=== PATIENT | female | born 1970 | race Caucasian/White ===

== ENCOUNTER 2024-12-13 19:19 | Emergency (ER) | payer MEDICARE, MEDICAID, SELFPAY ==
--- OUTSIDE RECORDS SUMMARY | 2024-10-15 14:50 | XMS_ITS | Encounter Summary ---
Author Organization [facility] Address [address] [place] [address] Care Team Providers Care Courtesy Bus Driver Name Role Phone Yamile Coffey MD Primary Care Provider [phone] Reason for Visit * Reason Comments Consult Evaluation for gastr ic stimulator battery change * Consultation (Routine) - Closed Specialty Diagnoses / Procedures Referred By Carolina seo Referred To Contact General Surgery Diagnoses Gastroparesis Michelle Spence NP [address] [place] [address] Phone: tel: [place]: [place] [address] [place] [address] [address] [place] [address] Phone: tel: fax: Referral ID Status Reason Start Date Expiration Date V isits Requested Visits Authorized [id number] Closed Specialty Services Required 07/31/2024 08/30/2025 1 1 Encounter Details Date Type Department Care Team ([facility] st Contact Info) Description 10/15/2024 2:50 PM EDT Telemedicine [facility] - [facility] [address] [place] [address] [address] [place] [id number] Vaibhav Godoy MD [facility] [address] [place] [id number] Idiopathic gastroparesis (Primary Dx) Social History Tobacco Use Types Packs/Day Years Used Date Smoking Tobacco: Former Passive Smoke Exposure: Past Smokeless Tobacco: Never Alcohol Use Standard Drinks/Week Comments Never 0 (1 standard drink = 0.6 oz pur e alcohol) AUDIT-C Answer Date Recorded Q1: How often do you have a drink containing alc ohol? Never 04/05/2021 Q2: How many drinks containi ng alcohol do you have on a typical day when you are drinking? Not asked 04/05/2021 Q3: How often do you have six or more drinks on one occasion? Never 04/05/2021 Comments Unknown Sex and Gender Information Value Date Recorded Sex Assigned at Female 09/20/2022 9:30 AM EDT Legal Sex Female 6:11 PM EDT Gender Identity Female 09/20/2022 9:30 AM EDT Sexual Orientation Straight 09/20/2022 9: 30 AM EDT documented as of this encounter Last Filed Vital Signs Vital Sign Reading Time Taken Comments Blood Pressure - - Pulse - - Temperature - - Respiratory Rate - - Oxygen Saturation - - Inhaled Oxygen Concentration - - Weight 86.6 kg (191 lb) 10/15/2024 12:09 PM EDT Height - - Body Mass Index 32.79 07/31/2024 8:03 AM EST documented in this encounter Progress Notes * Vaibhav Godoy MD - 10/15/2024 2:50 PM EDT Surgical Consult Note Izabella Sumner was located at home and I was located at my office for this telemedicine/telephone encounter. We utilized Telephone only for the encounter and Izabella Sumner and I were able to hear each other simultaneously in real time. I introduced myself and verified Izabella Sumner identity. I explained how the telemedicine visit will occur. I advised Izabella D Burak that technology- related delays and breaches of privacy are potential risks associated with conducting the encounter via telemedicine. I also advised Izabella Sumner that at any point she may terminate the telemedicine encounter and withdraw her consent for receiving care via telemedicine without affecting her ability to receive future care from us, and that I may also terminate the telemedicine encounter if I determine that an in-p erson visit is more appropriate for the condition[s] for which treatment is sought. Having covered these considerations, Izabella Sumner verbally acknowledged them and gave consent forthe use of telemedicine in her care. Subjective Patient ID: Izabella Sumner is a 54 y.o. female. The following portions of the chart were reviewed this encounter and updated as appropriate: Chief Complaint Chief Complaint Patient presents with Consult Evaluation for gastric stimulator battery change Past Medical History She has a past medical history of Gastroparesis. Surgical History She has a past surgical history that includes Gastric stimulator implant surgery. Tobacco History She reports that she has quit smoking. She has been exposed to tobacco smoke. She has never used smokeless tobacco. Social History She reports that she has quit smoking. She has been exposed to tobacco smoke. She has never used smokeless tobacco. She reports that she does not drink alcohol and does not use drugs. HPI HPI [] Patient presents with chronic idiopathic gastroparesis. They have had a gastric stimulator and are in need of battery change There were no vitals filed for this visit. Current Medications[1] Allergies[2] Medical History[3] Active Problems Problem List[4] Review of Systems: Review of Systems Patient filled out a complete review of systems. I reviewed this information and discussed with thepatient pertinent positives. The information was then scanned into the chart Objective Physical Exam: Physical Exam Deferred Assessment/Plan Diagnoses/Orders: There are no diagnoses linked to this encounter. We will plan for gastric neurostimulator battery change Discussed risk and benefits in detail including the possibility of hematoma and of generator site infection I went over the postop care in detail and answered all questions We will schedule at patient's convenience I spent 21 minutes in phone conversation. Call start time of 3:25 pm, call end time 3:46 pm. Vaibhav Godoy General Surgery [facility] 10/15/2024 3:45 PM [1] Current Outpatient Medications Medication Sig Dispense Refill ALPRAZolam (Xanax) 1 MG tablet cyclobenzaprine (Flexeril) 10 MG tablet estradiol (Estrace) 0.5 MG tablet famotidine (Pepcid) 20 MG tablet TAKE 1 TABLET BY MOUTH 2 TIMES A DAY. 30 tablet 2 gabapentin (Neurontin) 300 MG capsule Heparin Sod, Porcine,-D10 50-10 UNT/50ML-% solution prefilled syringe loratadine (Claritin) 10 MG tablet meclizine (Antivert) 25 MG tablet TAKE 1 TABLET BY MOUTH 3 TIMES A DAY IF NEEDED FOR DIZZINESS. 120tablet 2 Motegrity 2 MG tablet TAKE ONE TABLET BY MOUTH ONCE DAILY 30 tablet 10 ondansetron (Zofran) 40 MG/20ML solution pantoprazole (ProtoNix) 40 MG EC tablet Take 1 tablet (40 mg total) by mouth 2 (two) times a day before meals. Do not crush, chew, or split. 30 tablet 6 promethazine (Promethegan) 25 MG suppository INSERT 1 SUPPOSITORY (25 MG TOTAL) INTO THE RECTUM EVERY 6 (SIX) HOURS IF NEEDED FOR NAUSEA OR VOMITING. 60 each 1 sodium chloride 0.45 % solution venlafaxine XR (Effoxor-XR) 150 MG 24 hr capsule Ventolin HFA 108 (90 Base) MCG/ACT inhaler Zembrace SymTouch 3 MG/0.5ML solution auto-injector No current facility-administered medications for this visit. [2] Allergies Allergen Reactions Codeine Nausea And Vomiting Nausea/ GI Intolerance [3] Past Medical History: Diagnosis Date Gastroparesis [4] Patient Active Problem List Diagnosis Abdominal pain, epigastric Autoantibody level - finding Disorder of abdomen Constipation alternates with diarrhea Dysphagia Gastroparesis syndrome Left lower quadrant pain Nausea and vomiting Neck pain Patient encounter status Peripherally inserted central venous catheter in situ Protein-calorie malnutrition Abdominal pain Anxiety Arthritis Asthenia Cardiac murmur Degeneration of cervical intervertebral disc Depressive disorder Irritable bowel syndrome Migraine Scoliosis deformity of spine Intestinal obstruction Weight loss documented in this encounter Plan of Treatment Upcoming Encounters Date Type Department Care Team (Late st Contact Info) Description 02/12/2025 1:30 PM EDT Office Visit [facility] [address] [place] [address] Michelle Spence NP [address] [place] [address] Scheduled Referrals Name Type Priority Associated Diagnoses Order Schedule Ambulatory referral to General Surgery Outpatient Referral Routine Gastroparesis Ordered: 07/31/2024 documented as of this encounter Visit Diagnoses Diagnosis Idiopathic gastroparesis- Primary documented in this encounter Care Teams Courtesy Bus Driver Relationship Specialty Start Date End Date Yamile Coffey MD [address] [facility], [place], [place] [id number] PCP - General Family Medicine 10/03/22 documented as of this encounter
--- OUTSIDE RECORDS SUMMARY | 2024-11-08 10:00 | XMS_ITS | Encounter Summary ---
Author Organization [facility] Address [address] [place] [address] Care Team Providers Care Administrative Accountant Name Role Phone Yamile Coffey MD Primary Care Provider [phone] Reason for Visit * Consultation (Routine) - Closed Specialty Diagnoses / Procedures Referred By Carolina t Referred To Contact General Surgery Diagnoses Idiopathic gastroparesis Vaibhav Godoy MD [address] [facility] [address] [facility] [place] [address] Phone: tel: fax: [facility] [address] [place] [address] Referral ID Status Reason Start Date Expiration Date Visits Re quested Visits Authorized [id number] Closed 10/30/2024 11/29/2025 1 1 Encounter Details Date Type Department Care Team (Late st Contact Info) Description 11/08/2024 10:00 AM EDT External Surgery [facility] [place] [facility] [address] [place], [place] [address] [place] [address] Vaibhav Godoy MD [facility] [place] [phone] Social History Tobacco Use Types Packs/Day Years [...] AM EDT documented as of this encounter Plan of Treatment Upcoming Encounters Date Type Department Care Team (Late st Contact Info) Description 02/12/2025 1:30 PM EDT Office Visit [facility] [address] [facility] [address] [place] [address] Michelle Spence NP [address] [facility] [address] [place] [address] Scheduled Referrals Name Type Priority Associated Diagnoses Orde r Schedule Surgical Scheduling referral Procedure: INSERTION, GASTRIC ELECTRICAL STIMULATOR Outpatient Referral Routine Idiopathic gastroparesis Ordered: 10/30/2024 documented as of this encounter Visit Diagnoses Not on filedocumented in this encounter Care Teams Administrative Accountant Relationship Specialty Start Date End Date Yamile Coffey MD [address] Yamile Coffey [facility], [place] [address] PCP - General Family Medicine 10/03/22 documented as of this encounter
--- OUTSIDE RECORDS SUMMARY | 2024-12-13 20:35 | XMS_ITS | Encounter Summary ---
Author Organization [facility] Address [address] [place] [address] Care Team Providers Care Recreation Officer Name Role Phone Yamile Coffey MD Primary Care Provider [phone] Encounter Details Date Type Department Care Team (Latest Contact Info) Description 10/15/2024 Travel Social History Tobacco Use Types Packs/Day Years [...] [facility] [address] [facility] [address] [place] [address] Michelle Spence, JULIANN [address] [place] [address] documented as of this encounter Visit Diagnoses Not on filedocumented in this encounter Care Teams Recreation Officer Relationship Specialty Start Date End Date Yamile Coffey MD [address] Yamile Coffey [facility], [place] [address] PCP - General Family Medicine 10/03/22 documented as of this encounter
--- OUTSIDE RECORDS SUMMARY | 2024-12-13 20:36 | XMS_ITS | Encounter Summary ---
Author Organization [employer] ([place], [place], [place], [place]) Address [address] [place] [address] Care Team Providers Care Tool And Die Repair Name Role Phone Yamile Coffey MD Primary Care Provider [phone] Kandace Castro APRN Unavailable [phone] Aaron Ribera MD Unavailable [phone] Encounter Details Date Type Department Care Team (Late st Contact Info) Description 10/05/2018 Transcribed Document [facility] Family Medicine [facility] [place] [address] ProviderMeggan MD [address] [place] [address] Social History Tobacco Use Types Packs/Day Years Used Date Smoking Tobacco: Never Assessed Comments Unknown Sex and Gender Information Value Date Recorded Sex Assigned at Not on file Legal Sex Female 4:07 PM CDT Gender Identity Not on file Sexual Orientation Not on file documented as of this encounter Miscellaneous Notes * Cerner Conversion Note - Meggan ProviderMD - 10/05/2018 2:34 PM CDT ED Assessment Entered On: 10/05/2018 15:47 EDT Performed On: 10/05/2018 15:46 EDT by Surendra Roe CONVERSION DEVELOPER Quick Look Assessment Level of Consciousness : Alert, Awake Affect/Behavior : Appropriate, Calm Orientation : Oriented x 4 Surendra Roe RN - 10/05/2018 15:46 EDT ED General-Functional Assess Information Obtained From : Patient Preferred Communication Mode : Verbal Communication Barrier : None Primary Language : Grenadian Any Spiritual/Cultural Needs or Requests : No Currently in Unsafe Situation : No Surendra Roe RN - 10/05/2018 15:46 EDT Social Habits Smoking Status : Former smoker, quit more than 30 days ago Smokeless Tobacco Status : Never Desires Tobacco Cessation Calc : 0 Surendra Roe RN - 10/05/2018 15:46 EDT Social History (As Of: 10/05/2018 15:47:42 EDT) Tobacco: Use in Last 12 Months: No. Smoking Status Former smoker. Years of Use: 15. Packs/Tins Daily: 1. Last Used: 2004. (Last Updated: 03/05/2015 09:22:33 EDT by MAGALYS MCLEAN RN) Alcohol: Use in Last 12 Months: No. (Last Updated: 01/22/2013 09:22:53 EDT by WILMER ESTRADA RN) Substance Abuse: Drug Use Hx: No. Use in Last 12 Months: No. (Last Updated: 03/05/2015 09:23:04 EDT by MAGALYS MCLEAN RN) Nutrition/Health: Caffeine intake amount: coffee 1 cup daily. (Last Updated: 03/05/2015 09:22:52 EDT by MAGALYS MCLEAN, RN) Home/Environment: Lives with Children, Spouse, granddaughter. (Last Updated: 12/28/2016 14:47:55 EDT by MAGALY CALABRESE, PETE) Employment/School: Unemployed (Last Updated: 12/28/2016 14:48:01 EDT by MAGALY CALABRESE, PETE) EENT Assessment EENT Assessment WDL : Surendra Hinds RN - 10/05/2018 15:46 EDT Gastrointestinal ED Gastrointestinal Assessment WDL : Surendra Hinds RN - 10/05/2018 15:46 EDT Genitourinary Assessment, ED Genitourinary Assessment WDL : Surendra Hinds RN - 10/05/2018 15:46 EDT Musculoskeletal Musculoskeletal Assessment WDL : Surendra Hinds RN - 10/05/2018 15:46 EDT Integumentary Assessment Integumentary Assessment WDL : JONAH with exceptions (Comment: pt here c/o possible PICC line infection states thenderness around insertions site noredness or drainage noted [Surendra Roe, RN - 10/05/2018 15:46 EDT] ) Surendra Roe RN - 10/05/2018 15:46 EDT Neurologic ASMT, ED Neurologic Assessment WDL : WDSurendra Batista RN - 10/05/2018 15:46 EDT Electronically signed by [facility], [facility] Conversion Hot Metal Mixer Operator Helper Cerner at 09/16/2022 11:06 AM CDT documented in this encounter Plan of Treatment Not on file documented as of this encounter Visit Diagnoses Not on filedocumented in this encounter Care Teams Tool And Die Repair Relationship Specialty Start Date End Date Yamile Coffey MD [address] [facility] [address] [place] [address] PCP - General Family Medicine 03/23/22 Kandace Castro APRN [address] [facility] [address] [place] [address] Neurologist Neurology 08/29/23 Aaron Ribera MD [address] [facility] [address] [place] [address] Surgeon Cardiothoracic Surgery 09/13/23 documented as of this encounter
--- OUTSIDE RECORDS SUMMARY | 2024-12-13 20:36 | XMS_ITS | Encounter Summary ---
Author Organization [employer] ([place], [place], [place], [place]) Address [address] [place] [address] Care Team Providers Care Supply Coordinator Name Role Phone Yamile Coffey MD Primary Care Provider [phone] Kandace Castro APRN Unavailable [phone] Aaron Ribera MD Unavailable [phone] Encounter Details Date Type Department Care Team (Late st Contact Info) Description 06/17/2019 Transcribed Document [facility] [place] [facility] [place] [address] ProviderMeggan MD [address] [place] [address] Social History Tobacco Use Types Packs/Day Years Used Date Smoking Tobacco: Never Assessed Comments Unknown Sex and Gender Information Value Date Recorded Sex Assigned at Not on file Legal Sex Female 4:07 PM CDT Gender Identity Not on file Sexual Orientation Not on file documented as of this encounter Miscellaneous Notes * Cerner Conversion Note - Meggan ProviderMD - 06/17/2019 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 [address] MARGARITO PADILLA :1970 Visit Time:06/17/2019 Your Visit Summary Your Care Team Primary Provider: MEHDI CHARLTON Secondary Provider: Your Diagnosis Cough Pneumonia Reactive airway disease with wheezing Medical Information You may obtain a copy of your Emergency Department visit from Medical Records by calling the hospital phone number listed above and asking to be directed to the Medical Records Department. If you had special tests, such as EKG???s or X-rays, the interpretation of your tests given to you by the Emergency Department Physician is a preliminary report. Some fractures and illnesses fail to show up on preliminary tests. These will be reviewed again and we will call you if there are any new suggestions. If your symptoms continue notify your physician. After you leave, you should follow the instructions provided. What to do next Follow-Up Appointments Follow Up with UNKNOWN PHY When Within 2 to 3 days Allergies codeine (Nausea) Immunizations This Visit No Immunizations Found Medications What How Much When Instructions Next Dose New albuterol (albuterol CFC free 90 mcg/ inh inhalation aerosol with adapter) 2 Puff(s) Inhalation Four Times A Day Pickup at [facility] New doxycycline (doxycycline hyclate 100 mg oral capsule) 1 Capsule(s) Oral Two Times A Day Duration: 10 Day(s) Pickup at [facility] New predniSONE (predniSONE 10 mg oral tablet) 2 Tablet(s) Oral Two Times A Day Duration: 3 Day(s) with food Pickup at [facility] Pharmacy Information [facility]: [address] [place] [address] [address] [place], [place] [id number] [phone] The home medications listed are only as accurate as the information you provided. Please continue taking all of your medications prescribed by your Primary Care Provider unless specifically told to change or discontinue the medication. Please direct any questions regarding your home medications to your Primary Care Provider. Take your medications faithfully. Do NOT skip medication. Do NOT stop taking medications without the direction of a physician. Carry a list of your medications with you at all times, and take this medication list with you to your first follow up visit. Report any side effects. Avoid herbal remedies unless discussed with your physician. As part of your treatment plan, your physician may have prescribed a limited course of a controlled substance. This medication may be given to help people with moderate or severe pain or for other medical conditions, but there are risks involved with treatment. Common side effects may include nausea, constipation, drowsiness, sweating, itching, dry mouth, and rash. More serious side effects may include cognitive and motor impairment, like problems with thinking, concentrating, alertness, and movement (e.g. slowed reflexes), and driving and operating heavy machinery can be dangerous. It is important for you to talk to your physician if you have these side effects or questions. These controlled substances can produce physical dependence and be habit-forming if taken for an extended period of time, which means that the body has gotten used to them and may experience withdrawal symptoms if they are abruptly stopped. Withdrawal symptoms can include runny nose, sweating, goose bumps, diarrhea, abdominal cramping, rapid heartbeat, difficulty sleeping, and nervousness. Please dispose of unused and medications per pharmacy guidance. Test Results Laboratory or Other Results This Visit (last charted value for your 06/17/2019 visit) Diagnostic Radiology 06/17/2019 3:27 PM CR Chest 2 Vws: CR Chest 2 Vws Education Materials Community-Acquired Pneumonia, Adult Pneumonia is an infection of the lungs. One type of pneumonia can happen while a person is in a hospital. A different type can happen when a person is not in a hospital (community-acquired pneumonia). It is easy for this kind to spread from person to person. It can spread to you if you breathe near an infected person who coughs or sneezes. Some symptoms include: ??? A dry cough. ??? A wet (productive) cough. ??? Fever. ??? Sweating. ??? Chest pain. Follow these instructions at home: ??? Take axis-hnx-dzqogwg and prescription medicines only as told by your doctor. ? Only take cough medicine if you are losing sleep. ? If you were prescribed an antibiotic medicine, take it as told by your doctor. Do not stop taking the antibiotic even if you start to feel better. ??? Sleep with your head and neck raised (elevated). You can do this by putting a few pillows under your head, or you can sleep in a recliner. ??? Do not use tobacco products. These include cigarettes, chewing tobacco, and e-cigarettes. If you need help quitting, ask your doctor. ??? Drink enough water to keep your pee (urine) clear or pale yellow. A shot (vaccine) can help prevent pneumonia. Shots are often suggested for: ??? People older than 65 years of age. ??? People older than 19 years of age: ? Who are having cancer treatment. ? Who have long-term (chronic) lung disease. ? Who have problems with their body's defense system (immune system). You may also prevent pneumonia if you take these actions: ??? Get the flu (influenza) shot every year. ??? Go to the dentist as often as told. ??? Wash your hands often. If soap and water are not available, use hand tour sales representative. Contact a doctor if: ??? You have a fever. ??? You lose sleep because your cough medicine does not help. Get help right away if: ??? You are short of breath and it gets worse. ??? You have more chest pain. ??? Your sickness gets worse. This is very serious if: ? You are an older adult. ? Your body's defense system is weak. ??? You cough up blood. This information is not intended to replace advice given to you by your health care provider. Make sure you discuss any questions you have with your health care provider. Document Released: 10/31/2008 Document Revised: 10/20/2016 Document Reviewed: 09/09/2015 [employer] Interactive Patient Education ?? 2019 [employer]. Emergency Awareness and Preventative Care STROKE is an EMERGENCY Every Minute Counts Act FAST and Check for these signs: FACE Does the face look uneven? ARM Does one arm drift down? SPEECH Does their speech sound strange? TIME Call at any sign of stroke Stroke Risk Factors Atrial Fibrillation (irregular heartbeat) Diabetes Family history of stroke Heart Disease Heavy alcohol use High Blood Pressure High Cholesterol Physical inactivity and obesity Smoking Cigarette Smoking The facts are clear, cigarette smoking will shorten your life. Smoking can cause many illnesses along the way. As a healthcare provider, we recommend that you stop smoking. Assistance with quitting is available by contacting 2-509-SEVE-NOW. This is a free resource providing counseling, support, and referral. Or you may contact your personal physician. National Suicide Prevention Lifeline: The National Suicide Prevention Lifeline is a national network of local crisis centers that provides free and confidential emotional support to people in suicidal crisis or emotional distress 24 hours a day, 7 days a week. Don't Wait! Stop a Heart Attack Before it Starts What is a heart attack? A heart attack is damage or to a part of the heart from severely decreased or lack of blood flow to the heart. Over time, arteries can become narrow from the buildup of fat and cholesterol, which is called plaque. The plaque can rupture causing a blood clot to form. When the blood clot forms, the artery can become severely narrowed or completely blocked, causing a heart attack. Heart attack is the leading cause of in the [place]. 85% of muscle damage occurs within the first 2 hours. Delay in the recognition of heart attack symptoms increases the chances of . Know the early symptoms of a heart attack: Nausea Feeling of fullness in chest Jaw Pain Pain that travels down one or both arms Fatigue/being tired Anxiety Back Pain Chest pressure, squeezing, or discomfort Shortness of breath Sweating, or a cold sweat Feeling of impending doom There are unusual signs of a heart attack, too! Women, the elderly, and diabetics may present with atypical symptoms: Fainting/dizziness Weakness Confusion Risk Factors for a Heart Attack Some heart disease risk factors, such as age and family history, cannot be changed. Others, like smoking and lack of exercise, can be changed. Smoking High Cholesterol High Blood Pressure Family History Obesity Age Gender (Males are at higher risk) Lack of Exercise Diabetes Diet Stress Excessive Alcohol Intake If you or someone you know is experiencing the signs and symptoms of a heart attack, DON???T DELAY. Call immediately and seek help. If someone collapses, perform CPR! Do not attempt to drive if you are having symptoms of heart attack. Hands-Only CPR Why Hands-Only CPR? Hands-Only CPR has been shown to be as effective as conventional CPR for cardiac arrests that occur outside of a hospital. Survival depends on immediately receiving CPR from someone nearby. How do you perform Hands-Only CPR? There are two easy steps: Call if you see a teen or adult collapse Push hard and fast in the center of the chest at a beat of 100 beats per minute. Save a life! 4 WAYS TO GET AHEAD OF SEPSIS SEPSIS is a MEDICAL EMERGENCY. Time matters! Infections put you and your family at risk for a life-threatening condition called sepsis. Sepsis is the body's extreme response to an infection. It is life-threatening, and without timely treatment, sepsis can rapidly lead to tissue damage, organ failure, and . Sepsis happens when an infection you already have-in your skin, lungs, urinary tract or somewhere else-triggers a chain reaction throughout your body. 1 PREVENT INFECTIONS Take good care of chronic conditions. Talk to your doctor about getting the recommended vaccines. 2 PRACTICE GOOD HYGIENE Wash your hands frequently. Keep cuts or open sores clean and covered until they are healed. 3 KNOW THE SYMPTOMS Confusion or disorientation Shortness of breath High heart rate Fever, shivering, or feeling very cold Extreme pain or discomfort Clammy or sweaty skin 4 ACT FAST Get medical care IMMEDIATELY if you suspect sepsis or if you have an infection that is not getting better or is getting worse. To learn more about sepsis and how to prevent infections, visit www.cdc.gov/sepsis. The examination and treatment you have received in the Emergency Department has been done to provide an appropriate evaluation and stabilizing treatment on an emergency basis only. Given the limited resources, it is not meant to be a substitute for complete medical care. The follow-up doctor you named will receive a copy of your records and all test reports. IT IS IMPORTANT THAT YOU SCHEDULE A FOLLOW-UP APPOINTMENT AND ARE RE-EVALUATED. You should report any new complaints, symptoms, or remaining problems at that time. IT IS IMPOSSIBLE FOR THE EMERGENCY DEPARTMENT TO RECOGNIZE AND TREAT ALL ELEMENTS OF INJURY OR ILLNESS IN A SINGLE VISIT. If you have been referred to a specialist physician, it means that we believe you may have a condition that requires the expertise of a specialist. These physicians work in partnership with the hospital and have agreed to see referred patients in their office for further evaluation. KEEP IN MIND THAT THE SPECIALIST HAS HIS/HER OWN OFFICE POLICIES WHICH MAY REQUIRE PROPER INSURANCE OR PAYMENT UP FRONT BEFORE THE SPECIALIST WILL SEE YOU. It is your responsibility to call the specialist physician to make an appointment. We do not have the ability to refer patients to specialists/physicians that work with specific insurance companies. Please be advised that all financial charges or billing practices are determined by that practice, not the hospital. If your insurance company requires that you see a specialist from their approved list, it is your responsibility to contact your insurance company to make those arrangements. It is also your responsibility to follow any other requirements of your insurance company necessary to obtain coverage for claims submitted. We will bill your insurance; however, you are responsible today for any co-pay amounts. You will receive a separate bill for any services you may have received including: emergency, radiology, or pathology physicians. Patient Name:MARGARITO PADILLA Emily I have received this information and was given the opportunity to ask questions. Patient/Vice President Sales And Marketing Name: Patient/Vice President Sales And Marketing Signature: Relationship to Patient: Clinician/Hospital Vice President Sales And Marketing Signature: Please Provide a Telephone Number Where You Can Be Reached: Is it Permissible To Leave a Message? Date: documented in this encounter Plan of Treatment Not on file documented as of this encounter Visit Diagnoses Not on filedocumented in this encounter Care Teams Supply Coordinator Relationship Specialty Start Date End Date Yamile Coffey MD [address] [address] PCP - General Family Medicine 03/23/22 Kandace Castro APRN [address] [facility] [address] [place] [address] Neurologist Neurology 08/29/23 Aaron Ribera MD [address] [facility] [address] [place] [address] Surgeon Cardiothoracic Surgery 09/13/23 documented as of this encounter
--- OUTSIDE RECORDS SUMMARY | 2024-12-13 20:36 | XMS_ITS | Encounter Summary ---
Author Organization [employer] ([place], [place], [place], [place]) Address [address] [place] [address] Care Team Providers Care Rug Layer Name Role Phone Yamile Coffey MD Primary Care Provider [phone] Kandace Castro APRN Unavailable [phone] Aaron Ribera MD Unavailable [phone] Encounter Details Date Type Department Care Team (Late st Contact Info) Description 05/17/[address] 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 The PICC is a thin, flexible tube (catheter) that is inserted into a vein in your arm or leg. The PICC is guided through your vein until the tip sits in a large vein just outside your heart (superior vena cava or SVC). A PICC may be removed if it is no longer needed, if it causes infection, or if it is not working properly. This is usually a painless procedure. Only a trained health care provider should do this procedure. Do not try to remove a PICC line yourself. Tell a health care provider about: ??? Any allergies you have. ??? All medicines you are taking, including vitamins, herbs, eye drops, creams, and xkbk-wuo-onyexjr medicines. ??? Any problems you or family members have had with anesthetic medicines. ??? Any blood disorders you have. ??? Any surgeries you have had. ??? Any medical conditions you have. ??? Whether you are or may be . What are the risks? Generally, this is a safe procedure. However, problems may occur, including: ??? Bleeding. ??? Infection. ??? Vein blockage due to an air bubble (air embolism). What happens before the procedure? A conversation with your health care team. You need an order from your health care provider to have the PICC removed. ??? Follow instructions from your health care provider about eating or drinking restrictions. ??? Ask your health care provider about: ? Changing or stopping your regular medicines. This is especially important if you are taking diabetes medicines or blood thinners. ? Taking sdku-bbe-aclnooa medicines, vitamins, herbs, and supplements. ? Taking medicines such as aspirin and ibuprofen. These medicines can thin your blood. Do not take these medicines unless your health care provider tells you to take them. ??? Plan to have a responsible adult care for you for at least 24 hours after you leave the hospital or clinic. This is important. What happens during the procedure? To reduce your risk of infection: ? Your health care team will wash or sanitize their hands. ? Your skin will be washed with soap. ? Hair may be removed from the surgical area. ??? You will lie down flat. Your head may be positioned slightly lower than your heart. You may be instructed to keep as still as possible during the procedure. ??? The bandage (dressing) over the PICC will be removed. ??? The place where the PICC tube exits the body (exit site) will be cleaned with a germ-killing (antiseptic) solution. ??? A germ-free (sterile) gauze pad will be held gently over the exit site. ??? The health care provider will pull out the PICC tube slowly and steadily. You may be asked to hold your breath or exhale while this is done. ??? After the PICC tube is removed, the health care provider will gently press on the exit site for about five minutes. ??? Antibiotic or petroleum-based ointment will be applied to the exit site. ??? The exit site will be covered with an airtight (occlusive) sterile dressing, or another type of dressing. ??? The PICC will be inspected to make sure that the entire tube has been removed. Part of the PICC may be tested for bacteria. The procedure may vary among health care providers and hospitals. What happens after the procedure? You may need to stay lying down. ??? You will be monitored to make sure that: ? There is no fluid draining from the exit site. ? There are no signs of an air embolism. Summary ??? A PICC may be removed if it is no longer needed, if it causes infection, or if it is not working properly. ??? Only a trained health care provider should do this procedure. Do not try to remove a PICC line yourself. ??? Generally, this is a safe procedure. However, problems may occur, including bleeding, infection, or air embolism. ??? Plan to have someone with you for 24 hours after the procedure. ??? After the procedure, you will be monitored to make sure that there is no fluid draining from the site and that there are no signs of an air embolism. This information is not intended to replace advice given to you by your health care provider. Make sure you discuss any questions you have with your health care provider. Document Released: 11/02/2010 Document Revised: 07/11/2017 Document Reviewed: 07/11/2017 [employer] Interactive Patient Education ? 2019 [employer] documented in this encounter Plan of Treatment Not on file documented as of this encounter Visit Diagnoses Not on filedocumented in this encounter Care Teams Rug Layer Relationship Specialty Start Date End Date Yamile Coffey MD [address] [place] [address] PCP - General Family Medicine 03/23/22 Kandace Castro APRN [address] [facility] [address] [place] [address] Neurologist Neurology 08/29/23 Aaron Ribera MD [address] [facility] [address] [place] [address] Surgeon Cardiothoracic Surgery 09/13/23 documented as of this encounter
--- OUTSIDE RECORDS SUMMARY | 2024-12-13 20:36 | XMS_ITS | Encounter Summary ---
Author Organization [employer] ([place], [place], [place], [place]) Address [address] [place] [address] Care Team Providers Care Natural Gas Shothole Driller Name Role Phone Isaiah Collins MD Primary Care Provider Kandace Castro APRN Unavailable [phone] Aaron Ribera MD Unavailable [phone] Encounter Details Date Type Department Care Team (Late st Contact Info) Description 10/05/2018 Transcribed Document [facility] [place] [address] ProviderMeggan MD [address] [place] [address] Social History Tobacco Use Types Packs/Day Years Used Date Smoking Tobacco: Never Assessed Comments Unknown Sex and Gender Information Value Date Recorded Sex Assigned at Not on file Legal Sex Female 4:07 PM CDT Gender Identity Not on file Sexual Orientation Not on file documented as of this encounter Miscellaneous Notes * Cerner Conversion Note - Meggan Tamayo MD - 10/05/2018 4:09 PM CDT [facility] [place] [address] [place] [place] Emily :1970 Visit Time:10/05/2018 Your Visit Summary Your Care Team Admitting Physician - SHIRLENE RITTER MD Attending Physician - SHIRLENE RITTER MD Primary Care Physician - ISAIAH COLLINS (REF), MD-INT Your Diagnosis Medical screening exam Status post PICC central line placement Patient Portal Reminder: Be sure to sign up for the [facility] patient portal, which gives you 19/12 access to your medical information ??? including these discharge instructions ??? using your computer, smartphone, or tablet. Just go to [employer] to get started. Questions? Call . You may also obtain a copy of your Emergency Department [...] do next Follow-Up Appointments Follow Up with Patient Resource Center When Within 2 to 3 days Comments For further assistance with your Primary Care Physician please contact the Patient Resource Center at [phone]. Follow Up with ISAIAH COLLINS When Within 2 to 3 days Where: [address] [place] [id number] [facility] (1) Allergies codeine (Nausea) Immunizations This Visit No Immunizations Found Medications What How Much When Instructions Next Dose acetaminophen (Tylenol 8 HR Arthritis Pain) 1,300 Milligram(s) Oral Every 8 Hours as needed for Pain DO NOT EXCEED 4000MG OF TYLENOL PER DAY---THIS INCLUDES AMOUNT WITH NORCO OR PERCOCET acetaminophen-hydrocodone (acetaminophen-HYDROcodone 325 mg-5 mg oral tablet) 1 Tablet(s) Oral Every 6 Hours as needed for for pain ALPRAZolam (Xanax 1 mg oral tablet) 1 Tablet(s) Oral Three Times A Day as needed for for anxiety cyclobenzaprine (Flexeril) 10 Milligram(s) Oral Every 8 Hours as needed for as needed for muscle spasm erenumab (Aimovig 70 mg/ mL subcutaneous solution) SubCutaneous Once a month estradiol (estradiol 1 mg oral tablet) 1 Tablet(s) Oral Every Day pantoprazole (Protonix 40 mg oral delayed release tablet) 1 Tablet(s) Oral Every Day promethazine (promethazine 12.5 mg oral tablet) 2 Tablet(s) Oral Every 6 Hours as needed for as needed for nausea/vomiting The home medications listed are only as [...] This Visit (last charted value for your 10/05/2018 visit) No Laboratory or Other Results This Visit Education Materials PICC Home Guide A peripherally inserted central catheter (PICC) is a long, thin, flexible tube that is inserted into a vein in the upper arm. It is a form of intravenous (IV) access. It is considered to be a central line because the tip of the PICC ends in a large vein in your chest. This large vein is called the superior vena cava (SVC). The PICC tip ends in the SVC because there is a lot of blood flow in the SVC. This allows medicines and IV fluids to be quickly distributed throughout the body. The PICC is inserted using a sterile technique by a specially trained nurse or physician. After the PICC is inserted, a chest X-ray exam is done to be sure it is in the correct place. A PICC may be placed for different reasons, such as: ??? To give medicines and liquid nutrition that can only be given through a central line. Examples are: ? Certain antibiotic treatments. ? Chemotherapy. ? Total parenteral nutrition (TPN). ??? To take frequent blood samples. ??? To give IV fluids and blood products. ??? If there is difficulty placing a peripheral intravenous (PIV) catheter. If taken care of properly, a PICC can remain in place for several months. A PICC can also allow a person to go home from the hospital early. Medicine and PICC care can be managed at home by a family member or home health care team. What problems can happen when I have a PICC? Problems with a PICC can occasionally occur. These may include the following: ??? A blood clot (thrombus) forming in or at the tip of the PICC. This can cause the PICC to become clogged. A clot-dissolving medicine called tissue plasminogen activator (tPA) can be given through the PICC to help break up the clot. ??? Inflammation of the vein (phlebitis) in which the PICC is placed. Signs of inflammation may include redness, pain at the insertion site, red streaks, or being able to feel a cord in the vein where the PICC is located. ??? Infection in the PICC or at the insertion site. Signs of infection may include fever, chills, redness, swelling, or pus drainage from the PICC insertion site. ??? PICC movement (malposition). The PICC tip may move from its original position due to excessive physical activity, forceful coughing, sneezing, or vomiting. ??? A break or cut in the PICC. It is important to not use scissors near the PICC. ??? Nerve or tendon irritation or injury during PICC insertion. What should I keep in mind about activities when I have a PICC? You may bend your arm and move it freely. If your PICC is near or at the bend of your elbow, avoid activity with repeated motion at the elbow. ??? Rest at home for the remainder of the day following PICC line insertion. ??? Avoid lifting heavy objects as instructed by your health care provider. ??? Avoid using a crutch with the arm on the same side as your PICC. You may need to use a walker. What should I know about my PICC dressing? Keep your PICC bandage (dressing) clean and dry to prevent infection. ? Ask your health care provider when you may shower. Ask your health care provider to teach you how to wrap the PICC when you do take a shower. ??? Change the PICC dressing as instructed by your health care provider. ??? Change your PICC dressing if it becomes loose or wet. What should I know about PICC care? Check the PICC insertion site daily for leakage, redness, swelling, or pain. ??? Do nottake a bath, swim, or use hot tubs when you have a PICC. Cover PICC line with clear plastic wrap and tape to keep it dry while showering. ??? Flush the PICC as directed by your health care provider. Let your health care provider know right away if the PICC is difficult to flush or does not flush. Do not use force to flush the PICC. ??? Do notuse a syringe that is less than 10 mL to flush the PICC. ??? Never pull or tug on the PICC. ??? Avoid blood pressure checks on the arm with the PICC. ??? Keep your PICC identification card with you at all times. ??? Do nottake the PICC out yourself. Only a trained clinical professional should remove the PICC. Get help right away if: ??? Your PICC is accidentally pulled all the way out. If this happens, cover the insertion site with a bandage or gauze dressing. Do not throw the PICC away. Your health care provider will need to inspect it. ??? Your PICC was tugged or pulled and has partially come out. Do not push the PICC back in. ??? There is any type of drainage, redness, or swelling where the PICC enters the skin. ??? You cannot flush the PICC, it is difficult to flush, or the PICC leaks around the insertion site when it is flushed. ??? You hear a flushing sound when the PICC is flushed. ??? You have pain, discomfort, or numbness in your arm, shoulder, or jaw on the same side as the PICC. ??? You feel your heart racing or skipping beats. ??? You notice a hole or tear in the PICC. ??? You develop chills or a fever. This information is not intended to replace advice given to you by your health care provider. Make sure you discuss any questions you have with your health care provider. Document Released: 11/19/2003 Document Revised: 12/02/2016 Document Reviewed: 03/07/2014 [employer] Interactive Patient Education ?? 2017 [employer]. Emergency Awareness and Preventative Care STROKE is [...] Assistance with quitting is available by contacting 1-757-HICZ-NOW. This is a free resource providing counseling, [...] including: emergency, radiology, or pathology physicians. Patient Name:MRAGARITO PADILLA I have received this information and was given the opportunity to ask questions. Patient/Deep Fat Cook Fry Name: Patient/Deep Fat Cook Fry Signature: Relationship to Patient: Clinician/Hospital Deep Fat Cook Fry Signature: Please Provide a Telephone Number Where You Can Be Reached: Is it Permissible To Leave a Message? Date: documented in this encounter Plan of Treatment Not on file documented as of this encounter Visit Diagnoses Not on filedocumented in this encounter Care Teams Natural Gas Shothole Driller Relationship Specialty Start Date End Date Isaiah Collins MD [address] [address] PCP - General Family Medicine 03/23/22 Kandace Castro, MELVIN [address] [facility] [address] [place] [address] Neurologist Neurology 08/29/23 Aaron Ribera MD [address] [place] [id number] Surgeon Cardiothoracic Surgery 09/13/23 documented as of this encounter
--- OUTSIDE RECORDS SUMMARY | 2024-12-13 20:36 | XMS_ITS | Encounter Summary ---
Author Organization [employer] ([place], [place], [place], [place]) Address [address] [place] [address] Care Team Providers Care Waste Water Worker Name Role Phone Yamile Coffey MD Primary Care Provider [phone] Kandace Castro APRN Unavailable [phone] Aaron Ribera MD Unavailable [phone] Encounter Details Date Type Department Care Team (Late st Contact Info) Description 06/17/2019 Transcribed Document [facility] [place] [facility] [address] ProviderMeggan MD [address] [place] [address] Social History Tobacco Use Types Packs/Day Years Used Date Smoking Tobacco: Never Assessed Comments Unknown Sex and Gender Information Value Date Recorded Sex Assigned at Not on file Legal Sex Female 4:07 PM CDT Gender Identity Not on file Sexual Orientation Not on file documented as of this encounter Miscellaneous Notes * Cerner Conversion Note - Historical ProviderMD - 06/17/2019 4:46 PM SPRING TACKER [address] [place] [address] PERSON INFORMATION Name MARGARITO PADILLA Age 49 Years 1970 Sex Female Language Ivorian PCP PHY, UNKNOWN Marital Status Med Service Emergency Medicine Acct# Arrival 06/17/2019 14:39:00 Visit Reason Cough; PAIN IN LUNG/PICC LINE Acuity 3 - Urgent LOS 000 02:07 Depart Date: 00:00 AM Address: [place] [address] Comment: PROVIDER INFORMATION Provider Role Assigned Unassigned MEHDI CHARLTON DO ED Physician 06/17/2019 16:31:13 Brittny Villa, DYNAMOMETER TUNER Nurse 06/17/2019 16:38:03 DIAGNOSIS Pneumonia; Reactive airway disease with wheezing PHYS DOC NOTES VITALS INFORMATION Vital Sign Triage Latest Temp Source Oral Oral Temp Mode Fahrenheit Fahrenheit Temp Fahrenheit 97.7 Deg F 97.7 Deg F Temp Celsius 02 Sat 99 % 99 % Respiratory Rate 18 Breaths/Min 18 Breaths/Min Peripheral Pulse Rate 96 bpm 96 bpm Apical Heart Rate Blood Pressure 140 mmHg / 99 mmHg 140 mmHg / 99 mmHg Comment: MEDICAL INFORMATION Allergy Info: codeine Medications: Comment: DISCHARGE INFORMATION Discharge Disposition: Discharge Location: PATIENT EDUCATION INFORMATION Instructions: Community-Acquired Pneumonia, Adult, [id number] Follow up: With: Address: When: UNKNOWN PHY Within 2 to 3 days Comment: documented in this encounter Plan of Treatment Not on file documented as of this encounter Visit Diagnoses Not on filedocumented in this encounter Care Teams Waste Water Worker Relationship Specialty Start Date End Date Yamile Coffey MD [address] [facility] 2 [place] [address] PCP - General Family Medicine 03/23/22 Kandace Castro, MELVIN [address] [facility] [address] [place] [address] Neurologist Neurology 08/29/23 Aaron Ribera MD [address] [facility] [address] [place], [place] [id number] Surgeon Cardiothoracic Surgery 09/13/23 documented as of this encounter
--- OUTSIDE RECORDS SUMMARY | 2024-12-13 20:36 | XMS_ITS | Encounter Summary ---
Author Organization [employer] ([place], [place], [place], [place]) Address [address] [place] [address] Care Team Providers Care Motor Assembly Supervisor Name Role Phone Yamile Coffey MD Primary Care Provider [phone] Kandace Castro APRN Unavailable [phone] Aaron Ribera MD Unavailable [phone] Encounter Details Date Type Department Care Team (Late st Contact Info) Description 06/19/2019 Transcribed Document [facility] [place] [facility] [address] ProviderMeggan MD [address] [place] [address] Social History Tobacco Use Types Packs/Day Years Used Date Smoking Tobacco: Never Assessed Comments Unknown Sex and Gender Information Value Date Recorded Sex Assigned at Not on file Legal Sex Female 4:07 PM CDT Gender Identity Not on file Sexual Orientation Not on file documented as of this encounter Miscellaneous Notes * Cerner Conversion Note - Meggan ProviderMD - 06/19/2019 2:38 AM PUBLICATION DISTRIBUTOR ED Assessment Entered On: 06/19/2019 2:49 EST Performed On: 06/19/2019 2:47 EST by Surendra Roe RN ED Quick Look Assessment Level of Consciousness : Alert, Awake Affect/Behavior : Appropriate, Calm Orientation : Oriented x 4 Surendra Roe RN - 06/19/2019 2:47 EST ED General-Functional Assess Information Obtained From : Patient Preferred Communication Mode : Verbal Communication Barrier : None Primary Language : Tuvaluan Any Spiritual/Cultural Needs or Requests : No Currently in Unsafe Situation : No Surendra Roe RN - 06/19/2019 2:47 EST Social Habits Smoking Status : Former smoker, quit more than 30 days ago Smokeless Tobacco Status : Never Desires Tobacco Cessation Calc : 0 Surendra Roe RN - 06/19/2019 2:47 EST Social History (As Of: 06/19/2019 02:49:18 EST) Tobacco: Use in Last 12 Months: No. [...] 03/05/2015 09:23:04 EDT by MAGALYS MCLEAN RN) Cardiovascular ASMT, ED Cardiovascular Assessment WDL : WDL with exceptions (Comment: pt here c/o left sided rib pin recently dx with pneumonia and taking abx and steroids states pain has worsened today [Surendra Roe RN - 06/19/2019 2:47 EST] ) Surendra Roe RN - 06/19/2019 2:47 EST Respiratory Respiratory Assessment WDL : Surendra Hinds RN - 06/19/2019 2:47 EST Gastrointestinal ED Gastrointestinal Assessment WDL : Surendra Hinds RN - 06/19/2019 2:47 EST Genitourinary Assessment, ED Genitourinary Assessment WDL : Surendra Hinds RN - 06/19/2019 2:47 EST Musculoskeletal Musculoskeletal Assessment WDL : Surendra Hinds RN - 06/19/2019 2:47 EST Integumentary Assessment Integumentary Assessment WDL : Surendra Hinds RN - 06/19/2019 2:47 EST Neurologic ASMT, ED Neurologic Assessment WDL : Surendra Hinds RN - 06/19/2019 2:47 EST documented in this encounter Plan of Treatment Not on file documented as of this encounter Visit Diagnoses Not on filedocumented in this encounter Care Teams Motor Assembly Supervisor Relationship Specialty Start Date End Date Yamile Coffey MD [address] [facility] 2 [place] [address] PCP - General Family Medicine 03/23/22 Kandace Castro, MELVIN [address] [facility] [address] [place] [address] Neurologist Neurology 08/29/23 Aaron Ribera MD [address] [facility] [address] [place] [address] Surgeon Cardiothoracic Surgery 09/13/23 documented as of this encounter
--- OUTSIDE RECORDS SUMMARY | 2024-12-13 20:36 | XMS_ITS | Encounter Summary ---
Author Organization [employer] ([place], [place], [place], [place]) Address [address] [place] [address] Care Team Providers Care Automobile Leasing Supervisor Name Role Phone Yamile Coffey MD Primary Care Provider [phone] Kandace Castro APRN Unavailable [phone] Aaron Ribera MD Unavailable [phone] Encounter Details Date Type Department Care Team (Late st Contact Info) Description 06/19/2019 Transcribed Document [facility] [place] Family Medicine Formerly [facility] [place] [address] ProviderMeggan MD [address] [place] [address] Social History Tobacco Use Types Packs/Day Years Used Date Smoking Tobacco: Never Assessed Comments Unknown Sex and Gender Information Value Date Recorded Sex Assigned at Not on file Legal Sex Female 4:07 PM CDT Gender Identity Not on file Sexual Orientation Not on file documented as of this encounter Miscellaneous Notes * Cerner Conversion Note - Meggan Tamayo MD - 06/19/2019 3:34 AM PHERESIS SPECIALIST [place] [address] MARGARITO PADILLA :1970 Visit Time:06/19/2019 Your Visit Summary Your Care Team Primary Provider: RIKKI FELIX MD Secondary Provider: Your Diagnosis Back pain Medical screening exam Muscle pain Pneumonia Medical Information You may obtain a copy [...] do next Follow-Up Appointments Follow Up with Follow up with primary care provider When Within 2 to 3 days Comments Follow-up with your primary care provider in 2-3 days for reevaluation. Return to the emergency department for any acute worsening of symptoms or acute new concerns. Allergies codeine (Nausea) Immunizations This Visit No Immunizations Found Medications What How Much When Instructions Next Dose Changed cyclobenzaprine (cyclobenzaprine 5 mg oral tablet) 1 Tablet(s) Oral Three Times A Day Duration: 3 Day(s) Printed Prescription Changed cyclobenzaprine (Flexeril) 10 Milligram(s) Oral Every 8 Hours as needed for as needed for muscle spasm The home medications listed are only as [...] This Visit (last charted value for your 06/19/2019 visit) No Laboratory or Other Results This Visit Education Materials Community-Acquired Pneumonia, Adult Pneumonia is an infection of the lungs. There are different types of pneumonia. One type can develop while a person is in a hospital. A different type, called community-acquired pneumonia, develops in people who are not, or have not recently been, in the hospital or other health care facility. What are the causes? Pneumonia may be caused by bacteria, viruses, or funguses. Community-acquired pneumonia is often caused by Streptococcus pneumonia bacteria. These bacteria are often passed from one person to another by breathing in droplets from the cough or sneeze of an infected person. What increases the risk? The condition is more likely to develop in: ??? People who have chronic diseases, such as chronic obstructive pulmonary disease (COPD), asthma, congestive heart failure, cystic fibrosis, diabetes, or kidney disease. ??? People who have early-stage or late-stage HIV. ??? People who have sickle cell disease. ??? People who have had their spleen removed (splenectomy). ??? People who have poor dental hygiene. ??? People who have medical conditions that increase the risk of breathing in (aspirating) secretions their own mouth and nose. ??? People who have a weakened immune system (immunocompromised). ??? People who smoke. ??? People who travel to areas where pneumonia-causing germs commonly exist. ??? People who are around animal habitats or animals that have pneumonia-causing germs, including birds, bats, rabbits, cats, and farm animals. What are the signs or symptoms? Symptoms of this condition include: ??? A dry cough. ??? A wet (productive) cough. ??? Fever. ??? Sweating. ??? Chest pain, especially when breathing deeply or coughing. ??? Rapid breathing or difficulty breathing. ??? Shortness of breath. ??? Shaking chills. ??? Fatigue. ??? Muscle aches. How is this diagnosed? Your health care provider will take a medical history and perform a physical exam. You may also have other tests, including: ??? Imaging studies of your chest, including X-rays. ??? Tests to check your blood oxygen level and other blood gases. ??? Other tests on blood, mucus (sputum), fluid around your lungs (pleural fluid), and urine. If your pneumonia is severe, other tests may be done to identify the specific cause of your illness. How is this treated? The type of treatment that you receive depends on many factors, such as the cause of your pneumonia, the medicines you take, and other medical conditions that you have. For most adults, treatment and recovery from pneumonia may occur at home. In some cases, treatment must happen in a hospital. Treatment may include: ??? Antibiotic medicines, if the pneumonia was caused by bacteria. ??? Antiviral medicines, if the pneumonia was caused by a virus. ??? Medicines that are given by mouth or through an IV tube. ??? Oxygen. ??? Respiratory therapy. Although rare, treating severe pneumonia may include: ??? Mechanical ventilation. This is done if you are not breathing well on your own and you cannot maintain a safe blood oxygen level. ??? Thoracentesis. This procedure removes fluid around one lung or both lungs to help you breathe better. Follow these instructions at home: ??? Take aglr-qnw-lsggjyl and prescription medicines only as told by your health care provider. ? Only take cough medicine if you are losing sleep. Understand that cough medicine can prevent your body???s natural ability to remove mucus from your lungs. ? If you were prescribed an antibiotic medicine, take it as told by your health care provider. Do not stop taking the antibiotic even if you start to feel better. ??? Sleep in a semi-upright position at night. Try sleeping in a reclining chair, or place a few pillows under your head. ??? Do not use tobacco products, including cigarettes, chewing tobacco, and e-cigarettes. If you need help quitting, ask your health care provider. ??? Drink enough water to keep your urine clear or pale yellow. This will help to thin out mucus secretions in your lungs. How is this prevented? There are ways that you can decrease your risk of developing community-acquired pneumonia. Consider getting a pneumococcal vaccine if: ??? You are older than 65 years of age. ??? You are older than 19 years of age and are undergoing cancer treatment, have chronic lung disease, or have other medical conditions that affect your immune system. Ask your health care provider if this applies to you. There are different types and schedules of pneumococcal vaccines. Ask your health care provider which vaccination option is best for you. You may also prevent community-acquired pneumonia if you take these actions: ??? Get an influenza vaccine every year. Ask your health care provider which type of influenza vaccine is best for you. ??? Go to the dentist on a regular basis. ??? Wash your hands often. Use hand colliery clerk if soap and water are not available. Contact a health care provider if: ??? You have a fever. ??? You are losing sleep because you cannot control your cough with cough medicine. Get help right away if: ??? You have worsening shortness of breath. ??? You have increased chest pain. ??? Your sickness becomes worse, especially if you are an older adult or have a weakened immune system. ??? You cough up blood. This information is not intended to replace advice given to you by your health care provider. Make sure you discuss any questions you have with your health care provider. Document Released: 05/15/2006 Document Revised: 02/01/2018 Document Reviewed: 09/09/2015 [employer] Interactive Patient Education ?? 2019 [employer] Musculoskeletal Pain Musculoskeletal pain refers to aches and pains in your bones, joints, muscles, and the tissues that surround them. This pain can occur in any part of the body. It can last for a short time (acute) or a long time (chronic). A physical exam, lab tests, and imaging studies may be done to find the cause of your musculoskeletal pain. Follow these instructions at home: Lifestyle ??? Try to control or lower your stress levels. Stress increases muscle tension and can worsen musculoskeletal pain. It is important to recognize when you are anxious or stressed and learn ways to manage it. This may include: ? Meditation or yoga. ? Cognitive or behavioral therapy. ? Acupuncture or massage therapy. ??? You may continue all activities unless the activities cause more pain. When the pain gets better, slowly resume your normal activities. Gradually increase the intensity and duration of your activities or exercise. Managing pain, stiffness, and swelling ??? Take noua-pfq-cijspaz and prescription medicines only as told by your health care provider. ??? When your pain is severe, bed rest may be helpful. Lie or sit in any position that is comfortable, but get out of bed and walk around at least every couple of hours. ??? If directed, apply heat to the affected area as often as told by your health care provider. Use the heat source that your health care provider recommends, such as a moist heat pack or a heating pad. ? Place a towel between your skin and the heat source. ? Leave the heat on for 20???30 minutes. ? Remove the heat if your skin turns bright red. This is especially important if you are unable to feel pain, heat, or cold. You may have a greater risk of getting burned. ??? If directed, put ice on the painful area. ? Put ice in a plastic bag. ? Place a towel between your skin and the bag. ? Leave the ice on for 20 minutes, 2???3 times a day. General instructions ??? Your health care provider may recommend that you see a physical therapist. This person can help you come up with a safe exercise program. Do any exercises as told by your physical therapist. ??? Keep all follow-up visits, including any physical therapy visits, as told by your health care providers. This is important. Contact a health care provider if: ??? Your pain gets worse. ??? Medicines do not help ease your pain. ??? You cannot use the part of your body that hurts, such as your arm, leg, or neck. ??? You have trouble sleeping. ??? You have trouble doing your normal activities. Get help right away if: ??? You have a new injury and your pain is worse or different. ??? You feel numb or you have tingling in the painful area. Summary ??? Musculoskeletal pain refers to aches and pains in your bones, joints, muscles, and the tissues that surround them. ??? This pain can occur in any part of the body. ??? Your health care provider may recommend that you see a physical therapist. This person can help you come up with a safe exercise program. Do any exercises as told by your physical therapist. ??? Lower your stress level. Stress can worsen musculoskeletal pain. Ways to lower stress may include meditation, yoga, cognitive or behavioral therapy, acupuncture, and massage therapy. This information is not intended to replace advice given to you by your health care provider. Make sure you discuss any questions you have with your health care provider. Document Released: 05/15/2006 Document Revised: 06/14/2017 Document Reviewed: 06/14/2017 [employer] Interactive Patient Education ?? 2019 [employer]. Emergency Awareness and Preventative Care STROKE is [...] Assistance with quitting is available by contacting 3-936-ACWH-NOW. This is a free resource providing counseling, [...] was given the opportunity to ask questions. Patient/Income Tax Consultant Name: Patient/Income Tax Consultant Signature: Relationship to Patient: Clinician/Hospital Income Tax Consultant Signature: Please Provide a Telephone Number Where You Can Be Reached: Is it Permissible To Leave a Message? Date: Electronically signed by Freddy Castano Conversion Civil Engineering Project Manager Cerner at 09/16/2022 10:50 AM CDT documented in this encounter Plan of Treatment Not on file documented as of this encounter Visit Diagnoses Not on filedocumented in this encounter Care Teams Automobile Leasing Supervisor Relationship Specialty Start Date End Date aYmile Coffey MD [address] [facility] 2 [place] [address] PCP - General Family Medicine 03/23/22 Kandace Castro APRN [address] [facility] [address] [place] [address] Neurologist Neurology 08/29/23 Aaron Ribera MD [address] [facility] [address] [place] [address] Surgeon Cardiothoracic Surgery 09/13/23 documented as of this encounter
--- OUTSIDE RECORDS SUMMARY | 2024-12-13 20:36 | XMS_ITS | Encounter Summary ---
Author Organization [employer] ([place], [place], [place], [place]) Address [address] [place] [address] Care Team Providers Care Imposer Name Role Phone Yamile Coffey MD Primary Care Provider [phone] Kandace Castro APRN Unavailable [phone] Aaron Ribera MD Unavailable [phone] Encounter Details Date Type Department Care Team (Late st Contact Info) Description 06/17/2019 Transcribed Document [facility] [place] [address] [place] [address] ProviderMeggan MD [address] [place] [address] Social History Tobacco Use Types Packs/Day Years Used Date Smoking Tobacco: Never Assessed Comments Unknown Sex and Gender Information Value Date Recorded Sex Assigned at Not on file Legal Sex Female 4:07 PM CDT Gender Identity Not on file Sexual Orientation Not on file documented as of this encounter Miscellaneous Notes * Cerner Conversion Note - Meggan ProviderMD - 06/17/2019 2:39 PM PAPER WOOD CUTTER ED Triage Entered On: 06/17/2019 15:12 EST Performed On: 06/17/2019 15:08 EST by TC FRANCO, GREY ROLL WORKER Triage Across the Room Chief Complaint : Pt. has pain in Lt lung and worse with a deep breath. She has a non-prod cough x last week. She has a PICC line in Rt arm. Triage Date/Time : 06/17/2019 15:08 EST TC FRANCO, RN - 06/17/2019 15:08 EST DCP GENERIC CODE Tracking Acuity : 3 - Urgent Tracking Group : [facility] ED TC FRANCO RN - 06/17/2019 15:08 EST Mode of Arrival : Ambulatory Transported to ED by : Private vehicle To Room Via : Wheelchair Accompanied By : Spouse ED Vital Signs : Document Height & Weight : Document ED Allergies : Document ED Reason for Visit : Document Tetanus Immunization : Greater than 5 years TC FRANCO RN - 06/17/2019 15:08 EST Infectious Disease History Physical contact outside [place] in the last 30 days : No Infectious Disease History : Chicken pox/Shingles Tuberculosis Symptoms : None TC FRANCO RN - 06/17/2019 15:08 EST Vital Signs ED Temperature Source : Oral Temperature Mode : Fahrenheit Temperature, Fahrenheit : 97.7 Deg F Clinical Temperature, C : 36.5 Deg C Oxygen Therapy Mode : Room air Peripheral Pulse Rate : 96 bpm Respiratory Rate : 18 Breaths/Min Systolic Blood Pressure : 140 mmHg Diastolic Blood Pressure : 99 mmHg (HI) Oxygen Saturation : 99 % TC FRANCO RN - 06/17/2019 15:08 EST Allergy (As Of: 06/17/2019 15:12:45 EST) Allergies (Active) codeine Estimated Onset Date: Unspecified ; Reactions: Nausea ; Created By: WILMER ESTRADA RN; Reaction Status: Active ; Category: Drug ; Substance: codeine ; Type: Allergy ; Updated By: WILMER ESTRADA RN; Reviewed Date: 06/17/2019 15:10 EST Diagnosis Control ED (As Of: 06/17/2019 15:12:45 EST) Problems(Active) abd pain (SNOMED CT :60630872 ) Name of Problem: abd pain ; Recorder: WILMER ESTRADA RN; Confirmation: Confirmed ; Classification: Medical ; Code: [id number] ; Contributor System: SpectraScienceChart ; Last Updated: 03/15/2017 12:56 EDT ; Life Cycle Date: 01/22/2013 ; Life Cycle Status: Active ; Vocabulary: SNOMED CT Arthritis (SNOMED CT :4274547 ) Name of Problem: Arthritis ; Recorder: MAGALYS MCLEAN RN; Confirmation: Confirmed ; Classification: Medical ; Code: [id number] ; Contributor System: SpectraScienceChart ; Last Updated: 03/05/2015 9:20 EDT ; Life Cycle Date: 03/05/2015 ; Life Cycle Status: Active ; Vocabulary: SNOMED CT At risk for sleep apnea (IMO :96374158 ) Name of Problem: At risk for sleep apnea ; Recorder: SYSTEM, SYSTEM; Confirmation: Confirmed ; Classification: Medical ; Code: 57802189 ; Last Updated: 10/15/2018 6:45 EDT ; Life Cycle Date: 10/15/2018 ; Life Cycle Status: Active ; Vocabulary: IMO Bowel obstruction x 2 (SNOMED CT :052354347 ) Name of Problem: Bowel obstruction x 2 ; Recorder: JENNIFER AGUILAR RN PATIENT CARE 1; Confirmation: Confirmed ; Classification: Medical ; Code: 623435291 ; Contributor System: PowerChart ; Last Updated: 09/01/2016 10:56 EDT ; Life Cycle Date: 09/01/2016 ; Life Cycle Status: Active ; Vocabulary: SNOMED CT DDD (degenerative disc disease), cervical (SNOMED CT :345843180 ) Name of Problem: DDD (degenerative disc disease), cervical ; Recorder: MERI PHAM RN PATIENT CARE 1; Confirmation: Confirmed ; Classification: Patient Stated ; Code: [id number] ; Contributor System: PowerChart ; Last Updated: 10/12/2018 14:47 EDT ; Life Cycle Date: 10/12/2018 ; Life Cycle Status: Active ; Vocabulary: SNOMED CT DDD (degenerative disc disease), lumbosacral (SNOMED CT :929705607 ) Name of Problem: DDD (degenerative disc disease), lumbosacral ; Recorder: MERI PHAM RN PATIENT CARE 1; Confirmation: Confirmed ; Classification: Patient Stated ; Code: 362588419 ; Contributor System: PowerChart ; Last Updated: 10/12/2018 14:48 EDT ; Life Cycle Date: 10/12/2018 ; Life Cycle Status: Active ; Vocabulary: SNOMED CT depression/anxiety (SNOMED CT :78685015 ) Name of Problem: depression/anxiety ; Recorder: WILMER ESTRADA RN; Confirmation: Confirmed ; Classification: Medical ; Code: 16841539 ; Contributor System: PowerChart ; Last Updated: 11/12/2013 13:40 EDT ; Life Cycle Date: 01/22/2013 ; Life Cycle Status: Active ; Vocabulary: SNOMED CT Gastroparesis (SNOMED CT :265290819 ) Name of Problem: Gastroparesis ; Recorder: JENNIFER AGUILAR RN PATIENT CARE 1; Confirmation: Confirmed ; Classification: Medical ; Code: 621992877 ; Contributor System: PowerChart ; Last Updated: 09/01/2016 11:16 EDT ; Life Cycle Date: 09/01/2016 ; Life Cycle Status: Active ; Vocabulary: SNOMED CT heart murmur (SNOMED CT :367592393 ) Name of Problem: heart murmur ; Recorder: WILMER ESTRADA RN; Confirmation: Confirmed ; Classification: Medical ; Code: 370246231 ; Contributor System: PowerChart ; Last Updated: 11/11/2013 14:25 EDT ; Life Cycle Date: 01/22/2013 ; Life Cycle Status: Active ; Vocabulary: SNOMED CT ibs (SNOMED CT :257112993 ) Name of Problem: ibs ; Recorder: WILMER ESTRADA RN; Confirmation: Confirmed ; Classification: Medical ; Code: 155613631 ; Contributor System: PowerChart ; Last Updated: 11/11/2013 14:31 EDT ; Life Cycle Date: 01/22/2013 ; Life Cycle Status: Active ; Vocabulary: SNOMED CT Scar of abdomen (SNOMED CT :443898187 ) Name of Problem: Scar of abdomen ; Recorder: MAGALY CALABRESE RN; Confirmation: Confirmed ; Classification: Medical ; Code: 296771627 ; Contributor System: PowerChart ; Last Updated: 10/12/2018 14:47 EDT ; Life Cycle Status: Active ; Vocabulary: SNOMED CT ; Comments: 12/28/2016 14:42 - MAGALY CALABRESE RN scar tissue in bowel Scoliosis (SNOMED CT :810086876 ) Name of Problem: Scoliosis ; Recorder: MAGALYS MCLEAN RN; Confirmation: Confirmed ; Classification: Medical ; Code: 288906286 ; Contributor System: PowerChart ; Last Updated: 03/05/2015 9:20 EDT ; Life Cycle Date: 03/05/2015 ; Life Cycle Status: Active ; Vocabulary: SNOMED CT Diagnoses(Active) Cough Date: 06/17/2019 ; Diagnosis Type: Reason For Visit ; Confirmation: Complaint of ; Clinical Dx: Cough ; Classification: Medical ; Clinical Service: Emergency medicine ; Code: PNED ; Probability: 0 ; Diagnosis Code: [id number] ED Height and Weight Height Source : Stated Height Entry Format : [place] Height, Feet : 5 ft(Converted to: 152 cm, 60 Inch) Height, Inches : 4 Inch(Converted to: 0 ft 4 Inch, 10.16 cm) Clinical Height : 162.56 cm Weight Source, ED : Critical estimated dosing weight Weight Entry Format : [place] Weight, Pounds : 198 lb Clinical Dosing Weight : 90 kg Body Surface Area (BSA) : 1.95 m2 Body Mass Index : 34.1 kg/m2 (HI) [place] Body Weight (IBW) : 54.3 kg TC FRANCO RN - 06/17/2019 15:08 EST Electronically signed by [facility] Conversion Garnett Feeder Cerner at 09/16/2022 10:42 AM CDT documented in this encounter Plan of Treatment Not on file documented as of this encounter Visit Diagnoses Not on filedocumented in this encounter Care Teams Imposer Relationship Specialty Start Date End Date Yamile Coffey MD [address] [facility] 2 [place] [address] PCP - General Family Medicine 03/23/22 Kandace Castro APRN [address] [facility] [address] [place] [address] Neurologist Neurology 08/29/23 Aaron Ribera MD [address] [facility] [address] [place], [place] [id number] Surgeon Cardiothoracic Surgery 09/13/23 documented as of this encounter
--- OUTSIDE RECORDS SUMMARY | 2024-12-13 20:36 | XMS_ITS | Encounter Summary ---
Author Organization [employer] ([place], [place], [place], [place]) Address [address] [place] [address] Care Team Providers Care Retail And Restaurant Name Role Phone Yamile Coffey MD Primary Care Provider [phone] Kandace Castro APRN Unavailable [phone] Aaron Ribera MD Unavailable [phone] Encounter Details Date Type Department Care Team (Late st Contact Info) Description 06/17/2019 Transcribed Document [facility] [place] [facility] [place] [address] ProviderMeggan MD [address] [place] [address] Social History Tobacco Use Types Packs/Day Years Used Date Smoking Tobacco: Never Assessed Comments Unknown Sex and Gender Information Value Date Recorded Sex Assigned at Not on file Legal Sex Female 4:07 PM CDT Gender Identity Not on file Sexual Orientation Not on file documented as of this encounter Miscellaneous Notes * Cerner Conversion Note - Meggan ProviderMD - 06/17/2019 5:26 PM WIRELESS SALES CONSULTANT ED Discharge Entered On: 06/17/2019 17:26 EST Performed On: 06/17/2019 17:26 EST by BESSIE PIZARRO Discharge Process Patient Disposition : Discharge Personal Belongings With Patient : Yes Patient Education Completed : Yes Teaching Evaluation : Verbalizes understanding IV Discontinued : Not applicable Nursing Documentation Completed : Yes BESSIE PIZARRO - 06/17/2019 17:26 EST ED Discharge Discharge To : Home with ambulatory/outpatient follow-up Mode Of Departure : Private vehicle Accompanied By : Spouse Discharge Instructions Reviewed With, Opportunity For Questions Given : Patient Prescriptions Given to Patient : Yes Number of Prescriptions Given : 3 BESSIE PIZARRO - 06/17/2019 17:26 EST Electronically signed by [facility] Conversion Door To Door Selling Agent Cerner at 09/16/2022 11:07 AM CDT documented in this encounter Plan of Treatment Not on file documented as of this encounter Visit Diagnoses Not on filedocumented in this encounter Care Teams Retail And Restaurant Relationship Specialty Start Date End Date Yamile Coffey MD [address] [place] [address] 2 [place] [address] PCP - General Family Medicine 03/23/22 Kandace Castro APRN [address] [facility] [address] [place] [address] Neurologist Neurology 08/29/23 Aaron Ribera MD [address] [facility] [address] [place] [address] Surgeon Cardiothoracic Surgery 09/13/23 documented as of this encounter
--- OUTSIDE RECORDS SUMMARY | 2024-12-13 20:36 | XMS_ITS | Encounter Summary ---
Author Organization [facility] ([place], [place], [place], [place]) Address [address] [place] [address] Care Team Providers Care Animal Keeper Name Role Phone Yamile Coffey MD Primary Care Provider [phone] Kandace Castro APRN Unavailable [phone] Aaron Ribera MD Unavailable [phone] Encounter Details Date Type Department Care Team (Late st Contact Info) Description 06/17/2019 Transcribed Document [facility] [place] [facility] [place] [address] ProviderMeggan MD [address] [place] [address] Social History Tobacco Use Types Packs/Day Years Used Date Smoking Tobacco: Never Assessed Comments Unknown Sex and Gender Information Value Date Recorded Sex Assigned at Not on file Legal Sex Female 4:07 PM CDT Gender Identity Not on file Sexual Orientation Not on file documented as of this encounter Miscellaneous Notes * Cerner Conversion Note - Historical ProviderMD - 06/17/2019 4:40 PM RAIL OPERATIONS CONTROLLER Patient: IZABELLA PADILLA Age: 49 years Sex: Female : 1970 Associated Diagnoses: Pneumonia; Reactive airway disease with wheezing Author: MEHDI CHARLTON DO Basic Information Time seen: Date 06/17/2019, Immediately upon arrival. History source: Patient, significant other. Arrival mode: Private vehicle. History limitation: None. Additional information: Chief Complaint from Nursing Triage Note : Chief Complaint 06/17/2019 15:08 EST Chief Complaint Pt. has pain in Lt lung and worse with a deep breath. She has a non-prod cough x last week. She has a PICC line in Rt arm. . History of Present Illness The patient presents with cough. The onset was 1 weeks ago. The course/duration of symptoms is worsening. Character productive: yellow. The degree at onset was minimal. The degree at present is moderate. The exacerbating factor is none. The relieving factor is none. Risk factors consist of none. Prior episodes: none. Therapy today: none. Associated symptoms: nasal congestion. Izabella Padilla is a 49-year-old female with past medical history of gastroparesis and multiple abdominal surgeries who has currently a PICC line in her right arm that is been there long-standing so she could self administer fluids and Phenergan for treatment of her gastroparesis who presents today with cough that she says is mostly nonproductive but occasionally yellow sputum with wheezing and discomfort in the left lung with coughing. She denies any shortness of breath or chest pain. She denies any fever. She states she's had a runny nose congestion. She denies any abdominal pain nausea vomiting or weakness. She states her granddaughter was sick and treated with antibiotics. He denies any flu exposure. Does have a prior history of a spontaneous pneumothorax in her right lung in 2010. Review of Systems Additional review of systems information: All other systems reviewed and otherwise negative. Health Status Allergies: Allergic Reactions (Selected) Severity Not Documented Codeine- Nausea.. Medications: (Selected) Inpatient Medications Ordered Rocephin: 1 Gram, IntraMuscular, 1-Time SOLU-Medrol: 125 mg, IntraMuscular, 1-Time albuterol 2.5 mg/3 mL (0.083%) inhalation solution: 3 mL, Nebulized Inhalation, 1-Time Documented Medications Documented Flexeril: 10 mg, Oral, Q8H, PRN: as needed for muscle spasm, 0 Refill(s) Maxalt: 10 mg, Oral, Daily, PRN: as needed for migraine headache, 0 Refill(s) Pepcid: 10 mg, Oral, Daily, 0 Refill(s) Protonix 40 mg oral delayed release tablet: 1 Tab, Oral, Daily, 0 Refill(s) Xanax 1 mg oral tablet: 1 Tab, Oral, TID, PRN: for anxiety Zofran 2 mg/mL injectable solution: 4 mg, IntraVENous, Q6H, PRN: as needed for nausea/vomiting, 0 Refill(s) estradiol: 0.5 mg, Oral, Daily, 0 Refill(s) heparin flush: 10 units/5ml, SubCutaneous, At Bedtime, 0 Refill(s) promethazine 25 mg/mL injectable solution: 25 mg, IV Push, Q3H, PRN: as needed for nausea/vomiting, 0 Refill(s). Past Medical/ Family/ Social History Medical history Reviewed as documented in chart. Surgical history: Gastric Stimulator Battery Change on 03/06/2019 at 49 Years. Comments: 03/06/2019 16:11 AIXA CHEATHAM RN PATIENT CARE 1 auto-populated from documented surgical case Gastric Stimulator Battery Change on 10/15/2018 at 48 Years. Comments: 10/15/2018 8:33 MARIAN BARBA RN PATIENT CARE 1 auto-populated from documented surgical case Gastric Stimulator Insertion Permanent Open on 03/20/2017 at 47 Years. Comments: 03/20/2017 14:45 JASON COULTER RN PATIENT CARE 1 auto-populated from documented surgical case Esophagogastroduodenoscopy on 03/20/2017 at 47 Years. Comments: 03/20/2017 14:45 JASON COULTER RN PATIENT CARE 1 auto-populated from documented surgical case Discectomy ([id number]) on 12/27/2016 at 46 Years. Comments: 03/17/2017 11:20 Caity Carroll Rn CERVICAL w/ FUSION EGD w Gastric Stimulator Temporary Insertion on 09/02/2016 at 46 Years. Comments: 09/02/2016 7:53 SELVIN ACEVES RN auto-populated from documented surgical case Hysterectomy. scar tissue removed from bowel. Appendectomy. Cholecystectomy. Right wrist cyst removal. exploratory sx abdominal. bowel obstruction x 2. breast lumpectomy. cauterized vein in left leg. PICC (peripherally inserted central catheter) in situ ([id number])., Reviewed as documented in chart. Family history: No family history items have been selected or recorded.. Social history: Social & Psychosocial Habits Alcohol 01/22/2013 Alcohol Use in Last Twelve Months No Substance Abuse 03/05/2015 Recreational Drug Use History No Recreational Drug Use Last 12 Months No Tobacco 03/05/2015 Tobacco Use Within Last Twelve Months No Smoking Status Former smoker Years of Tobacco Use 15 Packs/Tins Daily 1 Month Tobacco Last Used 2004 , Reviewed as documented in chart. Problem list: Active Problems (12) abd pain Arthritis At risk for sleep apnea Bowel obstruction x 2 DDD (degenerative disc disease), cervical DDD (degenerative disc disease), lumbosacral depression/anxiety Gastroparesis heart murmur ibs Scar of abdomen Scoliosis , per nurse's notes. Physical Examination Vital Signs Time: 06/17/2019 16:42:00. Vital Signs/Vital Measures 06/17/2019 15:08 EST Systolic Blood Pressure 140 mmHg Diastolic Blood Pressure 99 mmHg HI Temperature Source Oral Temperature Mode Fahrenheit Temperature, Fahrenheit 97.7 Deg F Clinical Temperature, C 36.5 Deg C Peripheral Pulse Rate 96 bpm Respiratory Rate 18 Breaths/Min Oxygen Saturation 99 % Oxygen Therapy Mode Room air . Measurements 06/17/2019 15:08 EST Height Source Stated Height Entry Format [place] Height/Length, [place] (ft) 5 ft Height/Length [place] 4 Inch CLINICALHEIGHT 162.56 cm [place] Body Weight 54.3 kg Weight Source, ED Critical estimated dosing weight Weight Entry Format [place] Weight Samoan lb 198 lb CLINICALWEIGHT 90 kg Body Surface Area (BSA) 1.95 m2 Body Mass Index 34.1 kg/m2 HI . Oxygen Saturation 06/17/2019 15:08 EST Oxygen Saturation 99 % . General: Alert, no acute distress. Skin: Warm, dry, pink, intact, no pallor, no rash, normal for ethnicity. Head: Normocephalic, atraumatic. Neck: Supple, trachea midline, no tenderness, no JVD, no carotid bruit. Eye: Pupils are equal, round and reactive to light, extraocular movements are intact, normal conjunctiva, vision unchanged. Ears, nose, mouth and throat: Tympanic membranes clear, oral mucosa moist, no pharyngeal erythema or exudate. Cardiovascular: Regular rate and rhythm, No murmur, Normal peripheral perfusion, No edema. Respiratory: Respirations are non-labored, breath sounds are equal, Symmetrical chest wall expansion, bl expiratory wheezing and rll rales. Chest wall: No tenderness, No deformity. Back: Nontender, Normal range of motion, Normal alignment, no step-offs. Musculoskeletal: Normal ROM, normal strength, no tenderness, no swelling, no deformity. Gastrointestinal: Soft, Nontender, Non distended, Normal bowel sounds, No organomegaly. Genitourinary: No tenderness. Neurological: Alert and oriented to person, place, time, and situation, No focal neurological deficit observed, CN II-XII intact, normal sensory observed, normal motor observed, normal speech observed, normal coordination observed. Lymphatics: No lymphadenopathy. Psychiatric: Cooperative, appropriate mood & affect, normal judgment, non-suicidal. Medical Decision Making Differential Diagnosis:: Bronchitis, upper respiratory infection, asthma, pneumonia. Documents reviewed: Emergency department nurses' notes, emergency department records, prior records. Chest X-Ray: Time reported 06/17/2019 16:42:00, interpretation by Emergency Physician, streaky lll infiltrate. Impression and Plan Diagnosis Pneumonia - Discharge, Emergency medicine, Medical Reactive airway disease with wheezing - Discharge, Emergency medicine, Medical Plan Condition: Stable. Disposition: Discharged Admit/Transfer/Discharge: Discharge (Order): Start: 06/17/2019 16:44 EST, Discharge to: Home. Prescriptions: Prescription Revenue Enforcement Collection Agent Pharmacy: doxycycline hyclate 100 mg oral capsule (Prescribe): 1 Cap, Oral, BID, for 10 Day(s), 20 Cap, 0 Refill(s) albuterol CFC free 90 mcg/inh inhalation aerosol with adapter (Prescribe): 2 Puff, Inhalation, QID, 1 Each, 0 Refill(s) predniSONE 10 mg oral tablet (Prescribe): 2 Tab, Oral, BID, for 3 Day(s), with food, 12 Tab, 0 Refill(s). Patient was given the following educational materials: Community-Acquired Pneumonia, Adult, [id number]. Follow up with: UNKNOWN PHY Within 2 to 3 days, UNKNOWN PHY Within 2 to 3 days. Counseled: Patient. Notes: Emergency Department course, chest x-ray shows a streaky left lower lobe infiltrate. She is given an injection of Rocephin will be are all and prednisone. She is feeling much better after her albuterol treatment. I instructed her follow primary care doctor in 1-2 days and return immediately to the emergent arm and for any shortness of breath worsening cough fever weakness chest pain or back pain.. Electronically signed by Omaira, Freddy Conversion Director Of Sports Performance Cerner at 09/16/2022 10:58 AM CDT documented in this encounter Plan of Treatment Not on file documented as of this encounter Visit Diagnoses Not on filedocumented in this encounter Care Teams Animal Keeper Relationship Specialty Start Date End Date Yamile Coffey MD [address] [address] PCP - General Family Medicine 03/23/22 Kandace Castro, MELVIN [address] [facility] [address] [place], [place] [id number] Neurologist Neurology 08/29/23 Aaron Ribera MD [address] [facility] [address] [place], [place] [id number] Surgeon Cardiothoracic Surgery 09/13/23 documented as of this encounter
--- OUTSIDE RECORDS SUMMARY | 2024-12-13 20:36 | XMS_ITS | Encounter Summary ---
Author Organization [employer] ([place], [place], [place], [place]) Address [address] [place] [address] Care Team Providers Care Electric Deicer Assembler Name Role Phone Yamile Coffey MD Primary Care Provider [phone] Kandace Castro APRN Unavailable [phone] Aaron Ribera MD Unavailable [phone] Encounter Details Date Type Department Care Team (Late st Contact Info) Description 06/17/2019 Transcribed Document [facility] [place] [facility] [place] [address] ProviderMeggan MD [address] [place] [address] Social History Tobacco Use Types Packs/Day Years Used Date Smoking Tobacco: Never Assessed Comments Unknown Sex and Gender Information Value Date Recorded Sex Assigned at Not on file Legal Sex Female 4:07 PM CDT Gender Identity Not on file Sexual Orientation Not on file documented as of this encounter Miscellaneous Notes * Cerner Conversion Note - Historical ProviderMD - 06/17/2019 4:44 PM CHANNEL LIP WETTER documented in this encounter Plan of Treatment Not on file documented as of this encounter Visit Diagnoses Not on filedocumented in this encounter Care Teams Electric Deicer Assembler Relationship Specialty Start Date End Date Yamile Coffey MD [address] [place], [place] [address]r [facility] 2 [place] [address] PCP - General Family Medicine 03/23/22 Kandace Castro, MELVIN [address] [facility] [address] [place] [address] Neurologist Neurology 08/29/23 Aaron Ribera MD [address] [facility] [address] [place] [id number] Surgeon Cardiothoracic Surgery 09/13/23 documented as of this encounter
--- OUTSIDE RECORDS SUMMARY | 2024-12-13 20:36 | XMS_ITS | Encounter Summary ---
Author Organization [employer] ([place], [place], [place], [place]) Address [address] [place] [address] Care Team Providers Care Flaker Operator Name Role Phone Yamile Coffey MD Primary Care Provider [phone] Kandace Castro APRN Unavailable [phone] Aaron Ribera MD Unavailable [phone] Encounter Details Date Type Department Care Team (Late st Contact Info) Description 06/17/2019 Transcribed Document [facility] [place] [facility] [place] [address] ProviderMeggan MD [address] [place] [address] Social History Tobacco Use Types Packs/Day Years Used Date Smoking Tobacco: Never Assessed Comments Unknown Sex and Gender Information Value Date Recorded Sex Assigned at Not on file Legal Sex Female 4:07 PM CDT Gender Identity Not on file Sexual Orientation Not on file documented as of this encounter Miscellaneous Notes * Cerner Conversion Note - Historical ProviderMD - 06/17/2019 5:54 PM BARTACKER CR Chest 2 Vws Ordered: 06/17/2019 Auth (Verified) Reason for Exam: cough 06/17/2019 16:10 06/17/2019 17:54 (VIVIENNE SIM PA-C) Reviewed by Provider, No further action required X1 Electronically signed by Omaira [facility] Conversion Telephonic Nurse Case Manager Cerner at 09/16/2022 10:45 AM CDT documented in this encounter Plan of Treatment Not on file documented as of this encounter Visit Diagnoses Not on filedocumented in this encounter Care Teams Flaker Operator Relationship Specialty Start Date End Date Yamile Coffey MD [address] [facility] 2 [place] [address] PCP - General Family Medicine 03/23/22 Kandace Castro APRN [address] [facility] [address] [place] [address] Neurologist Neurology 08/29/23 Aaron Ribera MD [address] [facility] [address] [place] [address] Surgeon Cardiothoracic Surgery 09/13/23 documented as of this encounter
--- OUTSIDE RECORDS SUMMARY | 2024-12-13 20:36 | XMS_ITS | Encounter Summary ---
Author Organization [facility] Address [address] [place] [address] Care Team Providers Care Veterinarian Small Animal Name Role Phone Yamile Coffey MD Primary Care Provider [phone] Encounter Details Date Type Department Care Team (Late st Contact Info) Description 10/29/2024 Orders Only [facility] [address] [address] Provider, MD Meggan [address] [place] [address] Social History Tobacco Use Types Packs/Day [...] [facility] [address] [place] [address] Michelle Spence NP [address] [place] [address] documented as of this encounter Procedures Procedure Name Priority Date/Time Associated Diagnosis Comments LABS SCANNED RESULT Routine 10/29/2024 8:21 AM EDT LABS SCANNED RESULT Routine 09/10/2024 8:38 AM EDT documented in this encounter Results * Labs Scanned Result (10/29/2024 8:21 AM EDT) Historical Provider MD LAB OBSERVATION METHODS F inal Result * Labs Scanned Result (09/10/2024 8:38 AM EDT) Historical Provider MD LAB OBSERVATION METHODS F inal Result documented in this encounter Visit Diagnoses Not on filedocumented in this encounter Care Teams Veterinarian Small Animal Relationship Specialty Start Date End Date Yamile Coffey MD [address] Yamile Coffey [facility], [place], [place] [id number] PCP - General Family Medicine 10/03/22 documented as of this encounter
--- OUTSIDE RECORDS SUMMARY | 2024-12-13 20:36 | XMS_ITS | Encounter Summary ---
Author Organization [employer] ([place], [place], [place], [place]) Address [address] [place] [address] Care Team Providers Care Cornice Upholsterer Name Role Phone Yamile Cofefy MD Primary Care Provider [phone] Kandace Castro APRN Unavailable [phone] Aaron Ribera MD Unavailable [phone] Encounter Details Date Type Department Care Team (Late st Contact Info) Description 05/03/2019 Transcribed Document [facility] [place] [address] ProviderMeggan MD [address] [place] [address] Social History Tobacco Use Types Packs/Day Years Used Date Smoking Tobacco: Never Assessed Comments Unknown Sex and Gender Information Value Date Recorded Sex Assigned at Not on file Legal Sex Female 4:07 PM CDT Gender Identity Not on file Sexual Orientation Not on file documented as of this encounter Miscellaneous Notes * Cerner Conversion Note - Historical ProviderMD - 05/03/2019 3:03 PM TIERCE FILLER Central Line Checklist Entered On: 05/03/2019 15:07 EST Performed On: 05/03/2019 15:03 EST by Bettie Nieto RN Central Line Checklist History and Physical on Chart : Yes Central Line Insertion Facility : [facility] Central Line Insertion Start Date/Time : 05/03/2019 14:55 EST Central Catheter Type : Power injection PICC Central Line Lot Number : [id number] Central Line Vessel Cannulated : Median basilic Central Line Laterality : Right Central Line Number of Lumens : 1 Central Line Insertion Site : Upper arm, right Central Line Insertion Reason : New indication PICC Line Exclusion Criteria : None CL Number of Insertion Attempts: : 1 Modified Seldinger Used : Yes Portable Ultrasound Device : Yes Central Line Clean Hands : Yes Site Preparation Procedure : Chlorhexidine (Chloraprep) if patient is 2 months or older, 30 second scrub plus 30 second dry time Central IV Full Body Drape Used : Yes Proper Use of Sterile Apparel per Policy : Yes Procedure to be Performed : PICC line Placemeent Time Out Pause Time : 05/03/2019 14:50 EST All Activity Suspended : Yes Team Verbally Confirms Information : Correct patient identity, Correct side and site are marked, Consent form is present and accurate, Agreement on the procedure to be done, Correct patient position, Relevant images/results properly labeled/appropriately displayed, Confirm the skin prep has dried, Performed in location of procedure after prepped/draped CL Time Out Additional Attendees : Bettie Santoyo RN 1% Lidocaine Amt Used as Anesthetic : 3 mL Central IV Sterile Field Maintained : Yes Central IV Sterile Technique Maintained : Yes Central Line Secure with : Stabilization device Central Line Dressing Dated : Yes RN Notified CL is Approved to be Used : Yes Central Line Tip Location in SVC : Yes Nurse Notified Name : CHANCE SANTYOO RN Svetich, Patty Y, RN - 05/03/2019 15:03 EST Electronically signed by Omaira [facility] Conversion Ship Steward Cerner at 09/16/2022 11:07 AM CDT documented in this encounter Plan of Treatment Not on file documented as of this encounter Visit Diagnoses Not on filedocumented in this encounter Care Teams Cornice Upholsterer Relationship Specialty Start Date End Date Yamile Coffey MD 105 [facility] 2 [place] [address] PCP - General Family Medicine 03/23/22 Kandace Castro APRN [address] [facility] [address] [place] [address] Neurologist Neurology 08/29/23 Aaron Ribera MD [address] [facility] [address] [place] [address] Surgeon Cardiothoracic Surgery 09/13/23 documented as of this encounter
--- OUTSIDE RECORDS SUMMARY | 2024-12-13 20:36 | XMS_ITS | Encounter Summary ---
Author Organization [facility] Address [address] [place] [address] Care Team Providers Care Senior Lead Developer Name Role Phone Yamile Coffey MD Primary Care Provider [phone] Reason for Referral * Imaging (Routine) - Closed Specialty Diagnoses / Procedures Referred By Contac t Referred To Contact Diagnoses History of difficult venous access Procedures IR picc exchange wo subcutaneous port or pump Bryanna Lockhart MD [address] [place] [address], [address] [place] [address] Phone: tel: fax: [facility] [address] [place] [address] Referral ID Status Reason Start Date Expiration Date Visits Re quested Visits Authorized [id number] Closed 12/10/2024 01/09/2026 1 1 Reason for Visit * Reason Onset Date Comments Line Care 12/10/2024 Encounter Details Date Type Department Care Team ([facility] st Contact Info) Description 12/10/2024 Telephone [facility] [address] [id number] Bryanna Lockhart MD [address] [facility], [address] [place] [address] Line Care Social History Tobacco Use Types Packs/Day Years [...] AM EDT documented as of this encounter Miscellaneous Notes * Telephone Encounter - Екатерина Argueta RN - 12/10/2024 9:23 AM EDT Crop Insurance Claims Adjuster called patient to inform her that an order to replace PICC had been ordered and sent to [facility] department. Patient stated understanding. documented in this encounter Plan of Treatment Upcoming Encounters Date Type Department Care Team (Late st Contact Info) Description 02/12/2025 1:30 PM EDT Office Visit [facility] [address] [place] [address] Michelle Spence NP [address] [place] [address] Scheduled Orders Name Type Priority Associated Diagnoses Orde r Schedule IR picc exchange wo subcutaneous port or pump Imaging Routine History of difficult venous access Expected: 12/10/2024 (Approximate), Expires: 12/10/2025 documented as of this encounter Visit Diagnoses Diagnosis History of difficult venous access- Primary documented in this encounter Care Teams Senior Lead Developer Relationship Specialty Start Date End Date Yamile Coffey MD [address] [facility], [place] [address] PCP - General Family Medicine 10/03/22 documented as of this encounter
--- OUTSIDE RECORDS SUMMARY | 2024-12-13 20:36 | XMS_ITS | Encounter Summary ---
Author Organization [employer] ([place], [place], [place], [place]) Address [address] [place] [address] Care Team Providers Care Bulb Filler Name Role Phone Yamile Coffey MD Primary Care Provider [phone] Kandace Castro APRN Unavailable [phone] Aaron Ribera MD Unavailable [phone] Encounter Details Date Type Department Care Team (Late st Contact Info) Description 10/05/2018 Transcribed Document [facility] [place] [facility] [place] [address] ProviderMeggan MD [address] [place] [address] Social History Tobacco Use Types Packs/Day Years Used Date Smoking Tobacco: Never Assessed Comments Unknown Sex and Gender Information Value Date Recorded Sex Assigned at Not on file Legal Sex Female 4:07 PM CDT Gender Identity Not on file Sexual Orientation Not on file documented as of this encounter Miscellaneous Notes * Cerner Conversion Note - Meggan Tamayo MD - 10/05/2018 4:38 PM CDT ED Discharge Entered On: 10/05/2018 16:38 EDT Performed On: 10/05/2018 16:38 EDT by Surendra Roe RN Discharge Process Patient Disposition : Discharge Personal Belongings With Patient : Yes Patient Education Completed : Yes Teaching Evaluation : Verbalizes understanding IV Discontinued : Not applicable Nursing Documentation Completed : Yes Surendra Roe RN - 10/05/2018 16:38 EDT ED Discharge Discharge To : Home with ambulatory/outpatient follow-up Mode Of Departure : Ambulatory Discharge Instructions Reviewed With, Opportunity For Questions Given : Patient Prescriptions Given to Patient : No Surendra Roe, RN - 10/05/2018 16:38 EDT documented in this encounter Plan of Treatment Not on file documented as of this encounter Visit Diagnoses Not on filedocumented in this encounter Care Teams Bulb Filler Relationship Specialty Start Date End Date Yamile Coffey MD [address] [place] [address] PCP - General Family Medicine 03/23/22 Kandace Castro APRN [address] [facility] [address] [place] [address] Neurologist Neurology 08/29/23 Aaron Ribera MD [address] [facility] [address] [place] [address] Surgeon Cardiothoracic Surgery 09/13/23 documented as of this encounter
--- OUTSIDE RECORDS SUMMARY | 2024-12-13 20:36 | XMS_ITS | Encounter Summary ---
Author Organization [employer] ([place], [place], [place], [place]) Address [address] [place] [address] Care Team Providers Care Examining Officer Name Role Phone Yamile Coffey MD Primary Care Provider [phone] Kandace Castro APRN Unavailable [phone] Aaron Ribera MD Unavailable [phone] Encounter Details Date Type Department Care Team (Late st Contact Info) Description 06/19/2019 Transcribed Document [facility] [place] [address] ProviderMeggan MD [address] [place] [address] Social History Tobacco Use Types Packs/Day Years Used Date Smoking Tobacco: Never Assessed Comments Unknown Sex and Gender Information Value Date Recorded Sex Assigned at Not on file Legal Sex Female 4:07 PM CDT Gender Identity Not on file Sexual Orientation Not on file documented as of this encounter Miscellaneous Notes * Cerner Conversion Note - Historical ProviderMD - 06/19/2019 3:15 AM THERMOSTAT REPAIRER Patient: MARGARITO PADILLA Age: 49 years Sex: Female : 1970 Associated Diagnoses: Muscle pain; Pneumonia Author: RIKKI FELIX MD Basic Information Time seen: Date & time 06/19/2019 03:16:00. History source: Patient. Arrival mode: Private vehicle. History limitation: None. Additional information: Chief Complaint from Nursing Triage Note : Chief Complaint 06/19/2019 2:41 EST Chief Complaint pt here c/o left rib pain recently dx with pneumonia states pain has worsened . History of Present Illness This is a 49-year-old female with a past medical history significant for gastroparesis, right PICC line for treatment of this and recent diagnosis of pneumonia who presents to the emergency department for evaluation of left upper back muscle spasm and pain. Pain is worse with coughing. She has tried a heating pad with no relief of symptoms. The muscles between her shoulder blade and back are tender to touch. No recent trauma. She has been taking doxycycline for about 24 hours for pneumonia. She was diagnosed with pneumonia on the and given a prescription for this. Review of Systems Additional review of systems information: 10 point review of systems reviewed and negative except as stated in history of present illness . Health Status Allergies: Allergic Reactions (Selected) Severity Not Documented Codeine- Nausea.. Medications: (Selected) Prescriptions Prescribed albuterol CFC free 90 mcg/inh inhalation aerosol with adapter: 2 Puff, Inhalation, QID, 1 Each, 0 Refill(s) cyclobenzaprine 5 mg oral tablet: 1 Tab, Oral, TID, for 3 Day(s), 9 Tab, 0 Refill(s) doxycycline hyclate 100 mg oral capsule: 1 Cap, Oral, BID, for 10 Day(s), 20 Cap, 0 Refill(s) predniSONE 10 mg oral tablet: 2 Tab, Oral, BID, for 3 Day(s), with food, 12 Tab, 0 Refill(s) Documented Medications Documented Flexeril: 10 mg, Oral, [...] Q3H, PRN: as needed for nausea/vomiting, 0 Refill(s), per nurse's notes. Immunizations: Per nurse's notes. Past Medical/ Family/ Social History Medical history Reviewed as documented in chart. Surgical history: Reviewed as documented in chart. Family history: Reviewed as documented in chart. Social history: Reviewed as documented in chart. Problem list: Active Problems (12) abd pain Arthritis At risk for sleep apnea Bowel obstruction x 2 DDD (degenerative disc disease), cervical DDD (degenerative disc disease), lumbosacral depression/anxiety Gastroparesis heart murmur ibs Scar of abdomen Scoliosis , per nurse's notes. Physical Examination Vital Signs Vital Signs/Vital Measures 06/19/2019 2:41 EST Systolic Blood Pressure 172 mmHg HI Diastolic Blood Pressure 102 mmHg HI Temperature Source Oral Temperature Mode Fahrenheit Temperature, Fahrenheit 98 Deg F Clinical Temperature, C 36.7 Deg C Peripheral Pulse Rate 96 bpm Respiratory Rate 18 Breaths/Min Oxygen Saturation 97 % Oxygen Therapy Mode Room air . Per nurse's notes. General: Alert, no acute distress. Skin: Warm, dry. Head: Normocephalic. Neck: Supple. Ears, nose, mouth and throat: Oral mucosa moist. Cardiovascular: Regular rate and rhythm, No murmur. Respiratory: Lungs are clear to auscultation, respirations are non-labored, breath sounds are equal. Gastrointestinal: Soft, Nontender, Non distended. Back: Normal alignment, Tender along the paraspinal musculature left upper back and medial to the scapula. No clear muscle spasm. No crepitus.. Neurological: Normal speech observed, normal coordination observed. Psychiatric: Cooperative. Medical Decision Making Documents reviewed: Emergency department nurses' notes, prior records. Orders Chest x-ray shows per my read a right lower lobe pneumonia compared to previous chest x-ray on the . She has only been on doxycycline for 24 hours, so at this point I would not consider this a failure of that medication yet. I discussed all this with her and encouraged her to follow up with primary care provider within the next 2-3 days. She does have some muscle pain left upper back, likely from coughing. She does not describe symptomology consistent with aortic dissection and the chest x-ray does not show wide mediastinum. Given Flexeril here and discharged home with prescription for the same.. Results review: Interpretation Chest X-ray shows right lower lobe pneumonia. Impression and Plan Diagnosis Muscle pain - Discharge, Medical Pneumonia - Discharge, Medical Plan Condition: Stable. Disposition: Discharged Admit/Transfer/Discharge: Discharge (Order): Start: 06/19/2019 3:32 EST, Discharge to: Home. Prescriptions: Prescription [facility]: cyclobenzaprine 5 mg oral tablet (Prescribe): 1 Tab, Oral, TID, for 3 Day(s), 9 Tab, 0 Refill(s). Patient was given the following educational materials: Musculoskeletal Pain, Community-Acquired Pneumonia, Adult. Follow up with: ; Follow up with primary care provider Within 2 to 3 days Follow-up with your primary care provider in 2-3 days for reevaluation. Return to the emergency department for any acute worsening of symptoms or acute new concerns.. Counseled: Patient, Family, Regarding diagnosis, Regarding diagnostic results, Regarding treatment plan, Patient indicated understanding of instructions. Electronically signed by Freddy Castano Conversion [employer] Health Therapists Cerner at 09/16/2022 10:51 AM CDT documented in this encounter Plan of Treatment Not on file documented as of this encounter Visit Diagnoses Not on filedocumented in this encounter Care Teams Examining Officer Relationship Specialty Start Date End Date Yamile Coffey MD [address] [facility] [place] [address] PCP - General Family Medicine 03/23/22 Kandace Castro APRN [address] [facility] [address] [place] [address] Neurologist Neurology 08/29/23 Aaron Ribera MD [address] [facility] [address] [place] [address] Surgeon Cardiothoracic Surgery 09/13/23 documented as of this encounter
--- OUTSIDE RECORDS SUMMARY | 2024-12-13 20:36 | XMS_ITS | Encounter Summary ---
Author Organization [facility] Address [address] [place] [address] Care Team Providers Care Chorus Master Name Role Phone Yamile Coffey MD Primary Care Provider [phone] Encounter Details Date Type Department Care Team (Late st Contact Info) Description 11/21/2024 Orders Only [facility] [address] [address] Provider, MD Meggan [address] [place] [address] Social History Tobacco Use Types Packs/Day [...] Clinic [address] [place] [address] Michelle Spence NP [address] [place] [address] documented as of this encounter Procedures Procedure Name Priority Date/Time Associated Diagnosis Comments LABS SCANNED RESULT Routine 11/21/2024 3:01 PM EDT documented in this encounter Results * Labs Scanned Result (11/21/2024 3:01 PM EDT) us Historical Provider LAB OBSERVATION METHODS F inal Result documented in this encounter Visit Diagnoses Not on filedocumented in this encounter Care Teams Chorus Master Relationship Specialty Start Date End Date Yamile Coffey MD [address] Yamile Coffey [facility], [place], [place] [id number] PCP - General Family Medicine 10/03/22 documented as of this encounter
--- OUTSIDE RECORDS SUMMARY | 2024-12-13 20:36 | XMS_ITS | Encounter Summary ---
Author Organization [facility] Address [address] [place] [address] Care Team Providers Care Railway Shunter Name Role Phone Yamile Coffey MD Primary Care Provider [phone] Encounter Details Date Type Department Care Team (Late st Contact Info) Description 11/08/2024 Orders Only [facility] [address] [id number] Bryanna Lockhart MD [address] [place] [address], [address] [place] [address] Social History Tobacco Use Types Packs/Day Years [...] Clinic [address] [place] [address] Michelle Spence NP [address] [place] [address] documented as of this encounter Procedures Procedure Name Priority Date/Time Associated Diagnosis Comments SURG SCANNED ORDER Routine 11/08/2024 4:21 PM EDT LABS SCANNED RESULT Routine 11/08/2024 3:53 PM EDT documented in this encounter Results * SURG SCANNED ORDER (11/08/2024 4:21 PM EDT) us Vaibhav Godoy MD IN CLINIC/BEDSIDE ORDERABLES F inal Result * Labs Scanned Result (11/08/2024 3:53 PM EDT) us Bryanna Lockhart MD LAB OBSERVATION METHODS Final Result documented in this encounter Visit Diagnoses Not on filedocumented in this encounter Care Teams Railway Shunter Relationship Specialty Start Date End Date Yamile Coffey MD [address] [facility], [place] [address] PCP - General Family Medicine 10/03/22 documented as of this encounter
--- OUTSIDE RECORDS SUMMARY | 2024-12-13 20:36 | XMS_ITS | Encounter Summary ---
Author Organization [employer] ([place], [place], [place], [place]) Address [address] [place] [address] Care Team Providers Care Secondary School Teacher Librarian Name Role Phone Yamile Coffey MD Primary Care Provider [phone] Kandace Castro APRN Unavailable [phone] Aaron Ribera MD Unavailable [phone] Encounter Details Date Type Department Care Team (Late st Contact Info) Description 06/17/2019 Transcribed Document [facility] [place] [facility] [place] [address] ProviderMeggan MD [address] [place] [address] Social History Tobacco Use Types Packs/Day Years Used Date Smoking Tobacco: Never Assessed Comments Unknown Sex and Gender Information Value Date Recorded Sex Assigned at Not on file Legal Sex Female 4:07 PM CDT Gender Identity Not on file Sexual Orientation Not on file documented as of this encounter Miscellaneous Notes * Cerner Conversion Note - Meggan ProviderMD - 06/17/2019 2:39 PM FINANCIAL PLANNING CONSULTANT ED Assessment Entered On: 06/17/2019 17:14 EST Performed On: 06/17/2019 17:13 EST by Brittny Villa RN ED Quick Look Assessment Level of Consciousness : Alert, Awake Affect/Behavior : Appropriate, Calm, Cooperative Orientation : Oriented x 4 Skin Temperature : Warm Brittny Villa RN - 06/17/2019 17:13 EST ED General-Functional Assess Information Obtained From : Patient Preferred Communication Mode : Verbal Communication Barrier : None Primary Language : Tajik Any Spiritual/Cultural Needs or Requests : No Currently in Unsafe Situation : No Brittny Villa RN - 06/17/2019 17:13 EST Social Habits Smoking Status : Former smoker, quit more than 30 days ago Smokeless Tobacco Status : Never Desires Tobacco Cessation Calc : 0 Brittny Villa RN - 06/17/2019 17:13 EST Social History (As Of: 06/17/2019 17:14:33 EST) Tobacco: Use in Last 12 Months: No. Smoking Status Former smoker. Years of Use: 15. Packs/Tins Daily: 1. Last Used: 2004. (Last Updated: 03/05/2015 09:22:33 EDT by MAGALYS MCLEAN, RN) Alcohol: Use in Last 12 Months: No. (Last Updated: 01/22/2013 09:22:53 EDT by WILMER ESTRADA RN) Substance Abuse: Drug Use Hx: No. Use in Last 12 Months: No. (Last Updated: 03/05/2015 09:23:04 EDT by MAGALYS MCLEAN, RN) Cardiovascular ASMT, ED Cardiovascular Assessment WDL : WDL Brittny Villa RN - 06/17/2019 17:13 EST Respiratory Respiratory Assessment WDL : WDL with exceptions Cough : Congested, Productive Brittny Villa RN - 06/17/2019 17:13 EST Breath Sounds Assessment Grid All Lobes Breath Sounds : Wheeze, expiratory, Crackles, fine ADRY : Wheeze, expiratory, Crackles, fine LLL : Wheeze, expiratory, Crackles, fine RUL : Wheeze, expiratory, Crackles, fine RML : Wheeze, expiratory, Crackles, fine RLL : Wheeze, expiratory, Crackles, fine Brittny Villa RN - 06/17/2019 17:13 EST Electronically signed by Omaira [facility] Conversion Field [address] Researcher Cerner at 09/16/2022 11:00 AM CDT documented in this encounter Plan of Treatment Not on file documented as of this encounter Visit Diagnoses Not on filedocumented in this encounter Care Teams Secondary School Teacher Librarian Relationship Specialty Start Date End Date Yamile Coffey MD [address] [place] [address] PCP - General Family Medicine 03/23/22 Kandace Castro, MELVIN [address] [facility] [address] [place] [address] Neurologist Neurology 08/29/23 Aaron Ribera MD [address] [facility] [address] [place] [address] Surgeon Cardiothoracic Surgery 09/13/23 documented as of this encounter
--- OUTSIDE RECORDS SUMMARY | 2024-12-13 20:36 | XMS_ITS | Encounter Summary ---
Author Organization [facility] Address [address] [place] [address] Care Team Providers Care Surgical Technology Instructor Name Role Phone Yamile Coffey MD Primary Care Provider [phone] Encounter Details Date Type Department Care Team (Late st Contact Info) Description 10/12/2024 Orders Only [facility] [address] [address] Provider, MD Meggan [address] [place] [address] Social History Tobacco Use Types Packs/Day [...] Clinic [address] [place] [address] Michelle Spence NP [address] [place] [address] documented as of this encounter Procedures Procedure Name Priority Date/Time Associated Diagnosis Comments LABS SCANNED RESULT Routine 09/27/2024 10:59 AM EDT documented in this encounter Results * Labs Scanned Result (09/27/2024 10:59 AM EDT) us Historical Provider LAB OBSERVATION METHODS F inal Result documented in this encounter Visit Diagnoses Not on filedocumented in this encounter Care Teams Surgical Technology Instructor Relationship Specialty Start Date End Date Yamile Coffey MD [address] Yamile Coffey [facility], [place], [place] [id number] PCP - General Family Medicine 10/03/22 documented as of this encounter
--- OUTSIDE RECORDS SUMMARY | 2024-12-13 20:36 | XMS_ITS | Encounter Summary ---
Author Organization [employer] ([place], [place], [place], [place]) Address [address] [place] [address] Care Team Providers Care Tc Operator Name Role Phone Yamile Coffey MD Primary Care Provider [phone] Kandace Castro APRN Unavailable [phone] Aaron Ribera MD Unavailable [phone] Encounter Details Date Type Department Care Team (Late st Contact Info) Description 06/19/2019 Transcribed Document [facility] [place] [facility] [place] [address] ProviderMeggan MD [address] [place] [address] Social History Tobacco Use Types Packs/Day Years Used Date Smoking Tobacco: Never Assessed Comments Unknown Sex and Gender Information Value Date Recorded Sex Assigned at Not on file Legal Sex Female 4:07 PM CDT Gender Identity Not on file Sexual Orientation Not on file documented as of this encounter Miscellaneous Notes * Cerner Conversion Note - Meggan ProviderMD - 06/19/2019 3:34 AM PROCESS DEVELOPMENT CHEMIST ED Discharge Entered On: 06/19/2019 3:36 EST Performed On: 06/19/2019 3:34 EST by BESSIE PIZARRO Discharge Process Patient Disposition : Discharge Personal Belongings With Patient : Yes Patient Education Completed : Yes Teaching Evaluation : Verbalizes understanding IV Discontinued : Yes Nursing Documentation Completed : Yes BESSIE PIZARRO - 06/19/2019 3:34 EST ED Discharge Discharge To : Home with ambulatory/outpatient follow-up Mode Of Departure : Private vehicle Accompanied By : Friend Discharge Instructions Reviewed With, Opportunity For Questions Given : Patient Prescriptions Given to Patient : Yes Number of Prescriptions Given : 1 MOIRABESSIE Emilio - 06/19/2019 3:34 EST Electronically signed by Omaira [facility] Conversion Material Engineer Cerner at 09/16/2022 10:45 AM CDT documented in this encounter Plan of Treatment Not on file documented as of this encounter Visit Diagnoses Not on filedocumented in this encounter Care Teams Tc Operator Relationship Specialty Start Date End Date Yamile Coffey MD [address] [facility] 2 [place] [address] PCP - General Family Medicine 03/23/22 Kandace Castro APRN [address] [facility] [address] [place] [address] Neurologist Neurology 08/29/23 Aaron Ribera MD [address] [facility] [address] [place] [address] Surgeon Cardiothoracic Surgery 09/13/23 documented as of this encounter
--- OUTSIDE RECORDS SUMMARY | 2024-12-13 20:36 | XMS_ITS | Encounter Summary ---
Author Organization [employer] ([place], [place], [place], [place]) Address [address] [place] [address] Care Team Providers Care Snow Removal/Plowing Name Role Phone Yamile Coffey MD Primary Care Provider [phone] Kandace Castro APRN Unavailable [phone] Aaron Ribera MD Unavailable [phone] Encounter Details Date Type Department Care Team (Late st Contact Info) Description 06/17/2019 Transcribed Document [facility] Family Medicine [facility] [place] [address] ProviderMeggan MD [address] [place] [address] Social History Tobacco Use Types Packs/Day Years Used Date Smoking Tobacco: Never Assessed Comments Unknown Sex and Gender Information Value Date Recorded Sex Assigned at Not on file Legal Sex Female 4:07 PM CDT Gender Identity Not on file Sexual Orientation Not on file documented as of this encounter Miscellaneous Notes * Cerner Conversion Note - Historical ProviderMD - 06/17/2019 2:39 PM EMPLOYMENT LAW ATTORNEY [place] Suicide Severity Rating Scale (C-SSRS) Entered On: 06/17/2019 17:14 EST Performed On: 06/17/2019 17:13 EST by Brittny Villa RN [place] Suicide Severity Rating Scale (C-SSRS) CSSRS Past Month Wish to be : No CSSRS Past Month Suicidal Thoughts : No CSSRS Lifetime Suicide Behavior : No Suicide Severity Rating Score : 0 Suicide Severity Rating : No Additional Care Required at this time Thoughts of Harming/Killing Others : No Brittny Villa, RN - 06/17/2019 17:13 EST documented in this encounter Plan of Treatment Not on file documented as of this encounter Visit Diagnoses Not on filedocumented in this encounter Care Teams Snow Removal/Plowing Relationship Specialty Start Date End Date Yamile Coffey MD [address] [facility] 2 [place] [address] PCP - General Family Medicine 03/23/22 Kandace Castro APRN [address] [facility] [address] [place] [address] Neurologist Neurology 08/29/23 Aaron Ribera MD [address] [facility] [address] [place] [address] Surgeon Cardiothoracic Surgery 09/13/23 documented as of this encounter
--- OUTSIDE RECORDS SUMMARY | 2024-12-13 20:36 | XMS_ITS | Encounter Summary ---
Author Organization [facility] Address [address] [facility] [address] [place] [address] Care Team Providers Care Surface Ship Usw Supervisor Name Role Phone Yamile Coffey MD Primary Care Provider [phone] Reason for Visit * Reason Comments Med Refill Encounter Details Date Type Department Care Team (Late st Contact Info) Description 12/02/2024 Refill [facility] [address] [id number] Michelle Spence NP [address] [address] Social History Tobacco Use Types Packs/Day Years [...] [facility] [address] [facility] [address] [place] [address] Michelle Spence NP [address] [facility] [address] [place] [address] documented as of this encounter Visit Diagnoses Not on filedocumented in this encounter Care Teams Surface Ship Usw Supervisor Relationship Specialty Start Date End Date Yamile Coffey MD [address] [facility], [place] [address] PCP - General Family Medicine 10/03/22 documented as of this encounter
--- OUTSIDE RECORDS SUMMARY | 2024-12-13 20:36 | XMS_ITS | Clinical Summary ---
Author Organization [facility] Address [address] [place] [address] Care Team Providers Care First Officer Name Role Phone Yamile Coffey MD Primary Care Provider [phone] Allergies Active Allergy Reactions Criticality Noted Date Comments Codeine Nausea And Vomiting 12/17/2012 Nausea/ GI Intolerance Medications ALPRAZolam (Xanax) 1 MG tablet 08/11/19 21 Active estradiol (Estrace) 0.5 MG tablet 09/01/19 21 Active loratadine (Claritin) 10 MG tablet 07/30/19 21 Active sodium chloride 0.45 % solution 09/09/19 21 Active Heparin Sod, Porcine,-D10 50-10 UNT/50ML-% solution prefilled syringe 11/05/19 21 Active Zembrace SymTouch 3 MG/0.5ML solution auto-injector 06/13/19 23 Active venlafaxine XR (Effoxor-XR) 150 MG 24 hr capsule 05/28/20 22 Active cyclobenzaprine (Flexeril) 10 MG tablet 10/22/19 23 Active gabapentin (Neurontin) 300 MG capsule 01/21/20 23 Active Ventolin HFA 108 (90 Base) MCG/ACT inhaler 07/06/19 24 Active famotidine (Pepcid) 20 MG tablet TAKE 1 TABLET BY MOUTH 2 TIMES A DAY. 30 tablet 2 06/13/20 24 Active Motegrity 2 MG tablet TAKE ONE TABLET BY MOUTH ONCE DAILY 30 tablet 10 07/11/19 25 Active ondansetron (Zofran) 40 MG/20ML solution 07/30/19 25 Active pantoprazole (ProtoNix) 40 MG EC tablet Take 1 tablet (40 mg total) by mouth 2 (two) times a day before meals. Do not crush, chew, or split. 30 tablet 6 08/01/19 25 Active promethazine (Promethegan) 25 MG suppository INSERT 1 SUPPOSITORY (25 MG TOTAL) INTO THE RECTUM EVERY 6 (SIX) HOURS IF NEEDED FOR NAUSEA OR VOMITING. 60 each 1 09/10/19 25 Active meclizine (Antivert) 25 MG tablet TAKE 1 TABLET BY MOUTH 3 TIMES A DAY IF NEEDED FOR DIZZINESS. 120 tablet 1 12/03/19 25 Active meclizine (Antivert) 25 MG tablet TAKE 1 TABLET BY MOUTH 3 TIMES A DAY IF NEEDED FOR DIZZINESS. 120 tablet 2 08/29/19 25 025 Discontinued Active Problems Problem Noted Date Diagnosed Date Abdominal pain 12/31/2020 Anxiety 12/31/2020 Arthritis 12/31/2020 Asthenia 12/31/2020 Cardiac murmur 12/31/2020 Degeneration of cervical intervertebral disc 09/2020 Depressive disorder 12/31/2020 Irritable bowel syndrome 12/31/2020 Migraine 12/31/2020 Overview (12/31/2020): history of botox injections (not helpful per pt Scoliosis deformity of spine 12/31/2020 Intestinal obstruction 12/31/2020 Weight loss 12/31/2020 Gastroparesis syndrome 08/05/2019 Peripherally inserted central venous catheter in situ 05/02/2019 Autoantibody level - finding 02/07/2018 Disorder of abdomen 07/13/2017 Dysphagia 07/13/2017 Protein-calorie malnutrition 09/01/2016 Constipation alternates with diarrhea 07/05/2016 Neck pain 07/05/2016 Abdominal pain, epigastric 01/21/2013 Nausea and vomiting 01/21/2013 Left lower quadrant pain 12/17/2012 Patient encounter status 12/11/2012 Encounters Date Type Department Care Team Description 12/10/2024 Telephone [facility] [address] [place] [address] Bryanna Lockhart MD Line Care 12/02/2024 Refill [facility] [address] [place] [address] Michelle Spence, JULIANN 11/21/2024 Orders Only [facility] [address] [place] [address] Meggan Tamayo MD 11/08/2024 10:00 AM EDT External Surgery [facility] [address] [facility] [address] [place] [phone] Vaibhav Godoy MD 11/08/2024 Orders Only [facility] [address] [email or web address] [address] [place] [address] Bryanna Lockhart MD 10/30/2024 Telephone [facility] [address] [facility] [[email or web address] [address] [place] [address] Michelle Spence, JULIANN 10/29/2024 Orders Only [facility] [address] [facility] [[email or web address]] [address] [place] [address] Meggan Tamayo MD 10/15/2024 2:50 PM EDT Tele[facility] [address] [facility] [address] [place] [phone] Vaibhav Godoy MD Idiopathic gastroparesis (Primary Dx) 10/15/2024 Travel 10/12/2024 Orders Only [facility] [address] [facility] [[email or web address]] [address] [place] [address] Meggan Tamayo MD 10/01/2024 Telephone [facility] [address] [facility] [[email or web address] [address] [place] [address] Michelle Spence NP Appointment/Procedure from Last 3 Months Immunizations Immunization Administration Dates Next Due Influenza, quadrivalent PF ( fluarix, Afluria, Flulaval, Fluzone) 01/26/2021 Moderna COVID-19 MRNA Vaccine 100 or 50mcg (Spik evax) 09/11/2020,08/14/2020 Social History Tobacco Use Types Packs/Day Years Used Date Smoking Tobacco: Former Passive Smoke Exposure: Past Smokeless Tobacco: Never Tobacco Cessation:Counseling Given: Not Answered Alcohol Use Standard Drinks/Week Comments Never 0 [...] Orientation Straight 09/20/2022 9: 30 AM EDT Last Filed Vital Signs Vital Sign Reading Time Taken Comments Blood Pressure 136/84 07/31/2024 8:03 AM EST Pulse 80 07/31/2024 8:03 AM EST Temperature 36.3 C (97.4 F) 07/31/2024 8:03 AM EST Respiratory Rate 16 07/31/2024 8:03 AM EST Oxygen Saturation 97% 07/31/2024 8:03 AM EST Inhaled Oxygen Concentration - - Weight 86.6 kg (191 lb) 10/15/2024 12:09 PM EDT Height 162.6 cm (5' 4 ) 07/31/2024 8:03 AM EST Body Mass Index 32.79 07/31/2024 8:03 AM EST Plan of Treatment Upcoming Encounters Date Type Department Care Team (Late st Contact Info) Description 02/12/2025 1:30 PM EDT Office Visit [facility] [address] [facility] [address] [place] [address] Michelle Spence NP [address] [facility] [address] [place] [address] Health Maintenance Due Date Last Done Comments HIV Screening 1970 Hepatitis C Screening 1970 Medicare Annual Wellness (AWV) 1970 MMR Vaccines (1 of 1 - Standard series) 1971 Hepatitis B Screening 02/06/1988 DTaP/Tdap/Td Vaccines (1 - Tdap) 1989 Hepatitis B Vaccines (1 of 3 - 19+ 3-dose series) 1989 Pap Smear 1991 Cervical Cancer Screening 02/06/2000 HPV/Cotest 02/06/2000 Mammogram 2010 Pneumococcal Vaccine: 50+ Years (1 of 1 - PCV) 02/06/2020 Zoster Vaccines (1 of 2) 02/06/2020 Diabetes Screening 12/31/2021 12/31/2020 Depression Risk Screening 05/29/2024 SDOH Screening 05/29/2024 Influenza Vaccine (#1) 2025 03/12/2024, 2020 COVID-19 Vaccine Completed 03/12/2024, , 02/18/2022, Additional history exists HIB Vaccines Aged Out No longer eligi ble based on patient's age to complete this topic HPV Vaccines Aged Out No longer eligi ble based on patient's age to complete this topic Hepatitis A Vaccines Aged Out No long er eligible based on patient's age to complete this topic IPV Vaccines Aged Out No longer eligi ble based on patient's age to complete this topic Meningococcal B Vaccine Aged Out No l onger eligible based on patient's age to complete this topic Meningococcal Vaccine Aged Out No pablo eugenia eligible based on patient's age to complete this topic Rotavirus Vaccines Aged Out No longer eligible based on patient's age to complete this topic Procedures Procedure Name Priority Date/Time Associated Diagnosis Comments LABS SCANNED RESULT Routine 11/21/2024 3 :01 PM EDT SURG SCANNED ORDER Routine 11/08/2024 4: 21 PM EDT LABS SCANNED RESULT Routine 11/08/2024 3 :53 PM EDT LABS SCANNED RESULT Routine 10/29/2024 8 :21 AM EDT LABS SCANNED RESULT Routine 09/27/2024 1 0:59 AM EDT HEMOGLOBIN A1C Routine 12/31/2020 12:00 AM EDT Gastroparesis from Last 3 Months or Most Recently Relevant to Health Maintenance Results * Labs Scanned Result (11/21/2024 3:01 PM EDT) Only the most recent of4 resultswithin the time period is included. Historical Provider MD LAB OBSERVATION METHODS F inal Result * SURG SCANNED ORDER (11/08/2024 4:21 PM EDT) Vaibhav Godoy MD IN CLINIC/BEDSIDE ORDERABLES F inal Result * Hemoglobin A1c (12/31/2020 12:00 AM EDT) Hemoglobin A1C 5.4 <5.7 % of total Hgb [facility] Comment: For the purpose of screening for the presence of diabetes: <5.7% Consistent with the absence of diabetes 5.7-6.4% Consistent with increased risk for diabetes (prediabetes) > or =6.5% Consistent with diabetes This assay result is consistent with a decreased risk of diabetes. Currently, no consensus exists regarding use of hemoglobin A1c for diagnosis of diabetes in children. According to [place] Diabetes Association (ADA) guidelines, hemoglobin A1c <7.0% represents optimal control in non- diabetic patients. Different metrics may apply to specific patient populations. Standards of Medical Care in Diabetes(ADA). Blood Venous blood specimen / Unknown 12/31/2020 12/31/2020 9:06 AM EDT Narrative Resulting Agency Comment Performing Organization Information: Site ID: [id number] Name: [facility] Address: [address] [place] [id number] Director: Bowen Patel M.D. Michelle Spence NP LAB BLOOD ORDERABLES Final Result [facility] [place] [address], from Last 3 Months or Most Recently Relevant to Health Maintenance Insurance [id number] Care Teams First Officer Relationship Specialty Start Date End Date Yamile Coffey MD [address] Yamile Coffey [facility], [place] [address] PCP - General Family Medicine 10/03/22
--- OUTSIDE RECORDS SUMMARY | 2024-12-13 20:36 | XMS_ITS | Encounter Summary ---
Author Organization [facility] ([place], [place], [place], [place]) Address [address] [place] [address] Care Team Providers Care Senior Research Consultant Name Role Phone Yamile Coffey MD Primary Care Provider [phone] Kandace Castro APRN Unavailable [phone] Aaron Ribera MD Unavailable [phone] Encounter Details Date Type Department Care Team (Late st Contact Info) Description 10/05/2018 Transcribed Document [facility] Family Medicine [facility] [place] [address] ProviderMeggan MD [address] [place] [address] Social History Tobacco Use Types Packs/Day Years Used Date Smoking Tobacco: Never Assessed Comments Unknown Sex and Gender Information Value Date Recorded Sex Assigned at Not on file Legal Sex Female 4:07 PM CDT Gender Identity Not on file Sexual Orientation Not on file documented as of this encounter Miscellaneous Notes * Cerner Conversion Note - Meggan ProviderMD - 10/05/2018 4:37 PM CDT ED Discharge Entered On: 10/05/2018 16:37 EDT Performed On: 10/05/2018 16:37 EDT by BECKIE QUINTANA RN Discharge Process Patient Disposition : Discharge Personal Belongings With Patient : Yes Patient Education Completed : Yes Teaching Evaluation : Verbalizes understanding IV Discontinued : Not applicable Nursing Documentation Completed : Yes BECKIE QUINTANA RN - 10/05/2018 16:37 EDT ED Discharge Discharge To : Home with ambulatory/outpatient follow-up Mode Of Departure : Private vehicle Accompanied By : Friend Discharge Instructions Reviewed With, Opportunity For Questions Given : Patient BECKIE QUINTANA RN - 10/05/2018 16:37 EDT documented in this encounter Plan of Treatment Not on file documented as of this encounter Visit Diagnoses Not on filedocumented in this encounter Care Teams Senior Research Consultant Relationship Specialty Start Date End Date Yamile Coffey MD [address] [facility] [address] [place] [address] PCP - General Family Medicine 03/23/22 Kandace Castro APRN [address] [facility] [address] [place] [address] Neurologist Neurology 08/29/23 Aaron Ribera MD [address] [facility] [address] [place] [address] Surgeon Cardiothoracic Surgery 09/13/23 documented as of this encounter
--- OUTSIDE RECORDS SUMMARY | 2024-12-13 20:36 | XMS_ITS | Encounter Summary ---
Author Organization [facility] ([place], [place], [place], [place]) Address [address] [place] [address] Care Team Providers Care Freight Router Name Role Phone Yamile Cfofey MD Primary Care Provider [phone] Kandace Castro APRN Unavailable [phone] Aaron Ribera MD Unavailable [phone] Encounter Details Date Type Department Care Team (Late st Contact Info) Description 10/05/2018 Transcribed Document [facility] [place] [facility] [place] [address] ProviderMeggan MD [address] [place] [address] Social History Tobacco Use Types Packs/Day [...] ProviderMD - 10/05/2018 2:34 PM CDT ED Triage Entered On: 10/05/2018 14:47 EDT Performed On: 10/05/2018 14:43 EDT by Surendra Roe RN ED Triage Across the Room Triage Date/Time : 10/05/2018 14:43 EDT Chief Complaint : pt here concerned for possible PICC liune infection. pt states infusion nurse states that it may be infected. pt states some tenderness around the site site has no swelling or redness Surendra Roe RN - 10/05/2018 14:43 EDT DCP GENERIC CODE Tracking Acuity : 3 - Urgent Tracking Group : [facility] ED Surendra Roe RN - 10/05/2018 14:43 EDT Mode of Arrival : Ambulatory Transported to ED by : Walk in To Room Via : Ambulate Accompanied By : Unaccompanied ED Vital Signs : Document Height & Weight : Document ED Allergies : Document ED Reason for Visit : Document Tetanus Immunization : Greater than 5 years Surendra Roe RN - 10/05/2018 14:43 EDT Infectious Disease History Infectious Disease History : Chicken pox/Shingles Isolation Needed : Standard Fever/Chills Last 48 Hours : No Travel To Regions with Travel Advisories : No Travel Outside [place] Within Last 30 Days : No Contact With Traveler to Advisory Region : No Tuberculosis Symptoms : None Surendra Roe RN - 10/05/2018 14:43 EDT Vital Signs ED Temperature Source : Oral Temperature Mode : Fahrenheit Temperature, Fahrenheit : 97.4 Deg F Clinical Temperature, C : 36.3 Deg C Oxygen Therapy Mode : Room air Peripheral Pulse Rate : 77 bpm Respiratory Rate : 16 Breaths/Min Systolic Blood Pressure : 131 mmHg Diastolic Blood Pressure : 80 mmHg Oxygen Saturation : 97 % Surendra Roe RN - 10/05/2018 14:43 EDT Allergy (As Of: 10/05/2018 14:47:44 EDT) Allergies (Active) codeine Estimated Onset Date: Unspecified ; Reactions: Nausea ; Created By: WILMER ESTRADA RN; Reaction Status: Active ; Category: Drug ; Substance: codeine ; Type: Allergy ; Updated By: WILMER ESTRADA RN; Reviewed Date: 10/05/2018 14:44 EDT Diagnosis Control ED (As Of: 10/05/2018 14:47:44 EDT) Problems(Active) abd pain (SNOMED CT :20140284 ) Name of Problem: abd pain ; Recorder: WILMER ESTRADA RN; Confirmation: Confirmed ; Classification: Medical ; Code: [id number] ; Contributor System: Shoppable ; Last Updated: 03/15/2017 12:56 EDT ; Life Cycle Date: 01/22/2013 ; Life Cycle Status: Active ; Vocabulary: SNOMED CT Anxiety (SNOMED CT :95899743 ) Name of Problem: Anxiety ; Recorder: DANNY PIÑA PA; Confirmation: Confirmed ; Classification: Medical ; Code: [id number] ; Contributor System: PowerChart ; Last Updated: 06/30/2017 14:50 EST ; Life Cycle Date: 03/05/2015 ; Life Cycle Status: Active ; Vocabulary: SNOMED CT Arthritis (SNOMED CT :3224192 ) Name of Problem: Arthritis ; Recorder: MAGALYS MCLEAN RN; Confirmation: Confirmed ; Classification: Medical ; Code: [id number] ; Contributor System: PowerChart ; Last Updated: 03/05/2015 9:20 EDT ; Life Cycle Date: 03/05/2015 ; Life Cycle Status: Active ; Vocabulary: SNOMED CT Bowel obstruction x 2 (SNOMED CT :847185199 ) Name of Problem: Bowel obstruction x 2 ; Recorder: JENNIFER AGUILAR RN PATIENT CARE 1; Confirmation: Confirmed ; Classification: Medical ; Code: [id number] ; Contributor System: PowerChart ; Last Updated: 09/01/2016 10:56 EDT ; Life Cycle Date: 09/01/2016 ; Life Cycle Status: Active ; Vocabulary: SNOMED CT cervical ca (SNOMED CT :950149814 ) Name of Problem: cervical ca ; Recorder: WILMER ESTRADA RN; Confirmation: Confirmed ; Classification: Medical ; Code: [id number] ; Contributor System: [employer] (RU)Chart ; Last Updated: 03/15/2017 12:57 EDT ; Life Cycle Date: 01/22/2013 ; Life Cycle Status: Active ; Vocabulary: SNOMED CT Depression (SNOMED CT :[id number] ) Name of Problem: Depression ; Recorder: DANNY PIÑA PA; Confirmation: Confirmed ; Classification: Medical ; Code: [id number] ; Contributor System: PowerChart ; Last Updated: 06/30/2017 14:51 EST ; Life Cycle Date: 03/05/2015 ; Life Cycle Status: Active ; Vocabulary: SNOMED CT depression/anxiety (SNOMED CT :16912887 ) Name of Problem: depression/anxiety ; Recorder: WILMER ESTRADA RN; Confirmation: Confirmed ; Classification: Medical ; Code: 30360783 ; Contributor System: PowerChart ; Last Updated: 11/12/2013 13:40 EDT ; Life Cycle Date: 01/22/2013 ; Life Cycle Status: Active ; Vocabulary: SNOMED CT Gastroparesis (SNOMED CT :890266160 ) Name of Problem: Gastroparesis ; Recorder: JENNIFER AGUILAR RN PATIENT CARE 1; Confirmation: Confirmed ; Classification: Medical ; Code: 210201937 ; Contributor System: PowerChart ; Last Updated: 09/01/2016 11:16 EDT ; Life Cycle Date: 09/01/2016 ; Life Cycle Status: Active ; Vocabulary: SNOMED CT heart murmur (SNOMED CT :926602767 ) Name of Problem: heart murmur ; Recorder: WILMER ESTRADA RN; Confirmation: Confirmed ; Classification: Medical ; Code: [id number] ; Contributor System: [employer] (RU)Chart ; Last Updated: 11/11/2013 14:25 EDT ; Life Cycle Date: 01/22/2013 ; Life Cycle Status: Active ; Vocabulary: SNOMED CT ibs (SNOMED CT :721404753 ) Name of Problem: ibs ; Recorder: WILMER ESTRADA RN; Confirmation: Confirmed ; Classification: Medical ; Code: 997965311 ; Contributor System: [employer] (RU)Chart ; Last Updated: 11/11/2013 14:31 EDT ; Life Cycle Date: 01/22/2013 ; Life Cycle Status: Active ; Vocabulary: SNOMED CT IBS (irritable bowel syndrome) (SNOMED CT :[id number] ) Name of Problem: IBS (irritable bowel syndrome) ; Recorder: DANNY PIÑA PA; Confirmation: Confirmed ; Classification: Medical ; Code: [id number] ; Contributor System: PowerChart ; Last Updated: 06/30/2017 14:53 EST ; Life Cycle Date: 03/05/2015 ; Life Cycle Status: Active ; Vocabulary: SNOMED CT Scar (SNOMED CT :124617543 ) Name of Problem: Scar ; Recorder: MAGALY CALABRESE RN; Confirmation: Confirmed ; Classification: Medical ; Code: [id number] ; Contributor System: [employer] ; Last Updated: 12/28/2016 14:42 EDT ; Life Cycle Date: 12/28/2016 ; Life Cycle Status: Active ; Vocabulary: SNOMED CT ; Comments: 12/28/2016 14:42 - MAGALY CALABRESE RN scar tissue in bowel Scoliosis (SNOMED CT :151342724 ) Name of Problem: Scoliosis ; Recorder: MAGALYS MCLEAN RN; Confirmation: Confirmed ; Classification: Medical ; Code: [id number] ; Contributor System: [employer] ; Last Updated: 03/05/2015 9:20 EDT ; Life Cycle Date: 03/05/2015 ; Life Cycle Status: Active ; Vocabulary: SNOMED CT Diagnoses(Active) Medical screening exam Date: 10/05/2018 ; Diagnosis Type: Reason For Visit ; Confirmation: Complaint of ; Clinical Dx: Medical screening exam ; Classification: Medical ; Clinical Service: Emergency medicine ; Code: PNED ; Probability: 0 ; Diagnosis Code: [id number] ED Height and Weight Height Source : Stated Height Entry Format : [place] Height, Feet : 5 ft(Converted to: 152 cm, 60 Inch) Height, Inches : 4 Inch(Converted to: 0 ft 4 Inch, 10.16 cm) Clinical Height : 162.56 cm Weight Source, ED : Standing scale Weight Entry Format : [place] Weight, Pounds : 213 lb Clinical Dosing Weight : 96.82 kg Body Surface Area (BSA) : 2.01 m2 Body Mass Index : 36.6 kg/m2 (HI) [place] Body Weight (IBW) : 54.3 kg Surendra Roe RN - 10/05/2018 14:43 EDT documented in this encounter Plan of Treatment Not on file documented as of this encounter Visit Diagnoses Not on filedocumented in this encounter Care Teams Freight Router Relationship Specialty Start Date End Date Yamile Coffey MD [address] [place] [address] PCP - General Family Medicine 03/23/22 Kandace Castro, MELVIN [address] [facility] [address] [place] [address] Neurologist Neurology 08/29/23 Aaron Ribera MD [address] [facility] [address] [place] [address] Surgeon Cardiothoracic Surgery 09/13/23 documented as of this encounter
--- OUTSIDE RECORDS SUMMARY | 2024-12-13 20:36 | XMS_ITS | Data Portability ---
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 Plan of Treatment Reminders Order Date Submit Date Provider Last Modified By Organization Details Last Modified Time Details Appointments None recorded. Lab None recorded. Referral None recorded. Procedures None recorded. Surgeries None recorded. Imaging CT, chest, w/o contrast 2023 024 [email or web address] [facility] (Centralized Scheduling), [address] [place], [address], 5 10:29:47 PFT, plethysmogr aphy 2023 024 [email or web address] [facility] (Centralized Scheduling), [address] [facility], [place], [address], 4 10:53:21 US, echocardiog greg, transthorac ic, complete, w/ color flow 2022 023 [facility], [address], [place], [address], 3 08:39:47 electrocard iogram 2022 023 TRINA [facility], [address], [place], [address], 3 10:14:32 Medication Orders None recorded. Patient TargetsNo targets recorded. Patient InstructionsNo instructions recorded. Reason for Referral None Reported. Results Created Date Observation Date Name Description Value Unit Range Abnormal Flag Note LastModifiedBy Organization Detail LastModifiedTime 02/02/20 23 02/07/2023 elect rocar diogr am No observ ation record ed. [facility] [address], [place], [address], 02/07/2023 10:49:28 02/08/20 23 02/01/2023 elect rocar diogr am No observ ation record ed. [facility] [address], [place], [address], 02/07/2023 10:14:32 02/29/20 23 02/27/2023 [facility] [address] [place] [address] Phone: Fax: Name: IZABELLA PADILLA Exam Date: 023 : 970 Age 53 Gender : F Access ion: [id number] Physic merari: ANEUDY MCDONOUGH ty: [facility] Facili ty HSV: Outpat ient Exam: ECHO W SPEC COLOR FLOW Reason for Study: murmur , cp SUMMAR Y Normal LV size with normal functi on. The ejecti on fracti on is 60-65% . Normal diasto lic functi on. There is mild mitral regurg itatio n. There is mild tricus pid regurg itatio n. Normal PA pressu re (23 mmHg). INTERP RETATI ON DETAIL Fair qualit y study. Left ventri merlyn: The left ventri merlyn is normal in size with normal systol ic functi on. The ejecti on fracti on is 60-65% . There is top normal LV wall thickn ess. LV geomet ry is normal . The left ventri cular wall motion is normal . Mitral fillin g indica maksim Normal diasto lic functi on. Left atrium : The left atrium is normal . LA volume : 22.7mL , LA volume index: 11.6mL /mA . Right ventri merlyn: The right ventri merlyn is normal in size with normal functi on. Right atrium : The right atrium is normal . Mitral valve: There is no mitral stenos is. There is mild mitral regurg itatio n. Aortic valve: . 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 10cm, LVOT TVI=21 .9cm, Ao TVI=27 .4cm). The dimens ionles s index is 0.80. AV peak veloci hv=414 cm/sec . There is trace aortic regurg itatio n. Tricus pid valve: The tricus pid valve is normal . There is mild tricus pid regurg itatio n. PASP= 23 mmHg, RAP=7m mHg. Pulmon ic valve: The pulmon ic valve is normal . There is mild pulmon ic regurg itatio n. Perica rdium: The perica rdium is normal . Pulmon jaspal artery : The pulmon jaspal artery is normal . Intera trial septum : The intera trial septum is normal . Aorta: The aorta is normal . The aortic root is normal . Aortic dimens ions - Ao M-mode = 3.50cm , Ascend ing=3. 70cm. Vena Cava: The inferi or vena cava is normal . MEASUR EMENTS Left Ventri merlyn IVSd: 1.00cm (0.6-1 .1cm) PWd: 1.05cm (0.6-1 .1cm) Mass Betty: 147g LVMI: 75g/mA (>50-9 5g/m) LVIDd: 4.30cm (3.7-5 .6 cm) LVIDdI : 2.21cm /m2 LVIDs: 3.03cm (1.8-4 .2 cm) LVIDsI : 1.55cm /m2 RWT: 0.49 ( E to A: 0.79 (0.6-2 ) E-e prime med: 11.83 E-e prime lat: 11.83 Decel: 275.00 ms (168-2 32ms) Right Ventri merlyn Mid RV Mikki: 2.7cm (2.7-3 .3cm) Legall y authen ticate d by CEASAR Bartlett 2022-05 0 08:17: 38 Max Valve Veloci ties AV peak helen: 133cm/ sec LVOT: 113.00 cm/sec Pulmon jaspal RAP: 7mmHg PASP: 23mmHg Atria LA AP: 3.2cm LA vol: 22.7mL KORY: 11.6mL /mA (16-28 ml/m^2 ) Aneudy Mcdonough MD Electr onical ly signed by Dr. Aneudy Mcdonough on 2022 at 8:17 AM Dictat ed By: ANEUDY MCDONOUGH Transc ribed By: Transc ribed On: 023 8:17 AM Electr onical ly signed by: ANEUDY MCDONOUGH 023 Thank you for referr IZABELLA Villasenor to [facility]. Legall y authadan ticate d by CEASAR Bartlett 2022-05 08:17: 38 CC'ed Logic: Orderi ng Provid er: CEASAR GARBER Attend ing Provid er: CEASAR GARBER Admitt ing Provid er: CEASAR GARBER [facility] [address] [place] [address], [place], [address], 03/10/2023 13:48:52 07/13/19 24 07/06/2023 XR, chest , 2 view No observ ation record ed. [email or web address] Not Available 2023 10:14:55 07/20/19 24 07/20/2023 XR, chest , 2 view [facility] [address] [place] [address] Phone: Fax: Name: IZABELLA PADILLA Exam Date: 024 : [birth year] Age 53 Gender : F Access ion: [id number] Physic merari: BRAXTON TRUJILLO Facili ty: [facility] Facili ty HSV: Outpat ient Exam: CHEST 2 VIEWS CHEST, 2 views HISTOR Y: Cough COMPAR STEFAN: None. FINDIN GS: Left perihi lar linear atelec tasis. Bilate ral bronch ial thicke cassandra. There is no eviden ce of effusi on or other pleura l diseas e. The medias tinum has a normal appear ance. The cardia c silhou ette is unrema rkable . IMPRES HERNANDEZ: Bronch itis. No focal pneumo judy. Dictat ed By: Kandy Tello Transc ribed By: Kandy Brooks Transc ribed On: 8:57 AM Electr onical ly signed by: Kandy Tello Addend um 1 Right arm PICC termin ates below the superi or cavoat rial juncti on. Dictat ed By: Kandy Tello Dictat ed Date: 9:07:1 8 AM Electr onical ly signed by: Kandy Tello Thank you for referr ing VALERIE IZABELLA to [facility]. Legall y authen ticate d by MICHAEL ABARCA 07-20 08:57: 08 CC'ed Logic: Orderi ng Provid er: CASSANDRA NICOLAS Attend ing Provid er: CASSANDRA NICOLAS Admkiko ing Provid er: CASSANDRA NICOLAS [facility] - [facility] Therapy [address] [place] [address], [address], 07/20/2023 09:19:23 07/20/19 24 07/20/2023 XR, chest , 2 view [facility] [address] [place] [address] Phone: Fax: Name: IZABELLA PADILLA Exam Date: : [birth year] Age 53 Gender : F Access ion: [id number] Physic merari: BRAXTON TRUJILLO Facili ty: [facility] Facili ty HSV: Outpat ient Exam: CHEST 2 VIEWS CHEST, 2 views HISTOR Y: Cough COMPAR STEFAN: None. FINDIN GS: Left perihi lar linear atelec tasis. Bilate ral bronch ial thicke cassandra. There is no eviden ce of effusi on or other pleura l diseas e. The medias tinum has a normal appear ance. The cardia c silhou ette is unrema rkable . IMPRES HERNANDEZ: Bronch itis. No focal pneumo judy. Dictat ed By: Kandy Tello Transc ribed By: Kandy Brooks Transc ribed On: 8:57 AM Electr onical ly signed by: Kandy Tello Addend um 1 Right arm PICC termin ates below the superi or cavoat rial juncti on. Dictat ed By: Kandy Tello Dictat ed Date: 9:07:1 8 AM Electr onical ly signed by: Kandy Tello Thank you for referr [facility] Legall y authen ticate d by MICHAEL ABARCA 07-20 09:07: 18 CC'ed Logic: Orderi ng Provid er: CASSANDRA NICOLAS Attend ing Provid er: CASSANDRA NICOLAS Admitt ing Provid er: CASSANDRA NICOLAS [facility] [address] [place] [address], [address], 07/20/2023 11:11:22 Result Notes Documentation Provider Name and Address Organization Details Recorded Time Xr, Chest, 2 View : [address] [address] Name: IZABELLA PADILLA Exam Date: 07/20/2023 : 1970 Age 53 Gender: F Physician: BRAXTON TRUJILLO Facility: [facility] Facility HSV: Outpatient Exam: CHEST 2 VIEWS CHEST, 2 views HISTORY: Cough COMPARISON: None. FINDINGS: Left perihilar linear atelectasis. Bilateral bronchial thickening. There is no evidence of effusion or other pleural disease. The mediastinum has a normal appearance. The cardiac silhouette is unremarkable. IMPRESSION: Bronchitis. No focal pneumonia. Dictated By: Kandy Tello Transcribed By: Kandy Brooks Transcribed On: 07/20/2023 8:57 AM Electronically signed by: Kandy Tello 07/20/2023 Addendum 1 Right arm PICC terminates below the superior cavoatrial junction. Dictated By: Kandy Tello Dictated Date: 07/20/2023 9:07:18 AM Electronically signed by: Kandy Tello 07/20/2023 Thank you for referring IZABELLA PADILLA to [facility]. Legally authenticated by TMII ABARCA 2023-07-20 08:57:08 CC'ed Logic: Ordering Provider: CASSANDRA NICOLAS Attending Provider: CASSANDRA NICOLAS Admitting Provider: ACSSANDRA Trujillo MD [address] [place], [place] [address] 07/20/2023 09:19:23 Xr, Chest, 2 View : [place] [address] Name: IZABELLA PADILLA Exam Date: 07/20/2023 : 1970 Age 53 Gender: F Physician: BRAXTON TRUJILLO Facility: [facility] Facility HSV: Outpatient Exam: CHEST 2 VIEWS CHEST, 2 views HISTORY: Cough COMPARISON: None. FINDINGS: Left perihilar linear atelectasis. Bilateral bronchial thickening. There is no evidence of effusion or other pleural disease. The mediastinum has a normal appearance. The cardiac silhouette is unremarkable. IMPRESSION: Bronchitis. No focal pneumonia. Dictated By: Kandy Tello Transcribed By: Kandy Brooks Transcribed On: 07/20/2023 8:57 AM Electronically signed by: Kandy Tello 07/20/2023 Addendum 1 Right arm PICC terminates below the superior cavoatrial junction. Dictated By: Kandy Tello Dictated Date: 07/20/2023 9:07:18 AM Electronically signed by: Kandy Tello 07/20/2023 Thank you for referring IZABELLA PADILLA to [facility]. Legally authenticated by TIMI ABARCA 2023-07-20 09:07:18 CC'ed Logic: Ordering Provider: CASSANDRA NICOLAS Attending Provider: CASSANDRA NICOLAS Admitting Provider: CASSANDRA Trujillo MD [address], [place], [address], [place] [facility] & [place] 07/20/2023 11:11:22 Problems Name Problem SNOMED Code Status Onset Date Resolution Date Notes Provider Name and Address Organization Details Recorded Time Diastolic murmur 18732200 Active 2022 Aneudy Mcdonough MD [address], [place], [address] , [place] - [facility] & [place] 3 14:21:31 Chronic cough 00922896 Active 2023 Braxton Trujillo MD [address], [place], [address] , [place] [facility] & [place] 4 10:45:52 Nicotine dependence in remission 616215060 Active 2023 Braxton Trujillo MD [address], [place], [address] , [place] - [facility] & [place] 4 10:47:25 Gastroparesis syndrome 741867683 Active 2023 Braxton Trujillo MD [address], [place], [address] , [place] - [facility] & [place] 4 10:47:38 Problem Notes None recorded. Procedures Surgical History Date Name Laterality Status Provider Name and Address Organization Details Recorded Time 12/04/19 23 completed Nena Joe [place] [facility] [place] & [place] 02/01/2023 14:01:03 05/29/19 Colonoscopy completed Nena Diaz [place] [facility] & [place] 02/01/2023 14:01:29 10/07/19 21 Date of Last Colonoscopy completed Nena Joe [place] [facility] [place] 02/01/2023 14:01:03 05/29/19 17 Back Surgery [place] Nena Joe [place] [facility] [place] 02/01/2023 14:01:29 05/29/19 17 Head or Neck Surgery completed Nena Joe [place] [facility] & [place] 02/01/2023 14:01:29 05/29/19 17 Gastrointestinal Surgery [place] Nena Joe [place] [facility] & [place] 02/01/2023 14:01:29 05/29/19 10 Gastrointestinal Surgery completed Nena Joe [place] [facility] & [place] 02/01/2023 14:01:29 11/01/19 09 Most Recent Bone Density completed Nena Joe [place] [facility] & [place] 02/01/2023 14:01:03 05/29/19 08 Abdominal Surgery completed Nena Joe [place] [facility] & [place] 02/01/2023 14:01:29 05/29/19 08 Gastrointestinal Surgery completed Nena Joe [place] [facility] [place] 02/01/2023 14:01:29 09/05/19 04 Date of Last Pap Smear completed Nena Joe [place] [facility] [place] & [place] 02/01/2023 14:01:03 05/29/19 04 Other completed Nena Joe [place] [facility] [place] 02/01/2023 14:01:29 05/29/19 04 Cancer Surgery completed Nena Joe [place] [facility] [place] 02/01/2023 14:01:29 05/29/19 02 Other completed Nena Joe [place] [facility] [place] 02/01/2023 14:01:29 05/29/19 02 Breast Surgery completed Nena Joe [place] [facility] [place] 02/01/2023 14:01:29 05/29/18 98 Other completed Nena Joe [place] [facility] & [place] 02/01/2023 14:01:29 05/29/18 89 Appendectomy completed Nena Diaz [place] [facility] & [place] 02/01/2023 14:01:29 Imaging Results None recorded. Procedure Notes None recorded. Medical Equipment None Reported. Allergies Allergen ID Allergen Name Allergen Category Reaction Reaction Severity Criticality Documentation Date Start Date Code Code System Note Provider Name and Address Organization Details Recorded Time 13511 acetamino phen / codeine medicatio n Not available Not available Not available 02/01/2023 67836 9 RxNorm Nena Diaz [facility], [place] - [facility] & [place] 14:00:43 Medications Name Sig Start Date Stop Date Status Note LastModified by Organization Details LastModified Time cyclobenzap rine 10 mg tablet Take 1 tablet three times a day active Not Available Not Available No t Available venlafaxine ER 75 mg capsule,ext ended release 24 hr active Not Available Not Available Not Available venlafaxine 75 mg tablet 02/01 completed Not Available Not Available Not Available triamcinolo ne acetonide 0.5 % topical cream 02/01 completed Not Available Not Available Not Available alprazolam 1 mg tablet Take 1 tablet three times a day active Not Available Not Available No t Available prednisone 20 mg tablet 02/01 completed Not Available Not Available Not Available sodium chloride 0.45 % intravenous solution active Not Available Not Available Not Available permethrin 5 % topical cream 02/01 completed Not Available Not Available Not Available venlafaxine ER 150 mg capsule,ext ended release 24 hr active Not Available Not Available Not Available famotidine 20 mg tablet As needed at bedtime active Not Available Not Available No t Available meclizine 25 mg tablet Take 1 tablet three times a day active Not Available Not Available No t Available hydrocodone 7.5 mg-acetamin ophen 325 mg tablet active Not Available Not Available No t Available pantoprazol e 40 mg tablet,bobby yed release active Not Available Not Available Not Available lansoprazol e 30 mg capsule,del ayed release active Not Available Not Available Not Available promethazin e 25 mg/mL injection solution active Not Available Not Available Not Available gabapentin 300 mg capsule Take 1 capsule at night active Not Available Not Available No t Available estradiol 0.5 mg tablet Take 1 tablet daily active Not Available Not Available No t Available sodium chloride 0.9 % intravenous solution active Not Available Not Available Not Available methylpredn isolone 4 mg tablets in a dose pack active Not Available Not Available Not Available dicyclomine 10 mg capsule active Not Available Not Available Not Available loratadine 10 mg tablet Take 1 tablet daily active Not Available Not Available No t Available amoxicillin 875 mg-potmirianu m clavulanate 125 mg tablet 02/01 completed Not Available Not Available Not Available Ventolin HFA 90 mcg/actuati on aerosol inhaler active Not Available Not Available Not Available esomeprazol e magnesium 20 mg capsule,del ayed release 02/01 completed Not Available Not Available Not Available dexlansopra zole 60 mg capsule,bip hase delayed release active Not Available Not Available Not Available Zembrace Symtouch 3 mg/0.5 mL subcutaneou s pen injector active Not Available Not Available Not Available Motegrity 2 mg tablet Take 1 tablet daily active Not Available Not Available No t Available Vyepti 100 mg/mL intravenous solution active Not Available Not Available Not Available [employer]icaid COVID-19 Ag Home Test kit USE DIRECTED 02/01 completed Not Available Not Available Not Available Vitals Date Recorded Body height Body mass index (BMI) Body weight Body temperature Oxygen saturation Oxygen saturation in Arterial blood by Pulse oximetry Heart rate Systolic And Diastolic Provider Name and Address Organization Details Last Updated DateTime 4 162.56 cm 35.6 kg/m2 60338.4 2 g 97.7 [degF] 95 % 95 % 91 /min 135/90 mm[Hg] Pablito LLANES [facility] & [place] 4 09:57:49 Date Recorded Body height Body mass index (BMI) Body weight Oxygen saturation Oxygen saturation in Arterial blood by Pulse oximetry Heart rate Systolic And Diastolic Provider Name and Address Organization Details Last Updated DateTime 3 162.56 cm 32.6 kg/m2 52676.5 5 g 96 % 96 % 89 /min 126/82 mm[Hg] Nena Hayes [facility] & [place] 3 14:05:45 Social History Question Answer Notes LastModified by Organizat ion Details LastModified Time Tobacco Smoking Status Former Smoker Nena Diaz null, SHRADDHA CRESPO [facility] & [place] 02/01/2023 14:01:21 Do You Have An Advance Directive? No Information not available 02/01/2023 Are You Blind Or Do You Have Difficulty Seeing? No Information not available 02/01/2023 What Is Your Level Of Caffeine Consumption? Moderate [email or web address] Information not available 07/21/2023 When Did You Quit Smoking? 6-10yearssinc elastcigarett e [email or web address] Information not available 07/21/2023 What Was The Date Of Your Most Recent Tobacco Screening? 11/02/2003 Information not available 02/01/2023 What Is Your Current Pack Years? 20-29packyear s Information not available 07/21/2023 At What Age Did You Start Smoking Tobacco? 15 [email or web address] Information not available 07/21/2023 How Much Tobacco Do You Smoke? 1 PPD [email or web address] Information not available 07/21/2023 How Many Years Have You Smoked Tobacco? 23 [id number] Information not available 07/21/2023 Sex: Female Functional Status Question Answer Note LastModified by Organizat ion Details LastModified Time Do you use any illicit or recreational drugs? No Information not available 02/01/2023 What is your level of alcohol consumption? None Information not available 02/01/2023 Do you or have you ever used smokeless tobacco? [id number] Information n ot available 02/01/2023 What is your exercise level? Occasional Information not available 02/01/2023 Mental Status Question Answer Note LastModified by Organization D etails LastModified Time Do you feel stressed (tense, restless, nervous, or anxious, or unable to sleep at night)? [id number] Information not available 02/01/2023 Family History Relationship Description Onset Age of this Age Resolved Age Notes LastModified by Organization Details LastModified Time Sister Allergy pt. added direct ly (02/01) API-13 Not available 02/01/2023 06:18:09 Sister Multiple sclerosis pt. added direct ly (02/01) API-13 Not available 02/01/2023 06:18:25 Medical History Condition Response GI Problems Y Back Problems Y Reflux/GERD Y Headaches Y Gynecological History Statement/Question Response Abnormal Pap Y 12/03/2022 Date of Last Colonoscopy 10/06/2020 Most Recent Bone Density 10/31/2008 Sexually Active? N Menses Monthly N Date of Last Pap Smear 09/05/2003 Current Control Method Hysterectom y Obstetrics History GPAL:G 0 P 0 0 0 0 Past Encounters Encounter ID Performer Location Encounter Start Date Encounter Closed Date Diagnosis/Indication Diagnosis SNOMED-CT Code Diagnosis ICD10 Code Diagnosis Note [id number] Aneudy Mcdonough MD [facility] [address] [place] [address] 02/01/2023 13:50:54 02/01/2023 14:50:39 Diastolic murmur 98807452 R01.1 echo pending to evaluate murmur [id number] Braxton Trujillo MD [facility] [address] [facility] [place] [address] 07/21/2023 09:34:22 07/21/2023 10:12:42 Chronic cough 37323174 R05.3 I am suspecting that patient chronic cough is due to acid reflux/gas troparesis . Spirometry done in the office today showed very poor effort without evidence of obstructio n with an FEV1 of 67% predicted but given the chronicity of her cough then will proceed with full PFTs with DLCO and CT of the chest for better evaluation ruling out underlying pathology. Chest x-ray done recently were reviewed and discussed with the patient, there is evidence of possible bronchitis . Patient instructed to continue with the use of her Tika on a p.r.n. basis. Patient instructed to call if there is any new symptoms. Nicotine d ependence in remission 201582837 F17.201 Patient quit smoking 2004 encouraged to stay without smoking. Will check alpha-1 antitrypsi n genotype by buccal mucosal swab in the office today. Will check full PFTs with DLCO to evaluate an underlying COPD. Gastropare sis syndrome 109452914 K31.84 Patient instructed to follow-up with her gastroente rologist and the recommenda tions. Immunization advised 310 562843 Z71.9 Patient recommende d to receive her flu and COVID-19 vaccinatio n from her pharmacy. Health Concerns Section Related Observation LastModified by Organization Detai ls LastModified Time None Recorded Concern Status LastModified by Organization Details LastModified Time None Recorded Advance Directives Directive N: Payers Insurance Date Sequence Insurance Name Policy Number Policy St Covered Member ID St Member ID Guarantor Name 04/20/2024 2 [place] [facility] CHOICES - FFS/TRADITION AL Izabella D Padilla [id number] Izabella D Padilla 04/20/2024 1 [facility] (MEDICARE REPLACEMENT/A DVANTAGE - HMO) [id number] Izabella K Padilla [id number] Izabella D Padilla 07/17/2023 1 [place] Izabella K Padilla [id number] Izabella D Padilla 07/17/2023 2 [employer] [place] ([place] N!I Izabella D Padilla [id number] Izabella D Padilla 07/17/2023 1 [place] Izabella K Padilla [id number] Izabella D Padilla 07/17/2023 2 [employer] [place] Izabella Padilla [id number] Izabella D Padilla Notes Date Note Type Note Provider Name and Address Organization Details Recorded Time 02/01/2023 text/html 52 F her for evaluation of murmurRefer: Dr Collins She found to have a murmur on physical exam hence referred to me for further evaluation.No specific cardiovascular complaints today. No chest pain, shortness of breath, PND, orthopnea, peripheral edema, palpitations, presyncope, syncope + gastroparesis- sp gastric stimulator EKG 02/01/2023: NSR 87, LAE, normal axis normal intervals, poor precordial R-wave progression Aneudy Mcdonough MD [address], [place], [address], [place] [facility] [place] & [place] 02/06/2023 11:24:16 07/21/2023 text/html Patient presents to the office today for initial evaluation. Patient states that she had cough over the last few months without clear aggravating or relieving factor. Mainly with clear secretion. No hemoptysis. She denies significant shortness breath at rest or with exertion. She denies fever, chills or diaphoresis. No chest pain, angina or palpitation. No PND or orthopnea. No wheezing. Patient had history of severe gastroparesis and had a PICC line to receive Phenergan through it. 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 Patient denies significant change in her weight or appetite. Patient had history of smoking about 1 pack per day for 17 years and quit in 2003. Braxton Trujillo MD [address] [facility], [place], [address], [facility] - [place] & [place] 07/21/2023 10:48:45 OBGyn Episode No OBEpisode recorded.
--- OUTSIDE RECORDS SUMMARY | 2024-12-13 20:36 | XMS_ITS | Clinical Summary ---
Author Organization [facility] Address [address] [place] [address] Care Team Providers Care Risk Management Consultant Name Role Phone Yamile Coffey MD Primary Care Provider [phone] Allergies Active Allergy Reactions Criticality Noted Date Comments Codeine GI Intolerance 01/05/2021 Medications estradiol (ESTRACE) 0.5 MG tablet Take 0.5 mg by mouth Daily. Active promethazine (PHENERGAN) 25 MG tablet Take 25 mg by mouth Every 6 (Six) Hours As Needed for Nausea or Vomiting. Active esomeprazole (nexIUM) 40 MG capsule Take 40 mg by mouth Every Morning Before Breakfast. Active Loratadine 10 MG capsule Take by mouth. Active Social History Tobacco Use Types Packs/Day Years Used Date Smoking Tobacco: Former Cigarettes Q uit: 01/06/2004 Alcohol Use Standard Drinks/Week Comments Not Currently 0 (1 standard drink = 0.6 oz pur e alcohol) Abuse Screen Answer Date Recorded Unsafe at Home or Work/School Not on file Feels Threatened by Someone? Not on file Does Anyone Keep You from Co ntacting Others or Doint Things Outside the Home? Not on file 03/10/2023 Physical Sign of Abuse Present Not on file 1 Housing Stability Answer Date Recorded Current Living Arrangements Not on file 02/26 Potentially Unsafe Housing Conditions Not on roverto e 03/10/2023 Family and Community Support Answer Rainer e Recorded Help with Day-to-Day Activities Not on file 03/10/2023 Lonely or Isolated Not on file 03/10/2023 Employment Answer Date Recorded Do you want help finding or keeping work or a joan b? Not on file 03/10/2023 Disabilities Answer Date Recorded Concentrating, Remembering, or Making Decisions Difficulty Not on file 03/10/2023 Doing Errands Independently Difficulty Not on fi le 03/10/2023 Education Answer Date Recorded Help with school or training? Not on file Preferred Language Not on file 03/10/2023 Comments No Sex and Gender Information Value Date Recorded Sex Assigned at Not on file Legal Sex Female 2:21 PM EDT Gender Identity Not on file Sexual Orientation Not on file Last Filed Vital Signs Vital Sign Reading Time Taken Comments Blood Pressure 124/88 01/05/2021 9:30 PM EDT Pulse 80 01/05/2021 9:42 PM EDT Temperature 36.6 C (97.9 F) 01/05/2021 2:22 PM EDT Respiratory Rate 19 01/05/2021 7:41 PM EDT Oxygen Saturation 98% 01/05/2021 9:42 PM EDT Inhaled Oxygen Concentration - - Weight 76.2 kg (168 lb) 01/06/2021 4:52 PM EDT Height 162.6 cm (5' 4.02 ) 01/06/2021 4:52 PM ED T Body Mass Index 28.82 01/06/2021 4:52 PM EDT Plan of Treatment Health Maintenance Due Date Last Done Comments Annual Gynecologic Pelvic and Breast Exam 1970 TDAP/TD VACCINES (1 - Tdap) 1989 MAMMOGRAM 2010 COLOGUARD 2015 COLON CANCER SCREENING 5 YEA R SIGMOIDOSCOPY 2015 COLONOSCOPY 2015 COLORECTAL CANCER SCREENING 2015 CT COLONOGRAPHY 2015 FECAL OCCULT BLOOD TEST 2015 FIT Testing (1 year) 2015 Pneumococcal Vaccine 50+ (1 of 1 - PCV) 02/06/2020 ZOSTER VACCINE (1 of 2) 02/06/2020 ANNUAL PHYSICAL 01/06/2021 HEPATITIS C SCREENING 01/06/2021 COVID-19 Vaccine ( season) 2024, 08/14/2020 INFLUENZA VACCINE 02/26/2025 Insurance [facility] DUAL COMPLETE MEDIC [place]ID [place] Care Teams Risk Management Consultant Relationship Specialty Start Date End Date Yamile Coffey MD [address] [address] PCP - General Family Medicine 01/05/21
--- OUTSIDE RECORDS SUMMARY | 2024-12-13 20:36 | XMS_ITS | Encounter Summary ---
Author Organization [facility] ([place], [place], [place], [place]) Address [address] [place] [address] Care Team Providers Care Recording Studio Setup Worker Name Role Phone Yamile Coffey MD Primary Care Provider [phone] Kandace Castro APRN Unavailable [phone] Aaron Ribera MD Unavailable [phone] Encounter Details Date Type Department Care Team (Late st Contact Info) Description 10/05/2018 Transcribed Document [facility] Family Medicine [facility] [place] [address] ProviderMeggan MD [address] [place] [id number] Social History Tobacco Use Types Packs/Day Years Used Date Smoking Tobacco: Never Assessed Comments Unknown Sex and Gender Information Value Date Recorded Sex Assigned at Not on file Legal Sex Female 4:07 PM CDT Gender Identity Not on file Sexual Orientation Not on file documented as of this encounter Miscellaneous Notes * Cerner Conversion Note - Historical ProviderMD - 10/05/2018 4:04 PM CDT documented in this encounter Plan of Treatment Not on file documented as of this encounter Visit Diagnoses Not on filedocumented in this encounter Care Teams Recording Studio Setup Worker Relationship Specialty Start Date End Date Yamile Coffey MD [address] [place], [place] [address]r [facility] [address] [place] [address] PCP - General Family Medicine 03/23/22 Kandace Castro, MELVIN [address] [facility] [address] [place] [address] Neurologist Neurology 08/29/23 Aaron Ribera MD [address] [facility] [address] [place] [address] Surgeon Cardiothoracic Surgery 09/13/23 documented as of this encounter
--- OUTSIDE RECORDS SUMMARY | 2024-12-13 20:36 | XMS_ITS | Encounter Summary ---
Author Organization [facility] Address [address] [place] [address] Care Team Providers Care Etl Lead Name Role Phone Yamile Coffey MD Primary Care Provider [phone] Encounter Details Date Type Department Care Team (Late st Contact Info) Description 10/30/2024 Telephone [facility] [address] [facility] [address] [place] [id number] Michelle Spence NP [address] [address] Social History Tobacco Use Types Packs/Day Years [...] encounter Miscellaneous Notes * Telephone Encounter - Pillo Fraser MA - 10/30/2024 2:50 PM EDT Called the pt to reschedule an appt with Michelle, as she left me a vm wanting that. However pt didn't answer so LVM to call back documented in this encounter Plan of Treatment Upcoming Encounters Date Type Department Care Team (Late st Contact Info) Description 02/12/2025 1:30 PM EDT Office Visit [facility] [address] [place] [id number] Michelle Spence NP [address] [place] [id number] documented as of this encounter Visit Diagnoses Not on filedocumented in this encounter Care Teams Etl Lead Relationship Specialty Start Date End Date Yamile Coffey MD [address] [place] [address] PCP - General Family Medicine 10/03/22 documented as of this encounter
--- OUTSIDE RECORDS SUMMARY | 2024-12-13 20:36 | XMS_ITS | Continuity of Care Document ---
Author Organization [facility] Address [address] [place] [address] Care Team Providers Care Cargo Surveyor Name Role Phone ISAIAH COLLINS Primary Care Provider ISAIAH COLLINS Referring Provider [phone] Assessment Encounter Date Assessment Date Assessment LastModified by Organization Details LastModified Time 11/19/2024 11/19/2024 Interval Hx: Ms. Sumner follows up today for low back and neck pain. She has treated with our clinic for her chronic pain for over 6 months. She is S/P L5/S1 IL-JAMAL resulting in 90% relief. Reports improvement in mobility, sleep, and ability to perform ADLs. She had the gastric stimulator replaced approx 2 weeks ago, continues to heal. No complications thus far. Stimulator is functioning again, but is still not getting adequate relief with it. Follow up is not until January. She continues gabapentin and cyclobenzaprine without adverse effects. She continues a home exercise program daily. No other health changes reported today. Pain History: She has chronic low back pain that radiates down both legs to the feet. This is numb, tingly, burning. Denies incontinence or cauda equina symptoms. Prior physical therapy was not beneficial. Underwent CT myelogram recently, cannot have MRI due to gastric stimulator. She has a history of ACDF in the past, consider SCS if she has recurrent radicular pain. Past Medical History: Gastroparesis status post stimulator, GERD, hypertension, anxiety Imagin03/21/24 CT myelogram normal alignment is unremarkable. No evidence of acute fracture. Stable postoperative changes from ACDF with interbody bone hardware placement at C5-6 and C6-7 C2-3 mild uncovertebral and facet arthropathy. No spinal canal or neural foraminal narrowing C3-4 mild disc bulge. Mild uncovertebral and facet arthropathy. No neural foraminal narrowing. Mild spinal canal narrowing C4-5 mild disc bulge. Mild uncovertebral and facet arthropathy. No neural foraminal narrowing. Mild spinal canal narrowing C5-6 postop changes from ACDF with interbody bone hardware placement. Mild bilateral uncovertebral and mild facet arthropathy. No spinal canal narrowing. Mild spinal canal narrowing C6-7 postop changes from ACDF with interbody bone hardware placement. Mild uncovertebral and facet arthropathy. No neural foraminal narrowing. Mild spinal canal narrowing C7-T1 mild uncovertebral and facet arthropathy. No spinal canal or neural foraminal narrowing C XR 06/02/23 No fracture present. Anterior cervical fusion from C5-7. Alignment is normal. No prevertebral soft tissue swelling. Mild degenerative changes. Lumbar CT myelogram 09/2022 Per surgery note, no severe stenosis at any level, multilevel spondylosis Surgical evaluation/ history: Referred by Dr. Melendez, prior C5-7 ACDF Conservative Treatments: Patient has failed conservative measures for greater than 6 weeks including a monitored home exercise program within the last six months. Not a candidate for nsaid medication due to gi hx. Interventional treatment history: 09/30/2024 #1 ILESI L5/S1 - 90% relief. 04/12/2024 ILESI L5/S1 - 80% relief. 03/12/2024 #3 ILESI L5/S1; 60% pain relief 11/16/2023 RFA Cervical Bilateral C2-C4 w/sed; 0% pain relief 10/30/2023 #3 ILESI L5/S1; 80% pain relief 10/16/2023 #2 CMBB Bilateral C2-C4; 80% pain relief for 7 hours 09/06/2023 #1 CMBB Bilateral C2-C4; 80% pain relief for 48 hours 06/13/2023 #2 ILESI L5/S1; 80% relief Previous analgesics: Current analgesics: Xanax, Flexeril, and Gabapentin Compliance Monitoring: The patient feels that they receive adequate analgesia and activity improvement with the medication. The patient denies side effects from the medications. UDS was not obtained. YOMI report was reviewed today and is appropriate. RX for hydrocodone prescribed 11/08 following gastric stim replacement Patient considered to be High risk for opioid therapy due to benzodiazepine use. Anticoagulant/Anti platelet Medications: Uses heparin to flush her PICC line but no systemic anticoagulation ASSESSMENT/PLAN This is a 53-year-old female with low back and neck pain. The lumbar epidural injection has provided 90% relief. She would like to plan for a repeat injection at the 3 month [place] for sustained pain relief. As she will not follow up prior to this date, I will place the order today. The recommended procedure is discussed with the patient in detail. Questions related to the procedure are answered. She has failed at least 4 weeks of conservative treatment including home exercises and medication management. We will continue gabapentin and cyclobenzaprine, new prescriptions provided today. We will follow up in 90 days for medication management and further treatment planning. [email or web address] Not available 11/19/2024 09:55:31 Plan of Treatment Reminders Order Date Submit Date Provider Last Modified By Organization Details Last Modified Time Details Appointments FOLLOW UP 15 2024 09:30A EDWARD CHRISTIE Not available Not available Not available Lab None recorded. Referral None recorded. Procedures epidural steroid injection , lumbar interlami socrates (PROC) - #2 L5/S1 IL-JAMAL no sed after 12/29/242024 025 [email or web address] Not available 11/21/2024 11:56:29 Surgeries None recorded. Imaging None recorded. Medication Orders gabapenti n 300 mg capsule 2024 025 [facility], [address] [place] [address], [address], 11/19/2024 11:55:13 cyclobenz aprine 10 mg tablet 2024 025 [facility], [address] [place] [address] 7, [place], [address], 11/19/2024 11:55:09 Patient TargetsNo targets recorded. Patient InstructionsNo instructions recorded. Reason for Referral None Reported. Problems Name Problem SNOMED Code Status Onset Date Resolution Date Notes Provider Name and Address Organization Details Recorded Time Overweight 142481286 Active 2022 SHRADDHA leary - [facility] 3 13:27:22 Lumbar spondylosis 909794076 Active 2022 rosy lyons null, [place] - [facility] 3 13:27:24 Lumbar radiculopathy 799923907 Active 2022 rosy lyons null, [place] - [facility] 3 13:27:24 Cervical radiculopathy 60281945 Active 2022 rosy lyons null, [place] - [facility] 3 13:27:26 Cervical spondylosis without myelopathy 049248398 Active 2022 rosy lyons null, [place] - [facility] 3 13:27:26 Cervical post-laminect prabha syndrome 411344436 Active 2022 KACEY BRUSH MD [address] [place] [address], [phone] , [place] - [facility] 3 11:50:15 Cervical spondylosis 839325838 Active 2022 EDWARD CRUZ [address] [place] [address], [phone] , [place] - [facility] 3 10:44:19 Chronic pain 10226175 Active 2023 EDWARD CRUZ [address] [place] [address], [phone] , [place] - [facility] 4 11:03:21 Neck pain 56228631 Active 2023 EDWARD CRUZ [address] [place] [address], [phone] , [place] - [facility] 4 16:15:05 Problem Notes None recorded. Procedures Surgical History Date Name Laterality Status Provider Name and Address Organization Details Recorded Time 10/01/19 25 Lumbar JAMAL: Interlaminar completed Geraldine Gaamliel [place] - [facility] 09/30/2024 10:39:28 04/12/20 Lumbar JAMAL: Interlaminar completed Geraldine Gamaliel [place] - [facility] 04/12/2024 10:15:52 03/12/20 24 Lumbar JAMAL: Interlaminar completed Geraldine Draper [place] [facility] 03/12/2024 10:01:49 11/16/19 24 Cervical RFA: Posterior (2 Level Bilateral) completed Casandra Winters [facility] 11/16/2023 17:08:35 10/30/19 24 Lumbar JAMAL: Interlaminar completed Geraldine Bacawitt [facility] 10/30/2023 09:00:12 10/16/19 24 Diagnostic Cervical MBB: Posterior (2 Level Bilateral) completed Geraldine Gamaliel [place] [facility] 10/16/2023 11:10:46 09/06/19 24 Diagnostic Cervical MBB: Posterior (2 Level Bilateral) completed Geraldine Draper [place] [facility] 09/06/2023 08:38:50 06/13/19 24 Lumbar JAMAL: Interlaminar completed Geraldine Bacawitt [facility] 06/13/2023 13:58:28 02/25/20 23 Lumbar JAMLA: Interlaminar completed Geraldine Bacawitt [facility] 02/24/2023 10:37:54 12/28/19 17 primary fusion of cervical spine completed rosy lyons [facility] 01/20/2023 09:12:09 Imaging Results None recorded. Procedure Notes None recorded. Medical Equipment None Reported. Allergies Allergen ID Allergen Name Allergen Category Reaction Reaction Severity Criticality Documentation Date Start Date Code Code System Note Provider Name and Address Organization Details Recorded Time 20020127 codeine medicatio n Not available Not available Not available 01/20/2023 2670 RxNorm rosy flores [facility] 09:13:50 Medications Name Sig Start Date Stop Date Status Note LastModified by Organization Details LastModified Time cyclobenzap rine 10 mg tablet Take 1 tablet 3 times a day by oral route for 30 days. 2024 active Not Available Not Available Not Avai lable amoxicillin 500 mg capsule Take 1 capsule every 8 hours by oral route. 10/29 completed Not Available Not Available Not Available venlafaxine ER 75 mg capsule,ext ended release 24 hr 11/19 completed Not Available Not Available Not Available venlafaxine 75 mg tablet 01/20 completed Not Available Not Available Not Available triamcinolo ne acetonide 0.5 % topical cream 01/20 completed Not Available Not Available Not Available alprazolam 1 mg tablet active Not Available Not Available Not Available prednisone 20 mg tablet 01/20 completed Not Available Not Available Not Available sodium chloride 0.45 % intravenous solution 11/19 completed Not Available Not Available Not Available permethrin 5 % topical cream 01/20 completed Not Available Not Available Not Available venlafaxine ER 150 mg capsule,ext ended release 24 hr active Not Available Not Available Not Available prochlorper azine maleate 10 mg tablet 01/20 completed Not Available Not Available Not Available triamcinolo ne acetonide 0.1 % topical cream active Not Available Not Available Not Available oxycodone-a cetaminophe n 5 mg-325 mg tablet 01/20 completed Not Available Not Available Not Available famotidine 20 mg tablet active Not Available Not Available Not Available pravastatin 10 mg tablet Take 1 tablet every day by oral route. active Not Available Not Available No t Available meclizine 25 mg tablet active Not Available Not Available Not Available hydrocodone 7.5 mg-acetamin ophen 325 mg tablet active Not Available Not Available No t Available pantoprazol e 40 mg tablet,bobby yed release active Not Available Not Available Not Available venlafaxine 37.5 mg tablet 01/20 completed Not Available Not Available Not Available lansoprazol e 30 mg capsule,del ayed release active Not Available Not Available Not Available promethazin e 25 mg/mL injection solution 02/15 completed Not Available Not Available Not Available gabapentin 300 mg capsule Take 1 capsule twice a day by oral route for 30 days. 2024 active Not Available Not Available Not Avai lable estradiol 0.5 mg tablet active Not Available Not Available Not Available sodium chloride 0.9 % intravenous solution active Not Available Not Available Not Available methylpredn isolone 4 mg tablets in a dose pack Take 1 dose pk by oral route, for to be taken if no improveme nt of neck pain and headache following procedure . 02/15 completed Not Available Not Available Not Available SSD 1 % topical cream 01/20 completed Not Available Not Available Not Available dicyclomine 10 mg capsule 01/30 completed Not Available Not Available Not Available loratadine 10 mg tablet active Not Available Not Available Not Available amoxicillin 875 mg-potassiu m clavulanate 125 mg tablet 01/17 completed Not Available Not Available Not Available Ventolin HFA 90 mcg/actuati on aerosol inhaler 11/19 completed Not Available Not Available Not Available esomeprazol e magnesium 20 mg capsule,del ayed release 01/20 completed Not Available Not Available Not Available heparin (porcine) active Not Available Not Available No t Available dexlansopra zole 60 mg capsule,bip hase delayed release active Not Available Not Available Not Available Zembrace Symtouch 3 mg/0.5 mL subcutaneou s pen injector active Not Available Not Available Not Available Motegrity 2 mg tablet active Not Available Not Available No t Available Vyepti 100 mg/mL intravenous solution active Not Available Not Available Not Available Ajovy 225 mg/1.5 mL subcutaneou s auto-inject or 01/20 completed Not Available Not Available Not Available Indicaid COVID-19 Ag Home Test kit USE DIRECTED 12/08 completed Not Available Not Available Not Available Vitals Date Recorded Body height Body mass index (BMI) Body weight Heart rate Oxygen saturation Oxygen saturation in Arterial blood by Pulse oximetry Systolic And Diastolic Provider Name and Address Organization Details Last Updated DateTime 5 162.56 cm 34.7 kg/m2 28871.6 6 g 89 /min 97 % 97 % 90/64 mm[Hg] Quincy Lipscomb [facility] 5 09:17:25 Social History Question Answer Notes LastModified by Organizat ion Details LastModified Time Tobacco Smoking Status Never Smoker rosy flores [facility] 01/20/2023 09:17:10 Do You Have An Advance Directive? No Information n ot available 01/20/2023 In The 14 Days Before Symptom Onset, Have You Had Close Contact With A Laboratory-confirm ed COVID-19 While That Case Was Ill? No Information n ot available 01/20/2023 In The 14 Days Before Symptom Onset, Have You Had Close Contact With A Person Who Is Under Investigation For COVID-19 While That Person Was Ill? No Information not available 01/20/2023 What Type Of Diet Are You Following? REGULAR Information n ot available 01/20/2023 What Is The Highest Grade Or Level Of School You Have Completed Or The Highest Degree You Have Received? [id number] Information not available 01/20/2023 How Many Times Per Week Do You Exercise? Less Than 1 Time Per Week Information not available 01/20/2023 What Was The Date Of Your Most Recent Tobacco Screening? 11/19/2024 [email or web address] Information not available 11/19/2024 What Is Your Relationship Status? Information not available 01/20/2023 Sex: Unknown Functional Status Question Answer Note LastModified by Organizat ion Details LastModified Time Do you use any illicit or recreational drugs? No Information not available 01/20/2023 What is your level of alcohol consumption? None Information not available 01/20/2023 Are you currently employed? No Information not available 01/20/2023 Are you able to walk? YESWOREST Information not available 01/20/2023 What is your exercise level? Occasional Information not available 01/20/2023 Mental Status None recorded. Family History Nothing Reported. Medical History Condition Response Bipolar Disease N Coronary Artery Disease N Seizure Disorder N Gout N Thyroid Disease N Atrial Fibrillation N Head Trauma/Injury N Hernia N Depression N COPD N Anxiety Disorder N Acid Reflux (GERD) N Cancer N Stroke N Skin Disorder N High Cholesterol N Liver Disease N Rheumatoid Arthritis N Fibromyalgia N Headaches N Kidney Disease N Autoimmune Disease N Osteoarthritis N Neurosurgery N DVT N Peptic Ulcer Disease N Anemia N Heart Attack ([place]) N Diabetes N Cardiomyopathy N Bleeding Disorder N CHF N AIDS/HIV N Inflammatory Bowel Disease N Dementia N Asthma N Substance Abuse N Sleep Apnea N Hepatitis N Heart Disease N Pulmonary Embolism N Chronic Low Back Pain N Hypertension N Osteoporosis N Gynecological HistoryNo gynecological history recorded. Obstetrics History GPAL:G 0 P 0 0 0 0 Past Encounters Encounter ID Performer Location Encounter Start Date Encounter Closed Date Diagnosis/Indication Diagnosis SNOMED-CT Code Diagnosis ICD10 Code Diagnosis Note [id number] KACEY BRUSH MD [address] [place] [address] 11/19/2024 08:55:37 11/19/2024 09:48:24 Chronic pain 39984494 G89.29 Lumbar radiculopathy 128 646334 M54.16 Cervical post-laminectomy syndrome 537328720 M96.1 Long-term drug therapy 233457489 Z79.899 No UDS Today Health Concerns Section Related Observation LastModified by Organization Detai ls LastModified Time None Recorded Concern Status LastModified by Organization Details LastModified Time None Recorded Payers Encounter Date Sequence Insurance Name Policy Number Policy St Covered Member ID St Member ID Guarantor Name 11/19/2024 1 [facility] (MEDICARE REPLACEMENT/A DVANTAGE - HMO) Izabella Sumner [id number] Izabella Sumner Notes Date Note Type Note Provider Name and Address Organization Details Recorded Time 11/19/2024 text/html Low back painRep orted bypatient.Onset:date of onset: (Many years) Location:paraspinal: bilateral; buttock: bilateral; radiating down the bilateral lower extremity to the foot Duration:varies throughout the day Quality:aching; throbbing; sharp; worsening Pain Intensitycurrent pain level: 5/10; average pain level: 5/10; worst pain level: 9/10 Alleviating Factors:standing; lying down; changing positions; heat; OTC medication (tylenol) Aggravating Factors:standing; walking; lifting; bending/squatting; ROM; standing from a seated position Associated Symptoms:no weakness; no numbness; no tingling; no swelling; no popping/clicking; no bowel incontinence; no urinary retention; no urinary incontinence; no perineal paresthesia/anesthesi a Functional Assessment of ADLsLiving independently.; Able to bathe/groom without assistance.; Able to complete card hand without much difficulty.; Walking without assistance or significant difficulty; Working without restriction.; Exercising on a regular basis.; Participating in recreation on a regular basis. Prior Imaging:myelogram (10/06/22) Lumbar Surgery:none Physical Therapy:completed all recommended PT visits; complete 6weeks; response to therapy: made pain/symptoms worse; Currently participating in home exercise program(HEP): Medications History:Acetaminophen : (tylenol) Other Conservative Treatments:heat: (effective) Prior Pain Management:yes: (Irma Arias) Oswestry Disability Index (EPHRAIM)Score/Date Completed: (54 - 01/20/23)Neck painReported bypatient.Onset:date of onset: (years) Location:bilateral paraspinal (right is worse) Duration:intermittent Context:started without cause Quality:throbbing;tig htness;numbess;burnin g;aching;stabbing;sha rp;varies Pain Intensitycurrent pain level: 8/10; worst pain level: 10/10; moderate Alleviating Factors:heat; tylenol and flexeril Aggravating Factors:turning head to the right; movement/positioning Timing:varies throughout the day Associated Symptoms:no weakness; no pain in upper extremities; no popping/clicking; no bladder incontinence; no bowel incontinence;numbness ;tingling Functional Assessment/Disability IndexLiving Independently; Able to bathe/groom without assistance.; Able to complete card hand without much difficulty.; Walking without assistance or significant difficulty Prior Imaging:no recent studies Previous Cervical Surgery:posterior cervical fusion: (C5-6) Interventional Treatment History:none Previous PT:none Current Analgesics:Gabapentin ; Last dose: Gabapentin- Two days ago. 10/09/2023 Aberrant Behaviors:none visible today Working:no Prior Pain Management:no Patient is here for inj f/u. On 09-30-2024 L5/S1 IL-JAMAL no sed - 90% relief.Last dose:Gabapentin- last night EDWARD CRUZ [address] [place] [address], [phone], [facility] 11/19/2024 11:54:42 OBGyn Episode No OBEpisode recorded.
--- OUTSIDE RECORDS SUMMARY | 2024-12-13 20:36 | XMS_ITS | Encounter Summary ---
Author Organization [employer] ([place], [place], [place], [place]) Address [address] [place] [address] Care Team Providers Care Equipment Installation Professional Name Role Phone Yamile Coffey MD Primary Care Provider Kandace Castro APRN Unavailable Aaron Ribera MD Unavailable [phone] Encounter Details Date Type Department Care Team (Late st Contact Info) Description 06/19/2019 Transcribed Document [facility] Family Medicine [facility] [place] [address] ProviderMeggan MD [address] [place] [id number] Social History Tobacco Use Types Packs/Day Years Used Date Smoking Tobacco: Never Assessed Comments Unknown Sex and Gender Information Value Date Recorded Sex Assigned at Not on file Legal Sex Female 4:07 PM CDT Gender Identity Not on file Sexual Orientation Not on file documented as of this encounter Miscellaneous Notes * Cerner Conversion Note - Historical ProviderMD - 06/19/2019 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 documented in this encounter Plan of Treatment Not on file documented as of this encounter Visit Diagnoses Not on filedocumented in this encounter Care Teams Equipment Installation Professional Relationship Specialty Start Date End Date Yamile Coffey MD [address] [place], [place] [address]r [facility] [address] [place] [address] PCP - General Family Medicine 03/23/22 Kandace Castro, MELVIN [address] [facility] [address] [place] [address] Neurologist Neurology 08/29/23 Aaron Ribera MD [address] [facility] [address] [place] [id number] Surgeon Cardiothoracic Surgery 09/13/23 documented as of this encounter
--- OUTSIDE RECORDS SUMMARY | 2024-12-13 20:36 | XMS_ITS | Encounter Summary ---
Author Organization [employer] ([place], [place], [place], [place]) Address [address] [place] [address] Care Team Providers Care Senior Product Consultant Name Role Phone Yamile Coffey MD Primary Care Provider [phone] Kandace Castro APRN Unavailable [phone] Aaron Ribera MD Unavailable [phone] Encounter Details Date Type Department Care Team (Late st Contact Info) Description 05/03/2019 Transcribed Document [facility] [place] [address] [place] [address] ProviderMeggan MD [address] [place] [address] Social History Tobacco Use Types Packs/Day Years Used Date Smoking Tobacco: Never Assessed Comments Unknown Sex and Gender Information Value Date Recorded Sex Assigned at Not on file Legal Sex Female 4:07 PM CDT Gender Identity Not on file Sexual Orientation Not on file documented as of this encounter Miscellaneous Notes * Cerner Conversion Note - Historical ProviderMD - 05/03/2019 6:31 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 Event Note Entered On: 05/03/2019 18:33 EST Performed On: 05/03/2019 18:31 EST by RADHA LANDA RN Event Note Event Date/Time : 05/03/2019 15:30 EST Event Location : Assigned room Event Details : Other: dsg change Description of Event : left upper arm PICC site dressing changed per protocol, no problems noted RADHA LANDA RN - 05/03/2019 18:31 EST documented in this encounter Plan of Treatment Not on file documented as of this encounter Visit Diagnoses Not on filedocumented in this encounter Care Teams Senior Product Consultant Relationship Specialty Start Date End Date Yamile Coffey MD [address] [address] PCP - General Family Medicine 03/23/22 Kandace Castro, PULMONARY PHYSICAL THERAPIST [address] [facility] [address] [place], [place] [id number] Neurologist Neurology 08/29/23 Aaron Ribera MD [address] [facility] [address] [place], [place] [id number] Surgeon Cardiothoracic Surgery 09/13/23 documented as of this encounter
--- OUTSIDE RECORDS SUMMARY | 2024-12-13 20:37 | XMS_ITS | Encounter Summary ---
Author Organization [facility] Address [address] [place] [address] Care Team Providers Care Body Work Auto Trimmer Name Role Phone Bryanna Lockhart MD Primary Care Provider [phone] Encounter Details Date Type Department Care Team (Late st Contact Info) Description 03/28/2023 Lab Requisition [facility] [address] [place] [phone] Bryanna Lockhart MD [address] [place] [address] Migraine without aura, intractable, without status migrainosus Social History Tobacco Use Types Packs/Day Years Used Date Smoking Tobacco: Never Assessed Comments Unknown Sex and Gender Information Value Date Recorded Sex Assigned at Not on file Legal Sex Female 8:40 PM EDT Gender Identity Not on file Sexual Orientation Not on file documented as of this encounter Plan of Treatment Not on file documented as of this encounter Procedures Procedure Name Priority Date/Time Associated Diagnosis Comments BASIC METABOLIC PANEL, PLASMA Routine 03/28/2023 1:20 PM EDT Migraine without aura, intractable, without status migrainosus documented in this encounter Results * (ABNORMAL) Basic metabolic panel (03/28/2023 1:20 PM EDT) Glucose, Plasma 93 74 - 99 mg/dL 03/28/2023 4:01 PM EDT [facility] BUN, Plasma 6(L) 7 - 21 mg/dL 03/28/2023 4:01 PM EDT [facility] Creatinine, Plasma 0.62 0.60 - 1.10 mg/dL 03/28/2023 4:01 PM EDT [facility] BUN/Creatinine Ratio 10 03/28/2023 4:01 PM EDT [facility] Sodium, Plasma 137 136 - 145 mmol/L 03/28/2023 4:01 PM EDT [facility] Potassium, Plasma 4.1 3.7 - 4.8 mmol/L 03/28/2023 4:01 PM EDT [facility] Chloride, Plasma 103 97 - 107 mmol/L 03/28/2023 4:01 PM EDT [facility] CO2, Plasma 26 22 - 29 mmol/L 03/28/2023 4:01 PM EDT [facility] Anion Gap 8 6 - 16 mmol/L 03/28/2023 4:01 PM EDT [facility] Total Calcium, Plasma 9.1 8.9 - 10.2 mg/dL 03/28/2023 4:01 PM EDT [facility] eGFRcr 106.6 mL/min/1.7 3m*2 03/28/2023 4:01 PM EDT [facility] Comment:Reported eGFRcr in m L/min/1.73m2 is based the CKD-EPI 2020 equation that does not use a race coefficient. Blood Venous blood specimen / Unknown 03/28/2023 1:20 PM EDT 03/28/2023 3:40 PM EDT Bryanna Lockhart MD LAB BLOOD ORDERABLES Final Result [facility] [address] [place] [address] documented in this encounter Visit Diagnoses Diagnosis Migraine without aura, intractable, without status migrainosus documented in this encounter Care Teams Body Work Auto Trimmer Relationship Specialty Start Date End Date Bryanna Lockhart MD [address] [place] [id number] PCP - General 10/09/20 documented as of this encounter
--- OUTSIDE RECORDS SUMMARY | 2024-12-13 20:37 | XMS_ITS | Encounter Summary ---
Author Organization [employer] ([place], [place], [place], [place]) Address [address] [place] [address] Care Team Providers Care Service Technician Copier Name Role Phone Yamile Coffey MD Primary Care Provider [phone] Kandace Castro APRN Unavailable [phone] Aaron Ribera MD Unavailable [phone] Encounter Details Date Type Department Care Team (Late st Contact Info) Description 01/04/2021 Transcribed Document [facility] [place] [address] [place] [address] ProviderMeggan MD [address] [place] [address] Social History Tobacco Use Types Packs/Day Years Used Date Smoking Tobacco: Never Assessed Comments Unknown Sex and Gender Information Value Date Recorded Sex Assigned at Not on file Legal Sex Female 4:07 PM CDT Gender Identity Not on file Sexual Orientation Not on file documented as of this encounter Miscellaneous Notes * Cerner Conversion Note - Meggan ProviderMD - 01/04/2021 3:35 PM CDT ED Discharge Entered On: 01/04/2021 15:35 EDT Performed On: 01/04/2021 15:35 EDT by BESSIE WYATT RN Discharge Process Patient Disposition : Discharge Personal Belongings With Patient : Yes Patient Education Completed : Yes Teaching Evaluation : Verbalizes understanding IV Discontinued : Not applicable Nursing Documentation Completed : Yes BESSIE WYATT RN - 01/04/2021 15:35 EDT ED Discharge Discharge To : Home with ambulatory/outpatient follow-up Mode Of Departure : Ambulatory BESSIE WYATT RN - 01/04/2021 15:35 EDT documented in this encounter Plan of Treatment Not on file documented as of this encounter Visit Diagnoses Not on filedocumented in this encounter Care Teams Service Technician Copier Relationship Specialty Start Date End Date Yamile Coffey MD [address] [place] [address] PCP - General Family Medicine 03/23/22 Kandace Castro APRN [address] [facility] [address] [place] [address] Neurologist Neurology 08/29/23 Aaron Ribera MD [address] [facility] [address] [place] [address] Surgeon Cardiothoracic Surgery 09/13/23 documented as of this encounter
--- OUTSIDE RECORDS SUMMARY | 2024-12-13 20:37 | XMS_ITS | Encounter Summary ---
Author Organization [employer] ([place], [place], [place], [place]) Address [address] [place] [address] Care Team Providers Care Film Painter Name Role Phone Yamile Coffey MD Primary Care Provider [phone] Kandace Castro APRN Unavailable Aaron Ribera MD Unavailable Encounter Details Date Type Department Care Team (Late st Contact Info) Description 01/04/2021 Transcribed Document [facility] [place] Medicine [address] [place] [address] ProviderMeggan MD [address] [place] [address] Social History Tobacco Use Types Packs/Day Years Used Date Smoking Tobacco: Never Assessed Comments Unknown Sex and Gender Information Value Date Recorded Sex Assigned at Not on file Legal Sex Female 4:07 PM CDT Gender Identity Not on file Sexual Orientation Not on file documented as of this encounter Miscellaneous Notes * Cerner Conversion Note - Historical ProviderMD - 01/04/2021 2:20 PM CDT Patient: IZABELLA PADILLA Age: 50 years Sex: Female : 1970 Associated Diagnoses: Peripherally inserted central catheter (PICC) in place Author: AVIVA ABDI PA-C Basic Information Time seen: Date & time 01/04/2021 12:45:00, seen in triage room . History source: Patient, spouse. Arrival mode: Private vehicle. History limitation: None. Additional information: Chief Complaint from Nursing Triage Note : Chief Complaint 01/04/2021 12:42 EDT Chief Complaint Pt presents to the ER reporting she is having complications with her PICC line. States home health wanted laccess evaluated ebcuase hse complains of discomfort. Hx of gastroparesis. . History of Present Illness Is a 50-year-old female who presents to the ED for evaluation. Patient is a PICC line to her right AC for chronic gastroparesis, has had PICC in place for 2 years. She reports home health comes weekly to care for the PICC line. Reports she is not having any problems with the function. States that she noticed a small scab around insertion site from previous bandage adhesive. Has been was able to change the dressing. Patient reports some discomfort around the site. Denies any redness or swelling. Denies any fever chills. . Review of Systems Constitutional symptoms: Negative except as documented in HPI. Skin symptoms: Negative except as documented in HPI. Eye symptoms: Negative except as documented in HPI. ENMT symptoms: Negative except as documented in HPI. Respiratory symptoms: Negative except as documented in HPI. Cardiovascular symptoms: Negative except as documented in HPI. Gastrointestinal symptoms: Negative except as documented in HPI. Genitourinary symptoms: Negative except as documented in HPI. Musculoskeletal symptoms: Negative except as documented in HPI. Neurologic symptoms: Negative except as documented in HPI. Health Status Allergies: Allergic Reactions (Selected) Severity Not Documented Codeine- Nausea.. Medications: (Selected) Prescriptions Prescribed albuterol CFC free 90 mcg/inh inhalation aerosol with adapter: 2 Puff, Inhalation, QID, 1 Each, 0 Refill(s) Documented Medications Documented Flexeril: 10 [...] 0 Refill(s). Past Medical/ Family/ Social History Surgical history: Gastric Stimulator Battery Change on [...] 1 auto-populated from documented surgical case Discectomy ([id number]) on 12/27/2016 at 46 Years. Comments: 03/17/2017 [...] PICC (peripherally inserted central catheter) in situ ([id number]).. Family history: No family history items have [...] Daily 1 Month Tobacco Last Used 2004 . Problem list: Active Problems (12) abd pain Arthritis At risk for sleep apnea Bowel obstruction x 2 DDD (degenerative disc disease), cervical DDD (degenerative disc disease), lumbosacral depression/anxiety Gastroparesis heart murmur ibs Scar of abdomen Scoliosis . Physical Examination Vital Signs Vital Signs/Vital Measures 01/04/2021 12:42 EDT Systolic Blood Pressure 132 mmHg Diastolic Blood Pressure 83 mmHg Temperature Source Tympanic Temperature Mode Fahrenheit Temperature, Fahrenheit 98.0 Deg F Clinical Temperature, C 36.7 Deg C Peripheral Pulse Rate 99 bpm Respiratory Rate 18 Breaths/Min Oxygen Saturation 99 % . Measurements 01/04/2021 12:42 EDT Height Source Stated Height Entry Format [place] Height/Length, ESTONIAN (ft) 5 ft Height/Length ESTONIAN 4 Inch CLINICALHEIGHT 162.56 cm [place] Body Weight 54.3 kg Weight Source, ED Critical estimated dosing weight Weight Entry Format [place] Weight Scottish lb 169 lb CLINICALWEIGHT 76.82 kg Body Surface Area (BSA) 1.82 m2 Body Mass Index 29.1 kg/m2 HI . Oxygen Saturation 01/04/2021 12:42 EDT Oxygen Saturation 99 % . General: Alert, no acute distress. Skin: Warm, dry, PICC in place at R AC, appears well, no edema, erythema or warmth. Nontender. . Respiratory: Respirations are non-labored. Musculoskeletal: Normal ROM. Neurological: Alert and oriented to person, place, time, and situation. Psychiatric: Cooperative, appropriate mood & affect. Medical Decision Making Differential Diagnosis: Indwelling line evaluation. Documents reviewed: Emergency department nurses' notes. Notes: Patient is afebrile, vital signs stable. No signs of infection noted to site. Patient does have a small scab that appears to be healing appropriately. Discussed with EDMD Dr. Miguel who is in agreement with care plan. Patient discharged home in stable condition.. Impression and Plan Diagnosis Peripherally inserted central catheter (PICC) in place - Discharge, Emergency medicine, Medical Plan Condition: Stable. Disposition: Discharged Admit/Transfer/Discharge: Discharge (Order): Start: 01/04/2021 14:27 EDT, Discharge to: Home. Patient was given the following educational materials: PICC Home Care Guide, PICC Home Care Guide. Follow up with: FAMILY (REF) NO Within 2 to 3 days Return to ED if symptoms worsen., FAMILY (REF) NO Within 2 to 3 days Return to ED if symptoms worsen., FAMILY (REF) NO Within 2 to 3 days Return to ED if symptoms worsen.. Counseled: Patient, Regarding diagnosis, Regarding diagnostic results, Regarding treatment plan, Patient indicated understanding of instructions. Notes: I certify that the Physician Diamond Assorter performed the services as delegated. I agree with the assessment, treatment plan and disposition of the patient as recorded by the Physician Diamond Assorter. This document was created with RetAPPsation software and unidentified v belt curer errors may be present.. . Electronically signed by Omaira, [facility] Conversion Grounds Restoration Specialist Cerner at 09/16/2022 10:59 AM CDT documented in this encounter Plan of Treatment Not on file documented as of this encounter Visit Diagnoses Not on filedocumented in this encounter Care Teams Film Painter Relationship Specialty Start Date End Date Yamile Coffey MD [address] [address] PCP - General Family Medicine 03/23/22 Kandace Castro, MELVIN [address] [facility] [address] [place], [place] [address] Neurologist Neurology 08/29/23 Aaron Ribera MD [address] [facility] [address] [place] [address] Surgeon Cardiothoracic Surgery 09/13/23 documented as of this encounter
--- OUTSIDE RECORDS SUMMARY | 2024-12-13 20:37 | XMS_ITS | Encounter Summary ---
Author Organization [facility] Address [address] [place] [address] Care Team Providers Care Library Clerk Talking Books Name Role Phone Bryanna Lockhart MD Primary Care Provider Encounter Details Date Type Department Care Team (Late st Contact Info) Description 05/24/2023 Lab Requisition [facility] [address] [place] [phone] Bryanna Lockhart MD [address] [place] [address] Migraine without aura, intractable, without status migrainosus [...] Diagnosis Comments BASIC METABOLIC PANEL, PLASMA Routine 05/24/2023 10:48 AM EST Migraine without aura, intractable, without status migrainosus documented in this encounter Results * (ABNORMAL) Basic metabolic panel (05/24/2023 10:48 AM EST) Glucose, Plasma 93 74 - 99 mg/dL 05/24/2023 12:19 PM EST [facility] BUN, Plasma 9 7 - 21 mg/dL 05/24/2023 12:19 PM EST [facility] Creatinine, Plasma 0.58(L) 0.60 - 1.10 mg/dL 05/24/2023 12:19 PM EST [facility] BUN/Creatinine Ratio 16 05/24/2023 12:19 PM EST [facility] Sodium, Plasma 137 136 - 145 mmol/L 05/24/2023 12:19 PM EST [facility] Potassium, Plasma 4.4 3.7 - 4.8 mmol/L 05/24/2023 12:19 PM EST [facility] Chloride, Plasma 102 97 - 107 mmol/L 05/24/2023 12:19 PM EST [facility] CO2, Plasma 23 22 - 29 mmol/L 05/24/2023 12:19 PM EST [facility] Anion Gap 12 6 - 16 mmol/L 05/24/2023 12:19 PM EST [facility] Total Calcium, Plasma 9.5 8.9 - 10.2 mg/dL 05/24/2023 12:19 PM EST [facility] eGFRcr 108.4 mL/min/1.7 3m*2 05/24/2023 12:19 PM EST [facility] Comment:Reported eGFRcr in m L/min/1.73m2 is based the CKD-EPI 2020 equation that does not use a race coefficient. Blood Venous blood specimen / Unknown 05/24/2023 10:48 AM EST 05/24/2023 12:01 PM EST us Bryanna Lockhart MD LAB BLOOD ORDERABLES Final Result [facility] [address] [place] [address] documented in this encounter Visit Diagnoses Diagnosis Migraine without aura, intractable, without status migrainosus documented in this encounter Care Teams Library Clerk Talking Books Relationship Specialty Start Date End Date Bryanna Lockhart MD [address] [place] [address] PCP - General 10/09/20 documented as of this encounter
--- OUTSIDE RECORDS SUMMARY | 2024-12-13 20:37 | XMS_ITS | Encounter Summary ---
Author Organization [employer] ([place], [place], [place], [place]) Address [address] [place] [address] Care Team Providers Care Rn Mds Name Role Phone Yamile Coffey MD Primary Care Provider [phone] Kandace Castro APRN Unavailable [phone] Aaron Ribera MD Unavailable [phone] Encounter Details Date Type Department Care Team (Late st Contact Info) Description 06/24/2019 Transcribed Document [facility] [place] Medicine [facility] [address] ProviderMeggan MD [address] [place] [address] Social History Tobacco Use Types Packs/Day Years Used Date Smoking Tobacco: Never Assessed Comments Unknown Sex and Gender Information Value Date Recorded Sex Assigned at Not on file Legal Sex Female 4:07 PM CDT Gender Identity Not on file Sexual Orientation Not on file documented as of this encounter Miscellaneous Notes * Cerner Conversion Note - Historical ProviderMD - 06/24/2019 2:57 PM ENVIRONMENTAL SERVICES SUPERVISOR Electronically signed by Doug Castano Conversion Configuration Management Advisor Cerner at 09/16/2022 11:05 AM CDT documented in this encounter Plan of Treatment Not on file documented as of this encounter Visit Diagnoses Not on filedocumented in this encounter Care Teams Rn Mds Relationship Specialty Start Date End Date Yamile Coffey MD [address] [place], [place] [address] [facility] [address] [place] [address] PCP - General Family Medicine 03/23/22 Kandace Castro, MELVIN [address] [facility] [address] [place] [address] Neurologist Neurology 08/29/23 Aaron Ribera MD [address] [facility] [address] [place] [id number] Surgeon Cardiothoracic Surgery 09/13/23 documented as of this encounter
--- OUTSIDE RECORDS SUMMARY | 2024-12-13 20:37 | XMS_ITS | Encounter Summary ---
Author Organization [facility] Address [address] [place] [address] Care Team Providers Care Pneumatic Tube Fitter Name Role Phone Bryanna Lockhart MD Primary Care Provider Encounter Details Date Type Department Care Team (Late st Contact Info) Description 04/27/2023 Lab Requisition [facility] [address] [place] [phone] Bryanna Lockhart MD [address] [place] [address] Other specified functional intestinal disorders; Disorder of the autonomic nervous system, unspecified; Raised antibody titer; Migraine without aura, intractable, without status migrainosus [...] Procedure Name Priority Date/Time Associated Diagnosis Comments COMPREHENSIVE METABOLIC PANEL, PLASMA Routine 04/27/2023 12:30 PM EST Other specified functional intestinal disorders Disorder of the autonomic nervous system, unspecified Raised antibody titer Migraine without aura, intractable, without status migrainosus documented in this encounter Results * (ABNORMAL) Comprehensive metabolic panel (04/27/2023 12:30 PM EST) Glucose, Plasma 88 74 - 99 mg/dL 04/27/2023 5:24 PM EST [facility] BUN, Plasma 4(L) 7 - 21 mg/dL 04/27/2023 5:24 PM EST [facility] Creatinine, Plasma 0.58(L) 0.60 - 1.10 mg/dL 04/27/2023 5:24 PM EST [facility] BUN/Creatinine Ratio 7 04/27/2023 5:24 PM EST [facility] Sodium, Plasma 139 136 - 145 mmol/L 04/27/2023 5:24 PM EST [facility] Potassium, Plasma 4.1 3.7 - 4.8 mmol/L 04/27/2023 5:24 PM EST [facility] Chloride, Plasma 105 97 - 107 mmol/L 04/27/2023 5:24 PM EST [facility] CO2, Plasma 25 22 - 29 mmol/L 04/27/2023 5:[address] [facility] Anion Gap 9 6 - 16 mmol/L 04/27/2023 5:[address] [facility] Total Calcium, Plasma 9.3 8.9 - 10.2 mg/dL 04/27/2023 5:24 PM EST [facility] Total Protein 7.4 6.3 - 7.9 g/dL 04/27/2023 5:[address] [facility] Albumin, Plasma 3.8 3.5 - 5.2 g/dL 04/27/2023 5:24 PM EST [facility] AST, Plasma 28 10 - 35 U/L 04/27/2023 5:[address] [facility] ALT, Plasma 12 10 - 35 U/L 04/27/2023 5:[address] [facility] Alkaline Phosphatase, Plasma 87 35 - 104 U/L 04/27/2023 5:[address] [facility] Total Bilirubin, Plasma 0.2 0.2 - 1.1 mg/dL 04/27/2023 5:[address] [facility] eGFRcr 108.4 mL/min/1.7 3m*2 04/27/2023 5:[address] [facility] Comment:Reported eGFRcr in m L/min/1.73m2 is based the CKD-EPI 2020 equation that does not use a race coefficient. Blood Venous blood specimen / Unknown 04/27/2023 12:30 PM EST 04/27/2023 5:04 PM EST Bryanna Lockhart MD LAB BLOOD ORDERABLES Final Result [facility] [address] [place] [address] documented in this encounter Visit Diagnoses Diagnosis Other specified functional intestinal disorders Disorder of the autonomic nervous system, unspecified Raised antibody titer Other and unspecified nonspecific immunological findings Migraine without aura, intractable, without status migrainosus documented in this encounter Care Teams Pneumatic Tube Fitter Relationship Specialty Start Date End Date Bryanna Lockhart MD [address] [place] [address] PCP - General 10/09/20 documented as of this encounter
--- OUTSIDE RECORDS SUMMARY | 2024-12-13 20:37 | XMS_ITS | Encounter Summary ---
Author Organization [employer] ([place], [place], [place], [place]) Address [address] [place] [address] Care Team Providers Care Trimming Caser Name Role Phone Yamile Coffey MD Primary Care Provider [phone] Kandace Castro APRN Unavailable [phone] Aaron Ribera MD Unavailable [phone] Encounter Details Date Type Department Care Team (Late st Contact Info) Description 06/24/2019 Transcribed Document [facility] [place] [facility] [place] [address] ProviderMeggan MD [address] [place] [address] Social History Tobacco Use Types Packs/Day Years Used Date Smoking Tobacco: Never Assessed Comments Unknown Sex and Gender Information Value Date Recorded Sex Assigned at Not on file Legal Sex Female 4:07 PM CDT Gender Identity Not on file Sexual Orientation Not on file documented as of this encounter Miscellaneous Notes * Cerner Conversion Note - Historical ProviderMD - 06/24/2019 11:15 AM HAND CLERICAL VERIFIER ED Assessment Entered On: 06/24/2019 12:13 EST Performed On: 06/24/2019 12:[address] CONSUMER ELECTRONIC RETAIL SPECIALIST Quick Look Assessment Level of Consciousness : Alert, Awake Affect/Behavior : Appropriate, Calm, Cooperative Amada Lane RN - 06/24/2019 12:10 EST ED General-Functional Assess Preferred Communication Mode : Verbal Communication Barrier : None Primary Language : Bangladeshi Any Spiritual/Cultural Needs or Requests : No Currently in Unsafe Situation : No Amada Lane RN - 06/24/2019 12:10 EST Social Habits Smoking Status : Never (less than 100 in lifetime; none in last 30 days) Smokeless Tobacco Status : Never Desires Tobacco Cessation Calc : [address] RN - 06/24/2019 12:10 EST Social History (As Of: 06/24/2019 12:13:05 EST) Tobacco: Use in Last 12 Months: [...] ASMT, ED Cardiovascular Assessment WDL : WDL Amada Lane RN - 06/24/2019 12:10 EST Respiratory Respiratory Assessment WDL : WDL with exceptions (Comment: pt c/o cought that has been going on for a few days with no relief [Amada Lane RN - 06/24/2019 12:10 EST] ) Amada Lane RN - 06/24/2019 12:10 EST Neurologic ASMT, ED Neurologic Assessment WDL : WDL Amada Lane RN - 06/24/2019 12:10 EST Electronically signed by [facility] Conversion Munitions Factory Worker Cerner at 09/16/2022 10:51 AM CDT documented in this encounter Plan of Treatment Not on file documented as of this encounter Visit Diagnoses Not on filedocumented in this encounter Care Teams Trimming Caser Relationship Specialty Start Date End Date Yamile Coffey MD [address] [place] [address] PCP - General Family Medicine 03/23/22 Kandace Castro STONE GLUER [address] [facility] [address] [place] [address] Neurologist Neurology 08/29/23 Aaron Ribera MD [address] [facility] [address] [place] [address] Surgeon Cardiothoracic Surgery 09/13/23 documented as of this encounter
--- OUTSIDE RECORDS SUMMARY | 2024-12-13 20:37 | XMS_ITS | Encounter Summary ---
Author Organization [facility] Address [address] [place] [address] Care Team Providers Care Chemical Inspector Name Role Phone Bryanna Lockhart MD Primary Care Provider [phone] Encounter Details Date Type Department Care Team (Late st Contact Info) Description 04/11/2023 Lab Requisition [facility] [address] [place] [phone] Bryanna Lockhart MD [address] [place] [address] Raised antibody titer; Migraine without aura, intractable, [...] Diagnosis Comments BASIC METABOLIC PANEL, PLASMA Routine 04/11/2023 11:40 AM EST Raised antibody titer Migraine without aura, intractable, without status migrainosus documented in this encounter Results * (ABNORMAL) Basic metabolic panel (04/11/2023 11:40 AM EST) Glucose, Plasma 127(H) 74 - 99 mg/dL 04/11/2023 1:35 PM EST [facility] BUN, Plasma 5(L) 7 - 21 mg/dL 04/11/2023 1:35 PM EST [facility] Creatinine, Plasma 0.59(L) 0.60 - 1.10 mg/dL 04/11/2023 1:35 PM EST [facility] BUN/Creatinine Ratio 8 04/11/2023 1:35 PM EST [facility] Sodium, Plasma 139 136 - 145 mmol/L 04/11/2023 1:35 PM EST [facility] Potassium, Plasma 3.7 3.7 - 4.8 mmol/L 04/11/2023 1:35 PM EST [facility] Chloride, Plasma 103 97 - 107 mmol/L 04/11/2023 1:35 PM EST [facility] CO2, Plasma 25 22 - 29 mmol/L 04/11/2023 1:35 PM EST [facility] Anion Gap 11 6 - 16 mmol/L 04/11/2023 1:35 PM EST [facility] Total Calcium, Plasma 9.1 8.9 - 10.2 mg/dL 04/11/2023 1:35 PM EST [facility] eGFRcr 107.9 mL/min/1.7 3m*2 04/11/2023 1:35 PM EST [facility] Comment:Reported eGFRcr in m L/min/1.73m2 is based the CKD-EPI 2020 equation that does not use a race coefficient. Blood Venous blood specimen / Unknown 04/11/2023 11:40 AM EST 04/11/2023 1:19 PM EST Bryanna Lockhart MD LAB BLOOD ORDERABLES Final Result [facility] [address] [place] [address] documented in this encounter Visit Diagnoses Diagnosis Raised antibody titer Other and unspecified nonspecific immunological findings Migraine without aura, intractable, without status migrainosus documented in this encounter Care Teams Chemical Inspector Relationship Specialty Start Date End Date Bryanna Lockhart MD [address] [place] [address] PCP - General 10/09/20 documented as of this encounter
--- OUTSIDE RECORDS SUMMARY | 2024-12-13 20:37 | XMS_ITS | Encounter Summary ---
Author Organization [facility] Address [address] [place] [address] Care Team Providers Care Cafeteria Aide Name Role Phone Pcp, None Primary Care Provider Yamile Stewart MD Primary Care Provider [phone] Reason for Visit * Reason Comments Med Refill Encounter Details Date Type Department Care Team (Late st Contact Info) Description 03/26/2022 Refill [facility] [address] [address] Michelle Spence NP [address] [address] Social History Tobacco Use Types Packs/Day Years Used Date Smoking Tobacco: Former Smokeless Tobacco: Never Alcohol Use Standard Drinks/Week [...] [facility] [address] [facility] [address] [place] [address] Michelle Spence NP [address] [facility] [address] [place] [address] documented as of this encounter Visit Diagnoses Not on filedocumented in this encounter Care Teams Cafeteria Aide Relationship Specialty Start Date End Date Pcp, None PCP - General 09/07/20 10/02/22 Yamile Coffey MD [address] Yamile Coffey [facility], [place] [address] PCP - General Family Medicine 10/03/22 documented as of this encounter
--- OUTSIDE RECORDS SUMMARY | 2024-12-13 20:37 | XMS_ITS | Encounter Summary ---
Author Organization [employer] ([place], [place], [place], [place]) Address [address] [place] [address] Care Team Providers Care Criminology Teacher Name Role Phone Yamile Coffey MD Primary Care Provider Kandace Castro APRN Unavailable [phone] Aaron Ribera MD Unavailable [phone] Encounter Details Date Type Department Care Team (Late st Contact Info) Description 01/04/2021 Transcribed Document [facility] [place] [address] [place] [address] ProviderMeggan MD [address] [place] [address] Social History Tobacco Use Types Packs/Day Years Used Date Smoking Tobacco: Never Assessed Comments Unknown Sex and Gender Information Value Date Recorded Sex Assigned at Not on file Legal Sex Female 4:07 PM CDT Gender Identity Not on file Sexual Orientation Not on file documented as of this encounter Miscellaneous Notes * Cerner Conversion Note - Historical ProviderMD - 01/04/2021 2:27 PM CDT Electronically signed by Freddy Castano Conversion Service Station Equipment Mechanic Cerner at 09/16/2022 10:47 AM CDT documented in this encounter Plan of Treatment Not on file documented as of this encounter Visit Diagnoses Not on filedocumented in this encounter Care Teams Criminology Teacher Relationship Specialty Start Date End Date Yamile Coffey MD [address] [place] [address] 2 [place] [address] PCP - General Family Medicine 03/23/22 Kandace Castro, MELVIN [address] [facility] [address] [place] [address] Neurologist Neurology 08/29/23 Aaron Ribera MD [address] [facility] [address] [place] [address] Surgeon Cardiothoracic Surgery 09/13/23 documented as of this encounter
--- OUTSIDE RECORDS SUMMARY | 2024-12-13 20:37 | XMS_ITS | Encounter Summary ---
Author Organization [employer] ([place], [place], [place], [place]) Address [address] [place] [address] Care Team Providers Care Property Loss Insurance Claim Adjuster Name Role Phone Yamile Coffey MD Primary Care Provider [phone] Kandace Castro APRN Unavailable [phone] Aaron Ribera MD Unavailable [phone] Encounter Details Date Type Department Care Team (Late st Contact Info) Description 06/24/2019 Transcribed Document [facility] [place] [facility] [place] [address] ProviderMeggan MD [address] [place] [address] Social History Tobacco Use Types Packs/Day Years Used Date Smoking Tobacco: Never Assessed Comments Unknown Sex and Gender Information Value Date Recorded Sex Assigned at Not on file Legal Sex Female 4:07 PM CDT Gender Identity Not on file Sexual Orientation Not on file documented as of this encounter Miscellaneous Notes * Cerner Conversion Note - Historical ProviderMD - 06/24/2019 11:15 AM HYPERBARIC TECHNOLOGIST [place] Suicide Severity Rating Scale (C-SSRS) Entered On: 06/24/2019 12:08 EST Performed On: 06/24/2019 12:[address] RN [place] Suicide Severity Rating Scale (C-SSRS) CSSRS Past Month Wish to be : No CSSRS Past Month Suicidal Thoughts : No CSSRS Lifetime Suicide Behavior : No Suicide Severity Rating Score : 0 Suicide Severity Rating : No Additional Care Required at this time Thoughts of Harming/Killing Others : No Amada Lane, RN - 06/24/2019 12:08 EST Electronically signed by [place], [facility] Conversion Dx Board Operator Cerner at 09/16/2022 10:50 AM CDT documented in this encounter Plan of Treatment Not on file documented as of this encounter Visit Diagnoses Not on filedocumented in this encounter Care Teams Property Loss Insurance Claim Adjuster Relationship Specialty Start Date End Date Yamile Coffey MD [address] [facility] 2 [place] [address] PCP - General Family Medicine 03/23/22 Kandace Castro APRN [address] [facility] [address] [place] [address] Neurologist Neurology 08/29/23 Aaron Ribera MD [address] [facility] [address] [place] [address] Surgeon Cardiothoracic Surgery 09/13/23 documented as of this encounter
--- OUTSIDE RECORDS SUMMARY | 2024-12-13 20:37 | XMS_ITS | Encounter Summary ---
Author Organization [facility] Address [address] [place] [address] Care Team Providers Care It Business Systems Analyst Name Role Phone Bryanna Lockhart MD Primary Care Provider Encounter Details Date Type Department Care Team (Late st Contact Info) Description 02/08/2023 Lab Requisition [facility] [address] [place] [phone] Bryanna Lockhart MD [address] [place] [address] Other specified functional intestinal disorders; Disorder of [...] Diagnosis Comments BASIC METABOLIC PANEL, PLASMA Routine 02/08/2023 12:42 PM EDT Other specified functional intestinal disorders Disorder of the autonomic nervous system, unspecified Raised antibody titer Migraine without aura, intractable, without status migrainosus documented in this encounter Results * (ABNORMAL) Basic metabolic panel (02/08/2023 12:42 PM EDT) Glucose, Plasma 140(H) 74 - 99 mg/dL 02/08/2023 3:44 PM EDT [facility] BUN, Plasma 6(L) 7 - 21 mg/dL 02/08/2023 3:44 PM EDT [facility] Creatinine, Plasma 0.60 0.60 - 1.10 mg/dL 02/08/2023 3:44 PM EDT [facility] BUN/Creatinine Ratio 10 02/08/2023 3:44 PM EDT [facility] Sodium, Plasma 142 136 - 145 mmol/L 02/08/2023 3:44 PM EDT [facility] Potassium, Plasma 3.7 3.7 - 4.8 mmol/L 02/08/2023 3:44 PM EDT [facility] Chloride, Plasma 105 97 - 107 mmol/L 02/08/2023 3:44 PM EDT [facility] CO2, Plasma 26 22 - 29 mmol/L 02/08/2023 3:44 PM EDT [facility] Anion Gap 11 6 - 16 mmol/L 02/08/2023 3:44 PM EDT [facility] Total Calcium, Plasma 8.9 8.9 - 10.2 mg/dL 02/08/2023 3:44 PM EDT [facility] eGFRcr 107.5 mL/min/1.7 3m*2 02/08/2023 3:44 PM EDT [facility] Comment:Reported eGFRcr in m L/min/1.73m2 is based the CKD-EPI 2020 equation that does not use a race coefficient. Blood Venous blood specimen / Unknown 02/08/2023 12:42 PM EDT 02/08/2023 3:24 PM EDT Bryanna Lockhart MD LAB BLOOD ORDERABLES Final Result [facility] [address] [place] [address] documented in this encounter Visit Diagnoses Diagnosis Other specified functional intestinal disorders Disorder of the autonomic nervous system, unspecified Raised antibody titer Other and unspecified nonspecific immunological findings Migraine without aura, intractable, without status migrainosus documented in this encounter Care Teams It Business Systems Analyst Relationship Specialty Start Date End Date Bryanna Lockhart MD [address] [place] [address] PCP - General 10/09/20 documented as of this encounter
--- OUTSIDE RECORDS SUMMARY | 2024-12-13 20:37 | XMS_ITS | Encounter Summary ---
Author Organization [employer] ([place], [place], [place], [place]) Address [address] [place] [address] Care Team Providers Care Printing Worker Supervisor Name Role Phone Yamile Coffey MD Primary Care Provider [phone] Kandace Castro APRN Unavailable [phone] Aaron Ribera MD Unavailable [phone] Encounter Details Date Type Department Care Team (Late st Contact Info) Description 06/19/2019 Transcribed Document [facility] [place] [address] [place] [address] ProviderMeggan MD [address] [place] [address] Social History Tobacco Use Types Packs/Day Years Used Date Smoking Tobacco: Never Assessed Comments Unknown Sex and Gender Information Value Date Recorded Sex Assigned at Not on file Legal Sex Female 4:07 PM CDT Gender Identity Not on file Sexual Orientation Not on file documented as of this encounter Miscellaneous Notes * Cerner Conversion Note - Historical ProviderMD - 06/19/2019 9:06 AM AUTOMOTIVE SERVICE CASHIER CR Chest 1 Vw Portable Ordered: 06/19/2019 Modified Reason for Exam: Chest Pain 06/19/2019 09:01 06/19/2019 09:06 (TC LIU PA-C) Reviewed by Provider, No further action required X1 - noted, treated Electronically signed by [facility] Conversion Harness Worker Cerner at 09/16/2022 11:06 AM CDT documented in this encounter Plan of Treatment Not on file documented as of this encounter Visit Diagnoses Not on filedocumented in this encounter Care Teams Printing Worker Supervisor Relationship Specialty Start Date End Date Yamile Coffey MD [address] [facility] 2 [place] [address] PCP - General Family Medicine 03/23/22 Kandace Castro APRN [address] [facility] [address] [place] [address] Neurologist Neurology 08/29/23 Aaron Ribera MD [address] [facility] [address] [place] [address] Surgeon Cardiothoracic Surgery 09/13/23 documented as of this encounter
--- OUTSIDE RECORDS SUMMARY | 2024-12-13 20:37 | XMS_ITS | Encounter Summary ---
Author Organization [employer] ([place], [place], [place], [place]) Address [address] [place] [address] Care Team Providers Care Portfolio Administrator Name Role Phone Yamile Coffey MD Primary Care Provider [phone] Kandace Castro APRN Unavailable [phone] Aaron Ribera MD Unavailable [phone] Encounter Details Date Type Department Care Team (Late st Contact Info) Description 11/04/2024 Abstract [facility] Neurology - [facility] [address] [facility] [address] [place] [address] Kandace Castro APRN [address] [facility] [address] [place] [address] Social History Tobacco Use Types Packs/Day Years Used Date Smoking Tobacco: Former Cigarettes Smokeless Tobacco: Never Comments:Quit smoking 2004 Alcohol Use Standard Drinks/Week Comments Not Currently 0 (1 standard drink = 0.6 oz pur e alcohol) Family and Community Support Answer Rainer e Recorded Help with Day to Day Activities Not on file 06/07/2023 Feeling Lonely or Isolated Not on file 06/07 Educational Attainment Answer Date Otis rded Speak language other than Gambian at home Not on file 06/07/2023 Want help with school or training Not on file 06/07/2023 Substance Use Answer Date Recorded Used prescription meds for non-medical reasons N ot on file 06/07/2023 Used illegal drugs past 12 months Not on file 06/07/2023 Comments Unknown Sex and Gender Information Value Date Recorded Sex Assigned at Not on file Legal Sex Female 4:07 PM CDT Gender Identity Not on file Sexual Orientation Not on file documented as of this encounter Plan of Treatment Not on file documented as of this encounter Visit Diagnoses Not on filedocumented in this encounter Care Teams Portfolio Administrator Relationship Specialty Start Date End Date Yamile Coffey MD [address] [address] PCP - General Family Medicine 03/23/22 Kandace Castro, HUMAN RESOURCES COORDINATOR [address] [facility] [address] [place], [place] [id number] Neurologist Neurology 08/29/23 Aaron Ribera MD [address] [facility] [address] [place], [place] [address] Surgeon Cardiothoracic Surgery 09/13/23 documented as of this encounter
--- OUTSIDE RECORDS SUMMARY | 2024-12-13 20:37 | XMS_ITS | Encounter Summary ---
Author Organization [employer] ([place], [place], [place], [place]) Address [address] [place] [address] Care Team Providers Care Carpenter Streetcar Name Role Phone Yamile Coffey MD Primary Care Provider [phone] Kandace Castro APRN Unavailable [phone] Aaron Ribera MD Unavailable [phone] Encounter Details Date Type Department Care Team (Late st Contact Info) Description 06/24/2019 Transcribed Document [facility] [place] Family Medicine [facility] [place] [address] ProviderMeggan MD [address] [place] [address] Social History Tobacco Use Types Packs/Day Years Used Date Smoking Tobacco: Never Assessed Comments Unknown Sex and Gender Information Value Date Recorded Sex Assigned at Not on file Legal Sex Female 4:07 PM CDT Gender Identity Not on file Sexual Orientation Not on file documented as of this encounter Miscellaneous Notes * Cerner Conversion Note - Historical ProviderMD - 06/24/2019 3:30 PM KILN DOOR REPAIRER CR Chest 2 Vws Ordered: 06/24/2019 Auth (Verified) Reason for Exam: pain 06/24/2019 12:52 06/24/2019 15:30 (KARELY JOVEL) No further action required documented in this encounter Plan of Treatment Not on file documented as of this encounter Visit Diagnoses Not on filedocumented in this encounter Care Teams Carpenter Streetcar Relationship Specialty Start Date End Date Yamile Coffey MD [address] [facility] 2 [place] [address] PCP - General Family Medicine 03/23/22 Kandace Castro APRN [address] [facility] [address] [place] [address] Neurologist Neurology 08/29/23 Aaron Ribera MD [address] [facility] [address] [place], [place] [id number] Surgeon Cardiothoracic Surgery 09/13/23 documented as of this encounter
--- OUTSIDE RECORDS SUMMARY | 2024-12-13 20:37 | XMS_ITS | Encounter Summary ---
Author Organization [employer] ([place], [place], [place], [place]) Address [address] [place] [address] Care Team Providers Care Donor Support Technician Name Role Phone Yamile Coffey MD Primary Care Provider [phone] Kandace Castro APRN Unavailable [phone] Aaron Ribera MD Unavailable [phone] Encounter Details Date Type Department Care Team (Late st Contact Info) Description 06/24/2019 Transcribed Document [facility] Family Medicine [facility] [place] [address] ProviderMeggan MD [address] [place] [address] Social History Tobacco Use Types Packs/Day Years Used Date Smoking Tobacco: Never Assessed Comments Unknown Sex and Gender Information Value Date Recorded Sex Assigned at Not on file Legal Sex Female 4:07 PM CDT Gender Identity Not on file Sexual Orientation Not on file documented as of this encounter Miscellaneous Notes * Cerner Conversion Note - Meggan ProviderMD - 06/24/2019 11:15 AM CLINICAL SYSTEMS ANALYST ED Triage Entered On: 06/24/2019 11:36 EST Performed On: 06/24/2019 11:30 EST by PRIETO HAQUE RN ED Triage Across the Room Chief Complaint : Pneumonia since last Monday, sent by PMD today for steroid injection. Nonprod cough cont, denies fever. Triage Date/Time : 06/24/2019 11:15 EST PRIETO HAQUE RN - 06/24/2019 11:32 EST DCP GENERIC CODE Tracking Acuity : 3 - Urgent Tracking Group : [facility] ED PRIETO HAQUE RN - 06/24/2019 11:32 EST Mode of Arrival : Ambulatory Transported to ED by : Private vehicle To Room Via : Ambulate Accompanied By : Spouse ED Vital Signs : Document Height & Weight : Document ED Allergies : Document ED Reason for Visit : Document Tetanus Immunization : Greater than 5 years PRIETO HAQUE RN - 06/24/2019 11:32 EST Infectious Disease History Physical contact outside [place] in the last 30 days : No Infectious Disease History : Chicken pox/Shingles Tuberculosis Symptoms : None PRIETO HAQUE RN - 06/24/2019 11:32 EST Vital Signs ED Temperature Source : Oral Temperature Mode : Fahrenheit Temperature, Fahrenheit : 97.5 Deg F ED Pain : Yes Clinical Temperature, C : 36.4 Deg C Oxygen Therapy Mode : Room air Peripheral Pulse Rate : 102 bpm (HI) Respiratory Rate : 20 Breaths/Min Blood Pressure Location : Arm, left upper Blood Pressure Source : Non-Invasive BP Device Systolic Blood Pressure : 136 mmHg Diastolic Blood Pressure : 88 mmHg Oxygen Saturation : 97 % PRIETO HAQUE RN - 06/24/2019 11:32 EST Allergy (As Of: 06/24/2019 11:36:08 EST) Allergies (Active) codeine Estimated Onset Date: Unspecified ; Reactions: Nausea ; Created By: WILMER ESTRADA RN; Reaction Status: Active ; Category: Drug ; Substance: codeine ; Type: Allergy ; Updated By: WILMER ESTRADA RN; Reviewed Date: 06/24/2019 11:33 EST Diagnosis Control ED (As Of: 06/24/2019 11:36:08 EST) Problems(Active) abd pain (SNOMED CT :63126247 ) Name of Problem: abd pain ; Recorder: WILMER ESTRADA RN; Confirmation: Confirmed ; Classification: Medical ; Code: [id number] ; Contributor System: [employer] ; Last Updated: 03/15/2017 12:56 EDT ; Life Cycle Date: 01/22/2013 ; Life Cycle Status: Active ; Vocabulary: SNOMED CT Arthritis (SNOMED CT :1623317 ) Name of Problem: Arthritis ; Recorder: MAGALYS MCLEAN RN; Confirmation: Confirmed ; Classification: Medical ; Code: 8179750 ; Contributor System: [employer] ; Last Updated: 03/05/2015 9:20 EDT ; Life Cycle Date: 03/05/2015 ; Life Cycle Status: Active ; Vocabulary: SNOMED CT At risk for sleep apnea (IMO :56724634 ) Name of Problem: At risk for sleep apnea ; Recorder: SYSTEM, SYSTEM; Confirmation: Confirmed ; Classification: Medical ; Code: 48947698 ; Last Updated: 10/15/2018 6:45 EDT ; Life Cycle Date: 10/15/2018 ; Life Cycle Status: Active ; Vocabulary: IMO Bowel obstruction x 2 (SNOMED CT :687234748 ) Name of Problem: Bowel obstruction x 2 ; Recorder: JENNIFER AGUILAR RN PATIENT CARE 1; Confirmation: Confirmed ; Classification: Medical ; Code: 691218089 ; Contributor System: Power[employer] ; Last Updated: 09/01/2016 10:56 EDT ; Life Cycle Date: 09/01/2016 ; Life Cycle Status: Active ; Vocabulary: SNOMED CT DDD (degenerative disc disease), cervical (SNOMED CT :785939248 ) Name of Problem: DDD (degenerative disc disease), cervical ; Recorder: MERI PHAM RN PATIENT CARE 1; Confirmation: Confirmed ; Classification: Patient Stated ; Code: 384827434 ; Contributor System: Power[employer] ; Last Updated: 10/12/2018 14:47 EDT ; Life Cycle Date: 10/12/2018 ; Life Cycle Status: Active ; Vocabulary: SNOMED CT DDD (degenerative disc disease), lumbosacral (SNOMED CT :241008008 ) Name of Problem: DDD (degenerative disc disease), lumbosacral ; Recorder: MERI PHAM RN PATIENT CARE 1; Confirmation: Confirmed ; Classification: Patient Stated ; Code: 067228860 ; Contributor System: Power[employer] ; Last Updated: 10/12/2018 14:48 EDT ; Life Cycle Date: 10/12/2018 ; Life Cycle Status: Active ; Vocabulary: SNOMED CT depression/anxiety (SNOMED CT :92419727 ) Name of Problem: depression/anxiety ; Recorder: WILMER ESTRADA RN; Confirmation: Confirmed ; Classification: Medical ; Code: 04261187 ; Contributor System: [employer] ; Last Updated: 11/12/2013 13:40 EDT ; Life Cycle Date: 01/22/2013 ; Life Cycle Status: Active ; Vocabulary: SNOMED CT Gastroparesis (SNOMED CT :647376801 ) Name of Problem: Gastroparesis ; Recorder: JENNIFER AGUILAR RN PATIENT CARE 1; Confirmation: Confirmed ; Classification: Medical ; Code: 794059206 ; Contributor System: PowerChart ; Last Updated: 09/01/2016 11:16 EDT ; Life Cycle Date: 09/01/2016 ; Life Cycle Status: Active ; Vocabulary: SNOMED CT heart murmur (SNOMED CT :443652295 ) Name of Problem: heart murmur ; Recorder: WILMER ESTRADA RN; Confirmation: Confirmed ; Classification: Medical ; Code: 197835574 ; Contributor System: Power[employer] ; Last Updated: 11/11/2013 14:25 EDT ; Life Cycle Date: 01/22/2013 ; Life Cycle Status: Active ; Vocabulary: SNOMED CT ibs (SNOMED CT :555225963 ) Name of Problem: ibs ; Recorder: WILMER ESTRADA RN; Confirmation: Confirmed ; Classification: Medical ; Code: 204002917 ; Contributor System: [employer] ; Last Updated: 11/11/2013 14:31 EDT ; Life Cycle Date: 01/22/2013 ; Life Cycle Status: Active ; Vocabulary: SNOMED CT Scar of abdomen (SNOMED CT :192428493 ) Name of Problem: Scar of abdomen ; Recorder: MAGALY CALABRESE RN; Confirmation: Confirmed ; Classification: Medical ; Code: 850509998 ; Contributor System: Power[employer] ; Last Updated: 10/12/2018 14:47 EDT ; Life Cycle Status: Active ; Vocabulary: SNOMED CT ; Comments: 12/28/2016 14:42 - MAGALY CALABRESE, PETE scar tissue in bowel Scoliosis (SNOMED CT :571171648 ) Name of Problem: Scoliosis ; Recorder: MAGALYS MCLEAN RN; Confirmation: Confirmed ; Classification: Medical ; Code: 333318790 ; Contributor System: PowerChart ; Last Updated: 03/05/2015 9:20 EDT ; Life Cycle Date: 03/05/2015 ; Life Cycle Status: Active ; Vocabulary: SNOMED CT Diagnoses(Active) Cough Date: 06/24/2019 ; Diagnosis Type: Reason For Visit ; Confirmation: Complaint of ; Clinical Dx: Cough ; Classification: Medical ; Clinical Service: Emergency medicine ; Code: PNED ; Probability: 0 ; Diagnosis Code: [id number] ED Height and Weight Height Source : Stated Height Entry Format : [place] Height, Feet : 5 ft(Converted to: 152 cm, 60 Inch) Height, Inches : 4 Inch(Converted to: 0 ft 4 Inch, 10.16 cm) Clinical Height : 162.56 cm Weight Source, ED : Critical estimated dosing weight Weight Entry Format : [place] Weight, Pounds : 189 lb Clinical Dosing Weight : 85.91 kg Body Surface Area (BSA) : 1.91 m2 Body Mass Index : 32.5 kg/m2 (HI) Mangum Body Weight (IBW) : 54.3 kg PRIETO HAQUE RN - 06/24/2019 11:32 EST Pain Assessment Pain Assessment : Initial assessment Pain Scale Used : 0-10 Scale Location : Thoracic, left PRIETO HAQUE RN - 06/24/2019 11:32 EST Pain Scale Intensity : 6 PRIETO HAQUE RN - 06/24/2019 11:32 EST Image 4 - Images currently included in the form version of this document have not been included in the text rendition version of the form. documented in this encounter Plan of Treatment Not on file documented as of this encounter Visit Diagnoses Not on filedocumented in this encounter Care Teams Donor Support Technician Relationship Specialty Start Date End Date Yamile Coffey MD [address] [facility] [address] [place] [address] PCP - General Family Medicine 03/23/22 Kandace Castro, MELVIN [address] [facility] [address] [place] [address] Neurologist Neurology 08/29/23 Aaron Ribera MD [address] [facility] [address] [place] [address] Surgeon Cardiothoracic Surgery 09/13/23 documented as of this encounter
--- OUTSIDE RECORDS SUMMARY | 2024-12-13 20:37 | XMS_ITS | Encounter Summary ---
Author Organization Healthcare Address [address] [place] [address] Care Team Providers Care Care Management Specialist Name Role Phone Bryanna Lockhart MD Primary Care Provider [phone] Encounter Details Date Type Department Care Team (Late st Contact Info) Description 03/02/2023 Lab Requisition [facility] [address] [place] [phone] Bryanna Lockhart MD [address] [place] [address] Disorder of the autonomic nervous system, unspecified Social History Tobacco Use Types Packs/Day Years [...] Diagnosis Comments BASIC METABOLIC PANEL, PLASMA Routine 03/02/2023 12:15 PM EDT Disorder of the autonomic nervous system, unspecified documented in this encounter Results * (ABNORMAL) Basic metabolic panel (03/02/2023 12:15 PM EDT) Glucose, Plasma 132(H) 74 - 99 mg/dL 03/02/2023 3:53 PM EDT [facility] BUN, Plasma 8 7 - 21 mg/dL 03/02/2023 3:53 PM EDT [facility] Creatinine, Plasma 0.61 0.60 - 1.10 mg/dL 03/02/2023 3:53 PM EDT [facility] BUN/Creatinine Ratio 13 03/02/2023 3:53 PM EDT [facility] Sodium, Plasma 141 136 - 145 mmol/L 03/02/2023 3:53 PM EDT [facility] Potassium, Plasma 3.9 3.7 - 4.8 mmol/L 03/02/2023 3:53 PM EDT [facility] Chloride, Plasma 101 97 - 107 mmol/L 03/02/2023 3:53 PM EDT [facility] CO2, Plasma 26 22 - 29 mmol/L 03/02/2023 3:53 PM EDT [facility] Anion Gap 14 6 - 16 mmol/L 03/02/2023 3:53 PM EDT [facility] Total Calcium, Plasma 9.5 8.9 - 10.2 mg/dL 03/02/2023 3:53 PM EDT [facility] eGFRcr 107.1 mL/min/1.7 3m*2 03/02/2023 3:53 PM EDT [facility] Comment:Reported eGFRcr in m L/min/1.73m2 is based the CKD-EPI 2020 equation that does not use a race coefficient. Blood Venous blood specimen / Unknown 03/02/2023 12:15 PM EDT 03/02/2023 3:13 PM EDT us Bryanna Lockhart MD LAB BLOOD ORDERABLES Final Result [facility] [address] [place] [address] documented in this encounter Visit Diagnoses Diagnosis Disorder of the autonomic nervous system, unspecified documented in this encounter Care Teams Care Management Specialist Relationship Specialty Start Date End Date Bryanna Lockhart MD [address] [place] [address] PCP - General 10/09/20 documented as of this encounter
--- OUTSIDE RECORDS SUMMARY | 2024-12-13 20:37 | XMS_ITS | Encounter Summary ---
Author Organization [employer] ([place], [place], [place], [place]) Address [address] [place] [address] Care Team Providers Care Brisket Puller Name Role Phone Yamile Coffey MD Primary Care Provider Kandace Castro APRN Unavailable [phone] Aaron Ribera MD Unavailable [phone] Reason for Visit * Reason Comments Medication Refill Encounter Details Date Type Department Care Team (Late st Contact Info) Description 10/04/2022 Refill [facility] Neurology - [facility] [address] [place] [address] [address] [place] [address] Kandace Castro APRN [address] [place] [address] [address] [place] [address] Social History Tobacco Use Types Packs/Day Years [...] on filedocumented in this encounter Care Teams Brisket Puller Relationship Specialty Start Date End Date Yamile Coffey MD [address] [place] [address] PCP - General Family Medicine 03/23/22 Kandace Castro APRN [address] [facility] [address] [place] [address] Neurologist Neurology 08/29/23 Aaron Ribera MD [address] [facility] [address] [place] [address] Surgeon Cardiothoracic Surgery 09/13/23 documented as of this encounter
--- OUTSIDE RECORDS SUMMARY | 2024-12-13 20:37 | XMS_ITS | Encounter Summary ---
Author Organization [facility] Address [address] [place] [address] Care Team Providers Care Picture Hanger Name Role Phone Bryanna Lockhart MD Primary Care Provider [phone] Encounter Details Date Type Department Care Team (Late st Contact Info) Description 03/16/2023 Lab Requisition [facility] [address] [place] [phone] Bryanna Lockhart MD [address] [place] [address] Other specified functional intestinal disorders; Disorder of [...] Diagnosis Comments BASIC METABOLIC PANEL, PLASMA Routine 03/16/2023 12:45 PM EDT Other specified functional intestinal disorders Disorder of the autonomic nervous system, unspecified Raised antibody titer Migraine without aura, intractable, without status migrainosus documented in this encounter Results * (ABNORMAL) Basic metabolic panel (03/16/2023 12:45 PM EDT) Glucose, Plasma 98 74 - 99 mg/dL 03/16/2023 2:13 PM EDT [facility] BUN, Plasma 5(L) 7 - 21 mg/dL 03/16/2023 2:13 PM EDT [facility] Creatinine, Plasma 0.56(L) 0.60 - 1.10 mg/dL 03/16/2023 2:13 PM EDT [facility] BUN/Creatinine Ratio 9 03/16/2023 2:13 PM EDT [facility] Sodium, Plasma 138 136 - 145 mmol/L 03/16/2023 2:13 PM EDT [facility] Potassium, Plasma 4.0 3.7 - 4.8 mmol/L 03/16/2023 2:13 PM EDT [facility] Chloride, Plasma 104 97 - 107 mmol/L 03/16/2023 2:13 PM EDT [facility] CO2, Plasma 25 22 - 29 mmol/L 03/16/2023 2:13 PM EDT [facility] Anion Gap 9 6 - 16 mmol/L 03/16/2023 2:13 PM EDT [facility] Total Calcium, Plasma 9.1 8.9 - 10.2 mg/dL 03/16/2023 2:13 PM EDT [facility] eGFRcr 109.3 mL/min/1.7 3m*2 03/16/2023 2:13 PM EDT [facility] Comment:Reported eGFRcr in m L/min/1.73m2 is based the CKD-EPI 2020 equation that does not use a race coefficient. Blood Venous blood specimen / Unknown 03/16/2023 12:45 PM EDT 03/16/2023 1:49 PM EDT Bryanna Lockhart MD LAB BLOOD ORDERABLES Final Result [facility] [address] [place] [address] documented in this encounter Visit Diagnoses Diagnosis Other specified functional intestinal disorders Disorder of the autonomic nervous system, unspecified Raised antibody titer Other and unspecified nonspecific immunological findings Migraine without aura, intractable, without status migrainosus documented in this encounter Care Teams Picture Hanger Relationship Specialty Start Date End Date Bryanna Lockhart MD [address] [place] [address] PCP - General 10/09/20 documented as of this encounter
--- OUTSIDE RECORDS SUMMARY | 2024-12-13 20:37 | XMS_ITS | Encounter Summary ---
Author Organization [employer] ([place], [place], [place], [place]) Address [address] [place] [address] Care Team Providers Care Barn Worker Name Role Phone Isaiah Collins MD Primary Care Provider [phone] Kandace Castro APRN Unavailable [phone] Aaron Ribera MD Unavailable [phone] Encounter Details Date Type Department Care Team (Late st Contact Info) Description 06/24/2019 Transcribed Document [facility] [place] Family Medicine Formerly [facility] [place] [address] ProviderMeggan MD [address] [place] [address] Social History Tobacco Use Types Packs/Day Years Used Date Smoking Tobacco: Never Assessed Comments Unknown Sex and Gender Information Value Date Recorded Sex Assigned at Not on file Legal Sex Female 4:07 PM CDT Gender Identity Not on file Sexual Orientation Not on file documented as of this encounter Miscellaneous Notes * Cerner Conversion Note - Meggan ProviderMD - 06/24/2019 3:08 PM SUPERVISOR C[employer] DRILL[employer] [facility] [place] [id number] MARGARITO PADILLA :1970 Visit Time:06/24/2019 Your Visit Summary Your Care Team Primary Provider: CHANCE VASQUES Secondary Provider: Your Diagnosis Cough Cough Wheezing Medical Information You may obtain a copy [...] up with primary care provider When Within 1 to 2 days Comments Follow-up as instructed Return if condition worsens Follow Up with Return to Emergency Department When Within As needed Follow Up with Follow up with primary care provider When Within 2 to 3 days Follow Up with NO PRIM DR WILL When Within 2 to 3 days Follow Up with Patient Resource Center When Only if needed Comments Patient states Isaiah Collins is their Primary Care Provider. Please contact the Patient Resource Center at if you need assistance scheduling a Specialist or Primary Care Provider in the future. Follow Up with ISAIAH COLLINS When Within 2 to 3 days Where: [address] [place] [address]- Business (1) Allergies codeine (Nausea) Immunizations This Visit No Immunizations Found Medications What How Much When Instructions Next Dose New predniSONE (predniSONE 20 mg oral tablet) 3 Tablet(s) Oral Every Day Duration: 5 Day(s) Pickup at [facility] Pharmacy Information [facility]: [address] [place] [address] [address] [place], [place] [id number] [phone] The home medications listed are only as [...] This Visit (last charted value for your 06/24/2019 visit) Hematology 06/24/2019 12:16 PM WBC: 14.4 K/uL -- Normal range between ( 4.5 and 10.5 ) RBC: 4.69 Million/uL -- Normal range between ( 3.93 and 5.22 ) Hct: 41.2 % -- Normal range between ( 34.1 and 44.9 ) Hgb: 13.6 g/dL -- Normal range between ( 11.2 and 15.7 ) Platelet Count: 367 K/uL -- Normal range between ( 163 and 369 ) MCH: 29.0 pg -- Normal range between ( 25.6 and 32.2 ) MCHC: 33.0 Gram/dL -- Normal range between ( 32.2 and 36.5 ) MCV: 87.8 fL -- Normal range between ( 79.0 and 94.8 ) Slide Review: No Eos %: 1.5 % -- Normal range between ( 0.0 and 7.0 ) [facility] #: 0.87 K/uL -- Normal range between ( 0.16 and 1.00 ) Eos #: 0.22 x10(3)/uL -- Normal range between ( 0.00 and 0.80 ) [facility] %: 6.0 % -- Normal range between ( 3.0 and 9.0 ) Baso %: 0.3 % -- Normal range between ( 0.0 and 1.5 ) Baso #: 0.04 x10(3)/uL -- Normal range between ( 0.00 and 0.20 ) RDW: 14.0 % -- Normal range between ( 11.7 and 14.9 ) Neut %: 64.6 % -- Normal range between ( 34.0 and 71.0 ) Neut #: 9.33 K/uL -- Normal range between ( 1.56 and 6.13 ) Lymph %: 26.4 % -- Normal range between ( 19.3 and 53.1 ) Lymph #: 3.81 x10(3)/uL -- Normal range between ( 1.00 and 3.90 ) MPV: 8.9 fL -- Normal range between ( 9.4 and 12.4 ) IG#: 0.18 x10(3)/uL -- Normal range between ( 0.00 and 0.05 ) IG%: 1.20 % -- Normal range between ( 0.00 and 0.60 ) General Chemistry 06/24/2019 12:16 PM Creatinine Level: 0.80 mg/dL -- Normal range between ( 0.55 and 1.02 ) Sodium Level: 136 mmol/L -- Normal range between ( 136 and 146 ) Potassium Level: 3.8 mmol/L -- Normal range between ( 3.5 and 5.1 ) Chloride Level: 102 mmol/L -- Normal range between ( 102 and 112 ) Carbon Dioxide Level: 28 mmol/L -- Normal range between ( 21 and 32 ) Anion Gap: 10 -- Normal range between ( 9 and 20 ) Bilirubin Total: 0.5 mg/dL -- Normal range between ( 0.2 and 1.2 ) A/G Ratio: 0.9 -- Normal range between ( 1.1 and 2.5 ) ALT: 16 Units/Liter -- Normal range between ( 13 and 56 ) AST: 11 Units/Liter -- Normal range between ( 5 and 37 ) Globulin: 4.4 Gram/dL -- Normal range between ( 1.5 and 4.5 ) Alk Phos: 105 Units/Liter -- Normal range between ( 27 and 136 ) Bun/Creatinine: 8.8 -- Normal range between ( 8.0 and 20.0 ) Calcium Level: 9.7 mg/dL -- Normal range between ( 8.4 and 10.1 ) eGFR : >60 mL/min/1.73m2 eGFR NonAfrican: >60 mL/min/1.73m2 Glucose Level: 98 mg/dL -- Normal range between ( 74 and 106 ) Blood Urea Nitrogen: 7 mg/dL -- Normal range between ( 7 and 22 ) Protein Total: 8.2 Gram/dL -- Normal range between ( 6.4 and 8.2 ) Albumin Level: 3.8 Gram/dL -- Normal range between ( 3.4 and 5.0 ) Diagnostic Radiology 06/24/2019 12:11 PM CR Chest 2 Vws: CR Chest 2 Vws Education Materials Bronchospasm, Adult Bronchospasm is when airways in the lungs get smaller. When this happens, it can be hard to breathe. You may cough. You may also make a whistling sound when you breathe (wheeze). Follow these instructions at home: Medicines ??? Take [id number] and prescription medicines only as told by your doctor. ??? If you need to use an inhaler or nebulizer to take your medicine, ask your doctor how to use it. ??? If you were given a spacer, always use it with your inhaler. Lifestyle ??? Change your heating and air conditioning filter. Do this at least once a month. ??? Try not to use fireplaces and wood stoves. ??? Do not smoke. Do not allow smoking in your home. ??? Try not to use things that have a strong smell, like perfume. ??? Get rid of pests (such as roaches and mice) and their poop. ??? Remove any mold from your home. ??? Keep your house clean. Get rid of dust. ??? Use cleaning products that have no smell. ??? Replace carpet with wood, tile, or vinyl donna. ??? Use allergy-proof pillows, mattress covers, and box spring covers. ??? Wash bed sheets and blankets every week. Use hot water. Dry them in a dryer. ??? Use blankets that are made of polyester or cotton. ??? Wash your hands often. ??? Keep pets out of your bedroom. ??? When you exercise, try not to breathe in cold air. General instructions ??? Have a plan for getting medical care. Know these things: ? When to call your doctor. ? When to call local emergency services (911 in the [place] ? Where to go in an emergency. ??? Stay up to date on your shots (immunizations). ??? When you have an episode: ? Stay calm. ? Relax. ? Breathe slowly. Contact a doctor if: ??? Your muscles ache. ??? Your chest hurts. ??? The color of the mucus you cough up (sputum) changes from clear or white to yellow, green, reis, or bloody. ??? The mucus you cough up gets thicker. ??? You have a fever. Get help right away if: ??? The whistling sound gets worse, even after you take your medicines. ??? Your coughing gets worse. ??? You find it even harder to breathe. ??? Your chest hurts very much. Summary ??? Bronchospasm is when airways in the lungs get smaller. ??? When this happens, it can be hard to breathe. You may cough. You may also make a whistling sound when you breathe. ??? Stay away from things that cause you to have episodes. These include smoke or dust. This information is not intended to replace advice given to you by your health care provider. Make sure you discuss any questions you have with your health care provider. Document Released: 03/12/2010 Document Revised: 05/18/2017 Document Reviewed: 05/18/2017 [employer] Interactive Patient Education ?? 2019 [employer] Cough, Adult Coughing is a reflex that clears your throat and your airways. Coughing helps to heal and protect your lungs. It is normal to cough occasionally, but a cough that happens with other symptoms or lasts a long time may be a sign of a condition that needs treatment. A cough may last only 2???3 weeks (acute), or it may last longer than 8 weeks (chronic). What are the causes? Coughing is commonly caused by: ??? Breathing in substances that irritate your lungs. ??? A viral or bacterial respiratory infection. ??? Allergies. ??? Asthma. ??? Postnasal drip. ??? Smoking. ??? Acid backing up from the stomach into the esophagus (gastroesophageal reflux). ??? Certain medicines. ??? Chronic lung problems, including COPD (or rarely, lung cancer). ??? Other medical conditions such as heart failure. Follow these instructions at home: Pay attention to any changes in your symptoms. Take these actions to help with your discomfort: ??? Take medicines only as told by your health care provider. ? If you were prescribed an antibiotic medicine, take it as told by your health care provider. Do not stop taking the antibiotic even if you start to feel better. ? Talk with your health care provider before you take a cough suppressant medicine. ??? Drink enough fluid to keep your urine clear or pale yellow. ??? If the air is dry, use a cold steam vaporizer or humidifier in your bedroom or your home to help loosen secretions. ??? Avoid anything that causes you to cough at work or at home. ??? If your cough is worse at night, try sleeping in a semi-upright position. ??? Avoid cigarette smoke. If you smoke, quit smoking. If you need help quitting, ask your health care provider. ??? Avoid caffeine. ??? Avoid alcohol. ??? Rest as needed. Contact a health care provider if: ??? You have new symptoms. ??? You cough up pus. ??? Your cough does not get better after 2???3 weeks, or your cough gets worse. ??? You cannot control your cough with suppressant medicines and you are losing sleep. ??? You develop pain that is getting worse or pain that is not controlled with pain medicines. ??? You have a fever. ??? You have unexplained weight loss. ??? You have night sweats. Get help right away if: ??? You cough up blood. ??? You have difficulty breathing. ??? Your heartbeat is very fast. This information is not intended to replace advice given to you by your health care provider. Make sure you discuss any questions you have with your health care provider. Document Released: 11/11/2011 Document Revised: 10/20/2016 Document Reviewed: 07/22/2015 [employer] Interactive Patient Education ?? 2019 [employer] Emergency Awareness and Preventative Care STROKE is [...] Assistance with quitting is available by contacting 9-936-OKJA-NOW. This is a free resource providing counseling, [...] was given the opportunity to ask questions. Patient/Licensed Massage Therapist Name: Patient/Licensed Massage Therapist Signature: Relationship to Patient: Clinician/Hospital Licensed Massage Therapist Signature: Please Provide a Telephone Number Where You Can Be Reached: Is it Permissible To Leave a Message? Date: documented in this encounter Plan of Treatment Not on file documented as of this encounter Visit Diagnoses Not on filedocumented in this encounter Care Teams Barn Worker Relationship Specialty Start Date End Date Isaiah Collins MD [address] [address] PCP - General Family Medicine 03/23/22 Kandace Castro APRN [address] [facility] [address] [place], [place] [id number] Neurologist Neurology 08/29/23 [place] [address] [place] [address] [address] [place], [place] [id number] Surgeon Cardiothoracic Surgery 09/13/23 documented as of this encounter
--- OUTSIDE RECORDS SUMMARY | 2024-12-13 20:37 | XMS_ITS | Encounter Summary ---
Author Organization [employer] ([place], [place], [place], [place]) Address [address] [address] Care Team Providers Care Blower Feeder Dyed Raw Stock Name Role Phone Isaiah Collins MD Primary Care Provider [phone] Kandace Castro APRN Unavailable Aaron Ribera MD Unavailable [phone] Encounter Details Date Type Department Care Team (Late st Contact Info) Description 10/05/2018 Transcribed Document [facility] [place] Family Medicine Formerly [facility] [place] [address] ProviderMeggan MD [address] [place] [address] Social History Tobacco Use Types Packs/Day Years Used Date Smoking Tobacco: Never Assessed Comments Unknown Sex and Gender Information Value Date Recorded Sex Assigned at Not on file Legal Sex Female 4:07 PM CDT Gender Identity Not on file Sexual Orientation Not on file documented as of this encounter Miscellaneous Notes * Cerner Conversion Note - Meggan ProviderMD - 10/05/2018 3:58 PM CDT Patient: MARGARITO PADILLA Age: 48 years Sex: Female : 1970 Associated Diagnoses: Status post PICC central line placement; Medical screening exam Author: AVIVA ABDI PA Basic Information Time seen: Date & time 10/05/2018 15:45:00. History source: Patient. Arrival mode: Private vehicle. History limitation: None. Additional information: Chief Complaint from Nursing Triage Note : Chief Complaint 10/05/2018 14:43 EDT Chief Complaint pt here concerned for possible PICC liune infection. pt states infusion nurse states that it may be infected. pt states some tenderness around the site site has no swelling or redness . History of Present Illness Patient is a 48-year-old female who presents for evaluation of her PICC line. Patient states that she has had a PICC line in her left upper arm for gastroparesis infusion since January 2018. She states that she was getting an infusion today and the nurse thought that she felt some pus around the site but was unable to express anything. They recommended she come to the emergency room for evaluation. Patient denies any fever or chills. She denies any warmth or redness around the area, denies any pain around the PICC line site, denies any arm pain. Patient states she has not had any problems with the PICC line and it has been infusing well. Review of Systems Constitutional symptoms: Negative except as documented in HPI. Skin symptoms: Negative except as documented in HPI. Musculoskeletal symptoms: Negative except as documented in HPI. Health Status Allergies: Allergic Reactions (Selected) Severity Not Documented Codeine- Nausea.. Past Medical/ Family/ Social History Surgical history: Gastric Stimulator Insertion Permanent Open on 03/20/2017 at 47 Years. Comments: 03/20/2017 14:45 - JASON MONTE RN PATIENT CARE 1 auto-populated from documented surgical case Esophagogastroduodenoscopy on 03/20/2017 at 47 Years. Comments: 03/20/2017 14:45 - JASON MONTE RN PATIENT CARE 1 auto-populated from documented surgical case Discectomy ([id number]) on 12/27/2016 at 46 Years. Comments: 03/17/2017 11:20 - Caity Burrows Rn CERVICAL w/ FUSION EGD w Gastric Stimulator Temporary Insertion on 09/02/2016 at 46 Years. Comments: 09/02/2016 07:53 - SELVIN PERSAUD RN auto-populated from documented surgical case Hysterectomy. scar tissue removed from bowel. Appendectomy. Cholecystectomy. Right wrist cyst removal. exploratory sx abdominal. bowel obstruction x 2. breast lumpectomy. cauterized vein in left leg.. Family history: No family history items have been selected or recorded.. Social history: Social & Psychosocial Habits Alcohol 01/22/2013 Alcohol Use in Last Twelve Months No Employment/School 12/28/2016 Status: Unemployed Home/Environment 12/28/2016 Lives with: Children, Spouse, granddaughter Nutrition/Health 03/05/2015 Caffeine intake amount: coffee 1 cup daily Substance Abuse 03/05/2015 Recreational Drug Use History No Recreational Drug Use Last 12 Months No Tobacco 03/05/2015 Tobacco Use Within Last Twelve Months No Smoking Status Former smoker Years of Tobacco Use 15 Packs/Tins Daily 1 Month Tobacco Last Used 2004 . Problem list: Active Problems (13) abd pain Anxiety Arthritis Bowel obstruction x 2 cervical ca Depression depression/anxiety Gastroparesis heart murmur ibs IBS (irritable bowel syndrome) Scar Scoliosis . Physical Examination Vital Signs Vital Signs/Vital Measures 10/05/2018 14:43 EDT Temperature Source Oral Temperature Mode Fahrenheit Temperature, Fahrenheit 97.4 Deg F Clinical Temperature, C 36.3 Deg C Peripheral Pulse Rate 77 bpm Respiratory Rate 16 Breaths/Min Systolic Blood Pressure 131 mmHg Diastolic Blood Pressure 80 mmHg Oxygen Saturation 97 % Oxygen Therapy Mode Room air . Measurements 10/05/2018 14:43 EDT Height Source Stated Height Entry Format [place] Height/Length, [place]ORE[place] (ft) 5 ft Height/Length [place] 4 Inch CLINICALHEIGHT 162.56 cm [place] Body Weight 54.3 kg Weight Source, ED Standing scale Weight Entry Format [place] Weight Serbian lb 213 lb CLINICALWEIGHT 96.82 kg Body Surface Area (BSA) 2.01 m2 Body Mass Index 36.6 kg/m2 [place] . Oxygen Saturation 10/05/2018 14:43 EDT Oxygen Saturation 97 % . General: Alert, no acute distress. Skin: Warm, dry, pink, PICC in place in upper left arm, no erythema, warmth or drainage evident, no palpable fluctuance surrounding, does not appear infected , No streaking redness around site . Psychiatric: Cooperative, appropriate mood & affect. Medical Decision Making Differential Diagnosis: PICC line infection, PICC line . Documents reviewed: Emergency department nurses' notes. Notes: Patient was evaluated by myself and Dr. Hermosillo in the ED, Dr. Hermosillo agrees that the patient does not appear to be infected. Recommended that patient monitored the site for any redness, warmth, drainage or pain. Patient was agreeable to treatment plan and was discharged home in stable condition, vital signs stable at time of discharge.. Impression and Plan Diagnosis Status post PICC central line placement - Discharge, Emergency medicine, Medical Complaint of Medical screening exam - Reason For Visit, Emergency medicine, Medical Status post PICC central line placement - Discharge, Emergency medicine, Medical Plan Condition: Stable. Disposition: Discharged Admit/Transfer/Discharge: Discharge (Order): Start: 10/05/2018 16:03 EDT, Discharge to: Home. Patient was given the following educational materials: PICC Home Care Guide. Follow up with: Patient Resource Center Within 2 to 3 days For further assistance with your Primary Care Physician please contact the Patient Resource Center at [phone].; ISAIAH COLLINS Within 2 to 3 days. Counseled: Patient, Regarding diagnosis, Regarding diagnostic results, Regarding treatment plan, Patient indicated understanding of instructions. Notes: I certify that the PA has preformed the above tasks as delegated. . documented in this encounter Plan of Treatment Not on file documented as of this encounter Visit Diagnoses Not on filedocumented in this encounter Care Teams Blower Feeder Dyed Raw Stock Relationship Specialty Start Date End Date Isaiah Collins MD [address] [facility] [address] [place] [address] PCP - General Family Medicine 03/23/22 Kandace Castro APRN [address] [facility] [address] [place] [address] Neurologist Neurology 08/29/23 Aaron Ribera MD [address] [facility] [address] [place], [place] [id number] Surgeon Cardiothoracic Surgery 09/13/23 documented as of this encounter
--- OUTSIDE RECORDS SUMMARY | 2024-12-13 20:37 | XMS_ITS | Data Portability ---
Author Organization [facility], [facility] Address [address] [place] [address] Care Team Providers Care Agricultural Equipment Design Engineer Name Role Phone ISAIAH COLLINS Primary Care Provider ISAIAH COLLINS Referring Provider [phone] Assessment Encounter Date Assessment Date Assessment LastModified by Organization Details LastModified Time 08/22/2024 08/22/2024 Interval Hx: Ms. Sumner follows up today for low back and neck pain. She has treated with our clinic for her chronic pain for over 6 months. She was last seen in clinic 04/12/25 for L5/S1 IL-JAMAL, this provided 80% relief for 3 months. Pain has now returned, she would like to repeat the injection. She completed the cervical myelogram, results noted below. Continues to report neck pain, but feels it is stable at this time. One episode of numbness of the 3rd finger last week, but this resolved. No radicular symptoms present at this time. Reports her gastric stimulator battery is no longer functioning, she is working on replacement but due to provider network change this has been very delayed. Reports she is sick more often without a functioning stimulator. They will also likely be removing the PICC line in the coming weeks. She continues gabapentin and cyclobenzaprine without adverse effects. Reports severe n/v with opioid medications. She continues a home exercise program daily. No other health changes reported today. Pain History: She has chronic low back pain that radiates down both legs to the feet. This is numb, tingly, burning. Denies incontinence or cauda equina symptoms. Prior physical therapy was not beneficial. No recent injection therapy. Underwent CT myelogram recently, cannot have MRI [...] measures for greater than 6 weeks including physical therapy/chiropract ic care/spinal manipulation, a monitored home exercise program, and/or NSAIDs within the last six months. Interventional treatment history: 04/12/2024 ILESI L5/S1 - 80% relief. 03/12/2024 [...] from the medications. UDS was not obtained. ORT, PHQ-9 and EHPRAIM were reviewed today. YOMI report was reviewed today and is appropriate. Based upon the above I would consider the patient to be High risk for opioid therapy due to benzodiazepine use. Anticoagulant/Anti platelet Medications: Uses heparin to flush her PICC line but no systemic anticoagulation ASSESSMENT/PLAN This is a 53-year-old female with low back and neck pain. Primary complaint today is low back and leg pain. The last L5/S1 IL-JAMAL provided 80% relief for 3 months. As pain has returned we will order a repeat injection. The recommended procedure is discussed with the patient in detail. Questions related to the procedure are answered. This procedure is ordered today as she has failed at least 4 weeks of conservative treatment including home exercises and medication management. We will continue gabapentin and cyclobenzaprine, new prescriptions provided today. We will follow up in 90 days for medication management and further treatment planning. She understands she make contact the clinic for sooner follow up if needed. [email or web address] Not available 08/22/2024 09:30:16 11/19/2024 11/19/2024 Interval Hx: Ms. Sumner follows [...] for medication management and further treatment planning. [email or web address] Not available 11/19/2024 09:55:31 Plan of Treatment Reminders Order Date Submit Date Provider Last Modified By Organization Details Last Modified Time Details Appointments FOLLOW UP 15 2024 09:30A M FRANK CRUZ Not available Not available Not available Lab None recorded. Referral None recorded. Procedures epidural steroid injection , lumbar interlami socrates (PROC) - #2 L5/S1 IL-JAMAL no sed after 12/29/242024 025 [email or web address] Not available 11/21/2024 11:56:29 remote therapeut ic monitorin g to monitor musculosk eletal system (PROC) - Patient prescribe d RTM (Remote Therapeut ic Monitorin g) to prevent further functiona l decline and monitor treatment effective ness. Patient will complete medicatio n tracking and physical therapy exercises as instructe d. Monitorin g to take place over the next 12 months using the CP&S Ginger to also include functiona l assessmen ts as well as daily pain scores. Patient consent obtained and device provided. 2024 025 [email or web address] Not available 08/22/2024 09:30:40 epidural steroid injection , lumbar interlami socrates (PROC) - L5/S1 IL-JAMAL no sed 2024 025 [email or web address] Not available 08/23/2024 14:45:53 Surgeries None recorded. Imaging None recorded. Medication Orders gabapenti n 300 mg capsule 2024 025 [facility], [address] [place] [address], [address], [place], [address], 11/19/2024 11:55:13 cyclobenz aprine 10 mg tablet 2024 025 [facility], [address] [place] [address], [address], [place], [address], 11/19/2024 11:55:09 gabapenti n 300 mg capsule 2024 025 [facility], [address] [place] [address], [facility] [address], [place], [address], 08/22/2024 09:31:03 cyclobenz aprine 10 mg tablet 2024 025 [facility], [address] [place] [address], [address], [place], [address], 08/22/2024 09:31:01 Patient TargetsNo targets recorded. Patient Instructions Encounter Date Encounter Id Patient Instructions Last Modified By Organization Details Last Modified Time 08/22/2024 [id number] behavioral healt h screen* [email or web address] Not available 09/12/2024 07:26:34 Reason for Referral None Reported. Results Created Date Observation Date Name Description Value Unit Range Abnormal Flag Note LastModifiedBy Organization Detail LastModifiedTime 05/30/[address], myelo gram, cervi mary spine No observ ation record ed. [email or web address] [facility] (Centralized Scheduling) [address] [facility], [place], [address], 08/22/2024 08:51:13 Result Notes None recorded. Problems Name Problem SNOMED Code Status Onset Date Resolution Date Notes Provider Name and Address Organization Details Recorded Time Overweight 344914123 Active 2022 rosy flores [facility] 07/13/202 3 13:27:22 Lumbar spondylosis 629289560 Active 2022 rosy lyons [place], [place] - [facility] 3 13:27:24 Lumbar radiculopathy 917924178 Active 2022 rosy lyons [place], [place] [facility] 3 13:27:24 Cervical radiculopathy 28596916 Active 2022 rosy lyons [place], [place] [facility] 3 13:27:26 Cervical spondylosis without myelopathy 294140231 Active 2022 rosy lyons null, [place] [facility] 3 13:27:26 Cervical post-laminect prabha syndrome 618282952 Active 2022 KACEY BRUSH MD [address] [place] [address], [address] , [place] - [facility] 3 11:50:15 Cervical spondylosis 741693780 Active 2022 FRANK CRUZ [address] [place] [address], [phone] , [place] [facility] 3 10:44:19 Chronic pain 56288308 Active 2023 FRANK CRUZ [address] [place] [address], [address] , [place] [facility] 4 11:03:21 Neck pain 46112316 Active 2023 FRANK CRUZ [address] [place] [address], [address] , [place] [facility] 4 16:15:05 Problem Notes None recorded. Procedures Surgical History Date Name Laterality Status Provider Name and Address Organization Details Recorded Time 10/01/19 Lumbar JAMAL: Interlaminar completed Geraldine Tanacross [place] [facility] 09/30/2024 10:39:28 04/12/20 Lumbar JAMAL: Interlaminar completed Geraldine [place] [facility] 04/12/2024 10:15:52 10/15/20 24 Lumbar JAMAL: Interlaminar completed Geraldine [place] [facility] 03/12/2024 10:01:49 11/16/19 24 Cervical RFA: Posterior (2 Level Bilateral) completed Casandra Winters [place] [facility] 11/16/2023 17:08:35 10/30/19 24 Lumbar JAMAL: Interlaminar completed Geraldine [place] [facility] 10/30/2023 09:00:12 10/16/19 24 Diagnostic Cervical MBB: Posterior (2 Level Bilateral) completed Geraldine [place] [facility] 10/16/2023 11:10:46 09/06/19 24 Diagnostic Cervical MBB: Posterior (2 Level Bilateral) completed Geraldine Gamaliel [place] [facility] 09/06/2023 08:38:50 06/13/19 24 Lumbar JAMAL: Interlaminar completed Geraldine [place] [facility] 06/13/2023 13:58:28 02/25/20 23 Lumbar JAMAL: Interlaminar completed Geraldine [place] [facility] 02/24/2023 10:37:54 12/28/19 17 primary fusion of cervical spine completed rosy lyons [place] [facility] 01/20/2023 09:12:09 Imaging Results None recorded. Procedure Notes None recorded. Medical Equipment None Reported. Allergies Allergen ID Allergen Name Allergen Category Reaction Reaction Severity Criticality Documentation Date Start Date Code Code System Note Provider Name and Address Organization Details Recorded Time [id number] codeine medicatio n Not available Not available Not available 01/20/2023 2670 RxNorm rosy flores [place] [facility] 09:13:50 Medications Name Sig Start Date Stop [...] Updated DateTime 5 162.56 cm 34.7 kg/m2 49530.6 6 g 102 /min 97 % 97 % 137/94 mm[Hg] Quincy [facility] 5 08:44:19 Date Recorded Body height Body mass index (BMI) Body weight Heart rate Oxygen saturation Oxygen saturation in Arterial blood by Pulse oximetry Systolic And Diastolic Provider Name and Address Organization Details Last Updated DateTime 5 162.56 cm 34.7 kg/m2 99341.6 6 g 89 /min 97 % 97 % 90/64 mm[Hg] Quincy [facility] 5 09:17:25 Social History Question Answer Notes LastModified by Organizat ion Details LastModified Time Tobacco Smoking Status Never Smoker rosy flores [facility] 01/20/2023 09:17:10 Do You Have An Advance [...] Or The Highest Degree You Have Received? [id number] Information not available 01/20/2023 How Many Times [...] Bipolar Disease N Coronary Artery Disease N Gout N Seizure Disorder N Atrial Fibrillation N Thyroid Disease N Head Trauma/Injury N Hernia N Depression N COPD N Anxiety Disorder N Acid Reflux (GERD) N Cancer N Stroke N Skin Disorder N High Cholesterol N Liver Disease N Rheumatoid Arthritis N Headaches N Fibromyalgia N Kidney Disease N Autoimmune Disease N Osteoarthritis N Neurosurgery N DVT N Peptic Ulcer Disease N Anemia N Heart Attack ([place]) N Diabetes N Cardiomyopathy N Bleeding Disorder [...] SNOMED-CT Code Diagnosis ICD10 Code Diagnosis Note [id number] KACEY BRUSH MD [place] [address] [place] [address] 01/20/2023 08:41:27 01/20/2023 09:46:37 Lumbar radiculopathy 838106218 M54.16 Lumbar spondylosis 16171 0009 M47.816 Cervical post-laminectomy syndrome 624701592 M96.1 [id number] KACEY BRUSH MD [place] [address] [place] [address] 02/24/2023 09:38:18 02/24/2023 10:24:10 Lumbar radiculopathy 784952253 M54.16 [id number] KACEY BRUSH MD [place] [address] [place] [address] 03/24/2023 10:14:42 03/24/2023 10:31:57 Lumbar radiculopathy 885124833 M54.16 Lumbar spondylosis 30560 0009 M47.816 Cervical post-laminectomy syndrome 966973136 M96.1 [id number] KACEY BRUSH MD [place] [address] [place] [address] 05/18/2023 10:25:16 05/18/2023 10:47:39 Lumbar radiculopathy 246224507 M54.16 Lumbar spondylosis 41171 0009 M47.816 Cervical post-laminectomy syndrome 563225921 M96.1 [id number] KACEY BRUSH MD [place] [address] [place] [address] 06/13/2023 13:37:39 06/13/2023 13:55:44 Lumbar radiculopathy 137915530 M54.16 [id number] MD Mary Ann CALVILLO [address] [place] [address] 07/14/2023 10:36:58 07/14/2023 11:01:30 Lumbar radiculopathy 215361052 M54.16 Lumbar spondylosis 96631 0009 M47.816 Cervical post-laminectomy syndrome 178878761 M96.1 Long-term drug therapy 800453171 Z79.899 Cervical spondylosis 387 119208 M47.812 Cervical radiculopathy 45564786 M54.12 [id number] MD Dany [place] [address] [place] [address] 09/06/2023 08:10:13 09/06/2023 08:37:02 Cervical spondylosis 959831009 M47.899 [id number] MD Mary Ann CALVILLO [address] [place] [address] 10/09/2023 10:20:19 10/09/2023 11:20:26 Cervical spondylosis 074790721 M47.812 Lumbar radiculopathy 128 678063 M54.16 Lumbar spondylosis 14646 0009 M47.816 Cervical post-laminectomy syndrome 678949992 M96.1 Long-term drug therapy 279712139 Z79.899 Chronic pain 37312872 G8 9.29 [id number] MD Mary Ann CALVILLO [address] [place] [address] 10/16/2023 10:45:17 10/16/2023 11:07:23 Cervical spondylosis 264569000 M47.186 [id number] MD Dany [place] [address] [place] [address] 10/30/2023 08:11:16 10/30/2023 08:56:19 Lumbar radiculopathy 023310027 M54.16 [id number] MD Mary Ann CALVILLO [address] [place] [address] 11/16/2023 15:14:59 11/16/2023 17:07:53 Cervical spondylosis 079369753 M47.214 [id number] MD Mary Ann CALVILLO [address] [place] [address] 01/31/2024 08:42:52 01/31/2024 09:41:47 Cervical spondylosis 628039441 M47.812 Lumbar radiculopathy 128 972197 M54.16 Lumbar spondylosis 75746 0009 M47.816 Cervical post-laminectomy syndrome 851698245 M96.1 Long-term drug therapy 518440603 Z79.899 No UDS Today Chronic pain 39113206 G8 9.29 [id number] MD Mary Ann CALVILLO [address] [place] [address] 03/12/2024 08:54:40 03/12/2024 09:59:56 Lumbar radiculopathy 739460323 M54.16 [id number] MD Mary Ann [place] [address] [place] [address] 04/12/2024 08:43:56 04/12/2024 09:06:26 Lumbar radiculopathy 874176172 M54.16 [id number] MD Dany Beyerington [address] [place] [address] 08/22/2024 08:41:35 08/22/2024 09:08:49 Lumbar radiculopathy 803973473 M54.16 Cervical post-laminectomy syndrome 061839235 M96.1 Long-term drug therapy 659132818 Z79.899 No UDS Today Chronic pain 03357345 G8 9.29 [id number] MD Mary Ann CALVILLO [address] [place] [address] 09/30/2024 09:39:17 09/30/2024 10:29:37 Lumbar radiculopathy 107451350 M54.16 [id number] MD Mary Ann CALVILLO [address] [place] [address] 11/19/2024 08:55:37 11/19/2024 09:48:24 Chronic pain 73996436 G89.29 Lumbar radiculopathy 128 142782 M54.16 Cervical post-laminectomy syndrome 728433795 M96.1 Long-term drug therapy 667185764 Z79.899 No UDS Today Health Concerns Section Related Observation LastModified by Organization Detai ls LastModified Time None Recorded Concern Status LastModified by Organization Details LastModified Time None Recorded Advance Directives Directive N: Payers Insurance Date Sequence Insurance Name Policy Number Policy St Covered Member ID St Member ID Guarantor Name 04/12/2024 2 [place] [employer] - FFS/TRADITIO NAL Izabella Sumner [id number] Izabella Sumner 04/12/2024 2 [employer] (MEDICARE REPLACEMENT/ ADVANTAGE - HMO) Izabella Sumner [id number] Izabella Sumner 02/18/2024 PAYMENT PLAN Izabella Sumner 04/14/2024 PAYMENT PLAN Izabella Sumner 04/12/2024 2 [place] [employer] [place]/TRADITIO NAL Izabella Sumner [id number] Izabella Sumner 04/12/2024 1 [facility] - DUAL ELIGIBLE (MEDICARE REPLACEMENT/ ADVANTAGE - HMO) [id number] Izabella K Sumner [id number] Izabella Sumner 08/22/2024 1 [facility] (MEDICARE REPLACEMENT/ ADVANTAGE - HMO) [id number] Izabella K Sumner [id number] Izabella Sumner 04/12/2024 1 [facility] KYDSNP Izabella K Sumner [id number] Izabella Sumner 11/17/2024 1 [employer] (MEDICARE REPLACEMENT/ ADVANTAGE - HMO) Izabella Sumner [id number] Izabella Sumner 04/12/2024 2 [place] [employer] [place]FS/TRADITIO NAL Izabella Sumner [id number] Izabella Sumner Notes Date Note Type Note Provider Name and Address Organization Details Recorded Time 08/22/2024 text/html Low back painRep orted bypatient.Onset:date of [...] to bathe/groom without assistance.; Able to complete drug safety coordinator without much difficulty.; Walking without assistance or [...] to bathe/groom without assistance.; Able to complete drug safety coordinator without much difficulty.; Walking without assistance or significant difficulty Prior Imaging:no recent studies Previous Cervical Surgery:posterior cervical fusion: (C5-6) Interventional Treatment History:none Previous PT:none Current Analgesics:Gabapentin ; Last dose: Gabapentin- Two days ago. 10/09/2023 Aberrant Behaviors:none visible today Working:no Prior Pain Management:no Patient is here for inj f/u. On 04/12/2024 #1 ILESI L4/5 - 80% relief.Since last visit; patient denies any hospitalizations, ER visits, or seen any other providers.Last dose:Gabapentin- last night FRANK CRUZ [address] [place] [address], [phone], [facility] 08/22/2024 09:30:59 11/19/2024 text/html Low back painRep orted bypatient.Onset:date [...] to bathe/groom without assistance.; Able to complete drug safety coordinator without much difficulty.; Walking without assistance or [...] to bathe/groom without assistance.; Able to complete drug safety coordinator without much difficulty.; Walking without assistance or significant difficulty Prior Imaging:no recent studies Previous Cervical Surgery:posterior cervical fusion: (C5-6) Interventional Treatment History:none Previous PT:none Current Analgesics:Gabapentin ; Last dose: Gabapentin- Two days ago. 10/09/2023 Aberrant Behaviors:none visible today Working:no Prior Pain Management:no Patient is here for inj f/u. On 09-30-2024 L5/S1 IL-JAMAL no sed - 90% relief.Last dose:Gabapentin- last night FRANK CRUZ [address] [place] [address], [phone], [facility] - [facility] 11/19/2024 11:54:42 OBGyn Episode No OBEpisode recorded.
--- OUTSIDE RECORDS SUMMARY | 2024-12-13 20:37 | XMS_ITS | Encounter Summary ---
Author Organization [employer] ([place], [place], [place], [place]) Address [address] [place] [address] Care Team Providers Care Real Estate Financial Analyst Name Role Phone Yamile Coffey MD Primary Care Provider Kandace Castro APRN Unavailable [phone] Aaron Ribera MD Unavailable [phone] Reason for Visit * Reason Comments Medication Refill Encounter Details Date Type Department Care Team (Late st Contact Info) Description 10/04/2022 Refill [facility] Neurology - [facility] [address] [place] [address] [address] [place] [address] Kandace Castro APRN [address] [place] [address] [address] [place] [address] Social History Tobacco Use Types Packs/Day Years [...] on filedocumented in this encounter Care Teams Real Estate Financial Analyst Relationship Specialty Start Date End Date Yamile Coffey MD [address] [place] [address] PCP - General Family Medicine 03/23/22 Kandace Castro APRN [address] [facility] [address] [place] [address] Neurologist Neurology 08/29/23 Aaron Ribera MD [address] [facility] [address] [place] [address] Surgeon Cardiothoracic Surgery 09/13/23 documented as of this encounter
--- OUTSIDE RECORDS SUMMARY | 2024-12-13 20:37 | XMS_ITS | Encounter Summary ---
Author Organization [email or web address] ([place], [place], [place], [place]) Address [address] [place] [address] Care Team Providers Care Tank Washer Name Role Phone Yamile Coffey MD Primary Care Provider [phone] Kandace Castro APRN Unavailable [phone] Aaron Ribera MD Unavailable [phone] Reason for Visit * Reason Onset Date Comments infusion 10/17/2024 Encounter Details Date Type Department Care Team (Late st Contact Info) Description 10/17/2024 Telephone [facility] Neurology - [facility] [address] [facility] [address] [place] [address] Kandace Castro APRN [address] [facility] [address] [place] [address] infusion Social History Tobacco Use Types Packs/Day Years [...] Date Otis rded Speak language other than Estonian at home Not on file 06/07/2023 Want [...] encounter Miscellaneous Notes * Telephone Encounter - Meenakshi Ronen - 10/17/2024 3:52 PM EDT Pt called and stated she needs her vyepti infusion sent to [facility]. documented in this encounter Plan of Treatment Not on file documented as of this encounter Visit Diagnoses Not on filedocumented in this encounter Care Teams Tank Washer Relationship Specialty Start Date End Date Yamile Coffey MD [address] [address] PCP - General Family Medicine 03/23/22 Kandace Castro, SECURITIES SETTLEMENT PROCESSOR [address] [facility] [address] [place] [address] Neurologist Neurology 08/29/23 Aaron Ribera MD [address] [facility] [address] [place], [place] [id number] Surgeon Cardiothoracic Surgery 09/13/23 documented as of this encounter
--- OUTSIDE RECORDS SUMMARY | 2024-12-13 20:37 | XMS_ITS | Encounter Summary ---
Author Organization [facility] ([place], [place], [place], [place]) Address [address] [place] [address] Care Team Providers Care Ground Systems Engineer Name Role Phone Isaiah Collins MD Primary Care Provider [phone] Kandace Castro APRN Unavailable [phone] Aaron Ribera MD Unavailable [phone] Encounter Details Date Type Department Care Team (Late st Contact Info) Description 06/24/2019 Transcribed Document [facility] Family Medicine [facility] [place] [address] ProviderMeggan MD [address] [place] [id number] Social History Tobacco Use Types Packs/Day Years Used Date Smoking Tobacco: Never Assessed Comments Unknown Sex and Gender Information Value Date Recorded Sex Assigned at Not on file Legal Sex Female 4:07 PM CDT Gender Identity Not on file Sexual Orientation Not on file documented as of this encounter Miscellaneous Notes * Cerner Conversion Note - Historical ProviderMD - 06/24/2019 2:52 PM POLICE OFFICER BOOKING Patient: IZABELLA PADILLA Age: 49 years Sex: Female : 1970 Associated Diagnoses: Cough; Wheezing Author: CHANCE VASQUES APRN Basic Information Time seen: Immediately upon arrival. History source: Patient. Arrival mode: Private vehicle. History limitation: None. Additional information: Chief Complaint from Nursing Triage Note : Chief Complaint 06/24/2019 11:30 EST Chief Complaint Pneumonia since last Monday, sent by PMD today for steroid injection. Nonprod cough cont, denies fever. . History of Present Illness Patient presents to the ER with recent diagnosis of pneumonia. Patient states that she was sent here from her primary care for steroid injection. Patient denies any history of previous lying issues other than being diagnosed with pneumonia. Patient did complete course of antibiotics. Patient states that she has been using her inhaler nebulizer but is still having problems with wheezing. Patient denies any fever or chills. She is alert and in no acute distress. O2 sat is 98% upon my assessment. Review of Systems Constitutional symptoms: No fever, no chills. Respiratory symptoms: Cough, wheezing, No shortness of breath, Cardiovascular symptoms: No chest pain, Gastrointestinal symptoms: Negative except as documented in HPI. Musculoskeletal symptoms: Negative except as documented in HPI. Neurologic symptoms: Negative except as documented in HPI. Psychiatric symptoms: Negative except as documented in HPI. Endocrine symptoms: Negative except as documented in HPI. Hematologic/Lymphatic symptoms: Negative except as documented in HPI. Allergy/immunologic symptoms: Negative except as documented in HPI. Health Status Allergies: Allergic Reactions (Selected) Severity Not Documented Codeine- Nausea.. Medications: (Selected) Prescriptions Prescribed albuterol CFC free 90 mcg/inh inhalation aerosol with adapter: 2 Puff, Inhalation, QID, 1 Each, 0 Refill(s) doxycycline hyclate 100 mg oral capsule: 1 Cap, Oral, BID, for 10 Day(s), 20 Cap, 0 Refill(s) Documented Medications Documented Flexeril: 10 [...] 03/06/2019 at 49 Years. Comments: 03/06/2019 16:11 AMADO - AIXA RODRIGUEZ RN PATIENT CARE 1 auto-populated from documented [...] 1 auto-populated from documented surgical case Discectomy ([id number]) on 12/27/2016 at 46 Years. Comments: 03/17/2017 [...] PICC (peripherally inserted central catheter) in situ ([id number]).. Family history: No family history items have been selected or recorded., Reviewed as documented in chart. Social history: Social & Psychosocial Habits Alcohol [...] Physical Examination Vital Signs Vital Signs/Vital Measures 06/24/2019 14:00 EST Systolic Blood Pressure 150 mmHg HI Diastolic Blood Pressure 82 mmHg Mean Arterial Pressure (MAP)-BMDI 109 Heart Rate Monitored 94 bpm Oxygen Saturation 98 % Oxygen Therapy Mode Room air 06/24/2019 13:30 EST Systolic Blood Pressure 154 mmHg HI Diastolic Blood Pressure 77 mmHg Mean Arterial Pressure (MAP)-BMDI 106 Heart Rate Monitored 90 bpm Oxygen Saturation 98 % Oxygen Therapy Mode Room air 06/24/2019 13:20 EST Heart Rate Monitored 92 bpm 06/24/2019 13:00 EST Systolic Blood Pressure 167 mmHg HI Diastolic Blood Pressure 86 mmHg Mean Arterial Pressure (MAP)-BMDI 118 Oxygen Saturation 98 % Oxygen Therapy Mode Room air 06/24/2019 12:30 EST Systolic Blood Pressure 130 mmHg Diastolic Blood Pressure 75 mmHg Mean Arterial Pressure (MAP)-BMDI 98 Heart Rate Monitored 92 bpm Oxygen Saturation 97 % Oxygen Therapy Mode Room air 06/24/2019 11:30 EST Blood Pressure Location Arm, left upper Blood Pressure Source Non-Invasive BP Device Systolic Blood Pressure 136 mmHg Diastolic Blood Pressure 88 mmHg Temperature Source Oral Temperature Mode Fahrenheit Temperature, Fahrenheit 97.5 Deg F Clinical Temperature, C 36.4 Deg C Peripheral Pulse Rate 102 bpm HI Respiratory Rate 20 Breaths/Min Oxygen Saturation 97 % Oxygen Therapy Mode Room air . Measurements 06/24/2019 11:30 EST Height Source Stated Height Entry Format [place] Height/Length, BRITISH (ft) 5 ft Height/Length BRITISH 4 Inch CLINICALHEIGHT 162.56 cm [place] Body Weight 54.3 kg Weight Source, ED Critical estimated dosing weight Weight Entry Format [place] Weight Egyptian lb 189 lb CLINICALWEIGHT 85.91 kg Body Surface Area (BSA) 1.91 m2 Body Mass Index 32.5 kg/m2 HI . Oxygen Saturation 06/24/2019 14:00 EST Oxygen Saturation 98 % 06/24/2019 13:30 EST Oxygen Saturation 98 % 06/24/2019 13:00 EST Oxygen Saturation 98 % 06/24/2019 12:30 EST Oxygen Saturation 97 % 06/24/2019 11:30 EST Oxygen Saturation 97 % . General: Alert, no acute distress. Skin: Warm, pink, intact. Cardiovascular: Regular rate and rhythm, No murmur. Respiratory: Respirations: Regular, no respiratory distress, Breath sounds: Bilateral, wheezes present (mild, expiratory wheezes), Retractions: None. Gastrointestinal: Soft, Nontender, Non distended. Musculoskeletal: Normal ROM. Neurological: Alert and oriented to person, place, time, and situation. Lymphatics: No lymphadenopathy. Psychiatric: Cooperative. Medical Decision Making Differential Diagnosis:: Bronchitis, upper respiratory infection, asthma, pneumonia, dyspnea, wheezing. Orders Include Previous Orders (Selected) Inpatient Orders Cancelled (Canceled) NM Gastric Empty Study 4hr: NM Gastric Empty Study: Completed .Automated Differential: Aerosol Treatment (RT): Aerosol Treatment (RT): CBC w/ Auto Diff: CMP Comprehensive Metabolic Panel: CR Chest PA & Lat: DuoNeb 0.5 mg-2.5 mg/3 mL inhalation solution: 3 mL, Nebulized Inhalation, 1-Time DuoNeb continuous med: 8.5 mL, Nebulized Inhalation, 1-Time ED Adult Fall Risk Assessment: ED Adult Triage: ED C-SSRS: ED Clinical Reconciliation: ED bundle person: Normal Saline Flush: 10 mL, IV Push, 1-Time Saline Lock Insert: methylPREDNISolone sodium succinate: 125 mg, IV Push, 1-Time. Results review: All Results 06/24/2019 12:11 EST CR Chest 2 Vws REPORT 06/24/2019 12:10 EST ED Nursing Record 06/24/2019 12:08 EST Suicide Risk Screen-Text 06/24/2019 11:30 EST ED Nursing Record 06/24/2019 11:17 EST Consent Forms Consent Forms 06/24/2019 14:00 EST Systolic Blood Pressure 150 mmHg HI Diastolic Blood Pressure 82 mmHg Mean Arterial Pressure (MAP)-BMDI 109 Heart Rate Monitored 94 bpm Oxygen Saturation 98 % Oxygen Therapy Mode Room air 06/24/2019 13:30 EST Systolic Blood Pressure 154 mmHg HI Diastolic Blood Pressure 77 mmHg Mean Arterial Pressure (MAP)-BMDI 106 Heart Rate Monitored 90 bpm Oxygen Saturation 98 % Oxygen Therapy Mode Room air 06/24/2019 13:20 EST Heart Rate Monitored 92 bpm Breath Sounds Auscultated Posterior All Lobes Breath Sounds Clear, Diminished $ Aerosol Treatment Continuous nebulizer 1st hour Adult albuterol-ipratropium 8.5 mL mL 06/24/2019 13:00 EST Systolic Blood Pressure 167 mmHg HI Diastolic Blood Pressure 86 mmHg Mean Arterial Pressure (MAP)-BMDI 118 Oxygen Saturation 98 % Oxygen Therapy Mode Room air 06/24/2019 12:47 EST Estimated Creatinine Clearance 73.46 mL/Min 06/24/2019 12:30 EST Systolic Blood Pressure 130 mmHg Diastolic Blood Pressure 75 mmHg Mean Arterial Pressure (MAP)-BMDI 98 Heart Rate Monitored 92 bpm Oxygen Saturation 97 % Oxygen Therapy Mode Room air 06/24/2019 12:23 EST RT Treatment Given By ED Nursing $ Aerosol Treatment Small volume nebulizer Adult, Initial 06/24/2019 12:20 EST albuterol-ipratropium 3 mL mL methylPREDNISolone 125 mg mg sodium chloride 10 mL mL 06/24/2019 12:16 EST Sodium Level 136 mmol/L Potassium Level 3.8 mmol/L Chloride Level 102 mmol/L Carbon Dioxide Level 28 mmol/L Anion Gap 10 Glucose Level 98 mg/dL Blood Urea Nitrogen 7 mg/dL Creatinine Level 0.80 mg/dL eGFR >60 mL/min/1.73m2 eGFR NonAfrican >60 mL/min/1.73m2 Bun/Creatinine 8.8 Calcium Level 9.7 mg/dL Protein Total 8.2 Gram/dL Albumin Level 3.8 Gram/dL Globulin 4.4 Gram/dL A/G Ratio 0.9 LOW Bilirubin Total 0.5 mg/dL Alk Phos 105 Units/Liter AST 11 Units/Liter ALT 16 Units/Liter WBC 14.4 K/uL HI RBC 4.69 Million/uL Hgb 13.6 g/dL Hct 41.2 % MCV 87.8 fL MCH 29.0 pg MCHC 33.0 Gram/dL Platelet Count 367 K/uL MPV 8.9 fL LOW RDW 14.0 % Neut % 64.6 % Neut # 9.33 K/uL HI Lymph % 26.4 % Lymph # 3.81 x10(3)/uL Orange % 6.0 % Orange # 0.87 K/uL Eos % 1.5 % Eos # 0.22 x10(3)/uL Baso % 0.3 % Baso # 0.04 x10(3)/uL Slide Review No IG# 0.18 x10(3)/uL HI IG% 1.20 % HI 06/24/2019 12:10 EST Neurologic Assessment WDL WDL Level of Consciousness Alert, Awake Affect/Behavior Appropriate, Calm, Cooperative Cardiovascular Assessment WDL WDL Respiratory Assessment WDL WDL with exceptions Communication Barrier None Primary Language Egyptian Smoking Status Never (less than 100 in lifetime; none in last 30 days) Smokeless Tobacco Status Never Any Spiritual/Cultural Needs or Requests No Currently in Unsafe Situation No 06/24/2019 12:09 EST ABCs Fall Injury Risk Identification None [place] Hx Falls Immediate/Within 3 Months No [place] Secondary Diagnosis No [place] Ambulatory Aid None [place] IV Therapy or IV Access Yes [place] Gait/Transferring Normal, bedrest, immobile [place] Mental Status Oriented to own ability [place] Fall Risk Score 20 [place] Fall Scale Risk Level 0-24 Low Risk [place] Fall Interventions Adequate lighting, Assistive devices within reach, Bed in low position, Call device within reach, Room free of clutter/spills, Upper side-rails up, Wheels locked, Wires/Cords secured 06/24/2019 12:08 EST CSSRS Past Month Wish to be No CSSRS Past Month Suicidal Thoughts No CSSRS Lifetime Suicide Behavior No Suicide Severity Rating Score 0 Suicide Severity Rating No Additional Care Required at this time Thoughts of Harming/Killing Others No 06/24/2019 12:07 EST Other: PICC Arm Right Peripheral IV Activity: Assess Peripheral IV Site Assessment: IV site WDL, Does not aspirate Peripheral IV Infiltration Score: 0 Peripheral IV Phlebitis Score: 0 Peripheral IV Dressing: Occlusive Peripheral IV Dressing Condition: Dry, Intact 06/24/2019 11:36 EST Estimated Creatinine Clearance 94.78 mL/Min D-Readmission Risk Yes D-BOOST Polypharmacy Yes 06/24/2019 11:34 EST Nurse Collect Order Detail 3.00 06/24/2019 11:34 EST Nurse Collect Order Detail 3.00 06/24/2019 11:33 EST Nurse Collect Order Detail 3.00 06/24/2019 11:33 EST Nurse Collect Order Detail 3.00 06/24/2019 11:30 EST Blood Pressure Location Arm, left upper Blood Pressure Source Non-Invasive BP Device Systolic Blood Pressure 136 mmHg Diastolic Blood Pressure 88 mmHg Temperature Source Oral Temperature Mode Fahrenheit Temperature, Fahrenheit 97.5 Deg F Clinical Temperature, C 36.4 Deg C Peripheral Pulse Rate 102 bpm HI Respiratory Rate 20 Breaths/Min Oxygen Saturation 97 % Oxygen Therapy Mode Room air Height Source Stated Height Entry Format [place] Height/Length, BRITISH (ft) 5 ft Height/Length BRITISH 4 Inch CLINICALHEIGHT 162.56 cm [place] Body Weight 54.3 kg Weight Source, ED Critical estimated dosing weight Weight Entry Format [place] Weight Egyptian lb 189 lb CLINICALWEIGHT 85.91 kg Body Surface Area (BSA) 1.91 m2 Body Mass Index 32.5 kg/m2 HI Pain Assessment Initial assessment Pain Scale Used 0-10 Scale Pain Intensity 6 Pain Location Thoracic, left Tuberculosis Symptoms None Infectious Disease History Chicken pox/Shingles Physical contact outside US last 30 days No Chief Complaint Pneumonia since last Monday, sent by PMD today for steroid injection. Nonprod cough cont, denies fever. Transported to ED by Private vehicle To Room Via Ambulate Tracking Acuity 3 - Urgent Accompanied by Spouse Mode of Arrival Ambulatory Tetanus Immunization Greater than 5 years 06/24/2019 11:15 EST Nurse Collect Order Detail 3.00 Nurse Collect Order Detail 3.00 . Radiology results: Radiology Results (Last 48 hours) [id number] -- 06/24/2019 11:15 CR Chest 2 Vws (06/24/2019 12:11) Result: TWO-VIEW CHEST 06/24/2019 10:49 AMHISTORY: PneumoniaCOMPARISON: June 19, 2019FINDINGS: There is a right sided PICC line terminating in SVC. Thecardiac silhouette is normal in size. The mediastinal and hilarcontours are unremarkable. Chronic changes are noted in the lung bases.The lungs are otherwise clear. There is no pneumothorax. Thevisualized osseous structures demonstrate no acute abnormalities.IMPRESSION: No acute cardiopulmonary process. Images reviewed, interpreted, and dictated by Dr. Luis Cowart.Transcribed by Braulio Wilburn (R).I have personally viewed, interpreted and dictated the examination. Ihave read and agree with the above final transcribed report. . Reexamination/ Reevaluation Time: 06/24/2019 14:55:00 . Vital signs per nurse's notes Course: improving. Pain status: decreased. Assessment: exam improved. Impression and Plan Diagnosis Cough - Discharge, Emergency medicine, Medical Wheezing - Discharge, Emergency medicine, Medical Plan Condition: Stable. Disposition: Discharged Admit/Transfer/Discharge: Discharge (Order): Start: 06/24/2019 14:55 EST, Discharge to: Home. Prescriptions: Prescription [facility]: predniSONE 20 mg oral tablet (Prescribe): 3 Tab, Oral, Daily, for 5 Day(s), 15 Tab, 0 Refill(s). Patient was given the following educational materials: Cough, Adult, Bronchospasm, Adult, Kohe-lz-Ondh. Follow up with: [facility] , only if needed Patient states Isaiah Collins is their Primary Care Provider. Please contact the Patient Resource Center at if you need assistance scheduling a Specialist or Primary Care Provider in the future.; ISAIAH COLLINS Within 2 to 3 days; NO PRIM DR WILL Within 2 to 3 days; Follow up with primary care provider Within 2 to 3 days; Return to Emergency Department Within As needed; Follow up with primary care provider Within 1 to 2 days Follow-up as instructed Return if condition worsens. Counseled: Patient, Family, Regarding diagnosis, Regarding diagnostic results, Regarding treatment plan, Regarding prescription, Patient indicated understanding of instructions. documented in this encounter Plan of Treatment Not on file documented as of this encounter Visit Diagnoses Not on filedocumented in this encounter Care Teams Ground Systems Engineer Relationship Specialty Start Date End Date Isaiah Collins MD [address] [facility] [address] [place] [address] PCP - General Family Medicine 03/23/22 Kandace Castro APRN [address] [facility] [address] [place] [address] Neurologist Neurology 08/29/23 [place] [address] [place] [address] [address] [place], [place] [id number] Surgeon Cardiothoracic Surgery 09/13/23 documented as of this encounter
--- OUTSIDE RECORDS SUMMARY | 2024-12-13 20:37 | XMS_ITS | Encounter Summary ---
Author Organization [facility] Address [address] [place] [address] Care Team Providers Care Sea Foam Kiss Maker Name Role Phone Pcp, None Primary Care Provider Yamile Stewart MD Primary Care Provider Reason for Visit * Reason Comments Med Refill Encounter Details Date Type Department Care Team (Late st Contact Info) Description 03/30/2022 Refill [facility] [address] [address] Michelle Spence NP [address] [facility] [address] [place] [address] Abdominal pain, unspecified site; Diarrhea Social History Tobacco Use Types Packs/Day Years [...] Clinic [address] [place] [address] Michelle Spence NP [address] [place] [address] documented as of this encounter Visit Diagnoses Diagnosis Abdominal pain, unspecified site Diarrhea documented in this encounter Care Teams Sea Foam Kiss Maker Relationship Specialty Start Date End Date Pcp, None PCP - General 09/07/20 10/02/22 Yamile Coffey MD [address] [facility] [place] [address] PCP - General Family Medicine 10/03/22 documented as of this encounter
--- OUTSIDE RECORDS SUMMARY | 2024-12-13 20:37 | XMS_ITS | Encounter Summary ---
Author Organization [employer] ([place], [place], [place], [place]) Address [address] [place] [address] Care Team Providers Care Air Traffic Control Manager Name Role Phone Yamile Coffey MD Primary Care Provider [phone] Kandace Castro APRN Unavailable [phone] Aaron Ribera MD Unavailable [phone] Encounter Details Date Type Department Care Team (Late st Contact Info) Description 01/04/2021 Transcribed Document [facility] [place] [address] [place] [address] ProviderMeggan MD [address] [place] [address] Social History Tobacco Use Types Packs/Day Years Used Date Smoking Tobacco: Never Assessed Comments Unknown Sex and Gender Information Value Date Recorded Sex Assigned at Not on file Legal Sex Female 4:07 PM CDT Gender Identity Not on file Sexual Orientation Not on file documented as of this encounter Miscellaneous Notes * Cerner Conversion Note - Meggan ProviderMD - 01/04/2021 12:33 PM CDT ED Triage Entered On: 01/04/2021 12:45 EDT Performed On: 01/04/2021 12:42 EDT by BESSIE WYATT RN ED Triage Across the Room Chief Complaint : Pt presents to the ER reporting she is having complications with her PICC line. [facility] health wanted laccess evaluated ebcuase hse complains of discomfort. Hx of gastroparesis. Triage Date/Time : 01/04/2021 12:42 EDT BESSIE WYATT RN - 01/04/2021 12:42 EDT DCP GENERIC CODE Tracking Acuity : 3 - Urgent Tracking Group : [facility] ED BESSIE WYATT RN - 01/04/2021 12:42 EDT Mode of Arrival : Ambulatory Transported to ED by : Walk in To Room Via : Ambulate Accompanied By : Unaccompanied ED Vital Signs : Document Height & Weight : Document ED Allergies : Document ED Reason for Visit : Document Tetanus Immunization : Greater than 5 years BESSIE WYATT RN - 01/04/2021 12:42 EDT Infectious Disease History Has the patient ever been tested for COVID-19? : No, Patient stated Does patient have symptoms of COVID-19? : No COVID19 Screening : No Experiencing Infectious Disease Symptoms : No symptoms Physical contact outside [place] in the last 30 days : No Infectious Disease History : Chicken pox/Shingles Tuberculosis Symptoms : None BESSIE WYATT RN - 01/04/2021 12:42 EDT Vital Signs ED Temperature Source : Tympanic Temperature Mode : Fahrenheit Temperature, Fahrenheit : 98.0 Deg F Clinical Temperature, C : 36.7 Deg C Peripheral Pulse Rate : 99 bpm Respiratory Rate : 18 Breaths/Min Systolic Blood Pressure : 132 mmHg Diastolic Blood Pressure : 83 mmHg Oxygen Saturation : 99 % BESSIE WYATT RN - 01/04/2021 12:42 EDT Allergy (As Of: 01/04/2021 12:45:22 EDT) Allergies (Active) codeine Estimated Onset Date: Unspecified ; Reactions: Nausea ; Created By: WILMER ESTRADA RN; Reaction Status: Active ; Category: Drug ; Substance: codeine ; Type: Allergy ; Updated By: WILMER ESTRADA RN; Reviewed Date: 01/04/2021 12:44 EDT Diagnosis Control ED (As Of: 01/04/2021 12:45:22 EDT) Problems(Active) abd pain (SNOMED CT :16062700 ) Name of Problem: abd pain ; Recorder: WILMER ESTRADA RN; Confirmation: Confirmed ; Classification: Medical ; Code: [id number] ; Contributor System: [employer] ; Last Updated: 03/15/2017 12:56 EDT ; Life Cycle Date: 01/22/2013 ; Life Cycle Status: Active ; Vocabulary: SNOMED CT Arthritis (SNOMED CT :8705651 ) Name of Problem: Arthritis ; Recorder: MAGALYS MCLEAN RN; Confirmation: Confirmed ; Classification: Medical ; Code: 9149329 ; Contributor System: [employer] ; Last Updated: 03/05/2015 9:20 EDT ; Life Cycle Date: 03/05/2015 ; Life Cycle Status: Active ; Vocabulary: SNOMED CT At risk for sleep apnea (IMO :90988584 ) Name of Problem: At risk for sleep apnea ; Recorder: SYSTEM, SYSTEM; Confirmation: Confirmed ; Classification: Medical ; Code: 87895215 ; Last Updated: 10/15/2018 6:45 EDT ; Life Cycle Date: 10/15/2018 ; Life Cycle Status: Active ; Vocabulary: IMO Bowel obstruction x 2 (SNOMED CT :162960466 ) Name of Problem: Bowel obstruction x 2 ; Recorder: JENNIFER GAUILAR RN PATIENT CARE 1; Confirmation: Confirmed ; Classification: Medical ; Code: [id number] ; Contributor System: PowerChart ; Last Updated: 09/01/2016 10:56 EDT ; Life Cycle Date: 09/01/2016 ; Life Cycle Status: Active ; Vocabulary: SNOMED CT DDD (degenerative disc disease), cervical (SNOMED CT :423917189 ) Name of Problem: DDD (degenerative disc disease), cervical ; Recorder: MERI PHAM RN PATIENT CARE 1; Confirmation: Confirmed ; Classification: Patient Stated ; Code: 717319684 ; Contributor System: [employer] ; Last Updated: 10/12/2018 14:47 EDT ; Life Cycle Date: 10/12/2018 ; Life Cycle Status: Active ; Vocabulary: SNOMED CT DDD (degenerative disc disease), lumbosacral (SNOMED CT :560188311 ) Name of Problem: DDD (degenerative disc disease), lumbosacral ; Recorder: MERI PHAM RN PATIENT CARE 1; Confirmation: Confirmed ; Classification: Patient Stated ; Code: 578193808 ; Contributor System: [employer] ; Last Updated: 10/12/2018 14:48 EDT ; Life Cycle Date: 10/12/2018 ; Life Cycle Status: Active ; Vocabulary: SNOMED CT depression/anxiety (SNOMED CT :37391065 ) Name of Problem: depression/anxiety ; Recorder: WILMER ESTRADA RN; Confirmation: Confirmed ; Classification: Medical ; Code: 07292528 ; Contributor System: PowerChart ; Last Updated: 11/12/2013 13:40 EDT ; Life Cycle Date: 01/22/2013 ; Life Cycle Status: Active ; Vocabulary: SNOMED CT Gastroparesis (SNOMED CT :662185784 ) Name of Problem: Gastroparesis ; Recorder: JENNIFER AGUILAR RN PATIENT CARE 1; Confirmation: Confirmed ; Classification: Medical ; Code: 784743480 ; Contributor System: PowerChart ; Last Updated: 09/01/2016 11:16 EDT ; Life Cycle Date: 09/01/2016 ; Life Cycle Status: Active ; Vocabulary: SNOMED CT heart murmur (SNOMED CT :291659649 ) Name of Problem: heart murmur ; Recorder: WILMER ESTRADA RN; Confirmation: Confirmed ; Classification: Medical ; Code: 299334494 ; Contributor System: PowerChart ; Last Updated: 11/11/2013 14:25 EDT ; Life Cycle Date: 01/22/2013 ; Life Cycle Status: Active ; Vocabulary: SNOMED CT ibs (SNOMED CT :108388442 ) Name of Problem: ibs ; Recorder: WILMER ESTRADA RN; Confirmation: Confirmed ; Classification: Medical ; Code: 715774270 ; Contributor System: PowerChart ; Last Updated: 11/11/2013 14:31 EDT ; Life Cycle Date: 01/22/2013 ; Life Cycle Status: Active ; Vocabulary: SNOMED CT Scar of abdomen (SNOMED CT :624746140 ) Name of Problem: Scar of abdomen ; Recorder: MAGALY CALABRESE RN; Confirmation: Confirmed ; Classification: Medical ; Code: 822075323 ; Contributor System: PowerChart ; Last Updated: 10/12/2018 14:47 EDT ; Life Cycle Status: Active ; Vocabulary: SNOMED CT ; Comments: 12/28/2016 14:42 - MAGALY CALABRESE RN scar tissue in bowel Scoliosis (SNOMED CT :905610384 ) Name of Problem: Scoliosis ; Recorder: MAGALYS MCLEAN RN; Confirmation: Confirmed ; Classification: Medical ; Code: 927284755 ; Contributor System: PowerChart ; Last Updated: 03/05/2015 9:20 EDT ; Life Cycle Date: 03/05/2015 ; Life Cycle Status: Active ; Vocabulary: SNOMED CT Diagnoses(Active) PICC line problem Date: 01/04/2021 ; Diagnosis Type: Reason For Visit ; Confirmation: Complaint of ; Clinical Dx: PICC line problem ; Classification: Medical ; Clinical Service: Emergency medicine ; Code: PNED ; Probability: 0 ; Diagnosis Code: [id number] ED Height and Weight Height Source : Stated Height Entry Format : [place] Height, Feet : 5 ft(Converted to: 152 cm, 60 Inch) Height, Inches : 4 Inch(Converted to: 0 ft 4 Inch, 10.16 cm) Clinical Height : 162.56 cm Weight Source, ED : Critical estimated dosing weight Weight Entry Format : [place] Weight, Pounds : 169 lb Clinical Dosing Weight : 76.82 kg Body Surface Area (BSA) : 1.82 m2 Body Mass Index : 29.1 kg/m2 (HI) [place] Body Weight (IBW) : 54.3 kg BESSIE WYATT RN - 01/04/2021 12:42 EDT Electronically signed by [facility] Conversion Ballet Dancer Cerner at 09/16/2022 11:09 AM CDT documented in this encounter Plan of Treatment Not on file documented as of this encounter Visit Diagnoses Not on filedocumented in this encounter Care Teams Air Traffic Control Manager Relationship Specialty Start Date End Date Yamile Coffey MD [address] [address] PCP - General Family Medicine 03/23/22 Kandace Castro APRN [address] [facility] [address] [place] [address] Neurologist Neurology 08/29/23 Aaron Ribera MD [address] [facility] [address] [place], [place] [id number] Surgeon Cardiothoracic Surgery 09/13/23 documented as of this encounter
--- OUTSIDE RECORDS SUMMARY | 2024-12-13 20:37 | XMS_ITS | Encounter Summary ---
Author Organization [employer] ([place], [place], [place], [place]) Address [address] [place] [address] Care Team Providers Care Hotel Services Sales Representative Name Role Phone Yamile Coffey MD Primary Care Provider [phone] Kandace Castro APRN Unavailable [phone] Aaron Ribera MD Unavailable [phone] Encounter Details Date Type Department Care Team (Late st Contact Info) Description 01/04/2021 Transcribed Document [facility] [place] [address] [place] [address] ProviderMeggan MD [address] [place] [address] Social History Tobacco Use Types Packs/Day Years Used Date Smoking Tobacco: Never Assessed Comments Unknown Sex and Gender Information Value Date Recorded Sex Assigned at Not on file Legal Sex Female 4:07 PM CDT Gender Identity Not on file Sexual Orientation Not on file documented as of this encounter Miscellaneous Notes * Cerner Conversion Note - Historical ProviderMD - 01/04/2021 2:47 PM CDT [facility] [place] [address] MARGARITO PADILLA :1970 Visit Time:01/04/2021 Your Visit Summary Your Care Team Primary Provider: AVIVA ABDI PA-C Secondary Provider: Your Diagnosis Peripherally inserted central catheter (PICC) in place PICC line problem Medical Information You may obtain a copy [...] do next Follow-Up Appointments Follow Up with FAMILY (REF) NO When Within 2 to 3 days Comments Return to ED if symptoms worsen. Allergies codeine (Nausea) Immunizations This Visit No Immunizations Found Medications What How Much When Instructions Next Dose albuterol (albuterol CFC free 90 mcg/ inh inhalation aerosol with adapter) 2 Puff(s) Inhalation Four Times A Day ALPRAZolam (Xanax 1 mg oral tablet) 1 Tablet(s) Oral Three Times A Day as needed for for anxiety cyclobenzaprine (Flexeril) 10 Milligram(s) Oral Every 8 Hours as needed for as needed for muscle spasm estradiol 0.5 Milligram(s) Oral Every Day famotidine (Pepcid) 10 Milligram(s) Oral Every Day heparin (heparin flush) 10 units/5ml SubCutaneous At Bedtime ondansetron (Zofran 2 mg/ mL injectable solution) 4 Milligram(s) IntraVENous Every 6 Hours as needed for as needed for nausea/vomiting pantoprazole (Protonix 40 mg oral delayed release tablet) 1 Tablet(s) Oral Every Day promethazine (promethazine 25 mg/ mL injectable solution) 25 Milligram(s) Intravenous Push Every 3 Hours as needed for as needed for nausea/vomiting rizatriptan (Maxalt) 10 Milligram(s) Oral Every Day as needed for as needed for migraine headache The home medications listed are only as [...] This Visit (last charted value for your 01/04/2021 visit) No Laboratory or Other Results This Visit Education Materials PICC Home Care Guide A peripherally inserted central catheter (PICC) is a form of IV access that allows medicines and IV fluids to be quickly distributed throughout the body. The PICC is a long, thin, flexible tube (catheter) that is inserted into a vein in the upper arm. The catheter ends in a large vein in the chest (superior vena cava, or SVC). After the PICC is inserted, a chest X-ray may be done to make sure that it is in the correct place. A PICC may be placed for different reasons, such as: ??? To give medicines and liquid nutrition. ??? To give IV fluids and blood products. ??? If there is trouble placing a peripheral intravenous (PIV) catheter. If taken care of properly, a PICC can remain in place for several months. Having a PICC can also allow a person to go home from the hospital sooner. Medicine and PICC care can be managed at home by a family member, caregiver, or home health care team. What are the risks? Generally, having a PICC is safe. However, problems may occur, including: ??? A blood clot (thrombus) forming in or at the tip of the PICC. ??? A blood clot forming in a vein (deep vein thrombosis) or traveling to the lung (pulmonary embolism). ??? Inflammation of the vein (phlebitis) in which the PICC is placed. ??? Infection. Central line associated blood stream infection (CLABSI) is a serious infection that often requires hospitalization. ??? PICC movement (malposition). The PICC tip may move from its original position due to excessive physical activity, forceful coughing, sneezing, or vomiting. ??? A break or cut in the PICC. It is important not to use scissors near the PICC. ??? Nerve or tendon irritation or injury during PICC insertion. How to take care of your PICC Preventing problems ??? You and any caregivers should wash your hands often with soap. Wash hands: ? Before touching the PICC line or the infusion device. ? Before changing a bandage (dressing). ??? Flush the PICC as told by your health care provider. Let your health care provider know right away if the PICC is hard to flush or does not flush. Do not use force to flush the PICC. ??? Do not use a syringe that is less than 10 mL to flush the PICC. ??? Avoid blood pressure checks on the arm in which the PICC is placed. ??? Never pull or tug on the PICC. ??? Do not take the PICC out yourself. Only a trained clinical professional should remove the PICC. ??? Use clean and sterile supplies only. Keep the supplies in a dry place. Do not reuse needles, syringes, or any other supplies. Doing that can lead to infection. ??? Keep pets and children away from your PICC line. ??? Check the PICC insertion site every day for signs of infection. Check for: ? Leakage. ? Redness, swelling, or pain. ? Fluid or blood. ? Warmth. ? Pus or a bad smell. PICC dressing care ??? Keep your PICC bandage (dressing) clean and dry to prevent infection. ??? Do not take baths, swim, or use a hot tub until your health care provider approves. Ask your health care provider if you can take showers. You may only be allowed to take sponge baths for bathing. When you are allowed to shower: ? Ask your health care provider to teach you how to wrap the PICC line. ? Cover the PICC line with clear plastic wrap and tape to keep it dry while showering. ??? Follow instructions from your health care provider about how to take care of your insertion site and dressing. Make sure you: ? Wash your hands with soap and water before you change your bandage (dressing). If soap and water are not available, use hand mosaic tile maker. ? Change your dressing as told by your health care provider. ? Leave stitches (sutures), skin glue, or adhesive strips in place. These skin closures may need to stay in place for 2 weeks or longer. If adhesive strip edges start to loosen and curl up, you may trim the loose edges. Do not remove adhesive strips completely unless your health care provider tells you to do that. ??? Change your PICC dressing if it becomes loose or wet. General instructions ??? Carry your PICC identification card or wear a medical alert bracelet at all times. ??? Keep the tube clamped at all times, unless it is being used. ??? Carry a smooth-edge clamp with you at all times to place on the tube if it breaks. ??? Do not use scissors or sharp objects near the tube. ??? You may bend your arm and move it freely. If your PICC is near or at the bend of your elbow, avoid activity with repeated motion at the elbow. ??? Avoid lifting heavy objects as told by your health care provider. ??? Keep all follow-up visits as told by your health care provider. This is important. Disposal of supplies ??? Throw away any syringes in a disposal container that is meant for sharp items (sharps container). You can buy a sharps container from a pharmacy, or you can make one by using an empty hard plastic bottle with a cover. ??? Place any used dressings or infusion bags into a plastic bag. Throw that bag in the trash. Contact a health care provider if: ??? You have pain in your arm, ear, face, or teeth. ??? You have a fever or chills. ??? You have redness, swelling, or pain around the insertion site. ??? You have fluid or blood coming from the insertion site. ??? Your insertion site feels warm to the touch. ??? You have pus or a bad smell coming from the insertion site. ??? Your skin feels hard and raised around the insertion site. Get help right away if: ??? Your PICC is accidentally pulled all the way out. If this happens, cover the insertion site with a bandage or gauze dressing. Do not throw the PICC away. Your health care provider will need to check it. ??? Your PICC was tugged or pulled and has partially come out. Do not push the PICC back in. ??? You cannot flush the PICC, it is hard to flush, or the PICC leaks around the insertion site when it is flushed. ??? You hear a flushing sound when the PICC is flushed. ??? You feel your heart racing or skipping beats. ??? There is a hole or tear in the PICC. ??? You have swelling in the arm in which the PICC was inserted. ??? You have a red streak going up your arm from where the PICC was inserted. Summary ??? A peripherally inserted central catheter (PICC) is a long, thin, flexible tube (catheter) that is inserted into a vein in the upper arm. ??? The PICC is inserted using a sterile technique by a specially trained nurse or physician. Only a trained clinical professional should remove it. ??? Keep your PICC identification card with you at all times. ??? Avoid blood pressure checks on the arm in which the PICC is placed. ??? If cared for properly, a PICC can remain in place for several months. Having a PICC can also allow a person to go home from the hospital sooner. This information is not intended to replace advice given to you by your health care provider. Make sure you discuss any questions you have with your health care provider. Document Revised: 04/27/2018 Document Reviewed: 06/17/2017 Elsevier Patient Education ?? 2019 [employer] Emergency Awareness and Preventative Care STROKE [...] Assistance with quitting is available by contacting 3-184-WJTBNOW. This is a free resource providing counseling, support, and referral. Or you may contact your personal physician. [place] Suicide Prevention Lifeline: The National Suicide Prevention [...] radiology, or pathology physicians. Patient Name:MARGARITO PADILLA I have received this information and was given the opportunity to ask questions. Patient/Byproducts Maker Name: Patient/Byproducts Maker Signature: Relationship to Patient: Clinician/Hospital Byproducts Maker Signature: Please Provide a Telephone Number Where You Can Be Reached: Is it Permissible To Leave a Message? Date: documented in this encounter Plan of Treatment Not on file documented as of this encounter Visit Diagnoses Not on filedocumented in this encounter Care Teams Hotel Services Sales Representative Relationship Specialty Start Date End Date Yamile Coffey MD [address] [facility] [address] [place] [address] PCP - General Family Medicine 03/23/22 Kandace Castro APRN [address] [facility] [address] [place] [address] Neurologist Neurology 08/29/23 [place] [address] [place] [address] [address] [place] [address] Surgeon Cardiothoracic Surgery 09/13/23 documented as of this encounter
--- OUTSIDE RECORDS SUMMARY | 2024-12-13 20:37 | XMS_ITS | Encounter Summary ---
Author Organization [employer] ([place], [place], [place], [place]) Address [address] [place] [address] Care Team Providers Care Shank Breaker Name Role Phone Yamile Coffey MD Primary Care Provider [phone] Kandace Castro APRN Unavailable [phone] Aaron Ribera MD Unavailable [phone] Encounter Details Date Type Department Care Team (Late st Contact Info) Description 01/04/2021 Transcribed Document [facility] [place] [address] [place] [address] ProviderMeggan MD [address] [place] [address] Social History Tobacco Use Types Packs/Day Years Used Date Smoking Tobacco: Never Assessed Comments Unknown Sex and Gender Information Value Date Recorded Sex Assigned at Not on file Legal Sex Female 4:07 PM CDT Gender Identity Not on file Sexual Orientation Not on file documented as of this encounter Miscellaneous Notes * Cerner Conversion Note - Historical ProviderMD - 01/04/2021 3:35 PM CDT [facility] [place] [address] MARGARITO PADILLA :1970 Visit Time:01/04/2021 Your [...] and water are not available, use hand armament repairer. ? Change your dressing as told by [...] Reviewed: 06/17/2017 Elsevier Patient Education ?? 2019 [employer] Emergency Awareness and Preventative Care STROKE [...] Assistance with quitting is available by contacting 1-028-RUHNNOW. This is a free resource providing counseling, support, and referral. Or you may contact your personal physician. [place] Suicide Prevention Lifeline: The National Suicide Prevention [...] was given the opportunity to ask questions. Patient/Brine Maker Name: Patient/Brine Maker Signature: Relationship to Patient: Clinician/Hospital Brine Maker Signature: Please Provide a Telephone Number Where You Can Be Reached: Is it Permissible To Leave a Message? Date: Electronically signed by Freddy Castano Conversion Neuropsychology Service Director Cerner at 09/16/2022 11:06 AM CDT documented in this encounter Plan of Treatment Not on file documented as of this encounter Visit Diagnoses Not on filedocumented in this encounter Care Teams Shank Breaker Relationship Specialty Start Date End Date Yamile Coffey MD [address] [facility] 2 [place] [address] PCP - General Family Medicine 03/23/22 Kandace Castro APRN [address] [facility] [address] [place] [address] Neurologist Neurology 08/29/23 [place] [address] [place] [address] [address] [place] [address] Surgeon Cardiothoracic Surgery 09/13/23 documented as of this encounter
--- OUTSIDE RECORDS SUMMARY | 2024-12-13 20:37 | XMS_ITS | Referral Summary ---
Author Organization [facility] ([place], [place], [place], [place]) Address [address] [place] [address] Care Team Providers Care Creative Designer Name Role Phone Yamile Coffey MD Primary Care Provider [phone] Kandace Castro INSTRUMENT ENGINEER Unavailable Aaron Ribera MD Unavailable [phone] Encounters Date Type Department Care Team Description 11/04/2024 Abstract [facility] Neurology - [facility] [address] [place] [address] Kandace Castro APRN 10/17/2024 Telephone [facility] Neurology - [facility] [address] [place] [address] Kandace Castro APRN infusion 09/17/2024 Travel 09/17/2024 8:30 AM EDT Office Visit [facility] Neurology - [facility] [address] [place] [address] Kandace Castro APRN Intractable chronic migraine without aura and without status migrainosus (Primary Dx) from Last 3 Months Allergies Active Allergy Reactions Criticality Noted Date Comments Codeine Nausea And Vomiting 01/05/2021 Other reaction(s): GI Intolerance Medications estradioL (ESTRACE) 0.5 MG tablet Take 1 tablet (0.5 mg total) by mouth daily. Active pantoprazole (PROTONIX) 40 MG tablet Take 1 tablet (40 mg total) by mouth daily. Active promethazine (PHENERGAN) 25 MG tablet Take 1 tablet (25 mg total) by mouth every 6 (six) hours as needed for Nausea. Active famotidine (PEPCID) 20 MG tablet Take 1 tablet (20 mg total) by mouth 2 (two) times daily. Active meclizine (ANTIVERT) 25 MG tablet Take 1 tablet (25 mg total) by mouth 3 (three) times daily as needed. Active ALPRAZolam (XANAX XR) 1 MG 24 hr tablet Take 1 tablet (1 mg total) by mouth 3 (three) times daily. Active loratadine (CLARITIN) 10 mg tablet Take 1 tablet (10 mg total) by mouth daily. Active diphenhydrAMIN E (BENADRYL) 25 mg tablet Take 1 tablet (25 mg total) by mouth every night as needed for Sleep. Active acetaminophen (TYLENOL) 500 MG tablet Take 1 tablet (500 mg total) by mouth every 6 (six) hours as needed for Pain. Active sodium chloride 0.9% (NS) SolP 1,000 mL with heparin 10,000 unit/mL Soln 10,000 Units Inject intravenously continuous. Active venlafaxine (EFFEXOR-XR) 150 MG 24 hr capsule Take 1 capsule (150 mg total) by mouth daily. Active cyclobenzaprin e (FLEXERIL) 10 MG tablet Take 1 tablet (10 mg total) by mouth 3 (three) times daily as needed for Muscle spasms. Active pravastatin (PRAVACHOL) 10 MG tablet Take 1 tablet (10 mg total) by mouth nightly. 5 Active SUMAtriptan succinate (Zembrace Symtouch) 3 mg/0.5 mL pnij Inject 3 mg under the skin daily as needed. 3 mL 11 5 09/18/19 26 Active Hospital, Clinic, or Other Facility Administered Medication Ordered Dose Route Frequency Start Date End Date Status methylPREDNISolone acetate (DEPO-MEDROL) injection 40 mgIndications:Intractable chronic migraine without aura and without status migrainosus 40 mg IM Once 03/23/2022 Active Active Problems Problem Noted Date Diagnosed Date Thoracic aortic ectasia 09/07/2023 Abdominal pain 03/22/2022 Anxiety 03/22/2022 Arthritis 03/22/2022 At risk for sleep apnea 03/22/2022 DDD (degenerative disc disease), lumbosacral Degeneration of intervertebral disc of cervical region 03/22/2022 Depressive disorder 03/22/2022 Diarrhea 03/22/2022 Disorder of abdomen 03/22/2022 Gastroparesis 03/22/2022 Heart murmur 03/22/2022 Intestinal obstruction 03/22/2022 Irritable bowel syndrome 03/22/2022 Migraine headache 03/22/2022 Overview (03/22/2022): history of botox injections (not helpful per pt Scoliosis 03/22/2022 Vascular insufficiency of intestine 03/22/2022 Weakness 03/22/2022 Weight loss 03/22/2022 Common migraine with intractable migraine 2020 Nausea and vomiting 05/18/2021 Social History Tobacco Use Types Packs/Day Years Used Date Smoking Tobacco: Former Cigarettes Smokeless Tobacco: Never Tobacco Cessation:Counseling Given: Not Answered Comments:Quit smoking 2004 Alcohol Use Standard Drinks/Week Comments Not Currently 0 (1 standard drink = 0.6 oz pur e alcohol) Family and Community Support Answer Rainer e Recorded Help with Day to Day Activities Not on file 06/07/2023 Feeling Lonely or Isolated Not on file 06/07 Educational Attainment Answer Date Otis rded Speak language other than Bahamian at home Not on file 06/07/2023 Want [...] Sign Reading Time Taken Comments Blood Pressure 118/77 09/17/2024 8:30 AM EDT Pulse 90 09/17/2024 8:30 AM EDT Temperature 36.4 C (97.6 F) 10/18/2023 10:16 AM EDT Respiratory Rate - - Oxygen Saturation 96% 10/18/2023 10:16 AM EDT Inhaled Oxygen Concentration - - Weight 88 kg (194 lb) 09/17/2024 8:30 AM EDT Height 162.6 cm (5' 4 ) 09/17/2024 8:30 AM EDT Body Mass Index 33.3 09/17/2024 8:30 AM EDT Plan of Treatment Not on file Insurance MEDICAID OF [place] [facility] Care Teams Creative Designer Relationship Specialty Start Date End Date Yamile Coffey MD [address] [facility] 2 [place] [address] PCP - General Family Medicine 03/23/22 Kandace Castro, INSTRUMENT ENGINEER [address] [facility] [address] [place] [address] Neurologist Neurology 08/29/23 Aaron Ribera MD [address] [facility] [address] [place] [address] Surgeon Cardiothoracic Surgery 09/13/23
--- OUTSIDE RECORDS SUMMARY | 2024-12-13 20:37 | XMS_ITS | Encounter Summary ---
Author Organization [facility] ([place], [place], [place], [place]) Address [address] [place] [address] Care Team Providers Care Pharmacy Messenger Name Role Phone Yamile Coffey MD Primary Care Provider [phone] Kandace Castro APRN Unavailable [phone] Aaron Ribera MD Unavailable [phone] Encounter Details Date Type Department Care Team (Late st Contact Info) Description 06/19/2019 Transcribed Document [facility] [place] [facility] [place] [address] ProviderMeggan MD [address] [place] [address] Social History Tobacco Use Types Packs/Day Years Used Date Smoking Tobacco: Never Assessed Comments Unknown Sex and Gender Information Value Date Recorded Sex Assigned at Not on file Legal Sex Female 4:07 PM CDT Gender Identity Not on file Sexual Orientation Not on file documented as of this encounter Miscellaneous Notes * Cerner Conversion Note - Historical ProviderMD - 06/19/2019 2:38 AM PATIENT RELATIONS DIRECTOR ED Triage Entered On: 06/19/2019 2:45 EST Performed On: 06/19/2019 2:41 EST by Surendra Roe RN ED Triage Across the Room Chief Complaint : pt here c/o left rib pain recently dx with pneumonia states pain has worsened Triage Date/Time : 06/19/2019 2:41 EST Surendra Roe RN - 06/19/2019 2:41 EST DCP GENERIC CODE Tracking Acuity : 3 - Urgent Tracking Group : [facility] ED Surendra Roe RN - 06/19/2019 2:41 EST Mode of Arrival : Ambulatory Transported to ED by : Walk in To Room Via : Ambulate Accompanied By : Unaccompanied ED Vital Signs : Document Height & Weight : Document ED Allergies : Document ED Reason for Visit : Document Tetanus Immunization : Greater than 5 years Surendra Roe RN - 06/19/2019 2:41 EST Infectious Disease History Physical contact outside [place] in the last 30 days : No Infectious Disease History : Chicken pox/Shingles Tuberculosis Symptoms : None Surendra Roe RN - 06/19/2019 2:41 EST Vital Signs ED Temperature Source : Oral Temperature Mode : Fahrenheit Temperature, Fahrenheit : 98 Deg F Clinical Temperature, C : 36.7 Deg C Oxygen Therapy Mode : Room air Peripheral Pulse Rate : 96 bpm Respiratory Rate : 18 Breaths/Min Systolic Blood Pressure : 172 mmHg (HI) Diastolic Blood Pressure : 102 mmHg (HI) Oxygen Saturation : 97 % Surendra Roe RN - 06/19/2019 2:41 EST Allergy (As Of: 06/19/2019 02:45:04 EST) Allergies (Active) codeine Estimated Onset Date: Unspecified ; Reactions: Nausea ; Created By: WILMER ESTRADA RN; Reaction Status: Active ; Category: Drug ; Substance: codeine ; Type: Allergy ; Updated By: WILMER ESTRADA RN; Reviewed Date: 06/19/2019 2:42 EST Diagnosis Control ED (As Of: 06/19/2019 02:45:04 EST) Problems(Active) abd pain (SNOMED CT :99108111 ) Name of Problem: abd pain ; Recorder: WILMER ESTRADA RN; Confirmation: Confirmed ; Classification: Medical ; Code: 40427809 ; Contributor System: TenTwenty7 ; Last Updated: 03/15/2017 12:56 EDT ; Life Cycle Date: 01/22/2013 ; Life Cycle Status: Active ; Vocabulary: SNOMED CT Arthritis (SNOMED CT :0770078 ) Name of Problem: Arthritis ; Recorder: MAGALYS MCLEAN RN; Confirmation: Confirmed ; Classification: Medical ; Code: 7138975 ; Contributor System: PowerChart ; Last Updated: 03/05/2015 9:20 EDT ; Life Cycle Date: 03/05/2015 ; Life Cycle Status: Active ; Vocabulary: SNOMED CT At risk for sleep apnea (IMO :50992508 ) Name of Problem: At risk for sleep apnea ; Recorder: SYSTEM, SYSTEM; Confirmation: Confirmed ; Classification: Medical ; Code: 08238242 ; Last Updated: 10/15/2018 6:45 EDT ; Life Cycle Date: 10/15/2018 ; Life Cycle Status: Active ; Vocabulary: IMO Bowel obstruction x 2 (SNOMED CT :395884033 ) Name of Problem: Bowel obstruction x 2 ; Recorder: JENNIFER AGUILAR RN PATIENT CARE 1; Confirmation: Confirmed ; Classification: Medical ; Code: 404252644 ; Contributor System: PowerChart ; Last Updated: 09/01/2016 10:56 EDT ; Life Cycle Date: 09/01/2016 ; Life Cycle Status: Active ; Vocabulary: SNOMED CT DDD (degenerative disc disease), cervical (SNOMED CT :457710859 ) Name of Problem: DDD (degenerative disc disease), cervical ; Recorder: MERI PHAM RN PATIENT CARE 1; Confirmation: Confirmed ; Classification: Patient Stated ; Code: 849510558 ; Contributor System: PowerChart ; Last Updated: 10/12/2018 14:47 EDT ; Life Cycle Date: 10/12/2018 ; Life Cycle Status: Active ; Vocabulary: SNOMED CT DDD (degenerative disc disease), lumbosacral (SNOMED CT :908841082 ) Name of Problem: DDD (degenerative disc disease), lumbosacral ; Recorder: MERI PHAM RN PATIENT CARE 1; Confirmation: Confirmed ; Classification: Patient Stated ; Code: 444269445 ; Contributor System: PowerChart ; Last Updated: 10/12/2018 14:48 EDT ; Life Cycle Date: 10/12/2018 ; Life Cycle Status: Active ; Vocabulary: SNOMED CT depression/anxiety (SNOMED CT :80141390 ) Name of Problem: depression/anxiety ; Recorder: WILMER ESTRADA RN; Confirmation: Confirmed ; Classification: Medical ; Code: 47380241 ; Contributor System: PowerChart ; Last Updated: 11/12/2013 13:40 EDT ; Life Cycle Date: 01/22/2013 ; Life Cycle Status: Active ; Vocabulary: SNOMED CT Gastroparesis (SNOMED CT :041616521 ) Name of Problem: Gastroparesis ; Recorder: JENNIFER AGUILAR RN PATIENT CARE 1; Confirmation: Confirmed ; Classification: Medical ; Code: 826586689 ; Contributor System: PowerChart ; Last Updated: 09/01/2016 11:16 EDT ; Life Cycle Date: 09/01/2016 ; Life Cycle Status: Active ; Vocabulary: SNOMED CT heart murmur (SNOMED CT :989514605 ) Name of Problem: heart murmur ; Recorder: WILMER ESTRADA RN; Confirmation: Confirmed ; Classification: Medical ; Code: 012309708 ; Contributor System: PowerChart ; Last Updated: 11/11/2013 14:25 EDT ; Life Cycle Date: 01/22/2013 ; Life Cycle Status: Active ; Vocabulary: SNOMED CT ibs (SNOMED CT :569972642 ) Name of Problem: ibs ; Recorder: WILMER ESTRADA RN; Confirmation: Confirmed ; Classification: Medical ; Code: 934107697 ; Contributor System: PowerChart ; Last Updated: 11/11/2013 14:31 EDT ; Life Cycle Date: 01/22/2013 ; Life Cycle Status: Active ; Vocabulary: SNOMED CT Scar of abdomen (SNOMED CT :885135949 ) Name of Problem: Scar of abdomen ; Recorder: MAGALY CALABRESE RN; Confirmation: Confirmed ; Classification: Medical ; Code: 091751567 ; Contributor System: PowerChart ; Last Updated: 10/12/2018 14:47 EDT ; Life Cycle Status: Active ; Vocabulary: SNOMED CT ; Comments: 12/28/2016 14:42 - MAGALY CALABRESE RN scar tissue in bowel Scoliosis (SNOMED CT :301596523 ) Name of Problem: Scoliosis ; Recorder: MAGALYS MCLEAN RN; Confirmation: Confirmed ; Classification: Medical ; Code: 336275516 ; Contributor System: PowerChart ; Last Updated: 03/05/2015 9:20 EDT ; Life Cycle Date: 03/05/2015 ; Life Cycle Status: Active ; Vocabulary: SNOMED CT Diagnoses(Active) Medical screening exam Date: 06/19/2019 ; Diagnosis Type: Reason For Visit ; Confirmation: Complaint of ; Clinical Dx: Medical screening exam ; Classification: Medical ; Clinical Service: Emergency medicine ; Code: PNED ; Probability: 0 ; Diagnosis Code: [id number] ED Height and Weight Height Source : Stated Height Entry Format : [place] Height, Feet : 5 ft(Converted to: 152 cm, 60 Inch) Height, Inches : 4 Inch(Converted to: 0 ft 4 Inch, 10.16 cm) Clinical Height : 162.56 cm Weight Source, ED : Critical estimated dosing weight Weight Entry Format : [place] Weight, Pounds : 198 lb Clinical Dosing Weight : 90 kg Body Surface Area (BSA) : 1.95 m2 Body Mass Index : 34.1 kg/m2 (HI) [place] Body Weight (IBW) : 54.3 kg Surendra Roe RN - 06/19/2019 2:41 EST Electronically signed by Oma[facility] Conversion Embalmer/Funeral Director Cerner at 09/16/2022 10:54 AM CDT documented in this encounter Plan of Treatment Not on file documented as of this encounter Visit Diagnoses Not on filedocumented in this encounter Care Teams Pharmacy Messenger Relationship Specialty Start Date End Date Yamile Coffey MD [address] [facility] 2 [place] [address] PCP - General Family Medicine 03/23/22 Kandace Castro APRN [address] [facility] [address] [place] [address] Neurologist Neurology 08/29/23 Aaron Ribera MD [address] [facility] [address] [place] [address] Surgeon Cardiothoracic Surgery 09/13/23 documented as of this encounter
--- OUTSIDE RECORDS SUMMARY | 2024-12-13 20:37 | XMS_ITS | Clinical Summary ---
Author Organization [facility] ([place], [place], [place], [place]) Address [address] [place] [address] Care Team Providers Care Air Traffic Control Supervisor Name Role Phone Yamile Coffey MD Primary Care Provider [phone] Kandace Castro APRN Unavailable [phone] Aaron Ribera MD Unavailable [phone] Allergies Active Allergy Reactions Criticality Noted Date [...] as needed. 3 mL 11 5 09/18/19 Active Hospital, Clinic, or Other Facility Administered [...] intractable migraine 2020 Nausea and vomiting 05/18/2021 Encounters Date Type Department Care Team Description 11/04/2024 Abstract [facility] Neurology - [place] [address] [place] [address] Kandace Castro APRN 10/17/2024 Telephone [facility] Neurology - [place] [address] [place] [address] Kandace Castro APRN infusion 09/17/2024 8:30 AM EDT Office Visit [facility] Neurology - [place] [address] [place] [address] Kandace Castro, MELVIN Intractable chronic migraine without aura and without status migrainosus (Primary Dx) 09/17/2024 Travel from Last 3 Months Family History Medical History Relation Name Comments Heart disease Maternal Grandmother Aortic aneurysm Mother COPD Mother Aneurysm Sister Aortic aneurysm Sister Aortic Aneur ysm Surgery Relation Name Status Comments Maternal Grandmother Mother Sister Social History Tobacco Use Types Packs/Day Years [...] Date Otis rded Speak language other than Spanish at home Not on file 06/07/2023 Want [...] 09/17/2024 8:30 AM EDT Plan of Treatment Health Maintenance Due Date Last Done Comments CT Colonography 1970 Colonoscopy 1970 Colorectal Cancer Screening 1970 FOBT/FIT 1970 Fit-DNA (Cologuard) 1970 Sigmoidoscopy 1970 HIV Screening 1985 Hepatitis C Screening 02/06/1988 DTAP/TDAP/TD VACCINES (1 - Tdap) 1989 Pap Smear 1991 Breast Cancer Screening 2010 Lipid Panel 2015 Pneumococcal 50+ years (1 of 1 - PCV) 02/06/2020 Shingles Vaccine (Zoster) (1 of 2) 02/06/2020 COVID-19 VACCINE (2023-2 5 season) 2024 03/24/2023, 02/18/2022, 08/25/2021, Additional history exists Medicare IPPE (Welcome to Medicare) [id number] 06/29/2024 Influenza Vaccine (#1) 2025 Tobacco Cessation Counseling and Screening (12+) 09/17/2025 09/17/2024 Insurance MEDICAID OF [place] [facility] AD[facility] Care Teams Air Traffic Control Supervisor Relationship Specialty Start Date End Date Yamile Coffey MD [address] [address] PCP - General Family Medicine 03/23/22 Kandace Castro APRN [address] [facility] [address] [place] [address] Neurologist Neurology 08/29/23 Aaron Ribera MD [address] [facility] [address] [place], [place] [id number] Surgeon Cardiothoracic Surgery 09/13/23
--- OUTSIDE RECORDS SUMMARY | 2024-12-13 20:38 | XMS_ITS | Encounter Summary ---
Author Organization Healthcare Address [address] [id number] Care Team Providers Care It Admin Name Role Phone Bryanna Lockhart MD Primary Care Provider [phone] Encounter Details Date Type Department Care Team (Late st Contact Info) Description 09/27/2023 Lab Requisition [facility] [address] [place] [address] Bryanna Lockhart MD [address] [place] [address] Migraine without aura, intractable, without status migrainosus [...] Diagnosis Comments BASIC METABOLIC PANEL, PLASMA Routine 09/27/2023 10:40 AM EDT Migraine without aura, intractable, without status migrainosus documented in this encounter Results * (ABNORMAL) Basic metabolic panel (09/27/2023 10:40 AM EDT) Glucose, Plasma 115(H) 74 - 99 mg/dL 09/27/2023 1:19 PM EDT [facility] BUN, Plasma 5(L) 7 - 21 mg/dL 09/27/2023 1:19 PM EDT [facility] Creatinine, Plasma 0.66 0.60 - 1.10 mg/dL 09/27/2023 1:19 PM EDT [facility] BUN/Creatinine Ratio 8 09/27/2023 1:19 PM EDT [facility] Sodium, Plasma 141 136 - 145 mmol/L 09/27/2023 1:19 PM EDT [facility] Potassium, Plasma 4.1 3.7 - 4.8 mmol/L 09/27/2023 1:19 PM EDT [facility] Chloride, Plasma 103 97 - 107 mmol/L 09/27/2023 1:19 PM EDT [facility] CO2, Plasma 25 22 - 29 mmol/L 09/27/2023 1:19 PM EDT [facility] Anion Gap 13 6 - 16 mmol/L 09/27/2023 1:19 PM EDT [facility] Total Calcium, Plasma 9.4 8.9 - 10.2 mg/dL 09/27/2023 1:19 PM EDT [facility] eGFRcr 105.0 mL/min/1.7 3m*2 09/27/2023 1:19 PM EDT [facility] Comment:Reported eGFRcr in m L/min/1.73m2 is based the CKD-EPI 2020 equation that does not use a race coefficient. Blood Venous blood specimen / Unknown 09/27/2023 10:40 AM EDT 09/27/2023 12:39 PM EDT us Bryanna Lockhart MD LAB BLOOD ORDERABLES Final Result [facility] [address] [place] [address] documented in this encounter Visit Diagnoses Diagnosis Migraine without aura, intractable, without status migrainosus documented in this encounter Care Teams It Admin Relationship Specialty Start Date End Date Bryanna Lockhart MD [address] [id number] PCP - General 10/09/20 documented as of this encounter
--- OUTSIDE RECORDS SUMMARY | 2024-12-13 20:38 | XMS_ITS | Encounter Summary ---
Author Organization Healthcare Address [address] [place] [address] Care Team Providers Care Instrument Repair Technician Name Role Phone Bryanna Lockhart MD Primary Care Provider Encounter Details Date Type Department Care Team (Late st Contact Info) Description 05/11/2023 Lab Requisition [facility] [address] [place] [id number] Bryanna Lockhart MD [address] [place] [address] Raised antibody titer; Migraine without aura, intractable, [...] Procedure Name Priority Date/Time Associated Diagnosis Comments CREATININE, PLASMA Routine 05/11/2023 11 :25 AM EST Raised antibody titer Migraine without aura, intractable, without status migrainosus CBC W/O DIFFERENTIAL Routine 05/11/2023 11:25 AM EST Raised antibody titer Migraine without aura, intractable, without status migrainosus UREA NITROGEN, PLASMA Routine 05/11/2023 11:25 AM EST Raised antibody titer Migraine without aura, intractable, without status migrainosus documented in this encounter Results * CBC W/O Differential (05/11/2023 11:25 AM EST) WBC Count 8.21 3.70 - 10.30 10*3/uL LAB HEMATOLOGY METHOD 05/11/2023 1:17 PM EST [facility] RBC Count 3.98 3.90 - 5.20 10*6/uL LAB HEMATOLOGY METHOD 05/11/2023 1:17 PM EST [facility] HGB 11.4 11.2 - 15.7 g/dL LAB HEMATOLOGY METHOD 05/11/2023 1:17 PM EST [facility] HCT 35.5 34.0 - 45.0 % LAB HEMATOLOGY METHOD 05/11/2023 1:17 PM EST [facility] Platelet Count 318 155 - 369 10*3/uL LAB HEMATOLOGY METHOD 05/11/2023 1:17 PM EST [facility] MCV 89 79 - 98 fL LAB HEMATOLOGY METHOD 05/11/2023 1:17 PM EST [facility] MCH 28.6 26.0 - 32.0 pg LAB HEMATOLOGY METHOD 05/11/2023 1:17 PM EST [facility] MCHC 32.1 30.7 - 35.5 g/dL LAB HEMATOLOGY METHOD 05/11/2023 1:17 PM EST [facility] RDW 13.2 11.5 - 14.5 % LAB HEMATOLOGY METHOD 05/11/2023 1:17 PM EST [facility] MPV 9.7 8.8 - 12.5 fL LAB HEMATOLOGY METHOD 05/11/2023 1:17 PM EST [facility] nRBC 0.0 <=0.0 per 100 WBCs LAB HEMATOLOGY METHOD 05/11/2023 1:17 PM EST [facility] Blood Venous blood specimen / Unknown 05/11/2023 11:25 AM EST 05/11/2023 1:13 PM EST us Bryanna Lockhart MD LAB BLOOD ORDERABLES Final Result Performing Organization Address City/State/[facility] Co de Phone Number [facility] [address] [place] [id number] * (ABNORMAL) Urea Nitrogen, Plasma (05/11/2023 11:25 AM EST) BUN, Plasma 4(L) 7 - 21 mg/dL 05/11/2023 1:28 PM EST [facility] Blood Venous blood specimen / Unknown 05/11/2023 11:25 AM EST 05/11/2023 1:13 PM EST us Bryanna Lockhart MD LAB BLOOD ORDERABLES Final Result Performing Organization Address City/[facility] Co de Phone Number [facility] [address] [place] [address] * Creatinine, plasma (05/11/2023 11:25 AM EST) Creatinine, Plasma 0.62 0.60 - 1.10 mg/dL 05/11/2023 1:28 PM EST [facility] eGFRcr 106.6 mL/min/1.7 3m*2 05/11/2023 1:28 PM EST [facility] Comment:Reported eGFRcr in m L/min/1.73m2 is based the CKD-EPI 2020 equation that does not use a race coefficient. Blood Venous blood specimen / Unknown 05/11/2023 11:25 AM EST 05/11/2023 1:13 PM EST us Bryanna Lockhart MD LAB BLOOD ORDERABLES Final Result Performing Organization Address City/[facility] Co de Phone Number [facility] [address] [place] [address] documented in this encounter Visit Diagnoses Diagnosis Raised antibody titer Other and unspecified nonspecific immunological findings Migraine without aura, intractable, without status migrainosus documented in this encounter Care Teams Instrument Repair Technician Relationship Specialty Start Date End Date Bryanna Lockhart MD [address] [place] [address] PCP - General 10/09/20 documented as of this encounter
--- OUTSIDE RECORDS SUMMARY | 2024-12-13 20:38 | XMS_ITS | Encounter Summary ---
Author Organization [facility] Address [address] [place] [address] Care Team Providers Care Metallurgical Engineer Name Role Phone Bryanna Lockhart MD Primary Care Provider Encounter Details Date Type Department Care Team (Late st Contact Info) Description 06/07/2023 Lab Requisition [facility] [address] [place] [phone] Bryanna Lockhart MD [address] [place] [address] Other specified functional intestinal disorders; Disorder of [...] Diagnosis Comments BASIC METABOLIC PANEL, PLASMA Routine 06/07/2023 11:05 AM EST Other specified functional intestinal disorders Disorder of the autonomic nervous system, unspecified Raised antibody titer Migraine without aura, intractable, without status migrainosus documented in this encounter Results * (ABNORMAL) Basic metabolic panel (06/07/2023 11:05 AM EST) Glucose, Plasma 114(H) 74 - 99 mg/dL 06/07/2023 1:31 PM EST [facility] BUN, Plasma 5(L) 7 - 21 mg/dL 06/07/2023 1:31 PM EST [facility] Creatinine, Plasma 0.59(L) 0.60 - 1.10 mg/dL 06/07/2023 1:31 PM EST [facility] BUN/Creatinine Ratio 8 06/07/2023 1:31 PM EST [facility] Sodium, Plasma 135(L) 136 - 145 mmol/L 06/07/2023 1:31 PM [facility] Potassium, Plasma 4.3 3.7 - 4.8 mmol/L 06/07/2023 1:31 PM [facility] Chloride, Plasma 105 97 - 107 mmol/L 06/07/2023 1:31 PM [facility] CO2, Plasma 21(L) 22 - 29 mmol/L 06/07/2023 1:31 PM [facility] Anion Gap 9 6 - 16 mmol/L 06/07/2023 1:31 PM EST [facility] Total Calcium, Plasma 9.6 8.9 - 10.2 mg/dL 06/07/2023 1:31 PM EST [facility] eGFRcr 107.9 mL/min/1.7 3m*2 06/07/2023 1:31 PM [facility] Comment:Reported eGFRcr in m L/min/1.73m2 is based the CKD-EPI 2020 equation that does not use a race coefficient. Blood Venous blood specimen / Unknown 06/07/2023 11:05 AM EST 06/07/2023 1:03 PM EST Bryanna Lockhart MD LAB BLOOD ORDERABLES Final Result [facility] [address] [place] [address] documented in this encounter Visit Diagnoses Diagnosis Other specified functional intestinal disorders Disorder of the autonomic nervous system, unspecified Raised antibody titer Other and unspecified nonspecific immunological findings Migraine without aura, intractable, without status migrainosus documented in this encounter Care Teams Metallurgical Engineer Relationship Specialty Start Date End Date Bryanna Lockhart MD [address] [place] [address] PCP - General 10/09/20 documented as of this encounter
--- OUTSIDE RECORDS SUMMARY | 2024-12-13 20:38 | XMS_ITS | Encounter Summary ---
Author Organization [facility] Address [address] [place] [address] Care Team Providers Care Fruit Receiver Name Role Phone Bryanna Lockhart MD Primary Care Provider Encounter Details Date Type Department Care Team (Late st Contact Info) Description 09/13/2023 Lab Requisition [facility] H Lab [address] [place] [address] Bryanna Lockhart MD [address] [phone] Other specified functional intestinal disorders; Disorder of [...] Diagnosis Comments BASIC METABOLIC PANEL, PLASMA Routine 09/13/2023 12:20 PM EDT Other specified functional intestinal disorders Disorder of the autonomic nervous system, unspecified Raised antibody titer Migraine without aura, intractable, without status migrainosus documented in this encounter Results * (ABNORMAL) Basic metabolic panel (09/13/2023 12:20 PM EDT) Glucose, Plasma 104(H) 74 - 99 mg/dL 09/13/2023 2:04 PM EDT [facility] BUN, Plasma 5(L) 7 - 21 mg/dL 09/13/2023 2:04 PM EDT [facility] Creatinine, Plasma 0.63 0.60 - 1.10 mg/dL 09/13/2023 2:04 PM EDT [facility] BUN/Creatinine Ratio 8 09/13/2023 2:04 PM EDT [facility] Sodium, Plasma 134(L) 136 - 145 mmol/L 09/13/2023 2:04 PM EDT [facility] Potassium, Plasma 3.9 3.7 - 4.8 mmol/L 09/13/2023 2:04 PM EDT [facility] Chloride, Plasma 97 97 - 107 mmol/L 09/13/2023 2:04 PM EDT [facility] CO2, Plasma 26 22 - 29 mmol/L 09/13/2023 2:04 PM EDT [facility] Anion Gap 11 6 - 16 mmol/L 09/13/2023 2:04 PM EDT [facility] Total Calcium, Plasma 9.2 8.9 - 10.2 mg/dL 09/13/2023 2:04 PM EDT [facility] eGFRcr 106.2 mL/min/1.7 3m*2 09/13/2023 2:04 PM EDT [facility] Comment:Reported eGFRcr in m L/min/1.73m2 is based the CKD-EPI 2020 equation that does not use a race coefficient. Blood Venous blood specimen / Unknown 09/13/2023 12:20 PM EDT 09/13/2023 1:35 PM EDT Bryanna Lockhart MD LAB BLOOD ORDERABLES Final Result [facility] [address] [place] [address] documented in this encounter Visit Diagnoses Diagnosis Other specified functional intestinal disorders Disorder of the autonomic nervous system, unspecified Raised antibody titer Other and unspecified nonspecific immunological findings Migraine without aura, intractable, without status migrainosus documented in this encounter Care Teams Fruit Receiver Relationship Specialty Start Date End Date Bryanna Lockhart MD [address] [place] [address] PCP - General 10/09/20 documented as of this encounter
--- OUTSIDE RECORDS SUMMARY | 2024-12-13 20:38 | XMS_ITS | Encounter Summary ---
Author Organization [facility] Address [address] [id number] Care Team Providers Care Presser And Shaper Knitted Goods Name Role Phone Bryanna Lockhart MD Primary Care Provider [phone] Encounter Details Date Type Department Care Team (Late st Contact Info) Description 08/01/2023 Lab Requisition [facility] H Lab [address] [place] [address] System, Provider Not In, [address] [place] [address] Disorder of the autonomic nervous system, unspecified [...] Diagnosis Comments BASIC METABOLIC PANEL, PLASMA Routine 08/01/2023 10:45 AM EST Disorder of the autonomic nervous system, unspecified documented in this encounter Results * (ABNORMAL) Basic metabolic panel (08/01/2023 10:45 AM EST) Glucose, Plasma 104(H) 74 - 99 mg/dL 08/01/2023 2:01 PM EST [facility] BUN, Plasma 6(L) 7 - 21 mg/dL 08/01/2023 2:01 PM EST [facility] Creatinine, Plasma 0.54(L) 0.60 - 1.10 mg/dL 08/01/2023 2:01 PM EST [facility] BUN/Creatinine Ratio 11 08/01/2023 2:01 PM EST [facility] Sodium, Plasma 140 136 - 145 mmol/L 08/01/2023 2:01 PM EST [facility] Potassium, Plasma 4.0 3.7 - 4.8 mmol/L 08/01/2023 2:01 PM EST [facility] Chloride, Plasma 102 97 - 107 mmol/L 08/01/2023 2:01 PM EST [facility] CO2, Plasma 24 22 - 29 mmol/L 08/01/2023 2:01 PM EST [facility] Anion Gap 14 6 - 16 mmol/L 08/01/2023 2:01 PM EST [facility] Total Calcium, Plasma 9.4 8.9 - 10.2 mg/dL 08/01/2023 2:01 PM EST [facility] eGFRcr 110.2 mL/min/1.7 3m*2 08/01/2023 2:01 PM EST [facility] Comment:Reported eGFRcr in m L/min/1.73m2 is based the CKD-EPI 2020 equation that does not use a race coefficient. Blood Venous blood specimen / Unknown 08/01/2023 10:45 AM EST 08/01/2023 12:56 PM EST us Provider Not In System MD LAB BLOOD ORDERABLES F inal Result [facility] [address] [place] [address] documented in this encounter Visit Diagnoses Diagnosis Disorder of the autonomic nervous system, unspecified documented in this encounter Care Teams Presser And Shaper Knitted Goods Relationship Specialty Start Date End Date Bryanna Lockhart MD [address] [place] [address] PCP - General 10/09/20 documented as of this encounter
--- OUTSIDE RECORDS SUMMARY | 2024-12-13 20:38 | XMS_ITS | Encounter Summary ---
Author Organization [facility] Address [address] [id number] Care Team Providers Care Certified Addiction Counselor Name Role Phone Bryanna Lockhart MD Primary Care Provider [phone]- [phone] Encounter Details Date Type Department Care Team (Late st Contact Info) Description 10/27/2023 Lab Requisition [facility] H Lab [address] [place] [address] System, Provider Not In, [address] [place] [address] Disorder of the autonomic nervous system, unspecified [...] Diagnosis Comments BASIC METABOLIC PANEL, PLASMA Routine 10/27/2023 11:00 AM EDT Disorder of the autonomic nervous system, unspecified documented in this encounter Results * (ABNORMAL) Basic metabolic panel (10/27/2023 11:00 AM EDT) Glucose, Plasma 115(H) 74 - 99 mg/dL 10/27/2023 12:59 PM EDT [facility] BUN, Plasma 7 7 - 21 mg/dL 10/27/2023 12:59 PM EDT [facility] Creatinine, Plasma 0.62 0.60 - 1.10 mg/dL 10/27/2023 12:59 PM EDT [facility] BUN/Creatinine Ratio 11 10/27/2023 12:59 PM EDT [facility] Sodium, Plasma 139 136 - 145 mmol/L 10/27/2023 12:59 PM EDT [facility] Potassium, Plasma 4.2 3.7 - 4.8 mmol/L 10/27/2023 12:59 PM EDT [facility] Chloride, Plasma 102 97 - 107 mmol/L 10/27/2023 12:59 PM EDT [facility] CO2, Plasma 24 22 - 29 mmol/L 10/27/2023 12:59 PM EDT [facility] Anion Gap 13 6 - 16 mmol/L 10/27/2023 12:59 PM EDT [facility] Total Calcium, Plasma 9.5 8.9 - 10.2 mg/dL 10/27/2023 12:59 PM EDT [facility] eGFRcr 106.6 mL/min/1.7 3m*2 10/27/2023 12:59 PM EDT [facility] Comment:Reported eGFRcr in m L/min/1.73m2 is based the CKD-EPI 2020 equation that does not use a race coefficient. Blood Venous blood specimen / Unknown 10/27/2023 11:00 AM EDT 10/27/2023 11:38 AM EDT us Provider Not In System MD LAB BLOOD ORDERABLES F inal Result [facility] [address] [place] [address] documented in this encounter Visit Diagnoses Diagnosis Disorder of the autonomic nervous system, unspecified documented in this encounter Care Teams Certified Addiction Counselor Relationship Specialty Start Date End Date Bryanna Lockhart MD [address] [place] [address] PCP - General 10/09/20 documented as of this encounter
--- OUTSIDE RECORDS SUMMARY | 2024-12-13 20:38 | XMS_ITS | Encounter Summary ---
Author Organization [facility] Address [address] [place] [address] Care Team Providers Care Field Artillery Crewmember Name Role Phone Bryanna Lockhart MD Primary Care Provider Encounter Details Date Type Department Care Team (Late st Contact Info) Description 07/04/2023 Lab Requisition [facility] Services [address] [place] [phone] Bryanna Lockhart MD [address] [place] [address] Other specified functional intestinal disorders; Disorder of [...] Diagnosis Comments BASIC METABOLIC PANEL, PLASMA Routine 07/04/2023 10:55 AM EST Other specified functional intestinal disorders Disorder of the autonomic nervous system, unspecified Raised antibody titer Migraine without aura, intractable, without status migrainosus documented in this encounter Results * (ABNORMAL) Basic metabolic panel (07/04/2023 10:55 AM EST) Glucose, Plasma 121(H) 74 - 99 mg/dL 07/04/2023 12:35 PM EST [facility] BUN, Plasma 7 7 - 21 mg/dL 07/04/2023 12:35 PM EST [facility] Creatinine, Plasma 0.61 0.60 - 1.10 mg/dL 07/04/2023 12:35 PM EST [facility] BUN/Creatinine Ratio 11 07/04/2023 12:35 PM EST [facility] Sodium, Plasma 139 136 - 145 mmol/L 07/04/2023 12:35 PM EST [facility] Potassium, Plasma 4.0 3.7 - 4.8 mmol/L 07/04/2023 12:35 PM EST [facility] Chloride, Plasma 101 97 - 107 mmol/L 07/04/2023 12:35 PM EST [facility] CO2, Plasma 27 22 - 29 mmol/L 07/04/2023 12:35 PM EST [facility] Anion Gap 11 6 - 16 mmol/L 07/04/2023 12:35 PM EST [facility] Total Calcium, Plasma 9.6 8.9 - 10.2 mg/dL 07/04/2023 12:35 PM EST [facility] eGFRcr 107.1 mL/min/1.7 3m*2 07/04/2023 12:35 PM EST [facility] Comment:Reported eGFRcr in m L/min/1.73m2 is based the CKD-EPI 2020 equation that does not use a race coefficient. Blood Venous blood specimen / Unknown 07/04/2023 10:55 AM EST 07/04/2023 12:18 PM EST Bryanna Lockhart MD LAB BLOOD ORDERABLES Final Result Performing Organization Address City/State/[facility] Co de Phone Number [facility] [address] [place] [address] documented in this encounter Visit Diagnoses Diagnosis Other specified functional intestinal disorders Disorder of the autonomic nervous system, unspecified Raised antibody titer Other and unspecified nonspecific immunological findings Migraine without aura, intractable, without status migrainosus documented in this encounter Care Teams Field Artillery Crewmember Relationship Specialty Start Date End Date Bryanna Lockhart MD [facility] [place] [address] PCP - General 10/09/20 documented as of this encounter
--- OUTSIDE RECORDS SUMMARY | 2024-12-13 20:38 | XMS_ITS | Encounter Summary ---
Author Organization [facility] Address [address] [place] [address] Care Team Providers Care Vial Gauger Name Role Phone Bryanna Lockhart MD Primary Care Provider [phone]- [phone] Encounter Details Date Type Department Care Team (Late st Contact Info) Description 12/06/2023 Lab Requisition [facility] H Lab [address] [place] [address] Bryanna Lockhart MD [address] [phone] Other specified functional intestinal disorders; Disorder of [...] Diagnosis Comments BASIC METABOLIC PANEL, PLASMA Routine 12/06/2023 11:00 AM EDT Other specified functional intestinal disorders Disorder of the autonomic nervous system, unspecified Raised antibody titer Migraine without aura, intractable, without status migrainosus documented in this encounter Results * (ABNORMAL) Basic metabolic panel (12/06/2023 11:00 AM EDT) Glucose, Plasma 100(H) 74 - 99 mg/dL 12/06/2023 1:38 PM EDT [facility] BUN, Plasma 7 7 - 21 mg/dL 12/06/2023 1:38 PM EDT [facility] Creatinine, Plasma 0.46(L) 0.60 - 1.10 mg/dL 12/06/2023 1:38 PM EDT [facility] BUN/Creatinine Ratio 15 12/06/2023 1:38 PM EDT [facility] Sodium, Plasma 136 136 - 145 mmol/L 12/06/2023 1:38 PM EDT [facility] Potassium, Plasma 5.3(H) 3.7 - 4.8 mmol/L 12/06/2023 1:38 PM EDT [facility] Comment:Hemolyzed, result ma y be falsely increased. Chloride, Plasma 102 97 - 107 mmol/L 12/06/2023 1:38 PM EDT [facility] CO2, Plasma 20(L) 22 - 29 mmol/L 12/06/2023 1:38 PM EDT [facility] Anion Gap 14 6 - 16 mmol/L 12/06/2023 1:38 PM EDT [facility] Total Calcium, Plasma 9.2 8.9 - 10.2 mg/dL 12/06/2023 1:38 PM EDT [facility] eGFRcr 114.6 mL/min/1.7 3m*2 12/06/2023 1:38 PM EDT [facility] Comment:Reported eGFRcr in m L/min/1.73m2 is based the CKD-EPI 2020 equation that does not use a race coefficient. Blood Venous blood specimen / Unknown 12/06/2023 11:00 AM EDT 12/06/2023 12:56 PM EDT us Bryanna Lockhart MD LAB BLOOD ORDERABLES Final Result [facility] [address] [place] [address] documented in this encounter Visit Diagnoses Diagnosis Other specified functional intestinal disorders Disorder of the autonomic nervous system, unspecified Raised antibody titer Other and unspecified nonspecific immunological findings Migraine without aura, intractable, without status migrainosus documented in this encounter Care Teams Vial Gauger Relationship Specialty Start Date End Date Bryanna Lockhart MD [address] [place] [address] PCP - General 10/09/20 documented as of this encounter
--- OUTSIDE RECORDS SUMMARY | 2024-12-13 20:38 | XMS_ITS | Encounter Summary ---
Author Organization [facility] Address [address] [place] [address] Care Team Providers Care Door Hanger Name Role Phone Bryanna Lockhart MD Primary Care Provider Encounter Details Date Type Department Care Team (Late st Contact Info) Description 10/11/2023 Lab Requisition [facility] Lab [address] [place] [address] Bryanna Lockhart MD [address] [phone] Disorder of the autonomic nervous system, unspecified [...] Diagnosis Comments BASIC METABOLIC PANEL, PLASMA Routine 10/11/2023 11:00 AM EDT Disorder of the autonomic nervous system, unspecified documented in this encounter Results * (ABNORMAL) Basic metabolic panel (10/11/2023 11:00 AM EDT) Glucose, Plasma 108(H) 74 - 99 mg/dL 10/11/2023 12:41 PM [facility]T [facility] BUN, Plasma 6(L) 7 - 21 mg/dL 10/11/2023 12:41 PM EDT [facility] Creatinine, Plasma 0.63 0.60 - 1.10 mg/dL 10/11/2023 12:41 PM EDT [facility] BUN/Creatinine Ratio 10 10/11/2023 12:41 PM EDT [facility] Sodium, Plasma 141 136 - 145 mmol/L 10/11/2023 12:41 PM EDT [facility] Potassium, Plasma 3.9 3.7 - 4.8 mmol/L 10/11/2023 12:41 PM EDT [facility] Chloride, Plasma 104 97 - 107 mmol/L 10/11/2023 12:41 PM EDT [facility] CO2, Plasma 25 22 - 29 mmol/L 10/11/2023 12:41 PM EDT [facility] Anion Gap 12 6 - 16 mmol/L 10/11/2023 12:41 PM EDT [facility] Total Calcium, Plasma 9.2 8.9 - 10.2 mg/dL 10/11/2023 12:41 PM EDT [facility] eGFRcr 106.2 mL/min/1.7 3m*2 10/11/2023 12:41 PM EDT [facility] Comment:Reported eGFRcr in m L/min/1.73m2 is based the CKD-EPI 2020 equation that does not use a race coefficient. Blood Venous blood specimen / Unknown 10/11/2023 11:00 AM EDT 10/11/2023 12:26 PM EDT us Bryanna Lockhart MD LAB BLOOD ORDERABLES Final Result [facility] [address] [place] [address] documented in this encounter Visit Diagnoses Diagnosis Disorder of the autonomic nervous system, unspecified documented in this encounter Care Teams Door Hanger Relationship Specialty Start Date End Date Bryanna Lockhart MD [address] [place] [address] PCP - General 10/09/20 documented as of this encounter
--- OUTSIDE RECORDS SUMMARY | 2024-12-13 20:38 | XMS_ITS | Encounter Summary ---
Author Organization [facility] Address [address] [place] [address] Care Team Providers Care Relief Driller Name Role Phone Bryanna Lockhart MD Primary Care Provider Encounter Details Date Type Department Care Team (Late st Contact Info) Description 07/18/2023 Lab Requisition [facility] Lab [address] [place] [address] Bryanna Lockhart MD [address] [phone] Encounter for general adult medical examination without abnormal findings Social History Tobacco Use Types Packs/Day Years [...] Diagnosis Comments BASIC METABOLIC PANEL, PLASMA Routine 07/18/2023 3:00 PM EST Encounter for general adult medical examination without abnormal findings documented in this encounter Results * Basic metabolic panel (07/18/2023 3:00 PM EST) Glucose, Plasma 91 74 - 99 mg/dL 07/18/2023 5:08 PM EST [facility] BUN, Plasma 8 7 - 21 mg/dL 07/18/2023 5:08 PM EST [facility] Creatinine, Plasma 0.60 0.60 - 1.10 mg/dL 07/18/2023 5:08 PM EST [facility] BUN/Creatinine Ratio 13 07/18/2023 5:08 PM EST [facility] Sodium, Plasma 141 136 - 145 mmol/L 07/18/2023 5:08 PM EST [facility] Potassium, Plasma 4.0 3.7 - 4.8 mmol/L 07/18/2023 5:08 PM EST [facility] Chloride, Plasma 103 97 - 107 mmol/L 07/18/2023 5:08 PM EST [facility] CO2, Plasma 27 22 - 29 mmol/L 07/18/2023 5:08 PM EST [facility] Anion Gap 11 6 - 16 mmol/L 07/18/2023 5:08 PM EST [facility] Total Calcium, Plasma 9.2 8.9 - 10.2 mg/dL 07/18/2023 5:08 PM EST [facility] eGFRcr 107.5 mL/min/1.7 3m*2 07/18/2023 5:08 PM EST [facility] Comment:Reported eGFRcr in m L/min/1.73m2 is based the CKD-EPI 2020 equation that does not use a race coefficient. Blood Venous blood specimen / Unknown 07/18/2023 3:00 PM EST 07/18/2023 4:44 PM EST us Bryanna Lockhart MD LAB BLOOD ORDERABLES Final Result Performing Organization Address City/State/[facility] Co de Phone Number [facility] [address] [place] [address] documented in this encounter Visit Diagnoses Diagnosis Encounter for general adult medical examination without abnormal findings documented in this encounter Care Teams Relief Driller Relationship Specialty Start Date End Date Bryanna Lockhart MD [address] [place] [address] PCP - General 10/09/20 documented as of this encounter
--- OUTSIDE RECORDS SUMMARY | 2024-12-13 20:38 | XMS_ITS | Encounter Summary ---
Author Organization [facility] Address [address] [phone] Care Team Providers Care Drywall Stripper Name Role Phone Bryanna Lockhart MD Primary Care Provider [phone] Encounter Details Date Type Department Care Team (Late st Contact Info) Description 08/17/2023 Lab Requisition [facility] [address] [place] [address] Bryanna Lockhart MD [address] [phone] Disorder of the autonomic nervous system, unspecified [...] Diagnosis Comments BASIC METABOLIC PANEL, PLASMA Routine 08/17/2023 10:45 AM EDT Disorder of the autonomic nervous system, unspecified documented in this encounter Results * (ABNORMAL) Basic metabolic panel (08/17/2023 10:45 AM EDT) Glucose, Plasma 115(H) 74 - 99 mg/dL 08/17/2023 12:20 PM EDT [facility] BUN, Plasma 7 7 - 21 mg/dL 08/17/2023 12:20 PM EDT [facility] Creatinine, Plasma 0.67 0.60 - 1.10 mg/dL 08/17/2023 12:20 PM EDT [facility] BUN/Creatinine Ratio 10 08/17/2023 12:20 PM EDT [facility] Sodium, Plasma 138 136 - 145 mmol/L 08/17/2023 12:20 PM EDT [facility] Potassium, Plasma 4.1 3.7 - 4.8 mmol/L 08/17/2023 12:20 PM EDT [facility] Chloride, Plasma 101 97 - 107 mmol/L 08/17/2023 12:20 PM EDT [facility] CO2, Plasma 25 22 - 29 mmol/L 08/17/2023 12:20 PM EDT [facility] Anion Gap 12 6 - 16 mmol/L 08/17/2023 12:20 PM EDT [facility] Total Calcium, Plasma 9.3 8.9 - 10.2 mg/dL 08/17/2023 12:20 PM EDT [facility] eGFRcr 104.7 mL/min/1.7 3m*2 08/17/2023 12:20 PM EDT [facility] Comment:Reported eGFRcr in m L/min/1.73m2 is based the CKD-EPI 2020 equation that does not use a race coefficient. Blood Venous blood specimen / Unknown 08/17/2023 10:45 AM EDT 08/17/2023 11:48 AM EDT us Bryanna Lockhart MD LAB BLOOD ORDERABLES Final Result [facility] [address] [place] [address] documented in this encounter Visit Diagnoses Diagnosis Disorder of the autonomic nervous system, unspecified documented in this encounter Care Teams Drywall Stripper Relationship Specialty Start Date End Date Bryanna Lockhart MD [address] [place] [address] PCP - General 10/09/20 documented as of this encounter
--- OUTSIDE RECORDS SUMMARY | 2024-12-13 20:38 | XMS_ITS | Encounter Summary ---
Author Organization Healthcare Address [address] [id number] Care Team Providers Care School Admissions Representative Name Role Phone Bryanna Lockhart MD Primary Care Provider [phone] Encounter Details Date Type Department Care Team (Late st Contact Info) Description 08/30/2023 Lab Requisition [facility] [address] [place] [address] Bryanna Lockhart MD [address], [place] [phone] Migraine without aura, intractable, without status migrainosus; Raised antibody titer Social History Tobacco Use Types Packs/Day Years [...] Diagnosis Comments BASIC METABOLIC PANEL, PLASMA Routine 08/30/2023 11:00 AM EDT Migraine without aura, intractable, without status migrainosus Raised antibody titer documented in this encounter Results * (ABNORMAL) Basic metabolic panel (08/30/2023 11:00 AM EDT) Glucose, Plasma 114(H) 74 - 99 mg/dL 08/30/2023 1:08 PM EDT [facility] BUN, Plasma 6(L) 7 - 21 mg/dL 08/30/2023 1:08 PM EDT [facility] Creatinine, Plasma 0.64 0.60 - 1.10 mg/dL 08/30/2023 1:08 PM EDT [facility] BUN/Creatinine Ratio 9 08/30/2023 1:08 PM EDT [facility] Sodium, Plasma 139 136 - 145 mmol/L 08/30/2023 1:08 PM EDT [facility] Potassium, Plasma 4.3 3.7 - 4.8 mmol/L 08/30/2023 1:08 PM EDT [facility] Chloride, Plasma 102 97 - 107 mmol/L 08/30/2023 1:08 PM EDT [facility] CO2, Plasma 26 22 - 29 mmol/L 08/30/2023 1:08 PM EDT [facility] Anion Gap 11 6 - 16 mmol/L 08/30/2023 1:08 PM EDT [facility] Total Calcium, Plasma 9.7 8.9 - 10.2 mg/dL 08/30/2023 1:08 PM EDT [facility] eGFRcr 105.8 mL/min/1.7 3m*2 08/30/2023 1:08 PM EDT [facility] Comment:Reported eGFRcr in m L/min/1.73m2 is based the CKD-EPI 2020 equation that does not use a race coefficient. Blood Venous blood specimen / Unknown 08/30/2023 11:00 AM EDT 08/30/2023 12:27 PM EDT Bryanna Lockhart MD LAB BLOOD ORDERABLES Final Result [facility] [address] [place] [address] documented in this encounter Visit Diagnoses Diagnosis Migraine without aura, intractable, without status migrainosus Raised antibody titer Other and unspecified nonspecific immunological findings documented in this encounter Care Teams School Admissions Representative Relationship Specialty Start Date End Date Bryanna Lockhart MD [address] [place] [address] PCP - General 10/09/20 documented as of this encounter
--- OUTSIDE RECORDS SUMMARY | 2024-12-13 20:38 | XMS_ITS | Encounter Summary ---
Author Organization [facility] Address [address] [address] Care Team Providers Care Severity Of Illness Coordinator Name Role Phone Bryanna Lockhart MD Primary Care Provider [phone] Encounter Details Date Type Department Care Team (Late st Contact Info) Description 06/22/2023 Lab Requisition [facility] [address] [id number] Bryanna Lockhart MD [address] [place] [address] Other specified functional intestinal disorders; Disorder of [...] Diagnosis Comments BASIC METABOLIC PANEL, PLASMA Routine 06/22/2023 10:35 AM EST Other specified functional intestinal disorders Disorder of the autonomic nervous system, unspecified Raised antibody titer Migraine without aura, intractable, without status migrainosus documented in this encounter Results * (ABNORMAL) Basic metabolic panel (06/22/2023 10:35 AM EST) Glucose, Plasma 119(H) 74 - 99 mg/dL 06/22/2023 12:20 PM EST [facility] BUN, Plasma 8 7 - 21 mg/dL 06/22/2023 12:20 PM EST [facility] Creatinine, Plasma 0.55(L) 0.60 - 1.10 mg/dL 06/22/2023 12:20 PM EST [facility] BUN/Creatinine Ratio 15 06/22/2023 12:20 PM EST [facility] Sodium, Plasma 134(L) 136 - 145 mmol/L 06/22/2023 12:20 PM EST [facility] Potassium, Plasma 4.2 3.7 - 4.8 mmol/L 06/22/2023 12:20 PM EST [facility] Chloride, Plasma 100 97 - 107 mmol/L 06/22/2023 12:20 PM EST [facility] CO2, Plasma 27 22 - 29 mmol/L 06/22/2023 12:20 PM EST [facility] Anion Gap 7 6 - 16 mmol/L 06/22/2023 12:20 PM EST [facility] Total Calcium, Plasma 9.2 8.9 - 10.2 mg/dL 06/22/2023 12:20 PM EST [facility] eGFRcr 109.8 mL/min/1.7 3m*2 06/22/2023 12:20 PM [facility] Comment:Reported eGFRcr in m L/min/1.73m2 is based the CKD-EPI 2020 equation that does not use a race coefficient. Blood Venous blood specimen / Unknown 06/22/2023 10:35 AM EST 06/22/2023 12:01 PM EST Bryanna Lockhart MD LAB BLOOD ORDERABLES Final Result Performing Organization Address City/State/[facility] Co de Phone Number [facility] [address] [place] [address] documented in this encounter Visit Diagnoses Diagnosis Other specified functional intestinal disorders Disorder of the autonomic nervous system, unspecified Raised antibody titer Other and unspecified nonspecific immunological findings Migraine without aura, intractable, without status migrainosus documented in this encounter Care Teams Severity Of Illness Coordinator Relationship Specialty Start Date End Date Bryanna Lockhart MD [address] [place] [address] PCP - General 10/09/20 documented as of this encounter
--- OUTSIDE RECORDS SUMMARY | 2024-12-13 20:38 | XMS_ITS | Encounter Summary ---
Author Organization [facility] Address [address] [id number] Care Team Providers Care Supervisor Paste Mixing Name Role Phone Bryanna Lockhart MD Primary Care Provider [phone] Encounter Details Date Type Department Care Team (Late st Contact Info) Description 11/22/2023 Lab Requisition [facility] [address] [place] [address] Bryanna Lockhart MD [address] [phone] Other specified functional intestinal disorders; Disorder of [...] Diagnosis Comments BASIC METABOLIC PANEL, PLASMA Routine 11/22/2023 10:45 AM EDT Other specified functional intestinal disorders Disorder of the autonomic nervous system, unspecified Raised antibody titer Migraine without aura, intractable, without status migrainosus documented in this encounter Results * (ABNORMAL) Basic metabolic panel (11/22/2023 10:45 AM EDT) Glucose, Plasma 111(H) 74 - 99 mg/dL 11/22/2023 1:27 PM EDT [facility] BUN, Plasma 8 7 - 21 mg/dL 11/22/2023 1:27 PM EDT [facility] Creatinine, Plasma 0.64 0.60 - 1.10 mg/dL 11/22/2023 1:27 PM EDT [facility] BUN/Creatinine Ratio 13 11/22/2023 1:27 PM EDT [facility] Sodium, Plasma 140 136 - 145 mmol/L 11/22/2023 1:27 PM EDT [facility] Potassium, Plasma 3.9 3.7 - 4.8 mmol/L 11/22/2023 1:27 PM EDT [facility] Chloride, Plasma 101 97 - 107 mmol/L 11/22/2023 1:27 PM EDT [facility] CO2, Plasma 25 22 - 29 mmol/L 11/22/2023 1:27 PM EDT [facility] Anion Gap 14 6 - 16 mmol/L 11/22/2023 1:27 PM EDT [facility] Total Calcium, Plasma 9.6 8.9 - 10.2 mg/dL 11/22/2023 1:27 PM EDT [facility] eGFRcr 105.8 mL/min/1.7 3m*2 11/22/2023 1:27 PM EDT [facility] Comment:Reported eGFRcr in m L/min/1.73m2 is based the CKD-EPI 2020 equation that does not use a race coefficient. Blood Venous blood specimen / Unknown 11/22/2023 10:45 AM EDT 11/22/2023 12:29 PM EDT us Bryanna Lockhart MD LAB BLOOD ORDERABLES Final Result Performing Organization Address City/State/[facility] Co de Phone Number [facility] [address] [place] [address] documented in this encounter Visit Diagnoses Diagnosis Other specified functional intestinal disorders Disorder of the autonomic nervous system, unspecified Raised antibody titer Other and unspecified nonspecific immunological findings Migraine without aura, intractable, without status migrainosus documented in this encounter Care Teams Supervisor Paste Mixing Relationship Specialty Start Date End Date Bryanna Lockhart MD [address] [place] [address] PCP - General 10/09/20 documented as of this encounter
--- OUTSIDE RECORDS SUMMARY | 2024-12-13 20:38 | XMS_ITS | Clinical Summary ---
Author Organization [facility] Address [address] [place] [address] Care Team Providers Care Power Grader Operator Name Role Phone Bryanna Lockhart MD Primary Care Provider [phone] Social History Tobacco Use Types Packs/Day Years Used Date Smoking Tobacco: Never Assessed Comments Unknown Sex and Gender Information Value Date Recorded Sex Assigned at Not on file Legal Sex Female 8:40 PM EDT Gender Identity Not on file Sexual Orientation Not on file Plan of Treatment Not on file Insurance [facility] MEDICARE Care Teams Power Grader Operator Relationship Specialty Start Date End Date Bryanna Lockhart MD [address] [place] [address] PCP - General 10/09/20
--- OUTSIDE RECORDS SUMMARY | 2024-12-13 20:38 | XMS_ITS | Encounter Summary ---
Author Organization Healthcare Address [address] [place] [address] Care Team Providers Care Seismic Engineer Name Role Phone Bryanna Lockhart MD Primary Care Provider Encounter Details Date Type Department Care Team (Late st Contact Info) Description 11/08/2023 Lab Requisition [facility] [address] [place] [address] Bryanna Lockhart MD [address] [place] [address] Migraine without aura, intractable, without status migrainosus [...] Diagnosis Comments BASIC METABOLIC PANEL, PLASMA Routine 11/08/2023 11:25 AM EDT Migraine without aura, intractable, without status migrainosus documented in this encounter Results * (ABNORMAL) Basic metabolic panel (11/08/2023 11:25 AM EDT) Glucose, Plasma 110(H) 74 - 99 mg/dL 11/08/2023 1:54 PM EDT [facility] BUN, Plasma 10 7 - 21 mg/dL 11/08/2023 1:54 PM EDT [facility] Creatinine, Plasma 0.53(L) 0.60 - 1.10 mg/dL 11/08/2023 1:54 PM EDT [facility] BUN/Creatinine Ratio 19 11/08/2023 1:54 PM EDT [facility] Sodium, Plasma 138 136 - 145 mmol/L 11/08/2023 1:54 PM EDT [facility] Potassium, Plasma 4.0 3.7 - 4.8 mmol/L 11/08/2023 1:54 PM EDT [facility] Chloride, Plasma 103 97 - 107 mmol/L 11/08/2023 1:54 PM EDT [facility] CO2, Plasma 24 22 - 29 mmol/L 11/08/2023 1:54 PM EDT [facility] Anion Gap 11 6 - 16 mmol/L 11/08/2023 1:54 PM EDT [facility] Total Calcium, Plasma 9.1 8.9 - 10.2 mg/dL 11/08/2023 1:54 PM EDT [facility] eGFRcr 110.7 mL/min/1.7 3m*2 11/08/2023 1:54 PM EDT [facility] Comment:Reported eGFRcr in m L/min/1.73m2 is based the CKD-EPI 2020 equation that does not use a race coefficient. Blood Venous blood specimen / Unknown 11/08/2023 11:25 AM EDT 11/08/2023 1:24 PM EDT us Bryanna Lockhart MD LAB BLOOD ORDERABLES Final Result [facility] [address] [place] [address] documented in this encounter Visit Diagnoses Diagnosis Migraine without aura, intractable, without status migrainosus documented in this encounter Care Teams Seismic Engineer Relationship Specialty Start Date End Date Bryanna Lockhart MD [address] [phone] PCP - General 10/09/20 documented as of this encounter
[2024-12-13 20:42] VITALS: BP 123/79; PULSE 75; RESP 16; TEMP 36.6; O2SAT 97; BMI 31.7
[2024-12-13 20:45] VITALS: PULSE 77; O2SAT 98
--- NOTE | 2024-12-13 20:47 | ED_ITS ---
<Statement entered by Bel Su DO - 12/14/24 01:40> I was consulted by the ANTON, and we discussed the complexity of problems being addressed. I approve the treatment and management plan for this patient's care in the emergency department, thus performing a substantial portion of the medical decision making. Bel Su DO Discharge Plan Disposition Patient Disposition: Left Against Medical Advice Prescriptions Prescriptions: No Action cyclobenzaprine 10 mg tablet 10 mg PO TID venlafaxine 75 mg capsule,extended release 24hr 75 mg PO DAILY alprazolam 1 mg tablet 1 mg PO BID promethazine [Promethegan] 25 mg suppository 25 mg OK TID PRN (Reason: Nausea And Vomiting) ondansetron HCl 2 mg/mL solution 4 mg IV Q4-6H PRN (Reason: Nausea And Vomiting) sodium chloride 0.45 % 0.45 % parenteral solution 100 ml IV DAILY PRN (Reason: social media coordinator) venlafaxine 150 mg capsule,extended release 24hr 150 mg PO DAILY pravastatin 10 mg tablet 10 mg PO DAILY meclizine 25 mg tablet 25 mg PO TID pantoprazole 40 mg tablet,delayed release (DR/EC) 40 mg PO DAILY lansoprazole 30 mg capsule,delayed release(DR/EC) 30 mg PO DAILY gabapentin 300 mg capsule 300 mg PO TID pravastatin 20 mg tablet 20 mg PO DAILY estradiol 0.5 mg tablet 0.5 mg PO DAILY sodium chloride 0.9 % Parenteral Solution 100 ea IV DAILY Cathflo Activase 2 mg recon soln 2 mg INTRA-CATHETER DAILY PRN (Reason: clogged PICC) sodium chloride 0.9 % (flush) [BD PosiFlush Normal Saline 0.9] Syringe 10 ml IV QID PRN (Reason: social media coordinator) heparin, porcine (PF) [Heparin LockFlush(Porcine)(PF)] 100 unit/mL syringe 100 unit intra-catheter DAILY PRN (Reason: blockage) ondansetron HCl (PF) 4 mg/2 mL solution 8 mg IV BID PRN (Reason: Nausea And Vomiting) [employer] Symtouch 3 mg/0.5 mL pen injector 3 mg SQ DAILY PRN (Reason: Migraine Headache) Trulance 3 mg tablet 3 mg PO DAILY prucalopride [Motegrity] 2 mg tablet 2 mg PO DAILY Vyepti 100 mg/mL solution See Rx Instructions .ROUTE .COMPLEX Rx Instructions: 100 mg intravenously every 3 months Referrals Follow up/Referrals: Provider,Referral, MD [Referring, Medical] - See instructions Clinical Impressions Clinical Impression: Cellulitis and abscess of other specified site Instructions Patient Instructions: DI for Skin Abscess Print Language Print Language: Mongolian Discharge ED Provider: Bel Su General Adult HPI <Bel Su DO - Last Filed: 12/13/24 20:47> General Chief complaint: Skin/Abscess/Foreign Body Stated complaint: Incision around gastric stimulator open&drainage Time Seen by Provider: 12/13/24 20:46 Related Data Home Medications ?Medication ?Instructions ?Recorded ?Confirmed alprazolam 1 mg tablet 1 mg PO BID 12/13/24 5 alteplase 2 mg intra-catheter 2 mg intra-catheter DARIANA Y PRN 12/13/24 12/13/24 solution (Cathflo Activase) clogged PICC cyclobenzaprine 10 mg tablet 10 mg PO TID 12/13/24 eptinezumab-jjmr 100 mg/mL See Rx Instructions .Route .COMPLEX 12/13/24 12/13/24 intravenous solution (Vyepti) estradiol 0.5 mg tablet 0.5 mg PO DAILY 12/13/24 gabapentin 300 mg capsule 300 mg PO TID 12/13/2412/13 heparin, porcine (PF) 100 unit/mL 100 unit intra-mary ter DAILY PRN 12/13/24 12/13/24 intravenous syringe (Heparin Lock blockage Flush (Porcine) (PF)) lansoprazole 30 mg capsule,delayed 30 mg PO DAILY 11/2612/13/24 release meclizine 25 mg tablet 25 mg PO TID 12/13/24 ondansetron HCl (PF) 4 mg/2 mL 8 mg IV BID PRN Nausea And Vomiting 12/13/24 12/13/24 injection solution ondansetron HCl 2 mg/mL 4 mg IV Q4-6H PRN Nausea And 12/13/24 12/13/24 intravenous solution Vomiting pantoprazole 40 mg tablet,delayed 40 mg PO DAILY 12/1312/13/24 release plecanatide 3 mg tablet (Trulance) 3 mg PO DAILY 12/1312/13/24 pravastatin 10 mg tablet 10 mg PO DAILY 12/13/2411/26 pravastatin 20 mg tablet 20 mg PO DAILY 12/13/2411/26 promethazine 25 mg rectal 25 mg OK TID PRN Nausea And 12/13/24 12/13/24 suppository (Promethegan) Vomiting prucalopride 2 mg tablet 2 mg PO DAILY 12/13/2412/13 (Motegrity) sodium chloride 0.45 % 0.45 % 100 ml IV DAILY PRN social media coordinator 12/13/24 12/13/24 intravenous solution sodium chloride 0.9 % 100 ea IV DAILY 12/13/24 sodium chloride 0.9 % (flush) (BD 10 ml IV QID PRN social media coordinator 12/13/24 12/13/24 PosiFlush Normal Saline 0.9 % injection syringe) sumatriptan succinate 3 mg/0.5 mL 3 mg SQ DAILY PRN Mi graine Headache 12/13/24 12/13/24 subcutaneous pen injector ([employer] Symtouch) venlafaxine 150 mg 150 mg PO DAILY 12/13/24 capsule,extended release 24 hr venlafaxine 75 mg capsule,extended 75 mg PO DAILY 11/2612/13/24 release 24 hr Allergies Allergy/AdvReac Type Severity Reaction Status Date / Time Codeine Allergy Unknown Other Uncoded 12/13/24 20:52 <Kirstie Pearce (ED), HUMAN RESOURCES OPERATIONS DIRECTOR - Last Filed: 12/13/24 22:53> History of Present Illness HPI narrative: 54-year-old female presents to the ED today for complaint of drainage that is yellow coming from her gastric stimulator site that was changed on 11/11. She has gastroparesis and has had the stimulator placed for this. She has had 7 of these in the past. She also has a PICC line for hydration and Zofran infusions. She had this done initially at [facility] per her family. Patient states that she is concerned that this is infected. It does have a small amount of erythema at the site. She has no fevers or chills. No nausea, vomiting or diarrhea. PFSH <Bel Su DO - Last Filed: 12/13/24 20:47> [facility] Disclaimer: The information contained in this section may have been updated after the patient was seen, as this information can be updated by other users. Social History Smoking Status: Former smoker alcohol intake: former current occupational status: other Travel in the last 8 weeks?: None <Kirstie Pearce (ED), HUMAN RESOURCES OPERATIONS DIRECTOR - Last Filed: 12/13/24 22:53> ROS Obtained: Yes Systems reviewed as appropriate & no additional complaints except as documented Constitutional Constitutional: Reports as per HPI Physical Exam <Bel Su DO - Last Filed: 12/13/24 20:47> General General appearance: alert and in no apparent distress Head Head exam: atraumatic, normocephalic and normal inspection Eye Eye exam: Present normal appearance, PERRL and EOMI; Absent scleral icterus ENT ENT exam: Present normal exam and normal external ear exam Neck Neck exam: Present normal inspection and full ROM Chest Chest inspection: Present normal inspection and symmetric chest wall rise Respiratory Respiratory exam: Present normal lung sounds bilaterally; Absent respiratory distress or wheezes Cardiovascular Cardiovascular exam: Present regular rate, normal rhythm and normal heart sounds Abdominal Exam Abdominal exam: Present soft and distention; Absent tenderness, guarding or rebound Extremities Exam Extremities exam: Present normal inspection and full ROM Back Exam Back exam: Present normal inspection and full ROM Neurological Exam Neurological exam: Present alert and oriented X3 Psychiatric Psychiatric exam: Present normal affect and normal mood Skin Skin exam: Present warm and dry <Kirstie Pearce (ED), HUMAN RESOURCES OPERATIONS DIRECTOR - Last Filed: 12/13/24 22:53> Abdominal Exam Abdominal exam: Present tenderness Medical Decision Making <Bel Su DO - Last Filed: 12/13/24 20:47> Medical Records Screening: Per USPSTF and CDC recommendations, given the prevalence of disease in our region, it is our hospital?s policy to screen for HIV and viral Hepatitis for all patients aged 18 and over and those with ongoing risk factors. Vital Signs: 12/13/24 20:42 12/13/24 20:45 12/13/24 22:29 Temperature 97.8 F 98.3 F Temperature Source Oral Oral Pulse Rate 77 75 Pulse Rate [Radial] 75 Respiratory Rate 16 16 Blood Pressure 148/98 H Blood Pressure [Left Arm] 123/79 Blood Pressure Mean [Left Arm] 93 Blood Pressure Source [Left Arm] Automatic Cuff Blood Pressure Position [Left Arm] Left Lateral 02 Sat by Pulse Oximetry 97 98 Oxygen Delivery Method Room Air Room Air Lab Data Lab Results 12/13/24 21:10: WBC 10.0, RBC 4.20, Hgb 11.9 L, Hct 36.2 L, MCV 86.2, MCH 28.3, MCHC 32.9, RDW 14.6, Plt Count 314, MPV 9.1, Neut % (Auto) 57.6, Lymph % (Auto) 31.3, Merrick % (Auto) 7.0, Eos % (Auto) 3.5, Baso % (Auto) 0.2, Neut # (Auto) 5.8, Lymph # (Auto) 3.1, Merrick # (Auto) 0.7, Eos # (Auto) 0.4, Baso # (Auto) 0.0, S odium 135 L, Potassium 4.0, Chloride 100, Carbon Dioxide 30, Anion Gap 9.0, BUN 7, Creatinine 0.60, Estimated Creat Clear 142, Estimated GFR 104, Est GFR ( Amer) 126, Glucose 99, Calcium 9.4, Magnesium 2.0, Total Bilirubin 0.4, AST 25, ALT 11 L, Alkaline Phosphatase 78, Total Protein 7.2, Albumin 4.3, Globulin 2.9, Albumin/Globulin Ratio 1.5, Lipase 37 12/13/24 21:10 12/13/24 21:10 Orders (Tests/Meds): ED MEDICATIONS Discontinued Medications Generic Name Dose Route Start Last Admin Trade Name Hollisq PRN Reason Stop Dose Admin Famotidine 20 mg 12/13/24 20:55 12/13/24 21:17 Famotidine 20mg/2ml Vial IV 12/13/24 20:56 20 mg ONCE ONE Administration Sodium Chloride 1,000 mls @ 999 mls/hr 12/13/24 20:55 12/13/24 21:17 Sod Chlor 0.9% 1000ml Bag IV 12/13/24 21:55 999 mls/hr .Q1H1M ONE Administration Sodium Chloride 8 ml 12/13/24 20:55 Sodium Chloride 0.9% 10ml Vial IV 01/12/25 20:54 NEEDED PRN dilute pepcid ORDERS Category Date Time Status CT abdomen pelvis w con Stat Cat Scan 12/13/24 20:56 Ordered CBC [Complete Blood Count Auto Diff] Stat Lab 12/13/24 21:10 Completed Comprehensive Metabolic Panel Stat Lab 12/13/24 21:10 Completed Lipase Stat Lab 12/13/24 21:10 Completed Magnesium Stat Lab 12/13/24 21:10 Completed <Kirstie Pearce (ED), HUMAN RESOURCES OPERATIONS DIRECTOR - Last Filed: 12/13/24 22:53> Medical Records Medical records reviewed: Yes I reviewed the patient's medical records. Luisito Inquiry Pt receiving controlled substance: No Luisito was queried for this patient: No Vital Signs: 12/13/24 20:42 12/13/24 20:45 12/13/24 22:29 Temperature 97.8 F 98.3 F Temperature Source Oral Oral Pulse Rate 77 75 Pulse Rate [Radial] 75 Respiratory Rate 16 16 Blood Pressure 148/98 H Blood Pressure [Left Arm] 123/79 Blood Pressure Mean [Left Arm] 93 Blood Pressure Source [Left Arm] Automatic Cuff Blood Pressure Position [Left Arm] Left Lateral 02 Sat by Pulse Oximetry 97 98 Oxygen Delivery Method Room Air Room Air Lab Data Lab Results 12/13/24 21:10: WBC 10.0, RBC 4.20, Hgb 11.9 L, Hct 36.2 L, MCV 86.2, MCH 28.3, MCHC 32.9, RDW 14.6, Plt Count 314, MPV 9.1, Neut % (Auto) 57.6, Lymph % (Auto) 31.3, Merrick % (Auto) 7.0, Eos % (Auto) 3.5, Baso % (Auto) 0.2, Neut # (Auto) 5.8, Lymph # (Auto) 3.1, Merrick # (Auto) 0.7, Eos # (Auto) 0.4, Baso # (Auto) 0.0, S odium 135 L, Potassium 4.0, Chloride 100, Carbon Dioxide 30, Anion Gap 9.0, BUN 7, Creatinine 0.60, Estimated Creat Clear 142, Estimated GFR 104, Est GFR ( Amer) 126, Glucose 99, Calcium 9.4, Magnesium 2.0, Total Bilirubin 0.4, AST 25, ALT 11 L, Alkaline Phosphatase 78, Total Protein 7.2, Albumin 4.3, Globulin 2.9, Albumin/Globulin Ratio 1.5, Lipase 37 Orders (Tests/Meds): ED MEDICATIONS Discontinued Medications Generic Name Dose Route Start Last Admin Trade Name Dejon PRN Reason Stop Dose Admin Famotidine 20 mg 12/13/24 20:55 12/13/24 21:17 Famotidine 20mg/2ml Vial IV 12/13/24 20:56 20 mg ONCE ONE Administration Sodium Chloride 1,000 mls @ 999 mls/hr 12/13/24 20:55 12/13/24 21:17 Sod Chlor 0.9% 1000ml Bag IV 12/13/24 21:55 999 mls/hr .Q1H1M ONE Administration Sodium Chloride 8 ml 12/13/24 20:55 Sodium Chloride 0.9% 10ml Vial IV 01/12/25 20:54 NEEDED PRN dilute pepcid ORDERS Category Date Time Status CT abdomen pelvis w con Stat Cat Scan 12/13/24 20:56 Ordered CBC [Complete Blood Count Auto Diff] Stat Lab 12/13/24 21:10 Completed Comprehensive Metabolic Panel Stat Lab 12/13/24 21:10 Completed Lipase Stat Lab 12/13/24 21:10 Completed Magnesium Stat Lab 12/13/24 21:10 Completed Medical Decision Narrative: patient is a 54-year-old female presenting to the emergency department for evaluation of her gastric stimulator has yellow fluid draining at the site with small amount of erythema. Patient is hemodynamically stable and nontoxic- appearing upon arrival, afebrile. Differential diagnosis includes abscess. Workup will be conducted with hematologic labs, specific imaging. Initial inventions include crystalloid bolus. Will work on interventions and scans with labs. Patient does have tach but it does not have the power gradient on it where CT can use the port for CT scan. Patient has terrible veins. Awaiting ultrasound IV. Patient declined ultrasound IV she chose to leave AMA because lawful knows her information so she did not want to stay here. We discussed leaving AGAINST MEDICAL ADVICE but patient wanted to sign paperwork and leave anyway. Critical Care <Kirstie Pearce (ED), HUMAN RESOURCES OPERATIONS DIRECTOR - Last Filed: 12/13/24 22:53> Critical Care Time Critical Care Time: No
[2024-12-13] MEDS: 0.9 % SODIUM CHLORIDE 1000ML 1,000 ML 999 ML IV (21:17)
[2024-12-13] MEDS: FAMOTIDINE 20MG/2ML VIAL 20 MG IV (21:17)
[2024-12-13 21:19] LABS: Hematocrit 36.2 % (37.0-47.0); Hemoglobin 11.9 g/dL (12.2-16.2); Immature Granulocytes % 0.4 %; Mean Corpuscular HGB Conc 32.9 g/dL (31.8-35.4); Mean Corpuscular Hemoglobin 28.3 pg (27.0-31.2); Mean Corpuscular Volume 86.2 fl (81-99); Nucleated Red Blood Cells % 0 %; Platelet Count 314 K/mm3 (142-424); Red Blood Count 4.20 M/mm3 (4.20-5.40); Red Cell Distribution Width-SD 45.8 fL; White Blood Count 10.0 K/mm3 (4.8-10.8)
[2024-12-13 21:33] LABS: Alanine Aminotransferase 11 U/L (12-78); Albumin Level 4.3 g/dl (3.5-5.0); Albumin/Globulin Ratio 1.5 (1.1-1.8); Alkaline Phosphatase 78 U/L (38-126); Anion Gap 9.0 mEq/L (5-15); Aspartate Amino Transferase 25 U/L (14-36); Bilirubin,Total 0.4 mg/dl (0.2-1.3); Blood Urea Nitrogen 7 mg/dl (7-17); Calcium 9.4 mg/dl (8.4-10.2); Carbon Dioxide 30 mmol/L (22.0-30.0); Chloride 100 mmol/L (98-107); Creatinine Clearance Estimated 142 mL/min (50-200); Creatinine,Serum 0.60 mg/dl (0.52-1.04); Estimated Glomerular Filt Rate 104 ml/min (>60); GFR (African American) 126 ML/MIN (>60); Globulin 2.9 g/dL (1.3-3.2); Glucose 99 mg/dl (74-100); Lipase 37 U/L (23-300); Magnesium 2.0 mg/dl (1.6-2.3); Potassium 4.0 mmoL/L (3.5-5.1); Sodium 135 mmol/L (136-145); Total Protein,Serum 7.2 g/dl (6.3-8.2)
--- NOTE | 2024-12-13 22:13 | PC.NURSE ---
Patient with PICC to right upper arm. Not marked with pressure rating. Patient does not have card with PICC information. CT scan will not do IV contrast without knowing pressure rating of PICC. Attempt to insert IV to left AC without success, PAUL Thacker notified. Patient stating she will just leave here and to go [place] where they know everything. PAUL Thacker notified of this and will have patient sign out AMA.
--- NOTE | 2024-12-13 22:25 | PC.NURSE ---
Pt decided to leave AMA. Pt states she has a PICC & RAD couldn't use it for contrast. A RN attempted to get an IV and the pt stated it hurt too bad and she was refusing any other attempts. This RN explained to pt that she was leaving against medical advice and offered to help her in any way. Pt stated she receives her care in [place] and she would rather go there. Pt did sign an AMA form and vocalized understanding.
[2024-12-13 22:29] VITALS: BP 148/98; PULSE 75; RESP 16; TEMP 36.8; O2SAT 99
== END 2024-12-13 22:32 | disposition left against medical advice (07) ==
PROVIDERS: Nurse Practitioner; Emergency Provider Student in an Organized Health Care Education/Training Program; PCP Family Medicine
DX: L03.818 Cellulitis of other sites (principal); Z87.891 Personal history of nicotine dependence
CPT/HCPCS: 80053; 83690; 83735; 85025; 96361; 96374; 99284; J7030